=== PATIENT | female | born 1940 | race Asian ===

== ENCOUNTER 2019-05-29 12:02 | Inpatient (IN) ==
[2019-05-29 12:32] LABS: Basophils # (auto) 0.01 K/uL (0-0.2); Basophils % (auto) 0.1 %; Eosinophils # (auto) 0.02 K/uL (0-0.5); Eosinophils % (auto) 0.1 %; Hematocrit (blood only) 43.6 % (37-47); Immature Granulocytes # (auto) 0.05 K/uL (0.00-0.02); Immature Granulocytes % (auto) 0.3 %; Lymphocytes # (auto) 1.53 K/uL (1.2-3.4); Lymphocytes % (auto) 9.9 %; Mean Corpuscular Hemoglobin 31.3 pg (25-34); Mean Corpuscular Hgb Conc 34.4 g/dL (32-36); Mean Corpuscular Volume 90.8 fL (80-100); Mean Platelet Volume 9.6 fL (7.4-10.4); Monocytes # (auto) 0.99 K/uL (0.11-0.59); Monocytes % (auto) 6.4 %; Neutrophils # (auto) 12.81 K/uL (1.4-6.5); Neutrophils % (auto) 83.2 %; Platelet Count 220 K/uL (130-400); White Blood Count 15.41 K/uL (4.8-10.8)
[2019-05-29 12:43] LABS: Partial Thromboplastin Time 26.2 Seconds (21.0-31.0); Prothrombin Time 10.6 Seconds (9.0-12.0)
[2019-05-29 12:49] LABS: Alanine Aminotransferase 16 U/L (12-78); Albumin Level 3.5 gm/dl (3.4-5.0); Aspartate Aminotransferase 30 U/L (15-37); BUN Creatinine Ratio 13.6 (10-20); Blood Urea Nitrogen 11 mg/dl (7-18); Calcium 9.3 mg/dl (8.5-10.1); Carbon Dioxide 25 mmol/L (21-32); Chloride 108 mmol/L (98-107); Creatinine Clr Calc Pharmacy 36.7 ml/min; Est GFR (African American) 81.9; Est GFR (Non-African American) 70.7; Glucose 122 mg/dl (70-99); Potassium 3.7 mmol/L (3.5-5.1); Sodium 140 mmol/L (136-145)
[2019-05-29 12:53] LABS: Albumin Globulin Ratio 0.8 (0.9-2); Alkaline Phosphatase 93 U/L (45-117); Bilirubin,Total 0.5 mg/dl (0.2-1); Globulin 4.3 gm/dl (2.5-4.0); Total Protein 7.8 gm/dl (6.4-8.2); Troponin I < 0.015 ng/ml (0-0.045)
--- NOTE | 2019-05-29 12:55 | XRay Report ---
XR chest 1V portable CLINICAL HISTORY: Cerebrovascular accident. COMPARISON STUDY: No previous studies for comparison. FINDINGS: Lung volumes are at the lower limits of normal. There is no consolidation or evidence for p ulmonary edema. There is mild cardiomegaly. Mediastinal contours are otherwise unremarkable. Is no pn eumothorax. There may be a trace right pleural effusion. IMPRESSION: Possible trace right pleural effusion with minimal right basilar opacity. ACT 112: Negative or not required by law. Electronically signed by: Usman Lynn M.D. 05/29/2019 12:54 PM
[2019-05-29 12:56] LABS: iSTAT Creatinine 0.5 mg/dl (0.6-1.3); iSTAT Hemoglobin 14.3 g/dl (12.0-16.0); iSTAT Ionized Calcium 1.19 mmol/l (1.12-1.32); iSTAT Potassium 3.5 mEq/L (3.3-5.0)
[2019-05-29] MEDS ORDERED: OPTIRAY 320 125ml IV PRN (12:58)
[2019-05-29] MEDS: SODIUM CHLORIDE 0.9% 1000ML 1,000 ML IV SCH ×2 (13:00→20:02)
[2019-05-29 13:34] LABS: Appearance Urine Clear (Clear); Bilirubin Urine Negative (Negative); Blood Urine 1+ (Negative); Color Urine Yellow; Glucose Urine UA Negative (Negative); Ketones Urine Negative (Negative); Leukocyte Esterase Urine Negative (Negative); Nitrite Urine Negative (Negative); Protein Urine Negative (Negative); Specific Gravity Urine 1.014 (1.000-1.030); Urobilinogen Urine Negative (Negative); pH Urine 6.5 (4.5-7.5)
--- NOTE | 2019-05-29 13:47 | CT Scan Report ---
CT OF THE HEAD WITHOUT CONTRAST CLINICAL HISTORY: Stroke evaluation COMPARISON STUDY: No previous studies for comparison. TECHNIQUE: Helical axial images of the head were obtained without IV contrast. Automated exposure con trol was utilized for the study. A dose lowering technique was utilized adhering to the principles o f ALARA. FINDINGS: No acute intracranial hemorrhage, midline shift or mass effect is present. Ventricular syst em is unremarkable for age. Basilar cisterns are patent. There are no extra axial collections. Modera te white matter hypodensity suggests small vessel disease. There is loss of pan-white differentiatio n is a 1.7 cm hypodensity within the left insular cortex on axial image 16 of 28. There is no mass ef fect. Small amount of left mastoid fluid is noted. Right sphenoid sinus is partially opacified. There are no significant calvarial abnormalities. IMPRESSION: 1. No acute intracranial hemorrhage or mass effect. 2. 1.7 cm hypodensity with loss of pan-white differentiation within the left insular cortex which craig ggests a small acute infarct. Findings discussed with Dr. Gonzalez at time of dictation. ACT 112: Negative or not required by law. Electronically signed by: Usman Lynn M.D. 05/29/2019 1:46 PM
--- NOTE | 2019-05-29 13:55 | CT Scan Report ---
CT ANGIOGRAPHY OF THE NECK WITH CONTRAST CLINICAL HISTORY: Cerebrovascular accident. COMPARISON STUDY: No previous studies for comparison. Technique: CT angiography of the carotid and vertebral arteries was obtained using ISVS 320 IV and 3D reconstruction on an independent workstation. NASCET criteria was utilized. Automated exposure c ontrol was utilized for the study. A dose lowering technique was utilized adhering to the principles of ALARA. CT DOSE: 1021.32 mGy.cm Findings: There is severe stenosis at the origin of the left vertebral artery. No additional stenoses within the major vessels of the neck are noted. There is mild plaque within the proximal left equine internship al carotid artery. There is no dissection or aneurysmal dilatation within the major vessels of the ne ck. Lung apices are clear. There is no cervical lymphadenopathy. There is no cervical spine fracture. Moderate atherosclerotic plaque of the aortic arch is noted. IMPRESSION: 1. 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 2. No additional stenoses within the major vessels of the neck. No dissection. Mild atherosclerotic p laque within the proximal left internal carotid artery. ACT 112: Negative or not required by law. Electronically signed by: Usman Lynn M.D. 05/29/2019 1:54 PM
[2019-05-29 13:56] LABS: Epithelial Cell Urine 0-5 /lpf (0-5); RBC Urine 0-4 /hpf (0-4); WBC Urine 0-5 /hpf (0-5)
[2019-05-29 13:57] LABS: Bacteria Urine Negative (Negative)
--- NOTE | 2019-05-29 13:59 | CT Scan Report ---
CTA ANGIOGRAPHY OF THE HEAD CLINICAL HISTORY: Cerebrovascular accident. COMPARISON STUDY: No previous studies for comparison. TECHNIQUE: Helical axial images of the head were obtained following uneventful intravenous administr ation of 120 cc of Optiray 320. Automated exposure control was utilized for the study. A dose lower ing technique was utilized adhering to the principles of ALARA. FINDINGS: Moderate to severe multifocal stenoses within the intracranial vessels are noted, including severe stenosis of the right P2 segment and severe stenosis of the left A2 segment. There is no intr acranial aneurysm. There is moderate plaque within the bilateral cavernous carotids. There is a 6 mm thrombus within a left M2 segment of the left sylvian fissure on axial image 117 of 234. Thrombus is nearly occlusive. No additional intraluminal thrombi are noted. Moderate stenosis of the basilar sharmila ry is noted. IMPRESSION: 1. 6 mm thrombus within the left M2 segment within the left sylvian fissure. This accounts for the ac wainwright infarct on head CT. Discussed with Dr. Gonzalez at time of dictation. 2. Moderate to severe multifocal stenoses within the intracranial vessels, as described above. ACT 112: Negative or not required by law. Electronically signed by: Usman Lynn M.D. 05/29/2019 1:58 PM
--- NOTE | 2019-05-29 14:58 | Emergency Department Note ---
Entered by Charleen Adame acting as a scribe for History of Present Illness General Chief complaint: Neuro Symptoms/Deficit Stated complaint: NEURO SYMPTOMS Source: patient and family (daughter) History of Present Illness Onset (ago): hour(s) (14) Location: head Pain Consistency: + other (worsening ) Quality: + other (neurological symptoms) Associated symptoms: + other (positive right-sided facial droop; positive difficulty speaking; positive slurred speech; negative increased weakness from baseline; negative trouble swallowing); no chest pain, no headaches and no shortness of breath Treatments prior to arrival: aspirin The patient is a 78 year old female who presents to the Emergency Room with complaints of worsening neurological symptoms that began at 2230 last night, approximately 14 hours prior to arrival, 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 The patient's daughter states that last night the patient vomited just prior to going to bed. The patient's daughter states that after going to bed, the patient noticed that she was having difficulty speaking. Per the patient's daughter, when she went to see the patient this morning at approximately 0930, the patient had right-sided facial droop and slurred speech. The patient's daughter denies increased weakness in the patient's arms and legs from baseline, but states that the patient previously had a mild stroke making her right side weaker than her left. The patient denies headache, chest pain, sh ortness of breath, and trouble swallowing. The patient's daughter states that the patient had aspirin this morning. Home Medications Home Medications Medication Instructions Recorded Confirmed Type Benzbromaron 25 mg PO DAILY 05/29/19 05/29/19 History aspirin 81 mg PO DAILY 05/29/19 05/29/19 History wbglvqbo-qkmba-fbuuz-CF borate 1 tab PO DAILY 05/29/19 05/29/19 History [[employer] [facility]] metoprolol tartrate 25 mg PO DAILY 05/29/19 05/29/19 History omega 3-lub-alj-fish oil [Fish Oil] 1 cap PO DAILY 05/29/19 05/29/19 History turmeric 400 mg PO DAILY 05/29/19 05/29/19 History Allergies Allergy/AdvReac Type Severity Reaction Status Date / Time SEAFOOD Allergy Rash Uncoded 05/29/19 13:30 Past Med/Surg History Medical History Hypertension Stroke Family History Other No pertinent family history in first degree relatives Social History Feels Safe at Home: Yes Smoking Status: Never smoker Review of Systems See HPI for pertinent positives & negatives. and A total of 10 systems reviewed and were otherwise negative Physical Exam Vital Signs Vital Signs - 24 hr 05/29/19 12:02 05/29/19 12:05 05/29/19 12:16 Temperature 36.7 C Temperature Source Oral Pulse Rate 61 64 Respiratory Rate 20 18 Respiratory Effort / Characteristics Non-Labored Spontaneous Respiratory Depth Normal Blood Pressure 165/89 H 168/87 H Blood Pressure Mean 114 124 Blood Pressure Position Sitting Pulse Oximetry 98 98 Oxygen Delivery Method Room Air Room Air Sepsis Recent Fever Within 48 Hours No Sepsis Action Taken by Nursing No Action Required 05/29/19 12:33 05/29/19 12:40 05/29/19 12:50 Temperature Temperature Source Pulse Rate 62 64 64 Respiratory Rate 15 18 15 Respiratory Effort / Characteristics Respiratory Depth Blood Pressure Blood Pressure Mean Blood Pressure Position Pulse Oximetry Oxygen Delivery Method Sepsis Recent Fever Within 48 Hours Sepsis Action Taken by Nursing 05/29/19 13:08 05/29/19 13:09 05/29/19 13:16 Temperature Temperature Source Pulse Rate 78 79 Respiratory Rate 27 H 21 Respiratory Effort / Characteristics Respiratory Depth Blood Pressure 168/88 H Blood Pressure Mean 125 Blood Pressure Position Pulse Oximetry Oxygen Delivery Method Sepsis Recent Fever Within 48 Hours Sepsis Action Taken by Nursing 05/29/19 13:20 05/29/19 13:30 Temperature Temperature Source Pulse Rate 76 73 Respiratory Rate 21 17 Respiratory Effort / Characteristics Respiratory Depth Blood Pressure Blood Pressure Mean Blood Pressure Position Pulse Oximetry Oxygen Delivery Method Sepsis Recent Fever Within 48 Hours Sepsis Action Taken by Nursing GENERAL: Sitting up in bed, slightly ill-appearing, non-toxic, no acute distress. EYE EXAM: normal conjunctiva PERRL and EOM's intact OROPHARYNX: no exudate, no erythema, lips, buccal mucosa, and tongue normal and mucous membranes are moist NECK: supple, no nuchal rigidity, no adenopathy, non-tender LUNGS: Clear to auscultation. Normal chest wall mechanics HEART: no murmurs, S1 normal and S2 normal ABDOMEN: abdomen soft, non-tender, normo-active bowel sounds, no masses, no rebound or guarding. BACK: Back is symmetrical on inspection and there is no deformity, no midline tenderness, no CVA tenderness. SKIN: no rashes and no bruising UPPER EXTREMITIES: upper extremities are grossly normal. LOWER EXTREMITIES: No pitting edema. NEURO EXAM: Normal sensorium, right-sided facial droop, slurred speech, no weakness of arms, no weakness of legs. Mild drift of right upper extremity. Finger to nose intact. Gross sensation intact. Course Course ED COURSE: Vital signs were reviewed and showed hypertension. The patients medical record was reviewed The above diagnostic studies were performed and reviewed. ED treatments and interventions as stated above. 1215: The patient was evaluated in room C8. A complete history and physical examination was performed. 1349: I paged [facility] TeleStroke. 1350: I discussed the case with Dr. Shahid Neurology who states that he will evaluate the images and get back to me. 1425: I discussed the case with Dr. Shahid Neurology who states that the patient is not a tPA candidate and not an interventional candidate. 1429: Upon reevaluation, the patient is resting comfortably. I discussed my findings with the patient and her family and the patient and her family understand and agree with the treatment plan. Based on the patients age, coexisting illnesses, exam and lab findings the decision to treat as an inpatient was made. The patient remained stable while under my care. 1440: The patient will be evaluated for further management. I discussed the case with Dr. She[facility] who accepts the patient for further evaluation. Administered Medications Sodium Chloride (Nss 1000ml) 1,000 mls @ 50 mls/hr IV .Q20H PERICO Stop: 06/28/19 12:29 Last Admin: 05/29/19 13:00 Dose: 50 mls/hr Documented by: [id number] Ioversol (Optiray 320 125ml) 120 ml IV ONCE PRN PRN Reason: Interaction Checking Stop: 06/02/19 12:57 Last Admin: 05/29/19 12:58 Dose: 120 ml Documented by: [id number] Medical Decision Making Differential Diagnosis Differential Diagnosis includes but is not limited to ischemic Stroke, hemorr hagic stroke, bells palsy, mass, neoplasm, migraine headache, seizure, subarachnoid hemorrhage, TIA, and transient global amnesia. Medical Records Attestation: I reviewed the patient's medical records. Home Medications Current Medication List: was personally reviewed by me Laboratory Data Attestation: I reviewed the patient's lab results. Result diagrams: 05/29/19 12:45 05/29/19 12:45 Lab Results 05/29/19 05/29/19 05/29/19 Range/Units 12:25 12:35 12:44 WBC (4.8-10.8) K/uL RBC (4.2-5.4) M/uL Hgb (12.0-16.0) g/dL POC Hgb 14.3 (12.0-16.0) g/dl Hct (37-47) % POC Hct 42 (37-47) % MCV (80-100) fL MCH (25-34) pg MCHC (32-36) g/dL RDW Std Deviation (36.4-46.3) fL RDW Coeff of Donis (11.5-14.5) % Plt Count (130-400) K/uL MPV (7.4-10.4) fL Immature Gran % (Auto) % Neut % (Auto) % Lymph % (Auto) % Bracken % (Auto) % Eos % (Auto) % Baso % (Auto) % Immature Gran # (Auto) (0.00-0.02) K/uL Neut # (Auto) (1.4-6.5) K/uL Lymph # (Auto) (1.2-3.4) K/uL Bracken # (Auto) (0.11-0.59) K/uL Eos # (Auto) (0-0.5) K/uL Baso # (Auto) (0-0.2) K/uL PT (9.0-12.0) Seconds INR (0.9-1.1) APTT (21.0-31.0) Seconds PTT Ratio POC Sodium 141 (135-144) mEq/L Sodium (136-145) mmol/L POC Potassium 3.5 (3.3-5.0) mEq/L Potassium (3.5-5.1) mmol/L POC Chloride 107 (101-112) mEq/L Chloride (98-107) mmol/L Carbon Dioxide (21-32) mmol/L POC Total CO2 22 L (24-31) mEq/l Anion Gap (3-11) POC Anion Gap 17.0 (16-25) mmol/L POC BUN 10 (7-18) mg/dl BUN (7-18) mg/dl Creatinine (0.6-1.2) mg/dl POC Creatinine 0.5 L (0.6-1.3) mg/dl Est Cr Clr Drug Dosing ml/min Est GFR ( Amer) Est GFR (Non-Af Amer) BUN/Creatinine Ratio (10-20) Glucose (70-99) mg/dl POC Glucose 116 H (70-99) POC Glucose (other) 113 H (70-99) mg/dl Calcium (8.5-10.1) mg/dl POC Ioniz Calcium Eddie 1.19 (1.12-1.32) mmol/l Magnesium (1.8-2.4) mg/dl Total Bilirubin (0.2-1) mg/dl AST (15-37) U/L ALT (12-78) U/L Alkaline Phosphatase (45-117) U/L Troponin I (0-0.045) ng/ml Total Protein (6.4-8.2) gm/dl Albumin (3.4-5.0) gm/dl Globulin (2.5-4.0) gm/dl Albumin/Globulin Ratio (0.9-2) Urine Color Urine Appearance (Clear) Urine pH (4.5-7.5) Ur Specific Nabb (1.000-1.030) Urine Protein (Negative) Urine Glucose (UA) (Negative) Urine Ketones (Negative) Urine Blood (Negative) Urine Nitrite (Negative) Urine Bilirubin (Negative) Urine Urobilinogen (Negative) Ur Leukocyte Esterase (Negative) Urine RBC (0-4) /hpf Urine WBC (0-5) /hpf Ur Epithelial Cells (0-5) /lpf Urine Bacteria (Negative) Blood Type O Positive Antibody Screen NEGATIVE 05/29/19 05/29/19 05/29/19 Range/Units 12:45 12:45 12:45 WBC 15.41 H (4.8-10.8) K/uL RBC 4.80 (4.2-5.4) M/uL Hgb 15.0 (12.0-16.0) g/dL POC Hgb (12.0-16.0) g/dl Hct 43.6 (37-47) % POC Hct (37-47) % MCV 90.8 (80-100) fL MCH 31.3 (25-34) pg MCHC 34.4 (32-36) g/dL RDW Std Deviation 40.0 (36.4-46.3) fL RDW Coeff of Donis 12.0 (11.5-14.5) % Plt Count 220 (130-400) K/uL MPV 9.6 (7.4-10.4) fL Immature Gran % (Auto) 0.3 % Neut % (Auto) 83.2 % Lymph % (Auto) 9.9 % Bracken % (Auto) 6.4 % Eos % (Auto) 0.1 % Baso % (Auto) 0.1 % Immature Gran # (Auto) 0.05 H (0.00-0.02) K/uL Neut # (Auto) 12.81 H (1.4-6.5) K/uL Lymph # (Auto) 1.53 (1.2-3.4) K/uL Bracken # (Auto) 0.99 H (0.11-0.59) K/uL Eos # (Auto) 0.02 (0-0.5) K/uL Baso # (Auto) 0.01 (0-0.2) K/uL PT 10.6 (9.0-12.0) Seconds INR 1.0 (0.9-1.1) APTT 26.2 (21.0-31.0) Seconds PTT Ratio 1.0 POC Sodium (135-144) mEq/L Sodium 140 (136-145) mmol/L POC Potassium (3.3-5.0) mEq/L Potassium 3.7 (3.5-5.1) mmol/L POC Chloride (101-112) mEq/L Chloride 108 H (98-107) mmol/L Carbon Dioxide 25 (21-32) mmol/L POC Total CO2 (24-31) mEq/l Anion Gap 6.0 (3-11) POC Anion Gap (16-25) mmol/L POC BUN (7-18) mg/dl BUN 11 (7-18) mg/dl Creatinine 0.79 (0.6-1.2) mg/dl POC Creatinine (0.6-1.3) mg/dl Est Cr Clr Drug Dosing 36.7 ml/min Est GFR ( Amer) 81.9 Est GFR (Non-Af Amer) 70.7 BUN/Creatinine Ratio 13.6 (10-20) Glucose 122 H (70-99) mg/dl POC Glucose (70-99) POC Glucose (other) (70-99) mg/dl Calcium 9.3 (8.5-10.1) mg/dl POC Ioniz Calcium Eddie (1.12-1.32) mmol/l Magnesium 2.0 (1.8-2.4) mg/dl Total Bilirubin 0.5 (0.2-1) mg/dl AST 30 (15-37) U/L ALT 16 (12-78) U/L Alkaline Phosphatase 93 (45-117) U/L Troponin I < 0.015 (0-0.045) ng/ml Total Protein 7.8 (6.4-8.2) gm/dl Albumin 3.5 (3.4-5.0) gm/dl Globulin 4.3 H (2.5-4.0) gm/dl Albumin/Globulin Ratio 0.8 L (0.9-2) Urine Color Urine Appearance (Clear) Urine pH (4.5-7.5) Ur Specific Nabb (1.000-1.030) Urine Protein (Negative) Urine Glucose (UA) (Negative) Urine Ketones (Negative) Urine Blood (Negative) Urine Nitrite (Negative) Urine Bilirubin (Negative) Urine Urobilinogen (Negative) Ur Leukocyte Esterase (Negative) Urine RBC (0-4) /hpf Urine WBC (0-5) /hpf Ur Epithelial Cells (0-5) /lpf Urine Bacteria (Negative) Blood Type Antibody Screen 05/29/19 Range/Units 13:15 WBC (4.8-10.8) K/uL RBC (4.2-5.4) M/uL Hgb (12.0-16.0) g/dL POC Hgb (12.0-16.0) g/dl Hct (37-47) % POC Hct (37-47) % MCV (80-100) fL MCH (25-34) pg MCHC (32-36) g/dL RDW Std Deviation (36.4-46.3) fL RDW Coeff of Donis (11.5-14.5) % Plt Count (130-400) K/uL MPV (7.4-10.4) fL Immature Gran % (Auto) % Neut % (Auto) % Lymph % (Auto) % Bracken % (Auto) % Eos % (Auto) % Baso % (Auto) % Immature Gran # (Auto) (0.00-0.02) K/uL Neut # (Auto) (1.4-6.5) K/uL Lymph # (Auto) (1.2-3.4) K/uL Bracken # (Auto) (0.11-0.59) K/uL Eos # (Auto) (0-0.5) K/uL Baso # (Auto) (0-0.2) K/uL PT (9.0-12.0) Seconds INR (0.9-1.1) APTT (21.0-31.0) Seconds PTT Ratio POC Sodium (135-144) mEq/L Sodium (136-145) mmol/L POC Potassium (3.3-5.0) mEq/L Potassium (3.5-5.1) mmol/L POC Chloride (101-112) mEq/L Chloride (98-107) mmol/L Carbon Dioxide (21-32) mmol/L POC Total CO2 (24-31) mEq/l Anion Gap (3-11) POC Anion Gap (16-25) mmol/L POC BUN (7-18) mg/dl BUN (7-18) mg/dl Creatinine (0.6-1.2) mg/dl POC Creatinine (0.6-1.3) mg/dl Est Cr Clr Drug Dosing ml/min Est GFR ( Amer) Est GFR (Non-Af Amer) BUN/Creatinine Ratio (10-20) Glucose (70-99) mg/dl POC Glucose (70-99) POC Glucose (other) (70-99) mg/dl Calcium (8.5-10.1) mg/dl POC Ioniz Calcium Eddie (1.12-1.32) mmol/l Magnesium (1.8-2.4) mg/dl Total Bilirubin (0.2-1) mg/dl AST (15-37) U/L ALT (12-78) U/L Alkaline Phosphatase (45-117) U/L Troponin I (0-0.045) ng/ml Total Protein (6.4-8.2) gm/dl Albumin (3.4-5.0) gm/dl Globulin (2.5-4.0) gm/dl Albumin/Globulin Ratio (0.9-2) Urine Color Yellow Urine Appearance Clear (Clear) Urine pH 6.5 (4.5-7.5) Ur Specific Nabb 1.014 (1.000-1.030) Urine Protein Negative (Negative) Urine Glucose (UA) Negative (Negative) Urine Ketones Negative (Negative) Urine Blood 1+ H (Negative) Urine Nitrite Negative (Negative) Urine Bilirubin Negative (Negative) Urine Urobilinogen Negative (Negative) Ur Leukocyte Esterase Negative (Negative) Urine RBC 0-4 (0-4) /hpf Urine WBC 0-5 (0-5) /hpf Ur Epithelial Cells 0-5 (0-5) /lpf Urine Bacteria Negative (Negative) Blood Type Antibody Screen Imaging Data Radiologist's Impression: Radiology results as stated below per my review and the radiologist's interpretation: XR chest 1V portable CLINICAL HISTORY: Cerebrovascular accident. COMPARISON STUDY: No previous studies for comparison. FINDINGS: Lung volumes are at the lower limits of normal. There is no consolidation or evidence for pulmonary edema. There is mild cardiomegaly. Mediastinal contours are otherwise unremarkable. Is no pneumothorax. There may be a trace right pleural effusion. IMPRESSION: Possible trace right pleural effusion with minimal right basilar opacity. ACT 112: Negative or not required by law. Electronically signed by: Usman Lynn M.D. 05/29/2019 12:[address] OF THE HEAD WITHOUT CONTRAST CLINICAL HISTORY: Stroke evaluation COMPARISON STUDY: No previous studies for comparison. TECHNIQUE: Helical axial images of the head were obtained without IV contrast. Automated exposure control was utilized for the study. A dose lowering technique was utilized adhering to the principles of ALARA. FINDINGS: No acute intracranial hemorrhage, midline shift or mass effect is present. Ventricular system is unremarkable for age. Basilar cisterns are p atent. There are no extra axial collections. Moderate white matter hypodensity suggests small vessel disease. There is loss of pan-white differentiation is a 1.7 cm hypodensity within the left insular cortex on axial image 16 of 28. There is no mass effect. Small amount of left mastoid fluid is noted. Right sphenoid sinus is partially opacified. There are no significant calvarial abnormalities. IMPRESSION: 1. No acute intracranial hemorrhage or mass effect. 2. 1.7 cm hypodensity with loss of pan-white differentiation within the left insular cortex which suggests a small acute infarct. Findings discussed with Dr. Gonzalez at time of dictation. ACT 112: Negative or not required by law. Electronically signed by: Usman Lynn M.D. 05/29/2019 1:46 PM CTA ANGIOGRAPHY OF THE HEAD CLINICAL HISTORY: Cerebrovascular accident. COMPARISON STUDY: No previous studies for comparison. TECHNIQUE: Helical axial images of the head were obtained following uneventful intravenous administration of 120 cc of Optiray 320. Automated exposure control was utilized for the study. A dose lowering technique was utilized adhering to the principles of ALARA. FINDINGS: Moderate to severe multifocal stenoses within the intracranial vessels are noted, including severe stenosis of the right P2 segment and severe stenosis of the left A2 segment. There is no intracranial aneurysm. There is moderate plaque within the bilateral cavernous carotids. There is a 6 mm thrombus within a left M2 segment of the left sylvian fissure on axial image 117 of 234. Thrombus is nearly occlusive. No additional intraluminal thrombi are noted. Moderate stenosis of the basilar artery is noted. IMPRESSION: 1. 6 mm thrombus within the left M2 segment within the left sylvian fissure. This accounts for the acute infarct on head CT. Discussed with Dr. Gonzalez at time of dictation. 2. Moderate to severe multifocal stenoses within the intracranial vessels, as described above. ACT 112: Negative or not required by law. Electronically signed by: Usman Lynn M.D. 05/29/2019 1:[address] ANGIOGRAPHY OF THE NECK WITH CONTRAST CLINICAL HISTORY: Cerebrovascular accident. COMPARISON STUDY: No previous studies for comparison. Technique: CT angiography of the carotid and vertebral arteries was obtained using Optiray 320 IV and 3D reconstruction on an independent workstation. NASCET criteria was utilized. Automated exposure control was utilized for the study. A dose lowering technique was utilized adhering to the principles of ALARA. CT DOSE: 1021.32 mGy.cm Findings: There is severe stenosis at the origin of the left vertebral artery. No additional stenoses within the major vessels of the neck are noted. There is mild plaque within the proximal left internal carotid artery. There is no dissection or aneurysmal dilatation within the major vessels of the neck. Lung apices are clear. There is no cervical lymphadenopathy. There is no cervical spine fracture. Moderate atherosclerotic plaque of the aortic arch is noted. IMPRESSION: 1. 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 2. No additional stenoses within the major vessels of the neck. No dissection. Mild atherosclerotic plaque within the proximal left internal carotid artery. ACT 112: Negative or not required by law. Electronically signed by: Usman Lynn M.D. 05/29/2019 1:54 PM ECG Data Attestation: I personally reviewed and interpreted this ECG as follows: Indication: + weakness Rate (beats per minute): 62 Rhythm: + sinus rhythm ECG [place]: + Normal ECG Findings: + PVCs and + Other (poor baseline in inferior ) Blood Pressure Blood Pressure Findings: Elevated blood pressure Blood Pressure Disposition: further management by hospitalist JONNY Gomez Pt is an 78 y/o female with slurred speech and right sided facial droop which started last night at 10pm. IV was established blood work was obtained. Labs show a mild leukocytosis of 15,000. No significant anemia. INR was unremarkable. BMP along with LFTs bilirubin troponin was unremarkable. UA was negative. CT of the head along with CTA of the head and neck shows an subacute to acute CVA with an M2 branch occlusion. Patient was out of the TPA window and consequently a stroke alert was not called. This case was discussed with [facility] tele-stroke following the results of the CTA. Due to her minimal symptoms in combination with the flow beyond the occluded segment decision was made to treat her here. They recommended Plavix and aspirin. Patient family were updated bedside. Patient was admitted to the hospital for CVA. Impression & Plan Stroke, Slurred speech Discharge Plan Visit Data Chief Complaint: Neuro Symptoms/Deficit Stated Complaint: NEURO SYMPTOMS ED Provider: Ghassan Gonzalez Discharge Problem: Stroke, Slurred speech Patient Disposition: Being Evaluated by Hospitalist Forms Stand Alone Forms: My Click Contact Prescriptions Prescriptions: No Action aspirin 81 mg Tablet,Delayed Release (Dr/Ec) 81 mg PO DAILY RF: 0 metoprolol tartrate 25 mg Tablet 25 mg PO DAILY RF: 0 omega 7-doz-ivy-fish oil [Fish Oil] 1,000 mg (120 mg-180 mg) Capsule 1 cap PO DAILY RF: 0 AssayMetrics 750 mg-100 mg- 1.65 mg-108 mg Tablet 1 tab PO DAILY RF: 0 turmeric 400 mg Capsule 400 mg PO DAILY RF: 0 Benzbromaron 25 mg PO DAILY RF: 0 Referrals Referrals: Sanjiv Serrano [Primary Care Provider] - Discharge Problem: Stroke Qualifiers: CVA mechanism: thrombosis Precerebral and cerebral artery: unspecified cerebral artery Qualified Code(s): I63.30 - Cerebral infarction due to thrombosis of unspecified cerebral artery The nidaibgerardo's documentation has been prepared under my direction and personally reviewed by me in its entirety. I confirm that the note above accurately reflects all work, treatment, procedures, and medical decision making performed by me.
--- NOTE | 2019-05-29 15:46 | History & Physical Report ---
Date of Service May 29, 2019 Assessment & Plan (1) Stroke: Patient had a 1.7cm infarct in the left insular cortex which likely accounts for her symptoms. Patient be admitted to telemetry bed. Continue to monitor neurological status. Patient should continue with low-dose aspirin, Plavix has been added as well. Start atorvastatin 20 mg, check lipid panel. Check 2D echo. PT/OT evaluation. ER physician conveyed to me that he spoke to [facility] tel[facility]iology and then no acute intervention is needed at this time. We will ask neurology to evaluate the patient here for further recommendations. (2) Hypertension: Patient is on metoprolol at home. Will hold this for permissive hypertension for the next 24 hours. Consider restarting after 24 hours. (3) Vertebral artery stenosis: Patient is significant vertebral artery stenosis, unclear if this is an incidental finding. Await neurology evaluation, may need routine vascular surgery consultation, either inpatient or outpatient. History of Present Illness Primary Care Provider: Sanjiv Serrano This is a 78-year-old Moroc[place] female with past medical history of hypertension that presents today with facial droop and slurred speech. Patient speaks only Moroccan, the patient's granddaughter is in the room translating but does not know some of the details a history. Apparently the patient was doing well until yesterday evening. She had a stomachache which had resolved. However, she noted facial droop as well as some blurry vision. Her granddaughter tells me the speech is a little dysarthric as well. The patient states that she did not seek medical attention at that time with a sleep. However, the next morning the patient did not see any improvement in her symptoms. The patient's daughter noted the abnormalities and pressured her mother to seeking medical attention. At the time my evaluation, patient has persistent right facial droop and speech abnormality. She tells me the patient did take an aspirin this morning prior to arrival. Patient does not appear to be in any acute cardiopulmonary distress and is giving appropriate answers to the granddaughter on questions. Allergies Allergy/AdvReac Type Severity Reaction Status Date / Time SEAFOOD Allergy Rash Uncoded 05/29/19 13:30 Home Medications Home Medications Medication Instructions Recorded Confirmed Type Benzbromaron 25 mg PO DAILY 05/29/19 05/29/19 History aspirin 81 mg PO DAILY 05/29/19 05/29/19 History oaxbeiny-qbkbw-wbilr-CF borate 1 tab PO DAILY 05/29/19 05/29/19 History [Move Free varinode] metoprolol tartrate 25 mg PO DAILY 05/29/19 05/29/19 History omega 6-cqh-job-fish oil [Fish Oil] 1 cap PO DAILY 05/29/19 05/29/19 History turmeric 400 mg PO DAILY 05/29/19 05/29/19 History Past Med/Surg History Medical History Hypertension Stroke Family History Other No pertinent family history in first degree relatives Social History Feels Safe at Home: Yes Smoking Status: Never smoker Review of Systems Constitutional: no fever and no chills Ear, Nose, Mouth, Throat: as per Subjective / HPI Respiratory: no cough, no dyspnea and no wheezing Cardiovascular: no chest pain, no dyspnea on exertion, no palpitations and no edema Gastrointestinal: + abdominal pain; no nausea, no vomiting, no constipation and no diarrhea/loose stools Genitourinary: no dysuria, no difficulty urinating, no urinary frequency and no urinary hesitancy Integumentary: as per Subjective / HPI Neurologic: + abnormal speech; no gait abnormality, no seizure-like activity, no syncope, no headache(s) and no confusion Physical Exam Constitutional: well nourished and + language barrier; no acute distress Neck: trachea midline, no thyromegaly Respiratory: Auscultation: lungs clear to auscultation bilaterally; no crackles, no rales, no rhonchi and no wheezes Cardiovascular: Rate/Rhythm: regular rate and regular rhythm Heart Sounds: normal S1 and normal S2 Vessels: no JVD and no carotid bruit Extremities: no edema Gastrointestinal (Abdomen): Percussion/Palpation: abdomen soft; abdomen nontender, no guarding, abdomen not rigid and no hepatosplenomegaly Musculoskeletal: no cyanosis or clubbing, extremities motor strength 5/5 Neurologic: patellar DTR's 2+ bilat, sensation intact Speech / Cognition: + abnormal speech Motor/Sensory: normal movement, no fasciculations and no pronator drift Cranial Nerves: + abnormal facial strength (Right lower facial droop. No tongue deviation. No upper facial weakness) Results & Data Vital Signs (Past 12 Hours) Vital Signs Temp Pulse Resp BP Pulse Ox 05/29/19 13:30 73 17 05/29/19 13:20 76 21 05/29/19 13:16 79 21 05/29/19 13:09 168/88 H 05/29/19 13:08 78 27 H 05/29/19 12:50 64 15 05/29/19 12:40 64 18 05/29/19 12:33 62 15 05/29/19 12:16 64 18 168/87 H 05/29/19 12:05 36.7 C 61 20 165/89 H 98 05/29/19 12:02 98 Laboratory Results WBCs is 15.41, rest of CBC is normal. INR is 1. Chemistry is essentially normal with creatinine 0.5. Glucose is 122. LFTs are normal. UA shows 1+ blood but is otherwise negative. Diagnostic Findings CT OF THE HEAD WITHOUT CONTRAST CLINICAL HISTORY: Stroke evaluation COMPARISON STUDY: No previous studies for comparison. TECHNIQUE: Helical axial images of the head were obtained without IV contrast. Automated exposure control was utilized for the study. A dose lowering technique was utilized adhering to the principles of ALARA. FINDINGS: No acute intracranial hemorrhage, midline shift or mass effect is present. Ventricular system is unremarkable for age. Basilar cisterns are patent. There are no extra axial collections. Moderate white matter hypodensity suggests small vessel disease. There is loss of pan-white differentiation is a 1.7 cm hypodensity within the left insular cortex on axial image 16 of . There is no mass effect. Small amount of left mastoid fluid is noted. Right sphenoid sinus is partially opacified. There are no significant calvarial abnormalities. IMPRESSION: 1. No acute intracranial hemorrhage or mass effect. 2. 1.7 cm hypodensity with loss of pan-white differentiation within the left insular cortex which suggests a small acute infarct. Findings discussed with Dr. Gonzalez at time of dictation. -- CTA ANGIOGRAPHY OF THE HEAD CLINICAL HISTORY: Cerebrovascular accident. COMPARISON STUDY: No previous studies for comparison. TECHNIQUE: Helical axial images of the head were obtained following uneventful intravenous administration of 120 cc of Optiray 320. Automated exposure control was utilized for the study. A dose lowering technique was utilized adhering to the principles of ALARA. FINDINGS: Moderate to severe multifocal stenoses within the intracranial vessels are noted, including severe stenosis of the right P2 segment and severe stenosis of the left A2 segment. There is no intracranial aneurysm. There is moderate plaque within the bilateral cavernous carotids. There is a 6 mm thrombus within a left M2 segment of the left sylvian fissure on axial image 117 of 234. Thrombus is nearly occlusive. No additional intraluminal thrombi are noted. Moderate stenosis of the basilar artery is noted. IMPRESSION: 1. 6 mm thrombus within the left M2 segment within the left sylvian fissure. This accounts for the acute infarct on head CT. Discussed with Dr. Gonzalez at time of dictation. 2. Moderate to severe multifocal stenoses within the intracranial vessels, as described above. --- CT ANGIOGRAPHY OF THE NECK WITH CONTRAST CLINICAL HISTORY: Cerebrovascular accident. COMPARISON STUDY: No previous studies for comparison. Technique: CT angiography of the carotid and vertebral arteries was obtained using [employer] 320 IV and 3D reconstruction on an independent workstation. NASCET criteria was utilized. Automated exposure control was utilized for the study. A dose lowering technique was utilized adhering to the principles of ALARA. CT DOSE: 1021.32 mGy.cm Findings: There is severe stenosis at the origin of the left vertebral artery. No additional stenoses within the major vessels of the neck are noted. There is mild plaque within the proximal left internal carotid artery. There is no dissection or aneurysmal dilatation within the major vessels of the neck. Lung apices are clear. There is no cervical lymphadenopathy. There is no cervical spine fracture. Moderate atherosclerotic plaque of the aortic arch is noted. IMPRESSION: 1. 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 2. No additional stenoses within the major vessels of the neck. No dissection. Mild atherosclerotic plaque within the proximal left internal carotid artery. PG Care Time/CCT Total # of Minutes Spent Total Time Spent with Patient: Total time spent is greater than 50% in coordination of care (as documented) at patient's floor/unit and/or counseling patient: (1) Stroke CVA mechanism: thrombosis Precerebral and cerebral artery: unspecified cerebral artery Qualified Code(s): I63.30 - Cerebral infarction due to thrombosis of unspecified cerebral artery
[2019-05-29] MEDS: CLOPIDOGREL BISULFATE 300 MG TAB PO STA ×2 (16:15→16:21)
[2019-05-29] MEDS ORDERED: ONDANSETRON INJ 2 MG/ML 2 ML VIAL IV PRN (19:09)
[2019-05-29] MEDS ORDERED: ACETAMINOPHEN 325 MG TAB PO PRN (19:09)
[2019-05-29] MEDS ORDERED: PHARMACIST DISCHARGE MED REC CONSULT PRN (19:09)
[2019-05-29] MEDS ORDERED: ENOXAPARIN INJ 40 MG/0.4 ML SYR SQ SCH (20:00)
[2019-05-30 05:58] LABS: Basophils # (auto) 0.01 K/uL (0-0.2); Basophils % (auto) 0.1 %; Eosinophils # (auto) 0.07 K/uL (0-0.5); Eosinophils % (auto) 0.8 %; Hematocrit (blood only) 39.4 % (37-47); Hemoglobin 13.3 g/dL (12.0-16.0); Immature Granulocytes # (auto) 0.03 K/uL (0.00-0.02); Immature Granulocytes % (auto) 0.3 %; Lymphocytes % (auto) 12.9 %; Mean Corpuscular Hemoglobin 30.2 pg (25-34); Mean Corpuscular Hgb Conc 33.8 g/dL (32-36); Mean Corpuscular Volume 89.3 fL (80-100); Mean Platelet Volume 9.3 fL (7.4-10.4); Monocytes # (auto) 0.79 K/uL (0.11-0.59); Monocytes % (auto) 8.5 %; Neutrophils # (auto) 7.23 K/uL (1.4-6.5); Neutrophils % (auto) 77.4 %; Platelet Count 158 K/uL (130-400); RDW Coefficient of Variation 12.3 % (11.5-14.5); RDW Standard Deviation 39.4 fL (36.4-46.3); Red Blood Count 4.41 M/uL (4.2-5.4); White Blood Count 9.33 K/uL (4.8-10.8)
[2019-05-30] MEDS: SODIUM CHLORIDE 0.9% 1000ML 1,000 ML IV SCH ×2 (06:06→07:32)
[2019-05-30 06:28] LABS: Calcium 7.9 mg/dl (8.5-10.1); Creatinine Clr Calc Pharmacy 49.9 ml/min; Est GFR (African American) 100.9; Est GFR (Non-African American) 87.1; Potassium 3.1 mmol/L (3.5-5.1)
[2019-05-30] MEDS: POTASSIUM CHLORIDE / WTR 10 MEQ/100 ML PLCT IV SCH ×4 (08:59→13:11)
[2019-05-30] MEDS: POTASSIUM CHLORIDE 40 MEQ in SODIUM CHLORIDE 0.9% 1000ML 1,000 ML IV SCH ×2 (08:59→21:39)
[2019-05-30] MEDS ORDERED: [UNRECOGNIZED DRUG - OTHER] PO SCH (09:00)
[2019-05-30] MEDS ORDERED: NON-FORMULARY MEDICATION (Turmeric 400 MG) PO SCH (09:00)
[2019-05-30] MEDS ORDERED: NON-FORMULARY MEDICATION (Glucosam-Chond-Hyalu-Cf Borate [Move Free Joint Health] 1 TAB) PO SCH (09:00)
[2019-05-30] MEDS: ASPIRIN 81 MG ECTAB PO SCH (10:18)
[2019-05-30] MEDS: ATORVASTATIN 20 MG TAB PO SCH (10:18)
[2019-05-30] MEDS: CLOPIDOGREL BISULFATE 75 MG TAB PO SCH (10:19)
[2019-05-30] MEDS: OMEGA-3 (PURIFIED FISH OIL) 1 GM CAP PO SCH (10:19)
--- NOTE | 2019-05-30 10:35 | Neurology Consultation ---
Date of Consultation May 30, 2019 Assessment & Plan (1) Stroke: Acute to subacute left insular stroke in the context of an occluded left M2 segment of the middle cerebral artery. Clinically, this patient has an incomplete expressive aphasia and mild right facial droop. She also has mild dysmetria for the right arm and leg but does not have a significant hemiparesis. Stroke risk factors for this patient include hypertension, dyslipidemia, and atherosclerotic change of the intracranial and cervical vasculature. At this point, I agree with the addition of clopidogrel to her medication regimen given that the current stroke occurred while on daily low-dose aspirin therapy and in the presence of moderate to severe multifocal stenosis within her intracranial circulation. I also agree with the addition of a statin to her medication regimen. If this patient's clinical status were to deteriorate, would reconsult the tele-stroke specialist at [facility] for reconsideration of thrombectomy. However, at this point, the potential risks of this procedure likely outweigh the benefit. Continue with conservative management of patient's hypertension, current blood pressure appropriate. Would avoid dropping systolic blood pressure below 140 at this time to avoid hypoperfusion injury. Follow-up with results of MRI of the brain and echocardiogram. Consultations with PT/OT/speech therapy. No further immediate recommendations. Please contact me if I may be of further assistance. (2) Vertebral artery stenosis: The severe stenosis of the proximal left vertebral artery on CT angiography of the neck is an incidental finding. There is no defined role for surgical intervention for vertebral artery disease. Medical management is the current standard of care and will consists of antiplatelet and statin therapy as above. History of Present Illness Reason for Consultation: Stroke Requesting Physician: Daniel Sheppard DO Attending Physician: Raj Dodge MD History of Present Illness The patient is an 78-year-old female with a chief complaint of expressive speech difficulty that was noted prior to going to bed the evening prior (approximately 14 hours) prior to her arrival in the emergency department. Her symptoms were still present the following morning and were associated with a right facial droop but no obvious weakness of the right arm or leg. Past medical history notable for a previous stroke that resulted in some chronic right-sided weakness. Patient has been taking daily low-dose aspirin for stroke prevention. Past medical history also notable for hypertension. Patient does not speak Chadian, her daughter is present at bedside and functions as a reliable wedding transportation driver. A CT of the head completed during this patient's assessment in the emergency department revealed a 1.7 cm hypodensity within the left insular cortex suggestive of a small acute to subacute infarct, no hemorrhage. I reviewed the images as well as the radiologist's interpretation of this test. CT angiography of the neck revealed mild plaque within the proximal left internal carotid artery and a 6 mm thrombus within the left M2 segment of the left sylvian fissure. Moderate to severe multifocal stenoses within the intracranial vessels also identified. The emergency department attending had discussed her case with the [facility] stroke specialist. She was not an appropriate candidate for TPA given timing of symptom onset. Furthermore, following results of this patient CT angiography, it was not felt as if she was an appropriate candidate for thrombectomy or intravascular i ntervention given her minimal symptoms and evidence of flow beyond the occluded segment. She was giving a loading dose of clopidogrel and is currently prescribed both daily low-dose aspirin and clopidogrel for stroke risk reduction. Atorvastatin has also been started. This patient's blood pressure has been modestly elevated. Additional details as below. Allergies Allergy/AdvReac Type Severity Reaction Status Date / Time SEAFOOD Allergy Rash Uncoded 05/29/19 13:30 Home Medications Home Medications Medication Instructions Recorded Confirmed Type Benzbromaron 25 mg PO DAILY 05/29/19 05/29/19 History aspirin 81 mg PO DAILY 05/29/19 05/29/19 History xjsjcqyq-dmhqj-ulimd-CF borate 1 tab PO DAILY 05/29/19 05/29/19 History [Move Free [facility]] metoprolol tartrate 25 mg PO DAILY 05/29/19 05/29/19 History omega 5-cot-vou-fish oil [Fish Oil] 1 cap PO DAILY 05/29/19 05/29/19 History turmeric 400 mg PO DAILY 05/29/19 05/29/19 History Patient History Medical History Hypertension Stroke Family History Other No pertinent family history in first degree relatives Social History Preferred Language: Mandarin Spanish Communication Ability: Effective Shovel Oiler Required: Yes Beliefs That Will Affect Care: None Current Living Situation: Family Other Information That Helps Us Care for You: No Feels Safe at Home: Yes Safety Concerns: Feels Safe At This Time Smoking Status: Never smoker Hx Alcohol Use: No Hx Substance Use: No Review of Systems Constitutional: + fatigue; no fever and no chills Eyes: no blind spots and no diplopia Ear, Nose, Mouth, Throat: no hearing loss Respiratory: no cough and no dyspnea Cardiovascular: no chest pain and no palpitations Gastrointestinal: + cramping Genitourinary: no urinary incontinence Musculoskeletal: no neck pain and no myalgia Integumentary: no rash and no lesions Neurologic: as per Subjective / HPI Psychiatric: no depression and no anxiety Hematologic / Lymphatic: no easy bleeding and no easy bruising Physical Exam Physical Exam: The patient is a well-developed, well-nourished elderly female. She is mildly lethargic and fully oriented. Recent and remote memory intact. Attention and concentration normal. Patient exhibits difficulty with object naming. She is able to repeat simple phrases and follow simple commands. Patient exhibits an age-appropriate fund of knowledge. Visual deshpande full to confrontation. Visual acuity normal. Pupils equal round reactive to light and accommodation. Eye movements normal. There is no ptosis, nystagmus, or ophthalmoplegia. Facial sensation intact. There is a mild right facial droop noted. Hearing intact. Palate elevates to midline. Shoulder shrug intact. Tongue protrudes to midline. Sensation intact all modalities in all 4 limbs. Deep tendon reflexes are intact and symmetrical for the arms and legs. Right plantar response upgoing, left plantar response downgoing. There is mild dysmetria ijgywe-yh-afcj and lgtf-eb-siht on the right, no dysmetria with lvgpav-ky-umij or oqau-il-chks on the left. Ophthalmoscopic examination reveals normal-appearing optic disks and posterior segments. No papilledema or hemorrhages. Carotid pulses normal bilaterally, no bruits to auscultation. Gait and station not tested due to safety concerns. Muscle strength appears fairly normal and symmetrical for the arms and legs. There is no pronator drift. No gross hemiparesis. Muscle tone normal throughout. No atrophy. No abnormal movements observed. Results & Data Vital Signs (Past 12 Hours) Vital Signs Temp Pulse Pulse Resp BP Pulse Ox 05/30/19 07:07 36.7 C 76 20 155/75 H 97 05/30/19 03:23 36.6 C 76 18 179/73 H 97 05/30/19 00:05 36.5 C 80 18 148/79 H 94 05/30/19 00:00 74 Laboratory Results WBC 9.33, hemoglobin 13.3, hematocrit 39.4, platelet count 158, sodium 141, pota ssium 3.1, BUN 9, creatinine 0.58, glucose 83, calcium 7.9, magnesium 2.0, AST 30, ALT 16, troponin less than 0.015, triglycerides 202, cholesterol 218, LDL 137, VLDL 40, HDL [address] of the head reveals a 1.7 cm hypodensity with loss of pan-white differentiation within the left insular cortex suggestive of a small acute to subacute infarct. I reviewed the images as well as the radiologist's interpretation of this test. A CT angiogram of the head reveals a 6 mm thrombus within the left M2 segment within the left sylvian fissure accounting for the findings observed on CT of the head. There is also evidence of moderate to severe multifocal stenoses within the intracranial vessels. A CT angiogram of the neck reveals severe stenosis at the origin of the left vertebral artery. No evidence of significant stenosis within the other major vessels of the neck. No dissection. There is mild atherosclerotic plaque within the left internal carotid artery. An echocardiogram reveals a sinus rhythm with marked sinus arrhythmia, 62 bpm. (1) Stroke CVA mechanism: thrombosis Precerebral and cerebral artery: unspecified cerebral artery Qualified Code(s): I63.30 - Cerebral infarction due to thrombosis of unspecified cerebral artery
--- NOTE | 2019-05-30 12:08 | Magnetic Resonance Report ---
MR brain wo con HISTORY: 78 years-old Female CVA acute strokelike symptoms COMPARISON: CT head, CTA head neck of same day TECHNIQUE: Multiplanar multisequence MRI of the brain was obtained without the use of IV contrast. FINDINGS: Localizer images demonstrate no gross extracranial abnormality. Restricted diffusion of the spence ra diata left frontal lobe with decreased signal on ADC map measures up to 1.6 cm. Additional restricted diffusion involves the left insula measuring up to 2.2 cm in diameter with decreased ADC signal. The se foci demonstrate increased signal on the T2/FLAIR series compatible with areas of acute to subacut e infarction. No acute territorial infarct. 9 mm linear focus of restricted diffusion involving the i nferomedial right cerebellar hemisphere is secondary to T2 shine through secondary to encephalomalaci a and remote infarct. No acute intracranial hemorrhage, midline shift, abnormal extra-axial collection, hydrocephalus or in tracranial mass. Mild age-related involutional changes. Moderate T2/FLAIR hyperintensities about the white matter suggest chronic microvascular ischemic disease. Major flow voids at the level the skull base appear patent. Moderate left mastoid effusion. Mild mucosal thickening of the ethmoid sinuses an d nasal turbinates. Skull, orbits and soft tissues are unremarkable. Prior bilateral cataract repair. IMPRESSION: 1. Acute to subacute appearing infarctions of the left frontal lobe spence radiata and left insula as above with associated cytotoxic edema. 2. No acute intracranial hemorrhage or midline shift. 3. Age-related involutional changes with moderate chronic microvascular ischemic disease. 4. Remote infarct of the right cerebellar hemisphere. ACT 112: Negative or not required by law. The above report was generated using voice recognition software. It may contain grammatical, syntax o r spelling errors. Electronically signed by: Ben Willson M.D. 05/30/2019 12:06 PM
--- NOTE | 2019-05-30 16:56 | Hospitalist Progress Note ---
Date of Service May 30, 2019 Assessment & Plan (1) Stroke: MRI brain on 05/30 showed two 1-2 cm acute to subacute appearing infarctions of the left frontal lobe spence radiata and left insula with associated cytotoxic edema. - Neurology consulted - Repeat CT head on 05/31. Low threshold to discuss with [place] for a thrombectomy if her symptoms worsen or she decompensates. - Echo on 05/30 showed EF 60-65%, no thrombus, no FPO. - Continue aspirin & Plavix, statin - PT/OT/ACTIVE DIRECTORY ENGINEER -> Daughter reports she has no insurance and not eligible for Medicare/Medicaid. Concerned that she will not be able to afford rehab. CM consulted. (2) Hypertension: BP was 150/75 today. - Metoprolol was initially held. - Restart tomorrow AM. (3) Vertebral artery stenosis: CTA head/neck on 05/29 showed significant vertebral artery stenosis. Evaluated by neurology with no inpatient needs. - Risk reduction (4) DVT prophylaxis: Lovenox - Dose-reduced for weight Subjective Feels the right face has a slightly more pronounced droop today. Otherwise, his strength is normal. Reports no fevers/chills, chest pain, shortness of breath, abdominal pain, nausea, or vomiting. Physical Exam Constitutional: WD/WN, vitals as above Eyes: EOM intact bilaterally; no conjunctival abnormality ENMT: external ear and nose normal, oropharynx normal Neck: trachea midline, no thyromegaly normal visual inspection Respiratory: normal respiratory effort, lungs clear to auscultation no respiratory distress Cardiovascular: RRR, no murmur, no edema Gastrointestinal (Abdomen): Inspection/Auscultation: abdomen normal to inspection; abdomen not distended Musculoskeletal: no cyanosis or clubbing, extremities motor strength 5/5 Skin: no rashes, warm and dry Neurologic: moves all extremities and awake Speech / Cognition: normal speech Cranial Nerves: normal facial strength (Right facial droop) Psychiatric: Orientation: alert, oriented to person and cooperative Results & Data Vital Signs (Past 12 Hours) Vital Signs Temp Pulse Pulse Resp BP BP Pulse Ox 05/30/19 15:58 37.0 C 79 19 150/76 H 97 05/30/19 12:01 36.9 C 71 16 144/72 H 98 05/30/19 10:51 36.5 C 73 18 153/76 H 96 05/30/19 07:07 36.7 C 76 20 155/75 H 97 PG Care Time/CCT Total # of Minutes Spent Total Time Spent with Patient: Total time spent is greater than 50% in coordination of care (as documented) at patient's floor/unit and/or counseling patient: (1) Stroke CVA mechanism: thrombosis Precerebral and cerebral artery: unspecified cerebral artery Qualified Code(s): I63.30 - Cerebral infarction due to thrombosis of unspecified cerebral artery
[2019-05-30] MEDS ORDERED: ENOXAPARIN INJ 30 MG/0.3 ML SYR SQ SCH (21:00)
[2019-05-31 05:48] LABS: Estimated Average Glucose 108 mg/dl; Hemoglobin A1C 5.4 % (4.5-5.6)
[2019-05-31 06:22] LABS: Hematocrit (blood only) 39.3 % (37-47); Hemoglobin 13.4 g/dL (12.0-16.0); Mean Corpuscular Hemoglobin 30.8 pg (25-34); Mean Corpuscular Hgb Conc 34.1 g/dL (32-36); Mean Corpuscular Volume 90.3 fL (80-100); Mean Platelet Volume 9.8 fL (7.4-10.4); Platelet Count 155 K/uL (130-400); RDW Coefficient of Variation 12.2 % (11.5-14.5); RDW Standard Deviation 39.9 fL (36.4-46.3); Red Blood Count 4.35 M/uL (4.2-5.4); White Blood Count 10.59 K/uL (4.8-10.8)
[2019-05-31 07:04] LABS: BUN Creatinine Ratio 13.4 (10-20); Calcium 8.3 mg/dl (8.5-10.1); Creatinine Clr Calc Pharmacy 52.7 ml/min; Est GFR (African American) 102.7; Est GFR (Non-African American) 88.6; Potassium 3.9 mmol/L (3.5-5.1)
[2019-05-31 08:42] VITALS: O2SAT 96
[2019-05-31] MEDS: ATORVASTATIN 20 MG TAB PO SCH (08:45)
[2019-05-31] MEDS: OMEGA-3 (PURIFIED FISH OIL) 1 GM CAP PO SCH (08:45)
[2019-05-31] MEDS: CLOPIDOGREL BISULFATE 75 MG TAB PO SCH (08:45)
[2019-05-31] MEDS: ASPIRIN 81 MG ECTAB PO SCH (08:45)
[2019-05-31] MEDS ORDERED: METOPROLOL SUCC 25MG EXT REL TAB PO SCH (09:00)
[2019-05-31] MEDS: POTASSIUM CHLORIDE 40 MEQ in SODIUM CHLORIDE 0.9% 1000ML 1,000 ML IV SCH (10:50)
[2019-05-31 15:44] VITALS: PULSE 120; TEMP 98.1
[2019-05-31] MEDS ORDERED: STROKE PATIENT DISCHARGE STA (16:38)
--- NOTE | 2019-05-31 16:41 | Discharge Summary ---
Date of Service May 31, 2019 Admission HPI Per Admitting Provider This is a 78-year-old Faroese female with past medical history of hypertension that presents today with facial droop and slurred speech. Patient speaks only Faroese, the patient's granddaughter is in the room translating but does not know some of the details a history. Apparently the patient was doing well until yesterday evening. She had a stomachache which had resolved. However, she noted facial droop as well as some blurry vision. Her granddaughter tells me the speech is a little dysarthric as well. The patient states that she did not seek medical attention at that time with a sleep. However, the next morning the patient did not see any improvement in her symptoms. The patient's daughter noted the abnormalities and pressured her mother to seeking medical attention. At the time my evaluation, patient has persistent right facial droop and speech abnormality. She tells me the patient did take an aspirin this morning prior to arrival. Patient does not appear to be in any acute cardiopulmonary distress and is giving appropriate answers to the granddaughter on questions. Admission Exam Per Admitting Provider Constitutional: well nourished and + language barrier; no acute distress Neck: trachea midline, no thyromegaly Respiratory: Auscultation: lungs clear to auscultation bilaterally; no crackles, no rales, no rhonchi and no wheezes Cardiovascular: Rate/Rhythm: regular rate and regular rhythm Heart Sounds: normal S1 and normal S2 Vessels: no JVD and no carotid bruit Extremities: no edema Gastrointestinal (Abdomen): Percussion/Palpation: abdomen soft; abdomen nontender, no guarding, abdomen not rigid and no hepatosplenomegaly Musculoskeletal: no cyanosis or clubbing, extremities motor strength 5/5 Neurologic: patellar DTR's 2+ bilat, sensation intact Speech / Cognition: + abnormal speech Motor/Sensory: normal movement, no fasciculations and no pronator drift Cranial Nerves: + abnormal facial strength (Right lower facial droop. No tongue deviation. No upper facial weakness) Principal Diagnosis 1. Left frontal spence radiata and insular and acute infarct 2. Atrial fibrillation with RVR 3. Hypertension Discharge Exam Constitutional well nourished and + language barrier; no acute distress Neck trachea midline, no thyromegaly Respiratory Auscultation: lungs clear to auscultation bilaterally; no crackles, no rales, no rhonchi and no wheezes Cardiovascular Rate/Rhythm: regular rate and regular rhythm Heart Sounds: normal S1 and normal S2 Vessels: no JVD and no carotid bruit Extremities: no edema Gastrointestinal (Abdomen) Percussion/Palpation: abdomen soft; abdomen nontender, no guarding, abdomen not rigid and no hepatosplenomegaly Musculoskeletal no cyanosis or clubbing, extremities motor strength 5/5 Neurologic patellar DTR's 2+ bilat, sensation intact Speech / Cognition: + abnormal speech Motor/Sensory: normal movement, no fasciculations and no pronator drift Cranial Nerves: + abnormal facial strength (Right lower facial droop. No tongue deviation. No upper facial weakness) Discharge Data Allergies Allergy/AdvReac Type Severity Reaction Status Date / Time Poultry Allergy Unknown Verified 05/31/19 15:26 shellfish derived Allergy Rash Verified 05/31/19 15:25 Consultations 05/29/19 14:47 ED Decision to Admit Stat 05/29/19 19:09 Consult Case Management - Discharge Planning Routine Consult Neurology Routine Ordered Studies 05/29/19 12:26 CT angio head w con Stat CT angio neck with con Stat CT head/brain wo con Stat 05/30/19 19:09 MR brain wo con Routine MR brain wo con HISTORY: 78 years-old Female CVA acute strokelike symptoms COMPARISON: CT head, CTA head neck of same day TECHNIQUE: Multiplanar multisequence MRI of the brain was obtained without the use of IV contrast. FINDINGS: Localizer images demonstrate no gross extracranial abnormality. Restricted diffusion of the spence radiata left frontal lobe with decreased signal on ADC map measures up to 1.6 cm. Additional restricted diffusion involves the left insula measuring up to 2.2 cm in diameter with decreased ADC signal. These foci demonstrate increased signal on the T2/FLAIR series compatible with areas of acute to subacute infarction. No acute territorial infarct. 9 mm linear focus of restricted diffusion involving the inferomedial right cerebellar hemisphere is secondary to T2 shine through secondary to encephalomalacia and remote infarct. No acute intracranial hemorrhage, midline shift, abnormal extra-axial collection, hydrocephalus or intracranial mass. Mild age-related involutional changes. Moderate T2/FLAIR hyperintensities about the white matter suggest chronic microvascular ischemic disease. Major flow voids at the level the skull base appear patent. Moderate left mastoid effusion. Mild mucosal thickening of the ethmoid sinuses and nasal turbinates. Skull, orbits and soft tissues are unremarkable. Prior bilateral cataract repair. IMPRESSION: 1. Acute to subacute appearing infarctions of the left frontal lobe spence radiata and left insula as above with associated cytotoxic edema. 2. No acute intracranial hemorrhage or midline shift. 3. Age-related involutional changes with moderate chronic microvascular ischemic disease. 4. Remote infarct of the right cerebellar hemisphere. Hospital Course (1) Stroke: MRI brain on 05/30 showed two 1-2 cm acute to subacute appearing infarctions of the left frontal lobe spence radiata and left insula with associated cytotoxic edema. - Neurology consulted - Repeat CT head on 05/31. Low threshold to discuss with [facility] for a thrombectomy if her symptoms worsen or she decompensates. - Echo on 05/30 showed EF 60-65%, no thrombus, no FPO. - Continue aspirin & Plavix, statin - PT/OT/HEALTH TYPE TECHNICIAN -> Daughter reports she has no insurance and not eligible for Medicare/Medicaid. Concerned that she will not be able to afford rehab. CM consulted. (2) Hypertension: BP was 150/75 today. - Metoprolol was initially held. - Restart tomorrow AM. (3) Vertebral artery stenosis: CTA head/neck on 05/29 showed significant vertebral artery stenosis. Evaluated by neurology with no inpatient needs. - Risk reduction (4) DVT prophylaxis: Lovenox - Dose-reduced for weight Total Time Total Time Spent Total Time Spent (In Minutes): Excess of 30 minutes was spent discharging the patient Discharge Plan Discharge Items Patient Disposition: Home - Self-Care Reason For Visit: CVA Discharge Diagnosis: 1. CVA, 1-2 cm acute to subacute appearing infarcts in the left frontal lobe spence radiata and left insula 2. Atrial fibrillation, rapid ventricular rate 3. Hypertension 4. Incidental finding of vertebral artery stenosis Weightbearing: Full weightbearing Non-emergency contact: Primary Care Provider and Neurologist Follow-up/Referrals: Mango Meadows MD [Physician] - Sanjiv Serrano [Primary Care Provider] - Diet: Heart Healthy Addtl Attending Provider Instructions: Will need to get a 2d echo in the near future (ultrasound of your heart) Pending Studies at Discharge: No Stand-Alone Forms: My [employer], Smoking Cessation Medications and DC Order Prescriptions: New atorvastatin 20 mg Tablet 20 mg PO QAM Qty: 30 RF: 0 metoprolol tartrate 50 mg tablet 50 mg PO BID Qty: 60 RF: 0 Eliquis 5 mg tablet 5 mg PO BID Qty: 60 RF: 0 Continued aspirin 81 mg Tablet,Delayed Release (Dr/Ec) 81 mg PO DAILY RF: 0 Move Free [facility] 750 mg-100 mg- 1.65 mg-108 mg Tablet 1 tab PO DAILY RF: 0 turmeric 400 mg Capsule 400 mg PO DAILY RF: 0 Benzbromaron 25 mg PO DAILY RF: 0 Discontinued metoprolol tartrate 25 mg Tablet 25 mg PO DAILY RF: 0 omega [id number] oil [Fish Oil] 1,000 mg (120 mg-180 mg) Capsule 1 cap PO DAILY RF: 0 Discharge Orders: Discharge Order (Routine); Ordered 05/31/19 Ordered By: Daniel Sheppard Admission Data Admit Date/Time: 05/29/19 15:53 Attending Provider: Daniel Sheppard Admit Provider: Daniel Sheppard Primary Care Provider: Sanjiv Serrano Other Providers: Mango Meadows ; Raj Dodge
[2019-05-31 16:52] VITALS: BP 147/77
--- NOTE | 2019-05-31 18:09 | Pharmacy Report ---
Pharmacist Stroke Counseling - Date of Service May 31, 2019 - Scope: Pharmacy has been consulted to provide medication discharge counseling for this patient admitted with [ischemic stroke] [hemorrhagic stroke] [transient ischemic attack] as per the Pharmacist Discharge Counseling for Stroke Patients [employer] [facility]. - Medications on Discharge: Home Medications Medication Instructions Recorded Confirmed Benzbromaron 25 mg PO DAILY 05/29/19 05/29/19 Move Free [employer] 1 tab PO DAILY 05/29/19 05/29/19 aspirin 81 mg PO DAILY 05/29/19 05/29/19 turmeric 400 mg PO DAILY 05/29/19 05/29/19 New Rx's Medication Instructions Recorded apixaban [Eliquis] 2.5 mg PO BID #60 tab 05/31/19 atorvastatin 20 mg PO QAM #30 tab 05/31/19 clopidogrel 75 mg PO QAM #30 tab 05/31/19 metoprolol tartrate 50 mg PO BID #60 tab 05/31/19 - Action: The above medications, specifically ones for stroke treatment/prophylaxis, have been reviewed in detail with the patient and/or patient treasury representative(s) prior to discharge. This includes indication, common adverse reactions, drug interactions, and medication administration. Medication counseling has been employed using the teach-back method to ensure understanding. - Outcome: The patient and/or patient treasury representative(s) have demonstrated understanding of the medications. Please note, they are aware that the pharmacist will call them within 72 hours post-discharge to confirm that the appropriate medications are being taken and answer any further medication related questions the patient might have at that time. Contact information Individual to be contacted: patient's daughter Serrano Relationship to patient (if applicable): daughter Phone number: [phone] Best time to call: any Additional comments: Patient accompanied with family during interview. Patient does not speak any Arabic. Daughter participated in interview and can speak Arabic and familiar with medications. Verified with provider using eliquis for atrial fibrillation. New medications on discharge including atorvastatin, eliquis and metoprolol (increasing dose). Verified medications with provider on discharge before going up to quitline counselor patient. Does appear provider edited medication list after speaking with him and decided to also continue plavix. Unclear duration of dual therapy with plavix and aspirin. Likely will need addressed with outpatient PCP/neurology. Neurology did recommend low dose aspirin, plavix and statin to medication list on discharge for stroke prevention. No other pertinent positives on interview. Thank you for allowing pharmacy to be involved in the care of this patient. Please call [phone] or [phone] with any additional questions
--- NOTE | 2019-06-03 15:51 | Pharmacy Report ---
Pharmacist Post D/C Phone Note - Phone Note: Date of phone call: June 03, 2019. Individual with whom pharmacist spoke to: Zach (patients daughter) The following questions were reviewed during the phone call with responses listed below each: Can you tell me the medications that you are currently taking as well as when and how you take each medication? -See Table Below When have you missed any doses of your medications? Patient has not taken apixaban since discharge due to cost. Zach has been in contact with [facility]. She was given a form to fill out to obtain apixaban for free. She stated that she needs Dr. Sheppard to sign this form. I provided her with the phone number for the [facility] navigator, Aleksandra Johnson. What side effects are you having from your medications, specifically, the new medications you were started on? Patient complains of stomach upset and believes it is from the atorvastatin. I suggested moving atorvastatin to bedtime administration. I advised Zach to have her mother take aspirin with food (although she was on aspirin CONDITIONER TUMBLER so it is unlikely that this is the culprit). What questions do you have about your medications? - Zach stated that her mother has a h/o of stomach ulcers and asked if she should continue taking aspirin. I advised her to make sure her outpatient provider is aware of this given that her risk of bleeding is increased with being on aspirin + plavix + apixaban. Defer that decision to them. What problems are you having obtaining your medications? - see above When is your next appointment with your primary care doctor? - Zach reports patient had appt. with Dr. Meadows. She denies any medication changes from this appt. - Zach is working on arranging further f/u through [facility] Additional comments: - I advised Zach to discuss duration of dual antiplatelet therapy with outpatient provider (not addressed in discharge summary or packet). I contacted the [facility] Navigator to make them aware of patients lack of insurance coverage and need to outpatient follow up to address some of the above concerns. Aleksandra Hughes will attempt to contact Zach today. As per the Pharmacist Discharge Counseling for Stroke Patients Protocol, this phone call has been completed within 72 hours of discharge. Thank you for allowing us to be involved in the care of this patient. - Home Medications: Home Medications Medication Instructions Recorded Confirmed Benzbromaron 25 mg PO DAILY 05/29/19 05/29/19 Move Free [facility] 1 tab PO DAILY 05/29/19 05/29/19 aspirin 81 mg PO DAILY 05/29/19 05/29/19 turmeric 400 mg PO DAILY 05/29/19 05/29/19 New Rx's Medication Instructions Recorded apixaban [Eliquis] 2.5 mg PO BID #60 tab 05/31/19 atorvastatin 20 mg PO QAM #30 tab 05/31/19 clopidogrel 75 mg PO QAM #30 tab 05/31/19 metoprolol tartrate 50 mg PO BID #60 tab 05/31/19
== END 2019-05-31 17:53 | disposition home or self-care (01) | DRG 64 ==
LOC: ED 12:02 → SUATTDRO 15:53 → 2S 15:53

== ENCOUNTER 2023-01-21 10:33 | Inpatient (IN) ==
[2023-01-21 11:43] LABS: Basophils # (auto) 0.06 K/uL (0-0.2); Basophils % (auto) 0.5 %; Eosinophils # (auto) 0.03 K/uL (0-0.50); Eosinophils % (auto) 0.3 %; Hemoglobin 15.2 g/dl (12.0-16.0); Immature Granulocytes # (auto) 0.04 K/uL (0.01-0.20); Immature Granulocytes % (auto) 0.3 %; Lymphocytes # (auto) 1.55 K/uL (1.2-3.4); Lymphocytes % (auto) 13.4 %; Mean Corpuscular Hemoglobin 30.9 pg (25.0-34.0); Mean Corpuscular Hgb Conc 34.5 g/dL (32.0-36.0); Mean Corpuscular Volume 89.4 fL (80.0-100.0); Monocytes # (auto) 0.84 K/uL (0.11-0.59); Monocytes % (auto) 7.2 %; Neutrophils # (auto) 9.09 K/uL (1.40-6.50); Neutrophils % (auto) 78.3 %; Platelet Count 212 K/uL (130-400); RDW Coefficient of Variation 12.5 % (11.5-14.5); RDW Standard Deviation 40.9 fL (36.4-46.3); Red Blood Count 4.92 M/uL (4.20-5.40); White Blood Count 11.61 K/ul (4.8-10.8)
[2023-01-21 11:50] LABS: INR 1.1 (0.9-1.1); Partial Thromboplastin Time 28.1 Seconds (21.0-31.0); Prothrombin Time 11.9 Seconds (9.0-12.0)
[2023-01-21 12:09] LABS: Alanine Aminotransferase 53 U/L (7-52); Albumin Globulin Ratio 1.3 (0.9-2); Albumin Level 4.1 gm/dl (3.4-5.0); Alkaline Phosphatase 118 U/L (34-104); Anion Gap 9 (3-11); Aspartate Aminotransferase 64 U/L (13-39); BUN Creatinine Ratio 19.7 (10-20); Bilirubin,Total 1.3 mg/dl (0.2-1.0); Blood Urea Nitrogen 14 mg/dl (6-23); Calcium 9.5 mg/dl (8.6-10.3); Carbon Dioxide 26 mmol/L (21-32); Chloride 107 mmol/L (98-107); Est GFR (African American) 90.7 ml/min; Est GFR (Non-African American) 78.2 ml/min; Globulin 3.2 gm/dl (2.5-4.0); Glucose 93 mg/dl (70-99(Fasting)); Potassium 4.2 mmol/L (3.5-5.1); Sodium 142 mmol/L (136-145); Total Protein 7.3 gm/dl (6.0-8.3)
[2023-01-21 12:14] LABS: Troponin I High Sensitivity 12.1 pg/ml (0-14)
--- NOTE | 2023-01-21 12:37 | Emergency Department Note ---
History of Present Illness General Chief complaint: Fall Stated complaint: FALL, LEG WEAKNESS, IRREGULAR HEARTBEAT Time Seen by Provider: 01/21/23 12:16 Source: patient, family (Daughter is at the bedside and acted as an sales representative jewelry. I offered the language line but they declined), RN notes reviewed and old records reviewed (I have reviewed her old EKG from 2019 and she had A-fib at that time) Mode of arrival: ambulatory Limitations: no limitations History of Present Illness This patient is an 82-year-old female comes in after falling around 8:00 in the morning she said her right leg felt funny like a sharp shooting pain or weakness like electricity. She fell. She is only on the ground for about 10 minutes she rested she now feels better denies that she hit her head or her abdomen. She is able ambulate without difficulty now. She had no sensations of numbness or weakness on the right arm or face. No difficulty speaking or swallowing at present questionable earlier. No neck pain no shortness of breath or abdominal pain no extremity pain she has a minimal frontal headache now. No prolonged time on the ground. Daughter thought her pulse was irregular. She is on chronic anticoagulation with Eliquis and also apparently Plavix and has had a stroke in the past Home Medications Medication Instructions Recorded Confirmed Type Benzbromaron 25 mg PO DAILY 05/29/19 05/29/19 History aspirin 81 mg tablet,delayed 81 mg PO DAILY 05/29/19 05/29/19 History release glucosam 750 mg-chondroi 100 1 tab PO DAILY 05/29/19 05/29/19 History mg-hyalur 1.65 mg-CF borate 108 mg tablet ([facility] [employer] [facility]) turmeric 400 mg capsule 400 mg PO DAILY 05/29/19 05/29/19 History apixaban 2.5 mg tablet (Eliquis) 2.5 mg PO BID #60 tabs 05/31/19 Rx atorvastatin 20 mg tablet 20 mg PO QAM #30 tabs 05/31/19 Rx clopidogrel 75 mg tablet 75 mg PO QAM #30 tabs 05/31/19 Rx metoprolol tartrate 50 mg tablet 50 mg PO BID #60 tabs 05/31/19 Rx Allergies Allergy/AdvReac Type Severity Reaction Status Date / Time Poultry Allergy Unknown Verified 05/31/19 15:26 shellfish derived Allergy Rash Verified 05/31/19 15:25 Past Med/Surg History Medical History (Updated 01/21/23 @ 15:18 by Mango Metcalf MD) Hypertension Stroke Family History Other No pertinent family history in first degree relatives Social History Smoking Status: Never smoker Hx Alcohol Use: No Hx Substance Use: No Preferred Language: Mandarin Bhutanese Communication Ability: Effective Communication Tools: IPad and Other Electronics Engineer Required: Yes Beliefs That Will Affect Care: None marital status: / Current Living Situation: Family Feels Safe at Home: Yes Assistive Devices: None Review of Systems A total of 10 systems reviewed and were otherwise negative Physical Exam Vital Signs Vital Signs - 24 hr 01/21/23 10:42 Temperature 36.9 C Temperature Source Temporal Artery Scan Pulse Rate 118 H Respiratory Rate 18 Respiratory Effort / Characteristics Non-Labored Spontaneous Respiratory Depth Normal Blood Pressure 119/79 Blood Pressure Mean 92 Pulse Oximetry 96 Oxygen Delivery Method Room Air Sepsis Recent Fever Within 48 Hours No Sepsis New/Unexplained Change in Mental Status No Sepsis Action Taken by Nursing No Action Required General: Well developed well nourished older female who appears in no acute distress, breathing comfortably on room air. Normal speech HEENT: Normal cephalic atraumatic. Pupils are equal round and reactive to light. Extraocular movements are intact. Oropharynx is pink with moist mucous membranes. No swelling of the mouth lips or tongue. Neck: Supple with a midline trachea. No meningeal signs or stiffness, no JVD or bruits. No Stridor. Chest: Clear to auscultation bilaterally. No wheezes or rhonchi. No increased work of breathing. Heart: Regular rate and rhythm without murmurs or gallops. Abdomen: Soft nontender, nondistended without rebound guarding or rigidity. Extremities: No cyanosis clubbing or edema. No calf tenderness or assymetry. No redness or warmth. Normal distal pulses. No evidence of arterial compromise. Spine/Back. Non tender to palpation. No CVA tenderness Skin: Good turgor without rashes. Neurologic exam: Cranial nerves two through 12 are intact. Motor and sensation are intact and symmetrical throughout. No tremor. She is able ambulate normally at baseline with a cane. Course Administered Medications Discontinued Medications Sodium Chloride (Nss 1000ml) 500 mls @ 999 mls/hr IV .Q31M ONE Stop: 01/21/23 14:13 Last Admin: 01/21/23 14:55 Dose: 999 mls/hr Documented By: NRB Medical Decision Making Differential Diagnosis Traumatic injuries, arrhythmia, neurologic disease/CVA/TIA, fall, vascular disease, electrolyte or metabolic abnormality, intra-abdominal process Medical Records Attestation: I reviewed the patient's medical records. Home Medications Current Medication List: was personally reviewed by ga Laboratory Data Attestation: I reviewed the patient's lab results. 01/21/23 11:20 01/21/23 11:20 Lab Results 01/21/23 01/21/23 01/21/23 Range/Units 11:20 11:20 11:20 WBC 11.61 H (4.8-10.8) K/ul RBC 4.92 (4.20-5.40) M/uL Hgb 15.2 (12.0-16.0) g/dl Hct 44.0 (37.0-47.0) % MCV 89.4 (80.0-100.0) fL MCH 30.9 (25.0-34.0) pg MCHC 34.5 (32.0-36.0) g/dL RDW Std Deviation 40.9 (36.4-46.3) fL RDW Coeff of Donis 12.5 (11.5-14.5) % Plt Count 212 (130-400) K/uL MPV 10.0 (9.4-12.4) fL Immature Gran % (Auto) 0.3 % Neut % (Auto) 78.3 % Lymph % (Auto) 13.4 % [place] % (Auto) 7.2 % Eos % (Auto) 0.3 % Baso % (Auto) 0.5 % Neut # (Auto) 9.09 H (1.40-6.50) K/uL Lymph # (Auto) 1.55 (1.2-3.4) K/uL [place] # (Auto) 0.84 H (0.11-0.59) K/uL Eos # (Auto) 0.03 (0-0.50) K/uL Baso # (Auto) 0.06 (0-0.2) K/uL Immature Gran # (Auto) 0.04 (0.01-0.20) K/uL PT 11.9 (9.0-12.0) Seconds INR 1.1 (0.9-1.1) APTT 28.1 (21.0-31.0) Seconds PTT Ratio 1.0 Sodium 142 (136-145) mmol/L Potassium 4.2 (3.5-5.1) mmol/L Chloride 107 (98-107) mmol/L Carbon Dioxide 26 (21-32) mmol/L Anion Gap 9 (3-11) BUN 14 (6-23) mg/dl Creatinine 0.71 (0.6-1.2) mg/dl Est Cr Clr Drug Dosing Not Reportable Est GFR ( Amer) 90.7 ml/min Est GFR (Non-Af Amer) 78.2 ml/min BUN/Creatinine Ratio 19.7 (10-20) Glucose 93 (70-99(Fasting)) mg/dl Calcium 9.5 (8.6-10.3) mg/dl Total Bilirubin 1.3 H (0.2-1.0) mg/dl AST 64 H (13-39) U/L ALT 53 H (7-52) U/L Alkaline Phosphatase 118 H (34-104) U/L Troponin I High Sens 12.1 (0-14) pg/ml Total Protein 7.3 (6.0-8.3) gm/dl Albumin 4.1 (3.4-5.0) gm/dl Globulin 3.2 (2.5-4.0) gm/dl Albumin/Globulin Ratio 1.3 (0.9-2) Imaging Data Attestation: I personally reviewed and interpreted this imaging study as follows: My Impression: Head CT without contrastno hemorrhage or mass effect seen CT of abdomen and pelvis without contrastno free air Chest x-rayno acute infiltrate, failure, pneumothorax seen Radiologist's Impression: Abdomen/Pelvis CT 01/21/23 12:29 CT SCAN OF THE ABDOMEN AND PELVIS WITHOUT IV CONTRAST CLINICAL HISTORY: Fall. Elevated hepatic transaminases. COMPARISON STUDY: No priors TECHNIQUE: CT scan of the abdomen and pelvis is performed from the lung bases to the proximal femora. Images are reviewed in the axial, sagittal, and coronal planes. IV contrast was not administered for this examination. Note that examination is performed in suboptimal/V contrast. A dose lowering technique was utilized adhering to the principles of ALARA. The examination is degraded by motion artifact, as well as by streak artifact from the arms which could not be elevated above the abdomen. CT DOSE: 1054.80 mGy.cm FINDINGS: Lung bases: The heart is enlarged and without pericardial effusion. The coronary arteries are densely calcified. The lung bases are clear noting bibasilar scarring/atelectasis. No basilar pneumothorax is seen. Liver: The unenhanced liver is normal in size, contour, and attenuation. There is no intrahepatic biliary ductal dilatation. Gallbladder: The gallbladder is distended and there is faint pericholecystic infiltration. Spleen: Normal in size and attenuation. Pancreas: The unenhanced pancreas is grossly unremarkable. Adrenal glands: Unremarkable. Kidneys: The unenhanced kidneys are normal in size and without hydronephrosis. There are no renal calculi identified. There is no evidence of contour deforming renal mass lesion. Cortical scarring is noted on the left. Abdominal vasculature: The abdominal aorta is normal in course and caliber not ing moderate atherosclerotic calcification. Bowel: There is mild colonic diverticulosis without CT evidence of acute diverticulitis. No bowel obstruction is seen. There is a small duodenal diverticulum. The appendix is not visualized. Peritoneum: There is no intraperitoneal free air or abdominal ascites. Lymphadenopathy: None. Pelvic viscera: The bladder, uterus, and adnexa are normal as visualized. Skeletal structures: The skeletal structures are osteopenic. Mild lumbosacral spondylosis is observed. No lytic or blastic lesions are seen. IMPRESSION: 1. The examination is suboptimal without IV contrast. There is also streak and motion artifact 2. There is no evidence of solid organ injury in the abdomen or pelvis on this unenhanced examination. 3. The gallbladder is distended and there is faint surrounding infiltration. Findings are equivocal and a right upper quadrant ultrasound is recommended for further evaluation. 4. Cardiomegaly. 5. Additional findings as above. ACT 112: Negative or not required by law. Electronically signed by: Sunil Davenport M.D. 01/21/2023 1:[address] 01/21/23 12:29 CT head/brain wo con CLINICAL HISTORY: 82 years-old Female with fall. Acute head trauma status post fall TECHNIQUE: Multiple axial CT images of the head were obtained without contrast. A dose lowering technique was utilized adhering to the principles of ALARA. COMPARISON: Head CT 05/29/2019 FINDINGS: No acute intracranial hemorrhage, midline shift, intracranial mass, hydrocephal us, territorial ischemia or abnormal extra-axial collection. Involutional changes with chronic microvascular ischemic disease. Chronic infarct of the left frontal lobe operculum. Cerebral vascular calcifications. The calvarium is intact. Small left mastoid effusion. Paranasal sinuses are clear. Bilateral lens repair. IMPRESSION: No acute intracranial abnormality. ACT 112: Negative or not required by law. The above report was generated using voice recognition software. It may contain grammatical, syntax or spelling errors. Electronically signed by: Josep Willson M.D. 01/21/2023 1:07 PM Chest X-Ray 01/21/23 12:39 XR chest 2V PA/lateral HISTORY: 82 years-old Female fall acute chest trauma status post fall COMPARISON: 05/29/2019 TECHNIQUE: PA and lateral views of the chest FINDINGS: Cardiomediastinal and hilar silhouettes are within normal limits. Atherosclerosis of the aorta. Mild right hemidiaphragmatic elevation. No pneumothorax, pleural effusion, airspace consolidation or pulmonary edema. Bones appear grossly intact. Chronic blunting of the lateral right costophrenic angle. IMPRESSION: No acute process. ACT 112: Negative or not required by law. The above report was generated using voice recognition software. It may contain grammatical, syntax or spelling errors. Electronically signed by: Josep Willson M.D. 01/21/2023 1:22 PM Gallbladder Ultrasound 01/21/23 13:34 US gallbladder CLINICAL HISTORY: eval for gb disease TECHNIQUE: Multiple real-time sonographic images of the right upper quadrant were obtained. Comparison: Comparison is made to CT abdomen pelvis 01/21/2023 FINDINGS: The liver is diffusely homogenous with normal contour and echogenicity. No focal mass lesions are seen. No intrahepatic ductal dilatation is seen. There is thickening of the gallbladder wall measuring up to 5 mm. Trace pericholecystic edema is seen. A sonographic Santana's sign was not elicited by the milk powder grinder. The common duct measures 0.3 cm in diameter at the level of the hepatic artery. The visualized portions of the pancreas appear normal. The right kidney shows normal echogenicity, cortical thickness and renal c ontour. The right kidney shows no evidence of hydronephrosis or mass. No ascites or free fluid is seen in Adam's pouch. IMPRESSION: Thickening of the gallbladder wall with pericholecystic edema but negative Santana's sign. If the patient has not received pain medication, findings are less concerning for acute cholecystitis. Clinical correlation is recommended. ACT 112: Negative or not required by law. Electronically signed by: Brown Diaz M.D. 01/21/2023 2:26 PM ECG Data Attestation: I personally reviewed and interpreted this ECG as follows: Indication: + weakness Rate (beats per minute): 102 Rhythm: + atrial fibrillation (With a rate of 102, slightly tachycardic) ECG Intervals/blocks: + Normal QRS and + Normal QT ECG [place]: + Normal ECG ST segments: + Nonspecific ST abnormalities ECG Findings: no PACs or no PVCs Comparison ECG Date: from (05/31/2019) Change: no significant change MDM Narrative This patient comes in as described above she suffered a mechanical fall there is no syncope or loss of consciousness. She had a shooting pain and electricity in her right leg which lasted briefly is now gone she has a normal neurologic exam she is able ambulate without difficulty. I do not think is likely TIA or central neurologic process she is on anticoagulation. EKG shows slightly rapid A-fib I believe this is likely chronic as she is on Eliquis her last EKG 2019 s hows this as well she has no chest pain her troponin was not elevated white count is minimally elevated however do not find any signs to suggest infection otherwise. She has no significant electrolyte or metabolic abnormalities. Her LFTs are minimally elevated. I did see her in triage she is asymptomatic and feels well. I did order CAT scan of her head given the fact that she is on Eliquis although she does not have any head trauma she had a minimal headache. Also ordered a noncontrast CAT scan of her abdomen given the fact he is allergic to contrast. She was reassessed she is remained stable and she feels well. CAT scan of her head was unremarkable. Chest x-ray was unremarkable. CAT scan her abdomen is unremarkable with exception of potentially a dilated/gallbladder issue. I talked to the patient at length. She has no abdominal pain or nausea or fever. She does tend to get abdominal pain in the morning but this has been going on chronically. I did do an ultrasound. Ultrasound does show mildly dilated gallbladder with some fluid but a negative sonographic Santana sign. Although her symptoms are atypical I am concerned with her gallbladder looking abnormal in both the CAT scan and the ultrasound having abnormal LFTs that she does need to come into the hospital. She also had episode where she was weak in her right leg. I have consulted the medical team to come see her and additionally consulted surgery to see her. Impression & Plan Weakness, A-fib, Cholecystitis, Fall Discharge Plan Visit Data Chief Complaint: Fall Stated Complaint: FALL, LEG WEAKNESS, IRREGULAR HEARTBEAT ED Provider: Mango Metcalf Discharge Problem: Weakness, A-fib, Cholecystitis, Fall Forms Stand Alone Forms: My [facility] [employer] Prescriptions Prescriptions: No Action aspirin 81 mg Tablet,Delayed Release (Dr/Ec) 81 mg PO DAILY Rx Instructions: FAMILY IS UNSURE OF DOSAGE [employer] [facility] 750 mg-100 mg- 1.65 mg-108 mg Tablet 1 tab PO DAILY turmeric 400 mg Capsule 400 mg PO DAILY Benzbromaron 25 mg PO DAILY atorvastatin 20 mg Tablet 20 mg PO QAM Qty: 30 0RF metoprolol tartrate 50 mg tablet 50 mg PO BID Qty: 60 0RF clopidogrel 75 mg Tablet 75 mg PO QAM Qty: 30 0RF Eliquis 2.5 mg tablet 2.5 mg PO BID Qty: 60 0RF Referrals Referrals: [facility],Medicine [Primary Care Provider] - A-fib Qualifiers: Atrial fibrillation type: unspecified Qualified Code(s): I48.91 - Unspecified atrial fibrillation Fall Qualifiers: Encounter type: initial encounter Qualified Code(s): W19.XXXA - Unspecified fall, initial encounter
--- NOTE | 2023-01-21 13:08 | CT Scan Report ---
CT head/brain wo con CLINICAL HISTORY: 82 years-old Female with fall. Acute head trauma status post fall TECHNIQUE: Multiple axial CT images of the head were obtained without contrast. A dose lowering tech nique was utilized adhering to the principles of ALARA. COMPARISON: Head CT 05/29/2019 FINDINGS: No acute intracranial hemorrhage, midline shift, intracranial mass, hydrocephalus, territorial ischem ia or abnormal extra-axial collection. Involutional changes with chronic microvascular ischemic disea se. Chronic infarct of the left frontal lobe operculum. Cerebral vascular calcifications. The calvarium is intact. Small left mastoid effusion. Paranasal sinuses are clear. Bilateral lens re pair. IMPRESSION: No acute intracranial abnormality. ACT 112: Negative or not required by law. The above report was generated using voice recognition software. It may contain grammatical, syntax o r spelling errors. Electronically signed by: Josep Willson M.D. 01/21/2023 1:07 PM
--- NOTE | 2023-01-21 13:24 | XRay Report ---
XR chest 2V PA/lateral HISTORY: 82 years-old Female fall acute chest trauma status post fall COMPARISON: 05/29/2019 TECHNIQUE: PA and lateral views of the chest FINDINGS: Cardiomediastinal and hilar silhouettes are within normal limits. Atherosclerosis of the aorta. Mild right hemidiaphragmatic elevation. No pneumothorax, pleural effusion, airspace consolidation or pulmo nary edema. Bones appear grossly intact. Chronic blunting of the lateral right costophrenic angle. IMPRESSION: No acute process. ACT 112: Negative or not required by law. The above report was generated using voice recognition software. It may contain grammatical, syntax o r spelling errors. Electronically signed by: Josep Willson M.D. 01/21/2023 1:22 PM
--- NOTE | 2023-01-21 13:27 | CT Scan Report ---
CT SCAN OF THE ABDOMEN AND PELVIS WITHOUT IV CONTRAST CLINICAL HISTORY: Fall. Elevated hepatic transaminases. COMPARISON STUDY: No priors TECHNIQUE: CT scan of the abdomen and pelvis is performed from the lung bases to the proximal femora. Images are reviewed in the axial, sagittal, and coronal planes. IV contrast was not administered for this examination. Note that examination is performed in suboptimal/V contrast. A dose lowering techn ique was utilized adhering to the principles of ALARA. The examination is degraded by motion artifact , as well as by streak artifact from the arms which could not be elevated above the abdomen. CT DOSE: 1054.80 mGy.cm FINDINGS: Lung bases: The heart is enlarged and without pericardial effusion. The coronary arteries are densely calcified. The lung bases are clear noting bibasilar scarring/atelectasis. No basilar pneumothorax i s seen. Liver: The unenhanced liver is normal in size, contour, and attenuation. There is no intrahepatic fidelina iary ductal dilatation. Gallbladder: The gallbladder is distended and there is faint pericholecystic infiltration. Spleen: Normal in size and attenuation. Pancreas: The unenhanced pancreas is grossly unremarkable. Adrenal glands: Unremarkable. Kidneys: The unenhanced kidneys are normal in size and without hydronephrosis. There are no renal daisha culi identified. There is no evidence of contour deforming renal mass lesion. Cortical scarring is no pollo on the left. Abdominal vasculature: The abdominal aorta is normal in course and caliber noting moderate atheroscle rotic calcification. Bowel: There is mild colonic diverticulosis without CT evidence of acute diverticulitis. No bowel obs truction is seen. There is a small duodenal diverticulum. The appendix is not visualized. Peritoneum: There is no intraperitoneal free air or abdominal ascites. Lymphadenopathy: None. Pelvic viscera: The bladder, uterus, and adnexa are normal as visualized. Skeletal structures: The skeletal structures are osteopenic. Mild lumbosacral spondylosis is observed . No lytic or blastic lesions are seen. IMPRESSION: 1. The examination is suboptimal without IV contrast. There is also streak and motion artifact 2. There is no evidence of solid organ injury in the abdomen or pelvis on this unenhanced examination . 3. The gallbladder is distended and there is faint surrounding infiltration. Findings are equivocal a nd a right upper quadrant ultrasound is recommended for further evaluation. 4. Cardiomegaly. 5. Additional findings as above. ACT 112: Negative or not required by law. Electronically signed by: Sunil Davenport M.D. 01/21/2023 1:25 PM
[2023-01-21] MEDS ORDERED: SODIUM CHLORIDE 0.9% 1000ML 500 ML IV ONE (13:43)
--- NOTE | 2023-01-21 14:27 | Ultrasound Report ---
US gallbladder CLINICAL HISTORY: eval for gb disease TECHNIQUE: Multiple real-time sonographic images of the right upper quadrant were obtained. Comparison: Comparison is made to CT abdomen pelvis 01/21/2023 FINDINGS: The liver is diffusely homogenous with normal contour and echogenicity. No focal mass lesions are see n. No intrahepatic ductal dilatation is seen. There is thickening of the gallbladder wall measuri ng up to 5 mm. Trace pericholecystic edema is seen. A sonographic Santana's sign was not elicited by t coldfusion. The common duct measures 0.3 cm in diameter at the level of the hepatic artery. Th e visualized portions of the pancreas appear normal. The right kidney shows normal echogenicity, cortical thickness and renal contour. The right kidney sh ows no evidence of hydronephrosis or mass. No ascites or free fluid is seen in Adam's pouch. IMPRESSION: Thickening of the gallbladder wall with pericholecystic edema but negative Santana's sign. If the rachael ent has not received pain medication, findings are less concerning for acute cholecystitis. Clinical correlation is recommended. ACT 112: Negative or not required by law. Electronically signed by: Brown Diaz M.D. 01/21/2023 2:26 PM
--- NOTE | 2023-01-21 15:37 | History & Physical Report ---
Date of Service January 21, 2023 Assessment & Plan (1) Fall: Plan: -Admit to med/tele -Currently stable -Patient experienced a fall this am while walking with sudden onset of RLE muscle spasms -Patient has a benign neurologic exam, no trauma on exam, has been able to ambulate since arrival to the ED -At this time the etiology of the patient's RLE spasms and fall today is most likely due to her known herniated disc causing sciatic pain/discomfort -CT of the head is negative, do not think that she warrants an MRI of the Brain at this time -She is without red flag symptoms and currently comfortable, do not think she needs an MRI of her lumbar spine at this time -Will start with lidocaine patch and heat for back/leg pain, hold acetaminophen for now with elevated LFT's -Will obtain CK level as we are unsure how long she was on the ground for -Will keep NPO until she is evaluated by General Surgery -Will hold chemical DVT PPX until we know the plan for her elevated LFT's and possible cholecystitis -AM CBC, CMP, Mag, PT/INR (2) Elevated LFTs: Plan: -All LFT's mildly elevated today -Patient with RUQ abd pain with positive Santana's signs on exam -CT of the abd/pelvis and Gallbladder US concerning for possible acute cholecystitis -General Surgery will be evaluating the patient shortly -Willl obtain STAT MRCP for further evaluation -For now we will start her on Ceftriaxone and Flagyl -Will keep NPO and hold anticoagulants until we figure out if she is going to the OR -Avoid Hepatotoxic agents, monitor Daily LFT's (3) Muscle spasm of right leg: Plan: -See fall -Fall precautions ordered -PT/OR consults placed (4) A-fib: Plan: -Was noted to be in afib RVR with HR in the 110's on arrival -Currently stable with HR in the high 90's -Did not have her am dose of metoprolol, will give it now -Will hold Eliquis until we know if she will be going to the OR, if needed, can transition her to a heparin drip -Continue BID metoprolol tartrate -Continue to monitor on tele (5) Hypertension: Plan: -Stable -Continue metoprolol (6) Vertebral artery stenosis: Plan: -Stable -Continue aspirin Plan The patient was discussed with Dr. Mi at the time of the admission History of Present Illness Chief Complaint: Fall at home, leg pain/weakness Primary Care Provider: [facility] Anali Reed (Mandarin Speaking) is an 82 year old female with a PMH significant for afib on Eliquis, previous left-sided CVA, hyperlipidemia, and gout who presented to the [facility] ED on 01/21 after a fall at home. In the ED the patient was noted to be tachycardic with HR in the 110's but otherwise stable. Labs were significant for a leukocytosis of 11 with neutrophil count of 9.09, total bili of 1.3, AST of 64, ALT of 53, and alk phos of 118. CT of the head wo con was read as "No acute intracranial abnormality.". Chest xray was read as "No acute process.". CT of the abd/pelvis wo con was read as "1. The examination is suboptimal without IV contrast. There is also streak and motion artifact 2. There is no evidence of solid organ injury in the abdomen or pelvis on this unen hanced examination. 3. The gallbladder is distended and there is faint surrounding infiltration. Findings are equivocal and a right upper quadrant ultrasound is recommended for further evaluation. 4. Cardiomegaly. 5. Additional findings as above.". US of the gallbladder was read as "Thickening of the gallbladder wall with pericholecystic edema but negative Santana's sign. If the patient has not received pain medication, findings are less concerning for acute cholecystitis. Clinical correlation is recommended.". The patient was given 500 mL NSS and her symptoms appeared to improve. We were asked to admit the patient for further evaluation of her elevated LFT's and her fall. At the time of the exam the patient was sitting in the bedside chair in no acute distress with her Daughter sitting bedside, history was obtained from a professional lion hunter and the patient's daughter. The patient woke up in her normal state of health. She was walking in her home at approximately 0830 this am when she experienced a sudden onset of right LE cramping. These cramps caused her LE to feel weak and she fell to the ground. She denies hitting her head or losing consciousness. She is unsure how long she was on the ground for, she was eventually able to call her daughter. The patient denies any weakness or pain in her extremities. She notes that she has a herniated disc which is located in the low back and pushes to the right side. She has never had these leg spasms like this in the past and has had ambulatory dysfunction since her last stroke in 2019. She denies unilateral extremity weakness, new paresthesias, saddle anesthesia, loss of bowel or bladder function, and other recent falls. In regards to her chronic abdominal pain. She states that she has been experiencing RUQ pain with radiation to her right shoulder for "years". She states that it occurs every morning when waking and will also occur after waking from naps in the afternoon. She does not think it is associated with eating or drinking. She does not currently have the pain and has difficulty describing it. We discussed code status, she has a living will and clearly explained that she is a DNR/DNI. She states that she would not want aggressive measures if she were to clinically decline. Please refer to Dr. Mi's attestation for any changes to the treatment plan Allergies Allergy/AdvReac Type Severity Reaction Status Date / Time Poultry Allergy Because it Verified 01/21/23 17:04 raises uric acid. She is on allopurinal. shellfish derived Allergy Rash Verified 01/21/23 17:04 Home Medications Medication Instructions Recorded Confirmed Type Samantha Mathews Glucosamine 2 tab PO BID 01/21/23 01/21/23 History allopurinol 100 mg tablet 100 - 200 mg PO DAILY 01/21/23 01/21/23 History apixaban 2.5 mg tablet (Eliquis) 2.5 mg PO DAILY 01/21/23 01/21/23 History atorvastatin 20 mg tablet 20 mg PO Q OTHER DAY 01/21/23 01/21/23 History cholecalciferol (vitamin D3) 50 0 mcg PO Q OTHER DAY 01/21/23 01/21/23 History mcg (2,000 unit) capsule (Vitamin D3) clopidogrel 75 mg tablet (Plavix) 75 mg PO Q OTHER DAY 01/21/23 01/21/23 History famotidine 20 mg tablet 20 - 40 mg PO DAILY 01/21/23 01/21/23 History metoprolol succinate 25 mg 12.5 mg PO DAILY 01/21/23 01/21/23 History tablet,extended release 24 hr multivitamin 1 tab PO Q OTHER DAY 01/21/23 01/21/23 History Past Med/Surg History Medical History (Updated 01/22/23 @ 07:06 by Yoan Beckford MD, FACS) Hypertension Stroke Family History Other No pertinent family history in first degree relatives Social History Smoking Status: Never smoker Second Hand Exposure: No; Hx Alcohol Use: No Hx Substance Use: No Preferred Language: Mandarin Latvian Communication Ability: Effective Communication Ability Comment: daughter translated in ED; staff nurse fluent in Mandarin assisted w/admit Communication Tools: IPad and Other Mortgage Lender Required: Yes Beliefs That Will Affect Care: None marital status: / Current Living Situation: Family Feels Safe at Home: Yes Safety Concerns: Feels Safe At This Time Assistive Devices: Cane, Denture - Upper, Denture - Lower and Hearing Aid - Bilateral Physical Exam Physical Exam: Physical Exam: General: In no acute distress, stated age, well-nourished, non-toxic appearing HEENT: Normocephalic, atraumatic, no scleral icterus, pupils around round, symmetrical, and reactive to light, moist mucus membranes, trachea midline, no thyromegaly Chest/Pulm: No respiratory distress, symmetrical chest expansion, clear breath sounds throughout Cardiac: irregular rate and rhythm, no murmurs noted Abdomen: Negative for ascites and bruising, normoactive bowel sounds, soft, tender to palpation in the RUQ with positive Santana's sign Musculoskeletal: Symmetrical and without signs of acute trauma, upper and lower extremities with full ROM, no atrophy, spasticity, or flaccidity Extremities: Radial, dorsalis pedis, and posterior tibial pulses are intact and symmetrical, no edema noted in the BL LE's Skin: Warm, dry, no rashes , lesions, or scars noted Neuro: Alert and oriented to person, place, month, year, no focal defects, CN II-XII tested and intact, symmetrical strength and sensation in the BL upper and lower extremities, no tremors noted Psych: No acute distress, calm and cooperative during the exam Results & Data Results & Data Vital Signs (Past 12 Hours) Vital Signs Temp Pulse Resp BP Pulse Ox O2 Del Method 01/21/23 10:42 36.9 C 118 H 18 119/79 96 Room Air Laboratory Results Abnormal lab results 01/21/23 01/21/23 Range/Units 11:20 11:20 WBC 11.61 H (4.8-10.8) K/ul Neut # (Auto) 9.09 H (1.40-6.50) K/uL Cole # (Auto) 0.84 H (0.11-0.59) K/uL Total Bilirubin 1.3 H (0.2-1.0) mg/dl AST 64 H (13-39) U/L ALT 53 H (7-52) U/L Alkaline Phosphatase 118 H (34-104) U/L Diagnostic Findings Abdomen/Pelvis CT 01/21/23 12:29 CT SCAN OF THE ABDOMEN AND PELVIS WITHOUT IV CONTRAST CLINICAL HISTORY: Fall. Elevated hepatic transaminases. COMPARISON STUDY: No priors TECHNIQUE: CT scan of the abdomen and pelvis is performed from the lung bases to the proximal femora. Images are reviewed in the axial, sagittal, and coronal planes. IV contrast was not administered for this examination. Note that examination is performed in suboptimal/V contrast. A dose lowering technique was utilized adhering to the principles of ALARA. The examination is degraded by motion artifact, as well as by streak artifact from the arms which could not be elevated above the abdomen. CT DOSE: 1054.80 mGy.cm FINDINGS: Lung bases: The heart is enlarged and without pericardial effusion. The coronary arteries are densely calcified. The lung bases are clear noting bibasilar scarring/atelectasis. No basilar pneumothorax is seen. Liver: The unenhanced liver is normal in size, contour, and attenuation. There is no intrahepatic biliary ductal dilatation. Gallbladder: The gallbladder is distended and there is faint pericholecystic infiltration. Spleen: Normal in size and attenuation. Pancreas: The unenhanced pancreas is grossly unremarkable. Adrenal glands: Unremarkable. Kidneys: The unenhanced kidneys are normal in size and without hydronephrosis. There are no renal calculi identified. There is no evidence of contour deforming renal mass lesion. Cortical scarring is noted on the left. Abdominal vasculature: The abdominal aorta is normal in course and caliber noting moderate atherosclerotic calcification. Bowel: There is mild colonic diverticulosis without CT evidence of acute diverticulitis. No bowel obstruction is seen. There is a small duodenal diverticulum. The appendix is not visualized. Peritoneum: There is no intraperitoneal free air or abdominal ascites. Lymphadenopathy: None. Pelvic viscera: The bladder, uterus, and adnexa are normal as visualized. Skeletal structures: The skeletal structures are osteopenic. Mild lumbosacral spondylosis is observed. No lytic or blastic lesions are seen. IMPRESSION: 1. The examination is suboptimal without IV contrast. There is also streak and motion artifact 2. There is no evidence of solid organ injury in the abdomen or pelvis on this unenhanced examination. 3. The gallbladder is distended and there is faint surrounding infiltration. Findings are equivocal and a right upper quadrant ultrasound is recommended for further evaluation. 4. Cardiomegaly. 5. Additional findings as above. ACT 112: Negative or not required by law. Electronically signed by: Sunil Davenport M.D. 01/21/2023 1:[address] 01/21/23 12:29 CT head/brain wo con CLINICAL HISTORY: 82 years-old Female with fall. Acute head trauma status post fall TECHNIQUE: Multiple axial CT images of the head were obtained without contrast. A dose lowering technique was utilized adhering to the principles of ALARA. COMPARISON: Head CT 05/29/2019 FINDINGS: No acute intracranial hemorrhage, midline shift, intracranial mass, hydrocephalus, territorial ischemia or abnormal extra-axial collection. Involutional changes with chronic microvascular ischemic disease. Chronic infarct of the left frontal lobe operculum. Cerebral vascular calcifications. The calvarium is intact. Small left mastoid effusion. Paranasal sinuses are clear. Bilateral lens repair. IMPRESSION: No acute intracranial abnormality. ACT 112: Negative or not required by law. The above report was generated using voice recognition software. It may contain grammatical, syntax or spelling errors. Electronically signed by: Josep Willson M.D. 01/21/2023 1:07 PM Chest X-Ray 01/21/23 12:39 XR chest 2V PA/lateral HISTORY: 82 years-old Female fall acute chest trauma status post fall COMPARISON: 05/29/2019 TECHNIQUE: PA and lateral views of the chest FINDINGS: Cardiomediastinal and hilar silhouettes are within normal limits. Atherosclerosis of the aorta. Mild right hemidiaphragmatic elevation. No pneumothorax, pleural effusion, airspace consolidation or pulmonary edema. Bones appear grossly intact. Chronic blunting of the lateral right costophrenic angle. IMPRESSION: No acute process. ACT 112: Negative or not required by law. The above report was generated using voice recognition software. It may contain grammatical, syntax or spelling errors. Electronically signed by: Josep Willson M.D. 01/21/2023 1:22 PM Gallbladder Ultrasound 01/21/23 13:34 US gallbladder CLINICAL HISTORY: eval for gb disease TECHNIQUE: Multiple real-time sonographic images of the right upper quadrant were obtained. Comparison: Comparison is made to CT abdomen pelvis 01/21/2023 FINDINGS: The liver is diffusely homogenous with normal contour and echogenicity. No focal mass lesions are seen. No intrahepatic ductal dilatation is seen. There is thickening of the gallbladder wall measuring up to 5 mm. Trace pericholecystic edema is seen. A sonographic Santana's sign was not elicited by the mounter. The common duct measures 0.3 cm in diameter at the level of the hepatic artery. The visualized portions of the pancreas appear normal. The right kidney shows normal echogenicity, cortical thickness and renal contour. The right kidney shows no evidence of hydronephrosis or mass. No ascites or free fluid is seen in Adam's pouch. IMPRESSION: Thickening of the gallbladder wall with pericholecystic edema but negative Santana's sign. If the patient has not received pain medication, findings are less concerning for acute cholecystitis. Clinical correlation is recommended. ACT 112: Negative or not required by law. Electronically signed by: Brown Diaz M.D. 01/21/2023 2:26 PM ECG Additional Comments: Atrial fibrillation with rapid ventricular response Nonspecific T wave abnormality Abnormal ECG When compared with ECG of 31-MAY-2019 13:13, ST no longer depressed in Inferior leads ST no longer depressed in Anterior leads Nonspecific T wave abnormality, worse in Lateral leads Code Status & VTE Plan Code Status DNR/DNI VTE Prophylaxis Plan VTE Prophylaxis will be ordered: Yes Supervising Physician Co-Signing Physician Notes I personally saw and examined the patient. I verified all fu points and agree with Cole Jose PA-C with the following exceptions and/or additions: 82 year old female presents to the ER with right lower leg pain and fall associated with electric shock sensation. Also having RUQ pain on a daily basis not associated with food. O/E HS RRR, no murmurs, Chest CTAB, Abdo right upper quadrant tenderness, no guarding or rebound tenderness A/P Acute/chronic cholecystics - possible choledocholithiasis, MRCP ordered. Start ceftriaxone and metronidazole. Consult surgery. Defer GI consult as long as LFTs downtrending and MRCP negative. NPO. IV fluids. Lumbar radiculopathy - appears to be resolved. recommend follow up outpatient. Main reason she came to the ER, unlikely related to cholecystitis. PG Care Time/CCT Total # of Minutes Spent Total Time Spent with Patient: Total time spent is greater than 50% in coordination of care (as documented) at patient's floor/unit and/or counseling patient: Coding [place] [address] INT INP/OBS CARE 3/75MIN Patient Type Established Medical Decision Making High Complexity Diagnoses Fall W19.XXXA Encounter type: initial encounter Elevated LFTs R79.89 Muscle spasm of right leg M62.838 A-fib I48.91 Atrial fibrillation type: unspecified Hypertension I10 Vertebral artery stenosis I65.09 (1) Fall Encounter type: initial encounter Qualified Code(s): W19.XXXA - Unspecified fall, initial encounter (4) A-fib Atrial fibrillation type: unspecified Qualified Code(s): I48.91 - Unspecified atrial fibrillation
[2023-01-21 15:48] LABS: Lipase 15 U/L (11-82)
[2023-01-21] MEDS ORDERED: cefTRIAXone SODIUM 1,000 MG in DEXTROSE 5% 50 ML IV STA (16:33)
[2023-01-21] MEDS ORDERED: metroNIDAZOLE 500 MG/100 ML BAG IV STA (16:33)
[2023-01-21] MEDS ORDERED: PLASMA-LYTE A 500 ML IV ONE (16:34)
[2023-01-21] MEDS ORDERED: LIDOCAINE 5% 1 PATCH TD STA (16:36)
[2023-01-21 16:41] LABS: Creatine Kinase 59 U/L (26-192)
[2023-01-21] MEDS ORDERED: METOPROLOL TARTRATE 50 MG TAB PO STA (16:45)
--- NOTE | 2023-01-21 17:27 | Surgery Consultation ---
Date of Consultation January 21, 2023 Assessment & Plan (1) Elevated LFTs: This is an 82yF Mandarin speaking with a PMH of afib on eliquis, h/o stroke on plavix, HTN, who presents to the [facility] on 01/21/23 after sustaining a fall this AM. Majority of HPI obtained via professional cafeteria monitor via ipad and patient's daughter who lives with the patient. We have been consulted today as patient had mildly elevated LFTs- Tb 1.3, AST 64, ALT 53, Alkp 118, WBC 11 which prompted further imaging. A CT a/p which revealed a distended gallbladder with faint surrounding infiltration, equivocal for acute cholecystitis. Follow up with a RUQ US showed thickening of the gallbladder wall with pericholecystic edema but negative Santana's sign, findings are less concerning for acute cholecystitis. Vital signs show she is tachycardic 110-120s (history of afib), otherwise afebrile and normotensive. On exam patient is in no distress, abdomen is soft, with expressions of mild discomfort to palpation in the RUQ. No guarding/grimacing. Agree with hospitalist admission for further workup. An MRCP has been ordered for further evaluation. Would hold patient's plavix and eliquis in the event any procedures are indicated. From our standpoint may continue on a diet as tolerates, because of being on anticoagulation, if any procedures were to be performed it will not be in the next 24-48 hrs. Patient initially stated that she would not want any surgery, but daughter spoke up and said that if it were to take away any pain she would want it. If surgery was indicated we will have to re-discuss with patient/family their wishes. Supervising Physician Co-Signing Physician Notes Dr. Arechiga assessment and plan above Patient seen in the emergency room Patient could have contracted gallbladder with similar findings May consider HIDA scan, will follow her for now History of Present Illness History of Present Illness This is an 82yF Mandarin speaking with a PMH of afib on eliquis, h/o stroke on plavix, HTN, who presents to the [facility] ED on 01/21/23 after sustaining a fall this AM. Majority of HPI obtained via professional cafeteria monitor via IPAD and patient's daughter who lives with the patient. Apparently after the fall they went to urgent care, where she was found to be in an abnormal heart rhythm and recommended she be evaluated in the ER. Patient was found to have elevated LFTs which prompted imaging in the form of a CT a/p which revealed a distended gallbladder with faint surrounding infiltration, equivocal for acute cholecystitis. Follow up with a RUQ US showed thickening of the gallbladder wall with pericholecystic edema but negative Santana's sign, findings are less concerning for acute cholecystitis. Due to elevated LFTs and imaging our services were consulted. Per patient she has chest pain every AM at 6am in addition to a sensation of her "stomach dropping" and she has to lift it up to get out of bed. These two symptoms have been present for "years". She follows with cardiology as an outpatient for her afib. She also reports a history of diarrhea and nausea which are not new to her. She denies emesis, dizziness, or any issues with eating fatty/greasy foods in the past. She says her appetite is good, but does not eat large meals. Last meal was eggs/chives and carrots for dinner yesterday. She only had water this AM. Past surgical history includes appendectomy and left ovary resection. She also reports a history of stomach/duodenal ulcers in the past. She does take both eliquis (once daily) and plavix(every other day)...both last taken yesterday. She currently denies any pain at rest. Allergies Allergy/AdvReac Type Severity Reaction Status Date / Time Poultry Allergy Because it Verified 01/21/23 17:04 raises uric acid. She is on allopurinal. shellfish derived Allergy Rash Verified 01/21/23 17:04 Home Medications Medication Instructions Recorded Confirmed Type Samantha Mathews Glucosamine 2 tab PO BID 01/21/23 01/21/23 History allopurinol 100 mg tablet 100 - 200 mg PO DAILY 01/21/23 01/21/23 History apixaban 2.5 mg tablet (Eliquis) 2.5 mg PO DAILY 01/21/23 01/21/23 History atorvastatin 20 mg tablet 20 mg PO Q OTHER DAY 01/21/23 01/21/23 History cholecalciferol (vitamin D3) 50 0 mcg PO Q OTHER DAY 01/21/23 01/21/23 History mcg (2,000 unit) capsule (Vitamin D3) clopidogrel 75 mg tablet (Plavix) 75 mg PO Q OTHER DAY 01/21/23 01/21/23 History famotidine 20 mg tablet 20 - 40 mg PO DAILY 01/21/23 01/21/23 History metoprolol succinate 25 mg 12.5 mg PO DAILY 01/21/23 01/21/23 History tablet,extended release 24 hr multivitamin 1 tab PO Q OTHER DAY 01/21/23 01/21/23 History Patient History Medical History Hypertension Stroke Family History Other No pertinent family history in first degree relatives Social History Smoking Status: Never smoker Hx Alcohol Use: No Hx Substance Use: No Preferred Language: [place] Citizen Of [place] Communication Ability: Effective Communication Tools: IPad and Other Recycling Attendant Required: Yes Beliefs That Will Affect Care: None marital status: / Current Living Situation: Family Feels Safe at Home: Yes Assistive Devices: None Review of Systems Constitutional: + weakness; no fever and no chills Respiratory: no dyspnea Cardiovascular: + chest pain Gastrointestinal: + nausea and + diarrhea/loose stools; no abdominal pain, no bloating and no vomiting Physical Exam Physical Exam: awake, no distress, sitting in chair. daughter at bedside Constitutional: well developed and well nourished; no acute distress Respiratory: normal respiratory effort Cardiovascular: Rate/Rhythm: + tachycardic Gastrointestinal (Abdomen): Inspection/Auscultation: + abdominal surgical scar; abdomen not distended Percussion/Palpation: + abdomen tender (very mild discomfort noted in the RUQ per pt report) and abdomen soft; no guarding Results & Data Vital Signs (Past 12 Hours) Vital Signs Temp Pulse Resp BP Pulse Ox O2 Del Method 01/21/23 10:42 36.9 C 118 H 18 119/79 96 Room Air Diagnostic Findings US gallbladder CLINICAL HISTORY: eval for gb disease TECHNIQUE: Multiple real-time sonographic images of the right upper quadrant were obtained. Comparison: Comparison is made to CT abdomen pelvis 01/21/2023 FINDINGS: The liver is diffusely homogenous with normal contour and echogenicity. No focal mass lesions are seen. No intrahepatic ductal dilatation is seen. There is thickening of the gallbladder wall measuring up to 5 mm. Trace pericholecystic edema is seen. A sonographic Santana's sign was not elicited by the porter luggage. The common duct measures 0.3 cm in diameter at the level of the hepatic artery. The visualized portions of the pancreas appear normal. The right kidney shows normal echogenicity, cortical thickness and renal contour. The right kidney shows no evidence of hydronephrosis or mass. No ascites or free fluid is seen in Adam's pouch. IMPRESSION: Thickening of the gallbladder wall with pericholecystic edema but negative Santana's sign. If the patient has not received pain medication, findings are less concerning for acute cholecystitis. Clinical correlation is recommended. ACT 112: Negative or not required by law. Electronically signed by: Brown Diaz M.D. 01/21/2023 2:[address] SCAN OF THE ABDOMEN AND PELVIS WITHOUT IV CONTRAST CLINICAL HISTORY: Fall. Elevated hepatic transaminases. COMPARISON STUDY: No priors TECHNIQUE: CT scan of the abdomen and pelvis is performed from the lung bases to the proximal femora. Images are reviewed in the axial, sagittal, and coronal planes. IV contrast was not administered for this examination. Note that examination is performed in suboptimal/V contrast. A dose lowering technique was utilized adhering to the principles of ALARA. The examination is degraded by motion artifact, as well as by streak artifact from the arms which could not be elevated above the abdomen. CT DOSE: 1054.80 mGy.cm FINDINGS: Lung bases: The heart is enlarged and without pericardial effusion. The coronary arteries are densely calcified. The lung bases are clear noting bibasilar scar ring/atelectasis. No basilar pneumothorax is seen. Liver: The unenhanced liver is normal in size, contour, and attenuation. There is no intrahepatic biliary ductal dilatation. Gallbladder: The gallbladder is distended and there is faint pericholecystic infiltration. Spleen: Normal in size and attenuation. Pancreas: The unenhanced pancreas is grossly unremarkable. Adrenal glands: Unremarkable. Kidneys: The unenhanced kidneys are normal in size and without hydronephrosis. There are no renal calculi identified. There is no evidence of contour deforming renal mass lesion. Cortical scarring is noted on the left. Abdominal vasculature: The abdominal aorta is normal in course and caliber noting moderate atherosclerotic calcification. Bowel: There is mild colonic diverticulosis without CT evidence of acute diverticulitis. No bowel obstruction is seen. There is a small duodenal diverticulum. The appendix is not visualized. Peritoneum: There is no intraperitoneal free air or abdominal ascites. Lymphadenopathy: None. Pelvic viscera: The bladder, uterus, and adnexa are normal as visualized. Skeletal structures: The skeletal structures are osteopenic. Mild lumbosacral spondylosis is observed. No lytic or blastic lesions are seen. IMPRESSION: 1. The examination is suboptimal without IV contrast. There is also streak and motion artifact 2. There is no evidence of solid organ injury in the abdomen or pelvis on this unenhanced examination. 3. The gallbladder is distended and there is faint surrounding infiltration. Findings are equivocal and a right upper quadrant ultrasound is recommended for further evaluation. 4. Cardiomegaly. 5. Additional findings as above. ACT 112: Negative or not required by law. Electronically signed by: Sunil Davenport M.D. 01/21/2023 1:25 PM PG Care Time/CCT Total # of Minutes Spent Total Time Spent with Patient: Total time spent is greater than 50% in coordination of care (as documented) at patient's floor/unit and/or counseling patient: Coding Level of Care Code 94885 OFFICE CONSULT LVL Diagnoses Elevated LFTs R79.89
--- NOTE | 2023-01-21 18:03 | Electrocardiogram Report ---
Test Reason : Blood Pressure : / mmHG Vent. Rate : 102 BPM Atrial Rate : 000 BPM P-R Int : 000 ms QRS Dur : 054 ms QT Int : 368 ms P-R-T Axes : 000 048 -23 degrees QTc Int : 479 ms Atrial fibrillation with rapid ventricular response Nonspecific T wave abnormality Abnormal ECG When compared with ECG of 31-MAY-2019 13:13, ST no longer depressed in Inferior leads ST no longer depressed in Anterior leads Nonspecific T wave abnormality, worse in Lateral leads Confirmed by Karri Gillette ([id number]) on 01/21/2023 6:03:06 PM Referred By: Confirmed By:Karri Gillette
--- NOTE | 2023-01-21 22:24 | Magnetic Resonance Report ---
Exam(s): MRI MRCP EXAM: MR Abdomen Without Intravenous Contrast, MRCP Protocol CLINICAL HISTORY: Reason for exam: concern for choledocholithiasis. TECHNIQUE: Multiplanar magnetic resonance images of the abdomen without intravenous contrast using MRCP protocol. COMPARISON: No relevant prior studies available. FINDINGS: Bile ducts: There is no dilation of CBD, the caliber of which measures up to 5.8 mm in diameter. Gallbladder: Unremarkable. No stones. Liver: Unremarkable. No intrahepatic buoy ductal dilation. There is a segment of mid CBD which is not well evaluated on MRCP. No filling defects seen in the proximal or distal CBD lumen. Pancreas: Unremarkable. No ductal dilation. . IMPRESSION: 1. No evidence of choledocholithiasis. Evaluation of the mid CBD limited on this MRCP study. 2. No evidence of cholecystitis Electronically signed by: Jerald Moran MD 01/21/23 22:24 PM
[2023-01-22] MEDS: metroNIDAZOLE 500 MG/100 ML BAG IV SCH ×3 (01:53→17:24)
--- NOTE | 2023-01-22 07:06 | Surgery Progress Note ---
Date of Service January 22, 2023 Assessment & Plan (1) Acute cholecystitis: Plan: Looking at the patient's MRCP and ultrasound I believe her gallbladder is distended and thickened She may have sludge and no stones I do believe it is giving her her symptoms of persistent recurrent nausea and some emesis I really do not think the HIDA scan is going to help us I believe she should undergo a laparoscopic cholecystectomy Possibly tomorrow because she is on Plavix and Eliquis Which are now on hold We will have to discuss this with the family Admission and Anticipated Discharge Date Admission Date: January 21, 2023 Subjective Nurses say the patient has had persistent recurrent nausea and possible vomiting overnight She does not seem to have much pain Her MRCP I believe shows thickened posterior gallbladder wall and distention This is also the case with her ultrasound which I went over with the radiologist Review of Systems Review of Systems: All systems reviewed & are unremarkable except as noted in HPI & below Physical Exam Physical Exam: Patient is awake and alert Her abdomen is soft She does not seem to have much tenderness Results & Data Vital Signs (Past 12 Hours) Vital Signs Temp Pulse Pulse Pulse Resp BP Pulse Ox 01/21/23 21:14 36.6 C 90 18 155/97 H 96 01/22/23 03:31 36.5 C 98 H 18 144/94 H 96 01/22/23 02:14 36.6 C 90 18 155/97 H 96 01/21/23 22:33 96 H 01/21/23 21:33 95 H 01/21/23 23:16 36.3 C L 101 H 18 145/88 H 96 01/21/23 20:00 84 20 156/120 H 97 O2 Del Method 01/21/23 21:14 Room Air 01/22/23 03:31 Room Air 01/22/23 02:14 Room Air 01/21/23 22:33 01/21/23 21:33 01/21/23 23:16 Room Air 01/21/23 20:00 Room Air PG Care Time/CCT Total # of Minutes Spent Total Time Spent with Patient: Total time spent is greater than 50% in coordination of care (as documented) at patient's floor/unit and/or counseling patient: Coding Level of Care Code 71509 SUB INP/OBS CARE 2/35MIN Diagnoses Acute cholecystitis K81.0
[2023-01-22 07:18] LABS: Basophils # (auto) 0.02 K/uL (0-0.2); Basophils % (auto) 0.1 %; Hematocrit (blood only) 44.1 % (37.0-47.0); Hemoglobin 15.4 g/dl (12.0-16.0); Immature Granulocytes # (auto) 0.05 K/uL (0.01-0.20); Immature Granulocytes % (auto) 0.4 %; Lymphocytes # (auto) 1.21 K/uL (1.2-3.4); Lymphocytes % (auto) 8.9 %; Mean Corpuscular Hemoglobin 30.9 pg (25.0-34.0); Mean Corpuscular Hgb Conc 34.9 g/dL (32.0-36.0); Mean Corpuscular Volume 88.4 fL (80.0-100.0); Monocytes # (auto) 0.36 K/uL (0.11-0.59); Monocytes % (auto) 2.7 %; Neutrophils % (auto) 87.9 %; Platelet Count 210 K/uL (130-400); RDW Coefficient of Variation 12.3 % (11.5-14.5); RDW Standard Deviation 39.5 fL (36.4-46.3); Red Blood Count 4.99 M/uL (4.20-5.40); White Blood Count 13.54 K/ul (4.8-10.8)
[2023-01-22] MEDS ORDERED: ONDANSETRON INJ 2 MG/ML 2 ML VIAL ONE (07:25)
[2023-01-22 08:01] LABS: Albumin Level 3.8 gm/dl (3.4-5.0); Calcium 8.7 mg/dl (8.6-10.3); Magnesium 1.9 mg/dl (1.7-2.4); Potassium 3.8 mmol/L (3.5-5.1)
[2023-01-22 08:07] LABS: Albumin Globulin Ratio 1.3 (0.9-2); BUN Creatinine Ratio 21.3 (10-20); Creatinine Clr Calc Pharmacy 46.2 ml/min; Est GFR (African American) 96.5 ml/min; Est GFR (Non-African American) 83.2 ml/min; Total Protein 6.8 gm/dl (6.0-8.3)
[2023-01-22] MEDS: PLASMA-LYTE A 1,000 ML IV SCH ×3 (08:18→23:03)
[2023-01-22] MEDS: METOPROLOL SUCC 25MG EXT REL TAB PO SCH (08:18)
[2023-01-22] MEDS: ACETAMINOPHEN 1,000 MG/100 ML VIAL IV PRN (11:48)
--- NOTE | 2023-01-22 12:45 | Hospitalist Progress Note ---
Date of Service January 22, 2023 Assessment & Plan (1) Acute cholecystitis: Plan: Presented with fall from weakness likely secondary to acute cholecystitis found after admission LFTs and WBC count elevated on admission with persistent nausea, upper abdominal pain CT of the abd/pelvis and Gallbladder US concerning for possible acute cholecystitis Seen by general surgery and agrees with acute cholecystitis-HIDA scan canceled -Plan for laparoscopic cholecystectomy on 01/23 -Continue n.p.o. status -Continue IV fluids with Plasma-Lyte at 125 MLS per hour -Add Zofran as needed for nausea -Continue ceftriaxone and metronidazole IV -IV Tylenol as needed for pain -Follow CBC, CMP in the morning -Holding home Plavix and Eliquis, start heparin drip given history of thromboembolic CVA and is currently in atrial fibrillation (2) Fall: Plan: -CT of the head is negative, do not think that she warrants an MRI of the Brain at this time -She is without red flag symptoms and currently comfortable, do not think she needs an MRI of her lumbar spine at this time -Continue lidocaine patch and heat for back/leg pain, okay to give IV Tylenol as needed for pain with doses not to exceed 3 g/day - CK level normal Will need PT/OT consults prior to discharge (3) Stroke: Plan: 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 Holding Eliquis and Plavix for upcoming cholecystectomy Start heparin drip perioperatively and hold 4 hours prior to surgery, restart when okay with surgery after procedure until safe to restart home apixaban (4) A-fib: Plan: -Was noted to be in afib RVR with HR in the 110's on arrival -Currently stable with HR in the high 90's -Continue metoprolol as noted above -Holding apixaban and giving heparin drip in the perioperative timeframe Monitor on telemetry (5) Hypertension: Plan: Blood pressures are low normal Continue home low-dose metoprolol for rate control for A-fib (6) Vertebral artery stenosis: Plan: -Stable Holding Plavix for upcoming procedure but continue atorvastatin Plan DVT prophylaxis-heparin drip Disposition-continued stay on med/telemetry, laparoscopic cholecystectomy tomorrow and likely discharged the day after that Admission and Anticipated Discharge Date Admission Date: January 21, 2023 Subjective Patient seen with the aid of a Kelsey water valve mechanic on the iPad. Also seen and discussed with Dr. Beckford of surgery at the bedside. Patient had nausea all through the night which is somewhat improved now with Zofran but now she is feeling a little bit dizzy and tired. Abdominal pain is still present in the upper abdomen but is improved from previous. Dr. Beckford recommends laparoscopic cholecystectomy and he has discussed this with patient and her son. Tele with afib, rates 90s-110s Physical Exam Constitutional: WD/WN, vitals as above Neck: trachea midline, no thyromegaly Respiratory: normal respiratory effort Chest (Breasts): Chest: normal inspection of chest Musculoskeletal: Extremities: extremities normal to inspection; no cyanosis and no clubbing Skin: no rashes, warm and dry Neurologic: moves all extremities and awake; no focal motor deficits Psychiatric: Orientation: alert Results & Data Results & Data Vital Signs (Past 12 Hours) Vital Signs Temp Pulse Pulse Resp BP Pulse Ox O2 Del Method 01/22/23 11:03 36.8 C 101 H 18 92/67 L 96 Room Air 01/22/23 08:00 Room Air 01/22/23 07:31 36.6 C 72 18 137/90 96 Room Air 01/22/23 07:19 97 H 01/22/23 03:31 36.5 C 98 H 18 144/94 H 96 Room Air 01/22/23 02:14 36.6 C 90 18 155/97 H 96 Room Air Laboratory Results CBC, CMP reviewed this morning PG Care Time/CCT Total # of Minutes Spent Total Time Spent with Patient: Total time spent is greater than 50% in coordination of care (as documented) at patient's floor/unit and/or counseling patient: Coding Level of Care Code 48509 SUB INP/OBS CARE 3/50MIN Diagnoses Acute cholecystitis K81.0 Fall W19.XXXA Encounter type: initial encounter Stroke I63.30 CVA mechanism: thrombosis Precerebral and cerebral artery: unspecified cerebral artery A-fib I48.91 Atrial fibrillation type: unspecified Hypertension I10 Vertebral artery stenosis I65.09 (2) Fall Encounter type: initial encounter Qualified Code(s): W19.XXXA - Unspecified fall, initial encounter (3) Stroke CVA mechanism: thrombosis Precerebral and cerebral artery: unspecified cerebral artery Qualified Code(s): I63.30 - Cerebral infarction due to thrombosis of unspecified cerebral artery (4) A-fib Atrial fibrillation type: unspecified Qualified Code(s): I48.91 - Unspecified atrial fibrillation
[2023-01-22] MEDS ORDERED: Heparin IV Adult Wt-Based Standard *NO* Bolus Protocol IV STA (12:51)
[2023-01-22] MEDS ORDERED: HEPARIN SODIUM/DEXTROSE 25,000 UNITS/500 ML BAG IV SCH (13:15)
[2023-01-22] MEDS: cefTRIAXone SODIUM 1,000 MG in DEXTROSE 5% 50 ML IV SCH (16:17)
[2023-01-22] MEDS: ONDANSETRON INJ 2 MG/ML 2 ML VIAL IV PRN (16:17)
[2023-01-22 21:32] LABS: Partial Thromboplastin Ratio 3.8
[2023-01-22 21:38] LABS: Partial Thromboplastin Time 106.1 Seconds (21.0-31.0)
[2023-01-23] MEDS: ONDANSETRON INJ 2 MG/ML 2 ML VIAL IV PRN (00:16)
[2023-01-23] MEDS: metroNIDAZOLE 500 MG/100 ML BAG IV SCH ×3 (02:34→18:19)
[2023-01-23 05:20] LABS: Basophils # (auto) 0.03 K/uL (0.00-0.20); Basophils % (auto) 0.2 %; Hemoglobin 13.8 g/dl (12.0-16.0); Immature Granulocytes # (auto) 0.06 K/uL (0.01-0.20); Immature Granulocytes % (auto) 0.4 %; Lymphocytes # (auto) 1.33 K/uL (1.20-3.40); Lymphocytes % (auto) 8.4 %; Mean Corpuscular Hemoglobin 31.1 pg (25.0-34.0); Mean Corpuscular Hgb Conc 34.5 g/dL (32.0-36.0); Mean Corpuscular Volume 90.1 fL (80.0-100.0); Mean Platelet Volume 9.9 fL (9.4-12.4); Monocytes # (auto) 0.56 K/uL (0.11-0.59); Monocytes % (auto) 3.5 %; Neutrophils # (auto) 13.87 K/uL (1.40-6.50); Neutrophils % (auto) 87.5 %; Platelet Count 193 K/uL (130-400); RDW Coefficient of Variation 12.4 % (11.5-14.5); RDW Standard Deviation 40.2 fL (36.4-46.3); Red Blood Count 4.44 M/uL (4.20-5.40); White Blood Count 15.85 K/ul (4.8-10.8)
[2023-01-23 05:32] LABS: Albumin Globulin Ratio 1.3 (0.9-2); Albumin Level 3.4 gm/dl (3.4-5.0); BUN Creatinine Ratio 18.1 (10-20); Bilirubin,Total 0.7 mg/dl (0.2-1.0); Calcium 7.5 mg/dl (8.6-10.3); Creatinine Clr Calc Pharmacy 39.1 ml/min; Est GFR (African American) 89.1 ml/min; Est GFR (Non-African American) 76.9 ml/min; Globulin 2.7 gm/dl (2.5-4.0); Potassium 3.2 mmol/L (3.5-5.1); Total Protein 6.1 gm/dl (6.0-8.3)
[2023-01-23 06:12] LABS: Partial Thromboplastin Ratio 1.7
--- NOTE | 2023-01-23 06:29 | History & Physical Bridge Note ---
Date of Service January 23, 2023 History & Physical Bridge Note I have examined the patient, reviewed the History & Physical and in the interval since the performance of the History & Physical I have noted the following changes of clinical significance: no changes noted Patient with some recurrent nausea
[2023-01-23] MEDS ORDERED: PROPOFOL IV EMULSION 10 MG/ML 20 ML VIAL IV ONE (06:39)
[2023-01-23] MEDS ORDERED: LIDOCAINE 2% 2 ML VIAL/AMP(20MG/ML) INFIL ONE (06:39)
[2023-01-23] MEDS ORDERED: ROCURONIUM BROMIDE 10 MG/ML 5 ML VIAL IV ONE (06:39)
[2023-01-23] MEDS ORDERED: fentaNYL citrate PF 100 MCG/2 ML VIAL ONE (06:40)
[2023-01-23] MEDS ORDERED: MIDAZOLAM HCL 1 MG/ML 2ML VIAL ONE (06:40)
[2023-01-23] MEDS ORDERED: ceFAZolin 2000MG 2,000 MG/15 ML SYR IV SCH (06:45)
[2023-01-23 06:46] LABS: Partial Thromboplastin Time 46.9 Seconds (21.0-31.0)
[2023-01-23] MEDS ORDERED: ceFAZolin 2,000 MG/15 ML IV PUSH IV ONE (06:47)
[2023-01-23] MEDS ORDERED: DEXAMETHASONE SOD INJ 4 MG/ML VIAL ONE (06:54)
[2023-01-23] MEDS ORDERED: ONDANSETRON INJ 2 MG/ML 2 ML VIAL ONE ×2 (06:54→07:54)
[2023-01-23] MEDS ORDERED: ONDANSETRON INJ 2 MG/ML 2 ML VIAL IV PRN ×2 (06:58→09:01)
[2023-01-23] MEDS ORDERED: fentaNYL citrate PF 100 MCG/2 ML VIAL IV PRN (06:58)
[2023-01-23] MEDS ORDERED: ATROPINE SULFATE 0.1 MG/ML 10ML SYR IV PRN (06:58)
[2023-01-23] MEDS ORDERED: ePHEDrine sulfate 50 MG/ML AMP IV PRN (06:58)
--- NOTE | 2023-01-23 06:58 | Anesthesiology Consultation ---
Date of Service January 23, 2023 Assessment & Plan Chart Review Chart Review: Acceptable Risk for Surgery and Patient NOT seen in Pre Admission Testing Consults Requested none ASA ASA4 Proposed Anesthesia Anesthesia Type: General Risk / Benefits Reviewed With: PT / POA / Parent / Guardian, Accepts Plan and Informed Consent Obtained History Surgery Operation Date: 01/23/23 07:00 Proposed Procedures p Laparoscopic Cholecystectomy - Yoan Beckford MD, FACS Height/Weight Height: 4 ft 11 in Weight: 45.2 kg Allergies Allergy/AdvReac Type Severity Reaction Status Date / Time Poultry Allergy Because it Verified 01/21/23 17:04 raises uric acid. She is on allopurinal. shellfish derived Allergy Rash Verified 01/21/23 17:04 Medications Home Medications Medication Instructions Recorded Confirmed Last Taken Samantha Mathews Glucosamine 2 tab PO BID 01/21/23 01/21/23 Unknown allopurinol 100 mg tablet 100 - 200 mg PO DAILY 01/21/23 01/21/23 Unknown apixaban 2.5 mg tablet (Eliquis) 2.5 mg PO DAILY 01/21/23 01/21/23 01/20/23 atorvastatin 20 mg tablet 20 mg PO Q OTHER DAY 01/21/23 01/21/23 01/21/23 cholecalciferol (vitamin D3) 50 0 mcg PO Q OTHER DAY 01/21/23 01/21/23 Unknown mcg (2,000 unit) capsule (Vitamin D3) clopidogrel 75 mg tablet (Plavix) 75 mg PO Q OTHER DAY 01/21/23 01/21/23 01/20/23 famotidine 20 mg tablet 20 - 40 mg PO DAILY 01/21/23 01/21/23 01/21/23 06:00 metoprolol succinate 25 mg 12.5 mg PO DAILY 01/21/23 01/21/23 Unknown tablet,extended release 24 hr multivitamin 1 tab PO Q OTHER DAY 01/21/23 01/21/23 Unknown Active Medications Generic Name Dose Route Start Last Admin Trade Name Freq PRN Reason Stop Dose Admin Ceftriaxone Sodium 1,000 mg/ 60 mls @ 120 mls/hr 01/22/23 16:00 01/22/23 17:02 Dextrose IV 02/01/23 15:59 Infused Q24H PERICO Infusion Protocol Metronidazole 500 mg in 100 mls @ 100 mls/hr 01/22/23 02:00 01/23/23 03:48 Flagyl IV 02/01/23 00:00 Infused Q8H PERICO Infusion Protocol Parenteral Electrolytes 1,000 mls @ 125 mls/hr 01/22/23 06:30 01/23/23 06:20 Plasma-Lyte A Ph 7.4 IV 02/21/23 06:29 0 mls/hr .Q8H PERICO Infusion Acetaminophen 1,000 mg in 100 mls @ 400 mls/hr 01/22/23 11:43 01/22/23 12:03 Ofirmev IV 01/25/23 11:42 Infused Q8H PRN Infusion pain or fever Heparin Sodium/Dextrose 25,000 units in 500 mls @ 0 mls/hr 01/22/23 13:15 01/23/23 03:40 Heparin Sodium/Dextrose IV 02/21/23 13:14 0 units/hr .Q0M PERICO 0 mls/hr Titration Protocol 0 UNITS/HR Metoprolol Succinate 12.5 mg 01/22/23 09:00 01/22/23 08:18 Metoprolol Succ 25mg Ext Rel Tab PO 02/21/23 08:59 12.5 mg DAILY PERICO Administration Ondansetron HCl 4 mg 01/22/23 07:21 01/23/23 00:16 Ondansetron Inj 2 Mg/Ml 2 Ml Vial IV 02/21/23 07:20 4 mg Q6H PRN Administration Nausea And Vomiting NPO Date Last Intake of Fluids: 01/21/23 Time Last Intake of Fluids: 18:00 Date Last Intake of Solids: 01/20/23 Time Last Intake of Solids: 18:00 Past Medical History Medical History (Updated 01/22/23 @ 07:06 by Yoan Beckford MD, FACS) Hypertension Stroke Exercise / Class Metabolic Activity II 4-5 Yardwork/Stairs/Walk up hill Past Family History Family History Other No pertinent family history in first degree relatives Past Anesthesia History No Hx of Anesthesia Complications and No Family Hx of Anesthesia Complications History of PONV No Hx of PONV and No Hx of Motion Sickness Social History Smoking Status: Never smoker Hx Alcohol Use: No Hx Substance Use: No substance use type: does not use Physical Exam Vital Signs Last Vital Signs Temp 36.6 C 01/23/23 06:21 Pulse 109 H 01/23/23 06:21 Resp 16 01/23/23 06:21 BP 136/109 H 01/23/23 06:21 Pulse Ox 96 01/23/23 06:21 O2 Del Method Room Air 01/23/23 06:21 ENMT Mouth: no dentition abnormality Thyromental Distance: > or= 3.5 Finger Breadths Mallampati Class: II Neck normal visual inspection Respiratory normal respiratory effort Auscultation: lungs clear to auscultation bilaterally Cardiovascular Rate/Rhythm: regular rate; + abnormal rhythm (afib on monitor) Psychiatric Orientation: alert Testing Laboratory Results 01/23/23 04:48 01/23/23 04:48 PT 11.9 Seconds (9.0-12.0) 01/21/23 11:20 INR 1.1 (0.9-1.1) 01/21/23 11:20 APTT 46.9 Seconds (21.0-31.0) H* 01/23/23 04:48
[2023-01-23] MEDS ORDERED: BUPIVACAINE 0.5 % 5 MG/1 ML MPF 30ML VIAL ONE (07:10)
[2023-01-23] MEDS ORDERED: SUCCINYLCHOLINE 100MG/5ML SYR IV ONE (07:54)
[2023-01-23] MEDS ORDERED: SUGAMMADEX SODIUM 200 MG/2 ML VIAL IV ONE (07:59)
[2023-01-23] MEDS ORDERED: ACETAMINOPHEN 1,000 MG/100 ML VIAL IV ONE (08:04)
--- NOTE | 2023-01-23 08:04 | Post Operative Brief Note ---
PG Immediate Post Op with CF Date of Surgery January 23, 2023 Pre & Post Diagnosis Operation Date: 01/23/23 07:00 Pre-Op Diagnosis: FALL, ELEVATED LIVER ENZYMES Acute and chronic cholecystitis Post-Op Diagnosis: FALL, ELEVATED LIVER ENZYMES Acute and chronic cholecystitis with adhesions I identified the patient and participated in the time-out.: Yes Procedure Operation Date: 01/23/23 07:00 Actual Procedures p Laparoscopic Cholecystectomy(Not Applicable) - Yoan Beckford MD, FACS Surgeon Yoan Beckford MD, FACS Snow Ranger mignon andersen Estimated Blood Loss 10 Findings Consistent with Post-Op Diagnosis Patient had relatively dense adhesions of the duodenum to the gallbladder consistent with chronic inflammation Specimens Specimen Description: A. Gallbladder and contents
--- NOTE | 2023-01-23 08:15 | Operative Report ---
PG Post Operative Report Pre & Post Diagnosis Operation Date: 01/23/23 07:00 Pre-Op Diagnosis: FALL, ELEVATED LIVER ENZYMES Acute and chronic cholecystitis Post-Op Diagnosis: FALL, ELEVATED LIVER ENZYMES Acute and chronic cholecystitis with adhesions I identified the patient and participated in the time-out.: Yes Procedure Operation Date: 01/23/23 07:00 Actual Procedures p Laparoscopic Cholecystectomy(Not Applicable) - Yoan Beckford MD, FACS Lysis of adhesions Surgeon Yoan Beckford MD, FACS Warehousing Technician mignon [email or web address] Estimated Blood Loss 10 Findings Consistent with Post-Op Diagnosis Patient had significant adhesions consistent with chronic cholecystitis and also acute cholecystitis Specimens Gallbladder Description of Procedure Patient brought in the operating room placed the operating table in supine position Her umbilicus had debris which was debrided Her abdomen is prepped and draped in usual fashion pneumatic stockings orogastric tube were placed My assistant professor of theater help with prepping draping removal of the gallbladder and closure of the wounds Half percent plain Marcaine was used to anesthetize all incisions Incision was made above the umbilicus carried dissection down to the fascia placing a varies needle producing pneumoperitoneum An 11 mm port was placed this level Under visualization three 5 mm ports were placed 1 cephalad and 2 laterally Gallbladder was very distended it was retracted there were dense adhesions to the gallbladder from the duodenum and omentum consistent with chronic cholecystitis Adhesions were taken down and then the gallbladder retracted dissection carried out the raisa hepatis Cystic duct and cystic artery identified clipped and transected Gallbladder dissected away from the liver bed in usual fashion showing acute and chronic inflammation Gallbladder was placed in an Endobag after appropriate hemostasis and irrigation and Floseal into the subhepatic space The gallbladder was removed through the umbilical site All ports were removed Fascia at the umbilicus closed using 0 Vicryl suture Skin reapproximated using 4-0 nylon suture Patient transferred recovery room in stable condition I attest to the content of the Intraoperative Record and any orders documented therein. Any exceptions are noted below.
--- NOTE | 2023-01-23 08:49 | Anesthesiology Progress Note ---
Date of Service January 23, 2023 Anesthesia Post Procedure Vital Signs Vital Signs: Temp Pulse Pulse Pulse Resp BP Pulse Ox 01/23/23 08:45 36.5 C 66 18 152/68 H 96 01/23/23 08:35 66 14 147/69 H 99 01/23/23 08:25 65 14 138/65 100 01/23/23 08:18 36 C L 66 16 136/65 94 01/23/23 06:21 36.6 C 109 H 16 136/109 H 96 01/22/23 22:04 99 H 01/23/23 03:08 36.5 C 113 H 16 131/90 96 01/22/23 23:27 36.8 C 96 H 18 131/80 97 01/22/23 19:11 36.4 C L 102 H 18 128/80 96 01/22/23 15:10 36.6 C 91 H 18 127/80 98 01/22/23 11:03 36.8 C 101 H 18 92/67 L 96 O2 Del Method O2 Flow Rate 01/23/23 08:45 Room Air 01/23/23 08:35 Room Air 01/23/23 08:25 Oxymask 6 01/23/23 08:18 Oxymask 6 01/23/23 06:21 Room Air 01/22/23 22:04 01/23/23 03:08 Room Air 01/22/23 23:27 Room Air 01/22/23 19:11 Room Air 01/22/23 15:10 Room Air 01/22/23 11:03 Room Air Pain Intensity Right Abdomen: Pain Intensity: 5 Transfer of Care Handoff Completed per policy Notes Mental Status: alert / awake / arousable Patient Amnestic to Procedure: Yes Nausea / Vomiting: adequately controlled Pain: adequately controlled Airway Patency, RR, SpO2: stable & adequate BP & HR: stable & adequate Hydration State: stable & adequate Anesthetic Complications: no major complications apparent
[2023-01-23] MEDS ORDERED: HYDROmorphone INJ 0.5 MG/0.5 ML SYR IV PRN ×2 (09:01→10:46)
[2023-01-23] MEDS ORDERED: HYDROCODONE/ACETAMOPHEN 5/325MG TAB PO PRN (09:01)
[2023-01-23] MEDS ORDERED: ONDANSETRON INJ 2 MG/ML 2 ML VIAL IV STA (09:15)
[2023-01-23] MEDS ORDERED: PROMETHAZINE HCL INJ 25 MG/ML 1 ML VIAL IM PRN (10:44)
[2023-01-23] MEDS: PLASMA-LYTE A 1,000 ML IV SCH (12:01)
[2023-01-23] MEDS: SODIUM CHLORIDE 0.9% 500 ML IV SCH ×3 (13:04→23:42)
[2023-01-23] MEDS: METOPROLOL SUCC 25MG EXT REL TAB PO SCH (13:04)
[2023-01-23] MEDS: ATORVASTATIN 20 MG TAB PO SCH (13:04)
[2023-01-23] MEDS ORDERED: POTASSIUM CHLORIDE CRTAB 20 MEQ TABCR PO STA (14:27)
--- NOTE | 2023-01-23 14:32 | Hospitalist Progress Note ---
Date of Service January 23, 2023 Assessment & Plan (1) Acute cholecystitis: Plan: Presented with fall from weakness likely secondary to acute cholecystitis found after admission LFTs and WBC count elevated on admission with persistent nausea, upper abdominal pain CT of the abd/pelvis and Gallbladder US concerning for possible acute cholecystitis patient had a laparoscopic cholecystectomy 01/23 treating pain with IV Dilaudid On Zofran and Phenergan for nausea and vomiting Continue ceftriaxone and metronidazole Continue to hold Plavix and Eliquis per surgery recommendation until tomorrow We will start heparin drip but 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 Her surgery recommendation the heparin drip will be started without a bolus at 10 PM tonight The patient has been started on a regular diet by the surgery team Continue IV fluids at 80 mils an hour monitor daily CBC and BMP (2) Fall: Plan: -CT of the head is negative, do not think that she warrants an MRI of the Brain at this time -She is without red flag symptoms and currently comfortable, do not think she needs an MRI of her lumbar spine at this time -Continue lidocaine patch and heat for back/leg pain, okay to give IV Tylenol as needed for pain with doses not to exceed 3 g/day - CK level normal Will need PT/OT consults prior to discharge (3) Stroke: Plan: 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 Heparin drip will be started at 10 PM tonight Monitor on telemetry (5) Hypertension: Plan: Blood pressures are low normal Continue home low-dose metoprolol for rate control for A-fib (6) Vertebral artery stenosis: Plan: -Stable Holding Plavix until cleared by surgery. continue atorvastatin Plan DVT prophylaxis-heparin drip Admission and Anticipated Discharge Date Admission Date: January 21, 2023 Subjective patient got back from the OR. Was complaining of pain and nausea. Phenergan started for nausea. spoke to daughter at the bedside. The daughter speaks Armenian. Review of Systems Review of Systems: All systems reviewed & are unremarkable except as noted in Subjective Physical Exam Physical Exam: General: drowsy, arousable Heart: S1, S2/regular rate and rhythm, no murmur rubs or gallops Lungs: Clear to auscultation bilaterally. Normal effort Abdomen: Soft/nontender/nondistended. No hepatosplenomegaly Extremities: No clubbing/cyanosis. No edema Behavior: Appropriate, cooperative Results & Data Results & Data Vital Signs (Past 12 Hours) Vital Signs Temp Pulse Pulse Resp BP BP Pulse Ox 01/23/23 11:43 36.7 C 105 H 16 122/88 96 01/23/23 10:06 36.4 C L 69 18 134/73 95 01/23/23 09:16 35.9 C L 69 16 146/68 H 96 01/23/23 08:57 36.3 C L 16 145/77 H 96 01/23/23 08:45 36.5 C 66 18 152/68 H 96 01/23/23 08:35 66 14 147/69 H 99 01/23/23 08:25 65 14 138/65 100 01/23/23 08:18 36 C L 66 16 136/65 94 01/23/23 06:21 36.6 C 109 H 16 136/109 H 96 01/23/23 03:08 36.5 C 113 H 16 131/90 96 O2 Del Method O2 Flow Rate 01/23/23 11:43 Room Air 01/23/23 10:06 Room Air 01/23/23 09:16 Room Air 01/23/23 08:57 Room Air 01/23/23 08:45 Room Air 01/23/23 08:35 Room Air 01/23/23 08:25 Oxymask 6 01/23/23 08:18 Oxymask 6 01/23/23 06:21 Room Air 01/23/23 03:08 Room Air Laboratory Results Abnormal lab results 01/22/23 01/23/23 01/23/23 Range/Units 20:00 04:48 04:48 WBC 15.85 H (4.8-10.8) K/ul Neut # (Auto) 13.87 H (1.40-6.50) K/uL APTT 106.1 H* 46.9 H* (21.0-31.0) Seconds Potassium (3.5-5.1) mmol/L Glucose (70-99(Fasting)) mg/dl Calcium (8.6-10.3) mg/dl 01/23/23 Range/Units 04:48 WBC (4.8-10.8) K/ul Neut # (Auto) (1.40-6.50) K/uL APTT (21.0-31.0) Seconds Potassium 3.2 L (3.5-5.1) mmol/L Glucose 114 H (70-99(Fasting)) mg/dl Calcium 7.5 L (8.6-10.3) mg/dl PG Care Time/CCT Total # of Minutes Spent Total Time Spent with Patient: Total time spent is greater than 50% in coordination of care (as documented) at patient's floor/unit and/or counseling patient: Coding Level of Care Code 49958 SUB INP/OBS CARE 235MIN Diagnoses Acute cholecystitis K81.0 Fall W19.XXXA Encounter type: initial encounter Stroke I63.30 CVA mechanism: thrombosis Precerebral and cerebral artery: unspecified cerebral artery A-fib I48.91 Atrial fibrillation type: unspecified Hypertension I10 Vertebral artery stenosis I65.09 Time Spent (min) 35 (2) Fall Encounter type: initial encounter Qualified Code(s): W19.XXXA - Unspecified fall, initial encounter (3) Stroke CVA mechanism: thrombosis Precerebral and cerebral artery: unspecified cerebral artery Qualified Code(s): I63.30 - Cerebral infarction due to thrombosis of unspecified cerebral artery (4) A-fib Atrial fibrillation type: unspecified Qualified Code(s): I48.91 - Unspecified atrial fibrillation
[2023-01-23] MEDS: cefTRIAXone SODIUM 1,000 MG in DEXTROSE 5% 50 ML IV SCH (16:29)
[2023-01-23] MEDS ORDERED: Heparin IV Adult Wt-Based Standard *NO* Bolus Protocol IV ONE (22:00)
[2023-01-23] MEDS ORDERED: HEPARIN SODIUM/DEXTROSE 25,000 UNITS/500 ML BAG IV SCH (22:00)
[2023-01-23 22:53] LABS: Basophils # (auto) 0.01 K/uL (0.00-0.20); Basophils % (auto) 0.1 %; Hematocrit (blood only) 41.9 % (37.0-47.0); Hemoglobin 14.2 g/dl (12.0-16.0); Immature Granulocytes # (auto) 0.08 K/uL (0.01-0.20); Immature Granulocytes % (auto) 0.5 %; Lymphocytes # (auto) 0.74 K/uL (1.20-3.40); Lymphocytes % (auto) 4.5 %; Mean Corpuscular Hemoglobin 30.9 pg (25.0-34.0); Mean Corpuscular Hgb Conc 33.9 g/dL (32.0-36.0); Mean Corpuscular Volume 91.1 fL (80.0-100.0); Monocytes # (auto) 1.03 K/uL (0.11-0.59); Monocytes % (auto) 6.2 %; Neutrophils # (auto) 14.76 K/uL (1.40-6.50); Neutrophils % (auto) 88.7 %; Platelet Count 191 K/uL (130-400); RDW Coefficient of Variation 12.5 % (11.5-14.5); White Blood Count 16.62 K/ul (4.8-10.8)
[2023-01-23 23:25] LABS: INR 1.3 (0.9-1.1); Partial Thromboplastin Ratio 0.9; Partial Thromboplastin Time 25.6 Seconds (21.0-31.0); Prothrombin Time 13.6 Seconds (9.0-12.0)
[2023-01-24] MEDS: metroNIDAZOLE 500 MG/100 ML BAG IV SCH ×3 (02:56→18:03)
[2023-01-24 04:39] LABS: Basophils # (auto) 0.03 K/uL (0.00-0.20); Basophils % (auto) 0.2 %; Hematocrit (blood only) 40.1 % (37.0-47.0); Hemoglobin 13.9 g/dl (12.0-16.0); Immature Granulocytes # (auto) 0.05 K/uL (0.01-0.20); Immature Granulocytes % (auto) 0.3 %; Lymphocytes # (auto) 1.11 K/uL (1.20-3.40); Lymphocytes % (auto) 6.3 %; Mean Corpuscular Hemoglobin 31.1 pg (25.0-34.0); Mean Corpuscular Hgb Conc 34.7 g/dL (32.0-36.0); Mean Corpuscular Volume 89.7 fL (80.0-100.0); Mean Platelet Volume 9.9 fL (9.4-12.4); Monocytes % (auto) 7.9 %; Neutrophils # (auto) 15.12 K/uL (1.40-6.50); Neutrophils % (auto) 85.3 %; Platelet Count 183 K/uL (130-400); RDW Coefficient of Variation 12.7 % (11.5-14.5); RDW Standard Deviation 41.5 fL (36.4-46.3); Red Blood Count 4.47 M/uL (4.20-5.40); White Blood Count 17.71 K/ul (4.8-10.8)
[2023-01-24 04:57] LABS: Albumin Globulin Ratio 1.3 (0.9-2); BUN Creatinine Ratio 24.2 (10-20); Bilirubin,Total 0.5 mg/dl (0.2-1.0); Calcium 7.6 mg/dl (8.6-10.3); Creatinine Clr Calc Pharmacy 31.4 ml/min; Est GFR (African American) 67.1 ml/min; Est GFR (Non-African American) 57.9 ml/min; Globulin 2.4 gm/dl (2.5-4.0); Magnesium 2.1 mg/dl (1.7-2.4); Potassium 3.9 mmol/L (3.5-5.1); Total Protein 5.4 gm/dl (6.0-8.3)
[2023-01-24 05:18] LABS: Partial Thromboplastin Ratio > 4.9
[2023-01-24 05:37] LABS: Partial Thromboplastin Time > 139.0 Seconds (21.0-31.0)
--- NOTE | 2023-01-24 06:37 | Surgery Progress Note ---
Date of Service January 24, 2023 Assessment & Plan (1) S/P laparoscopic cholecystectomy: Plan: Patient had severe acute and chronic cholecystitis She was started on IV heparin and her PTT this morning is 136-it has been stopped She is at risk for hemorrhage with this high level We will keep her off IV heparin and potentially start Eliquis later today/tonight Advance diet as tolerated Discharge home when medically stable Continue antibiotics for now Admission and Anticipated Discharge Date Admission Date: January 21, 2023 Results & Data Vital Signs (Past 12 Hours) Vital Signs Temp Pulse Pulse Resp BP BP Pulse Ox 01/24/23 02:50 36.5 C 88 18 120/72 94 01/23/23 21:59 97 H 01/23/23 23:26 36.6 C 113 H 18 115/79 93 01/23/23 19:19 37.0 C 119 H 18 123/79 94 O2 Del Method 01/24/23 02:50 Room Air 01/23/23 21:59 01/23/23 23:26 Room Air 01/23/23 19:19 Room Air PG Care Time/CCT Total # of Minutes Spent Total Time Spent with Patient: Total time spent is greater than 50% in coordination of care (as documented) at patient's floor/unit and/or counseling patient: Coding Level of Care Code 58160 Post Operative Follow-Up Diagnoses S/P laparoscopic cholecystectomy Z90.49
[2023-01-24 07:15] LABS: Partial Thromboplastin Time 112.2 Seconds (21.0-31.0)
[2023-01-24] MEDS: METOPROLOL SUCC 25MG EXT REL TAB PO SCH (07:57)
[2023-01-24] MEDS: ACETAMINOPHEN 325 MG TAB PO PRN (08:18)
[2023-01-24] MEDS: SODIUM CHLORIDE 0.9% 500 ML IV SCH (08:48)
--- NOTE | 2023-01-24 12:18 | Hospitalist Progress Note ---
Date of Service January 24, 2023 Assessment & Plan (1) Acute cholecystitis: Plan: Presented with fall from weakness likely secondary to acute cholecystitis found after admission LFTs and WBC count elevated on admission with persistent nausea, upper abdominal pain CT of the abd/pelvis and Gallbladder US concerning for possible acute cholecystitis patient had a laparoscopic cholecystectomy 01/23 treating pain with IV Dilaudid Nausea and vomiting have improved. 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 Her surgery recommendation the heparin drip will be started without a bolus at 10 PM tonight The patient has been started on a regular diet by the surgery team Continue IV fluids at 80 mils an hour monitor daily CBC and BMP (2) Fall: Plan: -CT of the head is negative, do not think that she warrants an MRI of the Brain at this time -She is without red flag symptoms and currently comfortable, do not think she needs an MRI of her lumbar spine at this time -Continue lidocaine patch and heat for back/leg pain, okay to give IV Tylenol as needed for pain with doses not to exceed 3 g/day - CK level normal Will need PT/OT consults prior to discharge (3) Stroke: Plan: 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 daily tomorrow 01/25 (4) A-fib: Plan: -Was noted to be in afib RVR with HR in the 110's on arrival - now rate controlled -Continue metoprolol as noted above -Holding apixaban . heparin drip held due to high PTT Monitor on telemetry (5) Hypertension: Plan: Blood pressures are low normal Continue home low-dose metoprolol for rate control for A-fib (6) Vertebral artery stenosis: Plan: -Stable Holding Plavix until cleared by surgery. continue atorvastatin Plan DVT prophylaxis-heparin drip Admission and Anticipated Discharge Date Admission Date: January 24, 2023 Subjective patient feels better today. No nausea. pain has improved. Having a clear liquid by mouth Review of Systems Review of Systems: All systems reviewed & are unremarkable except as noted in Subjective Physical Exam Physical Exam: General: Awake, conversant. Accompanied by her daughter who speaks Martiniquais. Heart: S1, S2/regular rate and rhythm, no murmur rubs or gallops Lungs: Clear to auscultation bilaterally. Normal effort Abdomen: Soft/nondistended. Mild tenderness in the right upper quadrant. No rebound, rigidity or guarding. No hepatosplenomegaly Extremities: No clubbing/cyanosis. No edema Behavior: Appropriate, cooperative Results & Data Results & Data Vital Signs (Past 12 Hours) Vital Signs Temp Pulse Pulse Resp BP Pulse Ox O2 Del Method 01/24/23 11:40 36.5 C 94 H 20 111/74 95 Room Air 01/24/23 11:20 111 H 01/24/23 10:23 Room Air 01/24/23 08:24 36.5 C 74 18 120/50 L 93 Room Air 01/24/23 02:50 36.5 C 88 18 120/72 94 Room Air Laboratory Results Abnormal lab results 01/23/23 01/23/23 01/24/23 Range/Units 22:16 22:16 04:04 WBC 16.62 H (4.8-10.8) K/ul Neut # (Auto) 14.76 H (1.40-6.50) K/uL Lymph # (Auto) 0.74 L (1.20-3.40) K/uL [place] # (Auto) 1.03 H (0.11-0.59) K/uL PT 13.6 H (9.0-12.0) Seconds INR 1.3 H (0.9-1.1) APTT (21.0-31.0) Seconds Chloride 110 H (98-107) mmol/L BUN/Creatinine Ratio 24.2 H (10-20) Glucose 139 H (70-99(Fasting)) mg/dl Calcium 7.6 L (8.6-10.3) mg/dl AST 43 H (13-39) U/L Total Protein 5.4 L (6.0-8.3) gm/dl Albumin 3.0 L (3.4-5.0) gm/dl Globulin 2.4 L (2.5-4.0) gm/dl 01/24/23 01/24/23 01/24/23 Range/Units 04:04 04:04 06:12 WBC 17.71 H (4.8-10.8) K/ul Neut # (Auto) 15.12 H (1.40-6.50) K/uL Lymph # (Auto) 1.11 L (1.20-3.40) K/uL [place] # (Auto) 1.40 H (0.11-0.59) K/uL PT (9.0-12.0) Seconds INR (0.9-1.1) APTT > 139.0 H* 112.2 H* (21.0-31.0) Seconds Chloride (98-107) mmol/L BUN/Creatinine Ratio (10-20) Glucose (70-99(Fasting)) mg/dl Calcium (8.6-10.3) mg/dl AST (13-39) U/L Total Protein (6.0-8.3) gm/dl Albumin (3.4-5.0) gm/dl Globulin (2.5-4.0) gm/dl PG Care Time/CCT Total # of Minutes Spent Total Time Spent with Patient: Total time spent is greater than 50% in coordination of care (as documented) at patient's floor/unit and/or counseling patient: Coding Level of Care Code 69167 SUB INP/OBS CARE MIN Diagnoses Acute cholecystitis K81.0 Fall W19.XXXA Encounter type: initial encounter Stroke I63.30 CVA mechanism: thrombosis Precerebral and cerebral artery: unspecified cerebral artery A-fib I48.91 Atrial fibrillation type: unspecified Hypertension I10 Vertebral artery stenosis I65.09 (2) Fall Encounter type: initial encounter Qualified Code(s): W19.XXXA - Unspecified fall, initial encounter (3) Stroke CVA mechanism: thrombosis Precerebral and cerebral artery: unspecified cerebral artery Qualified Code(s): I63.30 - Cerebral infarction due to thrombosis of unspecified cerebral artery (4) A-fib Atrial fibrillation type: unspecified Qualified Code(s): I48.91 - Unspecified atrial fibrillation
[2023-01-24] MEDS: cefTRIAXone SODIUM 1,000 MG in DEXTROSE 5% 50 ML IV SCH (15:35)
[2023-01-25] MEDS: metroNIDAZOLE 500 MG/100 ML BAG IV SCH ×3 (01:57→18:20)
[2023-01-25] MEDS: ACETAMINOPHEN 1,000 MG/100 ML VIAL IV PRN (02:37)
[2023-01-25] MEDS ORDERED: CALCIUM CARBONATE 500 MG CHEWABLE TAB PO PRN (02:56)
[2023-01-25] MEDS ORDERED: COUGH DROP (SUGAR FREE) LOZ 24 LOZ/1 BOX BUCCAL PRN (02:57)
--- NOTE | 2023-01-25 07:16 | Electrocardiogram Report ---
Test Reason : Blood Pressure : / mmHG Vent. Rate : 122 BPM Atrial Rate : 156 BPM P-R Int : 000 ms QRS Dur : 060 ms QT Int : 330 ms P-R-T Axes : 000 021 -45 degrees QTc Int : 470 ms Atrial fibrillation with rapid ventricular response Low voltage QRS Nonspecific T wave abnormality Abnormal ECG When compared with ECG of 21-JAN-2023 11:12, Nonspecific T wave abnormality now evident in Anterior leads Nonspecific T wave abnormality, improved in Lateral leads Confirmed by Harry Strange ([id number]) on 01/25/2023 7:15:53 AM Referred By: REFERRED SELF Confirmed By:Oracio Strange
[2023-01-25] MEDS: ATORVASTATIN 20 MG TAB PO SCH (07:44)
[2023-01-25] MEDS: METOPROLOL SUCC 25MG EXT REL TAB PO SCH (07:44)
[2023-01-25] MEDS ORDERED: METOPROLOL TARTRATE 1 MG/ML VIAL IV STA (08:07)
[2023-01-25] MEDS: CLOPIDOGREL BISULFATE 75 MG TAB PO SCH ×3 (09:04→09:22)
[2023-01-25] MEDS: PANTOprazole 40 MG TAB PO SCH (09:04)
[2023-01-25] MEDS: APIXABAN 2.5 MG TAB PO SCH (09:04)
--- NOTE | 2023-01-25 09:13 | Surgery Progress Note ---
Date of Service January 25, 2023 Assessment & Plan (1) S/P laparoscopic cholecystectomy: Plan: POD#2 - overall doing well from abdominal standpoint with bowels functioning; tolerating regular diet. Liver function tests improving. Stable for discharge once medical issues improved. (2) Acute cholecystitis: Plan: treated with lap blas. On IV antibiotics. (3) A-fib: Plan: On eliquis and plavix. Bout of rapid ventricular response earlier this am. Management as per medicine. PTT 112. Admission and Anticipated Discharge Date Admission Date: January 24, 2023 Subjective Sitting in bed having breakfast. Family at bedside. Notes patient notes nausea. Bowels are working - did have some diarrhea following surgery. wondering about discharge plans. EKG done when HR noted to be elevated showed a fib with RVR. Physical Exam Constitutional: WD/WN, vitals as above Respiratory: normal respiratory effort, lungs clear to auscultation Gastrointestinal (Abdomen): normal bowel sounds, soft, nontender, no hepatosplenomegaly dressings dry Neurologic: awake; no focal motor deficits Results & Data Vital Signs (Past 12 Hours) Vital Signs Temp Pulse Pulse Resp BP BP BP 01/25/23 08:10 01/25/23 08:52 119 H 125/90 01/25/23 07:32 36.4 C L 122 H 18 133/83 01/25/23 07:20 118 H 01/25/23 02:36 116 H 139/80 01/25/23 01:11 122 H 01/24/23 23:17 36.5 C 112 H 16 143/79 H Pulse Ox O2 Del Method 01/25/23 08:10 Room Air 01/25/23 08:52 01/25/23 07:32 95 Room Air 01/25/23 07:20 01/25/23 02:36 94 Room Air 01/25/23 01:11 01/24/23 23:17 97 Room Air (3) A-fib Atrial fibrillation type: unspecified Qualified Code(s): I48.91 - Unspecified atrial fibrillation
--- NOTE | 2023-01-25 11:10 | Hospitalist Progress Note ---
Date of Service January 25, 2023 Assessment & Plan (1) Acute cholecystitis: Plan: Presented with fall from weakness likely secondary to acute cholecystitis found after admission LFTs and WBC count elevated on admission with persistent nausea, upper abdominal pain CT of the abd/pelvis and Gallbladder US concerning for possible acute cholecystitis patient had a laparoscopic cholecystectomy 01/23 treating pain with IV Dilaudid Nausea and vomiting have improved. Continue ceftriaxone and metronidazole resume Plavix and Eliquis per surgery recommendation patient is tolerating a regular diet check CBC in a.m. (2) Fall: Plan: -CT of the head is negative, do not think that she warrants an MRI of the Brain at this time -She is without red flag symptoms and currently comfortable, do not think she needs an MRI of her lumbar spine at this time -Continue lidocaine patch and heat for back/leg pain, okay to give IV Tylenol as needed for pain with doses not to exceed 3 g/day - CK level normal Will need PT/OT consults prior to discharge Patient complains of feeling dizzy. Check orthostatic vital signs. 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 We will resume as such although they seem to be lower doses than recommended for stroke prevention. This will need to be addressed by her PCP. (4) A-fib: Plan: -Was noted to be in afib RVR with HR in the 110's on arrival - Rate uncontrolled this morning. Was given a dose of IV metoprolol with improvement. -Continue metoprolol as noted above - Eliquis resumed Monitor on telemetry (5) Hypertension: Plan: Blood pressures are low normal Continue home low-dose metoprolol for rate control for A-fib (6) Vertebral artery stenosis: Plan: -Stable resumed Plavix. dose will need to be revisited by PCP. continue atorvastatin Plan DVT prophylaxis-Eliquis Admission and Anticipated Discharge Date Admission Date: January 24, 2023 Subjective patient Complains of feeling weak. Pain is improved. However she has some heartburn sensation. Noted that her heart rate went up this morning. Noted that her white count is still elevated Review of Systems Review of Systems: All systems reviewed & are unremarkable except as noted in Subjective Physical Exam Physical Exam: General: Awake, conversant. Accompanied by her daughter who speaks Czech. Heart: S1, S2/ irregular rhythm rate controlled, no murmur rubs or gallops Lungs: Clear to auscultation bilaterally. Normal effort Abdomen: Soft/nondistended. Mild tenderness in the right upper quadrant. No rebound, rigidity or guarding. No hepatosplenomegaly Extremities: No clubbing/cyanosis. No edema Behavior: Appropriate, cooperative Results & Data Results & Data Vital Signs (Past 12 Hours) Vital Signs Temp Pulse Pulse Resp BP BP BP 01/25/23 10:54 36.4 C L 96 H 18 129/84 01/25/23 09:12 101 H 104/71 01/25/23 08:10 01/25/23 08:52 119 H 125/90 01/25/23 07:32 36.4 C L 122 H 18 133/83 01/25/23 07:20 118 H 01/25/23 02:36 116 H 139/80 01/25/23 01:11 122 H 01/24/23 23:17 36.5 C 112 H 16 143/79 H Pulse Ox O2 Del Method 01/25/23 10:54 95 Room Air 01/25/23 09:12 01/25/23 08:10 Room Air 01/25/23 08:52 01/25/23 07:32 95 Room Air 01/25/23 07:20 01/25/23 02:36 94 Room Air 01/25/23 01:11 01/24/23 23:17 97 Room Air PG Care Time/CCT Total # of Minutes Spent Total Time Spent with Patient: Total time spent is greater than 50% in coordination of care (as documented) at patient's floor/unit and/or counseling patient: Coding Level of Care Code 38738 SUB INP/OBS CARE 2/35MIN Diagnoses Acute cholecystitis K81.0 Fall W19.XXXA Encounter type: initial encounter Stroke I63.30 CVA mechanism: thrombosis Precerebral and cerebral artery: unspecified cerebral artery A-fib I48.91 Atrial fibrillation type: unspecified Hypertension I10 Vertebral artery stenosis I65.09 (2) Fall Encounter type: initial encounter Qualified Code(s): W19.XXXA - Unspecified fall, initial encounter (3) Stroke CVA mechanism: thrombosis Precerebral and cerebral artery: unspecified cerebral artery Qualified Code(s): I63.30 - Cerebral infarction due to thrombosis of unspecified cerebral artery (4) A-fib Atrial fibrillation type: unspecified Qualified Code(s): I48.91 - Unspecified atrial fibrillation
[2023-01-25] MEDS: cefTRIAXone SODIUM 1,000 MG in DEXTROSE 5% 50 ML IV SCH (16:29)
[2023-01-25] MEDS ORDERED: ACETAMINOPHEN 1,000 MG/100 ML VIAL IV PRN (19:37)
[2023-01-26] MEDS: metroNIDAZOLE 500 MG/100 ML BAG IV SCH ×2 (02:11→10:24)
[2023-01-26 08:10] LABS: Basophils # (auto) 0.03 K/uL (0.00-0.20); Basophils % (auto) 0.2 %; Eosinophils # (auto) 0.13 K/uL (0.00-0.50); Eosinophils % (auto) 0.8 %; Hematocrit (blood only) 42.8 % (37.0-47.0); Hemoglobin 14.8 g/dl (12.0-16.0); Immature Granulocytes # (auto) 0.07 K/uL (0.01-0.20); Immature Granulocytes % (auto) 0.4 %; Lymphocytes # (auto) 2.21 K/uL (1.20-3.40); Lymphocytes % (auto) 14.2 %; Mean Corpuscular Hemoglobin 30.8 pg (25.0-34.0); Mean Corpuscular Hgb Conc 34.6 g/dL (32.0-36.0); Mean Platelet Volume 10.8 fL (9.4-12.4); Monocytes # (auto) 1.05 K/uL (0.11-0.59); Monocytes % (auto) 6.7 %; Neutrophils # (auto) 12.09 K/uL (1.40-6.50); Neutrophils % (auto) 77.7 %; Platelet Count 153 K/uL (130-400); RDW Coefficient of Variation 12.8 % (11.5-14.5); RDW Standard Deviation 41.5 fL (36.4-46.3); Red Blood Count 4.81 M/uL (4.20-5.40); White Blood Count 15.58 K/ul (4.8-10.8)
[2023-01-26] MEDS: PANTOprazole 40 MG TAB PO SCH (08:41)
[2023-01-26] MEDS ORDERED: METOPROLOL SUCC 25MG EXT REL TAB PO SCH (09:00)
[2023-01-26] MEDS: APIXABAN 2.5 MG TAB PO SCH (10:24)
--- NOTE | 2023-01-26 12:26 | Surgery Progress Note ---
Date of Service January 26, 2023 Assessment & Plan (1) S/P laparoscopic cholecystectomy: Plan: POD#3 - overall doing well from abdominal standpoint with bowels functioning; tolerating regular diet. Liver function tests better on yesterday's labs. Leukocytosis improving - continue antibiotics. Stable for discharge once medical issues improved. Discussed diarrhea/ loose stool can be common after lap blas. (2) Acute cholecystitis: Plan: treated with lap blas. On IV antibiotics. (3) A-fib: Plan: On eliquis and plavix. Management as per medicine. Admission and Anticipated Discharge Date Admission Date: January 24, 2023 Subjective Daughter at bedside. Pt still with some pain with movement, ok if she is resting. No nausea or vomiting. Had loose stool yesterday. Tolerated diet. Physical Exam Constitutional: WD/WN, vitals as above Respiratory: normal respiratory effort, lungs clear to auscultation Gastrointestinal (Abdomen): normal bowel sounds, soft, nontender, no hepatosplenomegaly Neurologic: awake; no focal motor deficits Results & Data Vital Signs (Past 12 Hours) Vital Signs Temp Pulse Pulse Resp BP Pulse Ox O2 Del Method 01/26/23 12:04 36.7 C 101 H 16 125/75 94 Room Air 01/26/23 09:05 36.8 C 121 H 19 144/109 H 95 Room Air 01/26/23 08:00 125 H 01/26/23 02:15 36.6 C 128 H 18 132/86 96 Room Air Laboratory Results 01/26/23 01/26/23 Range/Units 07:09 05:51 WBC 15.58 H Cancelled RBC 4.81 Cancelled Hgb 14.8 Cancelled Hct 42.8 Cancelled MCV 89.0 Cancelled MCH 30.8 Cancelled MCHC 34.6 Cancelled RDW Std Deviation 41.5 Cancelled RDW Coeff of Donis 12.8 Cancelled Plt Count 153 Cancelled MPV 10.8 Cancelled Immature Gran % (Auto) 0.4 Cancelled Neut % (Auto) 77.7 Cancelled Lymph % (Auto) 14.2 Cancelled Howard % (Auto) 6.7 Cancelled Eos % (Auto) 0.8 Cancelled Baso % (Auto) 0.2 Cancelled Neut # (Auto) 12.09 H Cancelled Lymph # (Auto) 2.21 Cancelled Howard # (Auto) 1.05 H Cancelled Eos # (Auto) 0.13 Cancelled Baso # (Auto) 0.03 Cancelled Immature Gran # (Auto) 0.07 Cancelled Absolute Nucleated RBC Cancelled Nucleated RBC % (auto) Cancelled Neutrophils % (Manual) Cancelled Band Neutrophils % Cancelled Lymphocytes % (Manual) Cancelled Prolymphocyte % Cancelled Reactive Lymphs % (Man) Cancelled Monocytes % (Manual) Cancelled Eosinophils % (Manual) Cancelled Basophils % (Manual) Cancelled Metamyelocytes % (Man) Cancelled Myelocytes % (Man) Cancelled Promyelocytes % (Man) Cancelled Blast Cells % (Manual) Cancelled Plasma Cell % (Manual) Cancelled Other Cells % Cancelled Nucleated RBC % Cancelled Neutrophils # (Manual) Cancelled Band Neutrophils # Cancelled Total Absolute Neuts Cancelled Lymphocytes # (Manual) Cancelled Prolymphocyte # Cancelled Reactive Lymphs # Cancelled Total Abs Lymphocytes Cancelled Monocytes # (Manual) Cancelled Eosinophils # (Manual) Cancelled Basophils # (Manual) Cancelled Metamyelocytes # (Man) Cancelled Myelocytes # (Manual) Cancelled Promyelocytes # (Man) Cancelled Blast Cells # (Man) Cancelled Plasma Cell # (Manual) Cancelled Other Cells # Cancelled Nucleated RBCs # (Man) Cancelled Hypersegmented Neuts Cancelled Hyposegmented Neuts Cancelled Hypogranular Neuts Cancelled Large Granular Lymphs Cancelled # Lrg Granular Lymphs Cancelled Hairy Cells Cancelled Smudge Cells Cancelled Toxic Granulation Cancelled Toxic Vacuolation Cancelled Dohle Bodies Cancelled Rhys Rods Cancelled Platelet Estimate Cancelled Hypogranular Platelets Cancelled Giant Platelets Cancelled Platelet Satelliting Cancelled RBC Morphology Cancelled Polychromasia Cancelled Hypochromasia Cancelled Poikilocytosis Cancelled Basophilic Stippling Cancelled Anisocytosis Cancelled Microcytosis Cancelled Macrocytosis Cancelled Spherocytes Cancelled Pappenheimer Bodies Cancelled Sickle Cells Cancelled Target Cells Cancelled Tear Drop Cells Cancelled Ovalocytes Cancelled Stomatocytes Cancelled Jung[place] Bodies Cancelled Echinocytes Cancelled Acanthocytes (Spur) Cancelled Rouleaux Cancelled RBC Agglutinates Cancelled Schistocytes Cancelled Sezary Cell Cancelled Blood Parasites ID Cancelled (3) A-fib Atrial fibrillation type: unspecified Qualified Code(s): I48.91 - Unspecified atrial fibrillation
[2023-01-26] MEDS ORDERED: METOPROLOL SUCC 25MG EXT REL TAB PO ONE (14:44)
--- NOTE | 2023-01-26 14:50 | Hospitalist Progress Note ---
Date of Service January 26, 2023 Assessment & Plan (1) Acute cholecystitis: Plan: Presented with fall from weakness likely secondary to acute cholecystitis found after admission LFTs and WBC count elevated on admission with persistent nausea, upper abdominal pain CT of the abd/pelvis and Gallbladder US concerning for possible acute cholecystitis patient had a laparoscopic cholecystectomy 01/23 Nausea and vomiting have Resolved Continue ceftriaxone and metronidazole Leukocytosis improved resume Plavix and Eliquis per surgery recommendation patient is tolerating a regular diet (2) Fall: Plan: -CT of the head is negative, do not think that she warrants an MRI of the Brain at this time -She is without red flag symptoms and currently comfortable, do not think she needs an MRI of her lumbar spine at this time -Continue lidocaine patch and heat for back/leg pain, okay to give IV Tylenol as needed for pain with doses not to exceed 3 g/day - CK level normal Will need PT/OT consults prior to discharge Patient complains of feeling dizzy. Check orthostatic vital signs. 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 We will resume as such although they seem to be lower doses than recommended for stroke prevention. This will need to be addressed by her PCP. (4) A-fib: Plan: -Was noted to be in afib RVR with HR in the 110's on arrival - Rate uncontrolled this morning. increased the dose of metoprolol to 50 succinate once daily Given extra dose of metoprolol 25 mg x 1 now - Eliquis resumed Monitor on telemetry (5) Hypertension: Plan: Blood pressures are normal Continue metoprolol for rate control for A-fib (6) Vertebral artery stenosis: Plan: -Stable resumed Plavix. dose will need to be revisited by PCP. continue atorvastatin Plan DVT prophylaxis-Eliquis Admission and Anticipated Discharge Date Admission Date: January 24, 2023 Subjective patient feels better overall. However noted that her heart rate is elevated. Abdominal pain better. Tolerating diet. Walking well. No dizziness. Orthostatic blood pressure stable. Review of Systems Review of Systems: All systems reviewed & are unremarkable except as noted in Subjective Physical Exam Physical Exam: General: Awake, conversant. Accompanied by her daughter who speaks [place]. Heart: S1, S2/ irregular rhythm rate uncontrolled, no murmur rubs or gallops Lungs: Clear to auscultation bilaterally. Normal effort Abdomen: Soft/nondistended. Mild tenderness in the right upper quadrant. No rebound, rigidity or guarding. No hepatosplenomegaly Extremities: No clubbing/cyanosis. No edema Behavior: Appropriate, cooperative Results & Data Results & Data Vital Signs (Past 12 Hours) Vital Signs Temp Pulse Pulse Resp BP Pulse Ox O2 Del Method 01/26/23 12:04 36.7 C 101 H 16 125/75 94 Room Air 01/26/23 09:05 36.8 C 121 H 19 144/109 H 95 Room Air 01/26/23 08:00 125 H Laboratory Results Abnormal lab results 01/26/23 Range/Units 07:09 WBC 15.58 H (4.8-10.8) K/ul Neut # (Auto) 12.09 H (1.40-6.50) K/uL [place] # (Auto) 1.05 H (0.11-0.59) K/uL PG Care Time/CCT Total # of Minutes Spent Total Time Spent with Patient: Total time spent is greater than 50% in coordination of care (as documented) at patient's floor/unit and/or counseling patient: Coding Level of Care Code 46102 SUB INP/OBS CARE 235MIN Diagnoses Acute cholecystitis K81.0 Fall W19.XXXA Encounter type: initial encounter Stroke I63.30 CVA mechanism: thrombosis Precerebral and cerebral artery: unspecified cerebral artery A-fib I48.91 Atrial fibrillation type: unspecified Hypertension I10 Vertebral artery stenosis I65.09 (2) Fall Encounter type: initial encounter Qualified Code(s): W19.XXXA - Unspecified fall, initial encounter (3) Stroke CVA mechanism: thrombosis Precerebral and cerebral artery: unspecified cerebral artery Qualified Code(s): I63.30 - Cerebral infarction due to thrombosis of unspecified cerebral artery (4) A-fib Atrial fibrillation type: unspecified Qualified Code(s): I48.91 - Unspecified atrial fibrillation
[2023-01-26] MEDS: cefTRIAXone SODIUM 1,000 MG in DEXTROSE 5% 50 ML IV SCH (16:08)
[2023-01-26] MEDS: metroNIDAZOLE 500 MG TAB PO SCH (20:41)
[2023-01-27] MEDS: ACETAMINOPHEN 325 MG TAB PO PRN (06:54)
[2023-01-27] MEDS ORDERED: METOPROLOL TARTRATE 1 MG/ML VIAL IV STA (07:30)
[2023-01-27] MEDS ORDERED: metroNIDAZOLE 500 MG TAB PO SCH (09:00)
[2023-01-27] MEDS ORDERED: METOPROLOL SUCC 50MG EXT REL TAB PO SCH (09:00)
[2023-01-27] MEDS: ATORVASTATIN 20 MG TAB PO SCH (09:49)
[2023-01-27] MEDS: cephALEXin 500 MG CAP PO SCH ×2 (09:49→17:29)
[2023-01-27] MEDS: APIXABAN 2.5 MG TAB PO SCH (09:49)
[2023-01-27] MEDS: CLOPIDOGREL BISULFATE 75 MG TAB PO SCH (09:50)
[2023-01-27] MEDS: PANTOprazole 40 MG TAB PO SCH (09:50)
[2023-01-27] MEDS: metroNIDAZOLE 500 MG TAB PO SCH ×2 (09:50→17:29)
--- NOTE | 2023-01-27 11:18 | Surgery Progress Note ---
Date of Service January 27, 2023 Assessment & Plan (1) S/P laparoscopic cholecystectomy: Plan: Patient awake and alert Having mild pain but not taking any significant pain medication She is tolerating her diet Her incisions are stable and do have sutures Adjusting her cardiac meds For discharge home when medically stable We will see her in the office next week for wound check and suture removal She will likely need 2-3 extra days of antibiotics at home Admission and Anticipated Discharge Date Admission Date: January 24, 2023 Results & Data Vital Signs (Past 12 Hours) Vital Signs Temp Pulse Pulse Resp BP BP Pulse Ox 01/27/23 07:42 36.6 C 110 H 20 112/83 97 01/27/23 08:32 117 H 115/83 01/27/23 08:07 110 H 112/83 01/27/23 04:13 36.4 C L 116 H 16 108/72 97 01/26/23 23:37 36.5 C 125 H 18 129/95 96 O2 Del Method 01/27/23 07:42 Room Air 01/27/23 08:32 01/27/23 08:07 01/27/23 04:13 Room Air 01/26/23 23:37 Room Air PG Care Time/CCT Total # of Minutes Spent Total Time Spent with Patient: Total time spent is greater than 50% in coordination of care (as documented) at patient's floor/unit and/or counseling patient: Coding Level of Care Code None Diagnoses S/P laparoscopic cholecystectomy Z90.49
--- NOTE | 2023-01-27 14:22 | Discharge Summary ---
Date of Service January 27, 2023 Admission HPI Per Admitting Provider Anali Reed (Mandarin Speaking) is an 82 year old female with a PMH significant for afib on Eliquis, previous left-sided CVA, hyperlipidemia, and gout who presented to the [facility] ED on 01/21 after a fall at home. In the ED the patient was noted to be tachycardic with HR in the 110's but otherwise stable. Labs were significant for a leukocytosis of 11 with neutrophil count of 9.09, total bili of 1.3, AST of 64, ALT of 53, and alk phos of 118. CT of the head wo con was read as "No acute intracranial abnormality.". Chest xray was read as "No acute process.". CT of the abd/pelvis wo con was read as "1. The examination is suboptimal without IV contrast. There is also streak and motion artifact 2. There is no evidence of solid organ injury in the abdomen or pelvis on this unenhanced examination. 3. The gallbladder is distended and there is faint surrounding infiltration. Findings are equivocal and a right upper quadrant ultrasound is recommended for further evaluation. 4. Cardiomegaly. 5. Additional findings as above.". US of the gallbladder was read as "Thickening of the gallbladder wall with pericholecystic edema but negative Santana's sign. If the patient has not received pain medication, findings are less concerning for acute cholecystitis. Clinical correlation is recommended.". The patient was given 500 mL NSS and her symptoms appeared to improve. We were asked to admit the patient for further evaluation of her elevated LFT's and her fall. At the time of the exam the patient was sitting in the bedside chair in no acute distress with her Daughter sitting bedside, history was obtained from a professional cell plasterer and the patient's daughter. The patient woke up in her normal state of health. She was walking in her home at approximately 0830 this am when she experienced a sudden onset of right LE cramping. These cramps caused her LE to feel weak and she fell to the ground. She denies hitting her head or losing consciousness. She is unsure how long she was on the ground for, she was eventually able to call her daughter. The patient denies any weakness or pain in her extremities. She notes that she has a herniated disc which is located in the low back and pushes to the right side. She has never had these leg spasms like this in the past and has had ambulatory dysfunction since her last stroke in 2019. She denies unilateral extremity weakness, new paresthesias, saddle anesthesia, loss of bowel or bladder function, and other recent falls. In regards to her chronic abdominal pain. She states that she has been experiencing RUQ pain with radiation to her right shoulder for "years". She states that it occurs every morning when waking and will also occur after waking from naps in the afternoon. She does not think it is associated with eating or drinking. She does not currently have the pain and has difficulty describing it. We discussed code status, she has a living will and clearly explained that she is a DNR/DNI. She states that she would not want aggressive measures if she were to clinically decline. Please refer to Dr. Mi's attestation for any changes to the treatment plan Principal Diagnosis General:In no acute distress, stated age, well-nourished, non-toxic appearing HEENT:Normocephalic, atraumatic, no scleral icterus, pupils around round, s ymmetrical, and reactive to light, moist mucus membranes, trachea midline, no thyromegaly Chest/Pulm:No respiratory distress, symmetrical chest expansion, clear breath sounds throughout Cardiac:irregular rate and rhythm, no murmurs noted Abdomen:Negative for ascites and bruising, normoactive bowel sounds, soft, tender to palpation in the RUQ with positive Santana's sign Musculoskeletal:Symmetrical and without signs of acute trauma, upper and lower extremities with full ROM, no atrophy, spasticity, or flaccidity Extremities:Radial, dorsalis pedis, and posterior tibial pulses are intact and symmetrical, no edema noted in the BL LE's Skin:Warm, dry, no rashes , lesions, or scars noted Neuro:Alert and oriented to person, place, month, year, no focal defects, CN II-XII tested and intact, symmetrical strength and sensation in the BL upper and lower extremities, no tremors noted Psych:No acute distress, calm and cooperative during the exam Discharge Exam General: Awake, conversant. Accompanied by her daughter who speaks Peruvian. Heart: S1, S2/ irregular rhythm rate uncontrolled, no murmur rubs or gallops Lungs: Clear to auscultation bilaterally. Normal effort Abdomen: Soft/nondistended. Mild tenderness in the right upper quadrant. No rebound, rigidity or guarding. No hepatosplenomegaly Extremities: No clubbing/cyanosis. No edema Behavior: Appropriate, cooperative Discharge Data Allergies Allergy/AdvReac Type Severity Reaction Status Date / Time Poultry Allergy Because it Verified 01/21/23 17:04 raises uric acid. She is on allopurinal. shellfish derived Allergy Rash Verified 01/21/23 17:04 Consultations 01/21/23 15:29 ED Decision to Admit Stat Procedures Performed Operation Date: 01/23/23 07:00 Actual Procedures p Laparoscopic Cholecystectomy(Not Applicable) - Yoan Beckford MD, FACS Ordered Studies 01/21/23 12:29 CT Abd and Pelvis [CT abd pelvis wo con] Stat CT head/brain wo con Stat 01/21/23 13:34 US gallbladder Stat 01/21/23 16:26 MR MRCP Stat Hospital Course (1) Acute cholecystitis: Presented with fall from weakness likely secondary to acute cholecystitis found after admission LFTs and WBC count elevated on admission with persistent nausea, upper abdominal pain CT of the abd/pelvis and Gallbladder US concerning for possible acute cholecystitis patient had a laparoscopic cholecystectomy 01/23 Nausea and vomiting have Resolved Leukocytosis improved resumed Plavix and Eliquis per surgery recommendation patient is tolerating a regular diet Cleared for discharge by general surgery Switch to p.o. Flagyl and Keflex upon discharge To complete a course (2) Fall: -CT of the head is negative, do not think that she warrants an MRI of the Brain at this time -She is without red flag symptoms and currently comfortable, do not think she needs an MRI of her lumbar spine at this time -Continue lidocaine patch and heat for back/leg pain - CK level normal cleared by PT/OT for discharge patient was complaining of dizziness. Orthostatic vital signs were negative. 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 I have resumed as such although they seem to be lower doses than recommended for stroke prevention. This will need to be addressed by her PCP. (4) A-fib: -Was noted to be in afib RVR with HR in the 110's on arrival - Rate uncontrolled this morning. increased the dose of metoprolol to 50 succinate once daily patient was given an IV metoprolol dose this morning - Eliquis resumed she was able to ambulate and her heart rate stayed below 120 upon ambulation. She is very anxious to go home She will need to follow-up with her PCP in 1 week (5) Hypertension: Blood pressures are normal Continue metoprolol for rate control for A-fib (6) Vertebral artery stenosis: -Stable resumed Plavix. dose will need to be revisited by PCP. continue atorvastatin Plan DVT prophylaxis-Eliquis Total Time Total Time Spent Total Time Spent (In Minutes): 35 Discharge Plan Discharge Items Patient Disposition: Home - Self-Care Reason For Visit: FALL, ELEVATED LIVER ENZYMES Discharge Diagnosis: laparoscopic cholecystectomy Uncontrolled atrial fibrillation Activity: Per Instructions section Activity Comment: light activity for 3-4 weeks Lifting: No more than 10 pounds Bathing Comment: may shower; no soaking in tubs/pools x 2 weeks Sexual Activity: When tolerated Exercise/Sports: Wait until after follow-up appointment Exercise Comment: wait 3-4 weeks Driving/Machine Use: no driving while taking any narcotics for pain Non-emergency contact: Primary Care Provider and Surgeon Call non-emergency contact if: you have any medication questions, your pain is not controlled, you have a fever, your temperature is above 101.5, your wound has increased redness, your wound has increased drainage and your wound pain has increased Follow-up/Referrals: Yoan Beckford MD, FACS [Physician] - (call office for a follow up appointment in 2 weeks ) [facility],Medicine [Primary Care Provider] - (PLEASE CALL YOUR PRIMARY CARE PROVIDER TO SCHEDULE A HOSPITAL DISCHARGE FOLLOW-UP APPOINTMENT WITHIN 7-10 DAYS) Diet: Regular Addtl Attending Provider Instructions: Advised to note that you will need to follow-up with PCP in 1 week, preferably in 3 days since your heart rate is still fast. SPECIAL CARE INSTRUCTIONS: * Cover incisions and change daily for comfort/drainage. * May use ibuprofen for pain as tolerated. * Expect some swelling and bruising. Call your doctor if: * Temperature above 101 degrees * Pain not relieved by pain medicine ordered * There is increased drainage or redness from any incision * You have any unanswered questions or concerns [phone]. FOLLOW UP VISIT: If not already scheduled, please call the office for a follow-up visit. For next weeksuture removal and wound check OFFICE PHONE NUMBER: Dr. Beckford Office Pending Studies at Discharge: Yes Studies:: surgical pathology Stand-Alone Forms: My [facility] Medications and DC Order Prescriptions: New cephalexin 500 mg Capsule 500 mg PO BID 4 Days Qty: 8 0RF metronidazole 500 mg Tablet 500 mg PO BID 4 Days Qty: 8 0RF metoprolol succinate 50 mg Tablet Extended Release 24 Hr 50 mg PO QAM 30 Days Qty: 30 0RF Continued multivitamin Tablet 1 tab PO Q OTHER DAY atorvastatin 20 mg Tablet 20 mg PO Q OTHER DAY clopidogrel [Plavix] 75 mg Tablet 75 mg PO Q OTHER DAY Rx Instructions: Is ordered bid but only takes daily allopurinol 100 mg Tablet 100 - 200 mg PO DAILY famotidine 20 mg Tablet 20 - 40 mg PO DAILY Rx Instructions: took 2 tabs today cholecalciferol (vitamin D3) [Vitamin D3] 50 mcg (2,000 unit) Capsule 0 mcg PO Q OTHER DAY Eliquis 2.5 mg Tablet 2.5 mg PO DAILY Rx Instructions: Os ordered bid but only takes daily. Samantha Mathews Glucosamine 2 tab PO BID Discontinued metoprolol succinate 25 mg Tablet Extended Release 24 Hr 12.5 mg PO DAILY Discharge Orders: Discharge Order (Routine); Ordered 01/27/23 Ordered By: Qasim Thomas Admission Data Admit Date/Time: 01/24/23 09:12 Attending Provider: Qasim Thomas Admit Provider: Alden Mi [facility]: Alden Mi Coding Level of Care Code 32108 INP/OBS DISCH >30 MIN Diagnoses Acute cholecystitis K81.0 Fall W19.XXXA Encounter type: initial encounter Stroke I63.30 CVA mechanism: thrombosis Precerebral and cerebral artery: unspecified cerebral artery A-fib I48.91 Atrial fibrillation type: unspecified Hypertension I10 Vertebral artery stenosis I65.09
== END 2023-01-27 18:33 | disposition home or self-care (01) | DRG 419 ==
LOC: EDINP 10:33 → ED 10:33 → SUATTDRO 16:19 → EDINP 18:41 → 2N 21:08

== ENCOUNTER 2023-08-13 17:07 | Inpatient (IN) ==
--- NOTE | 2023-08-13 17:31 | ED Triage Note ---
Date of Service August 13, 2023 Provider in Triage Author: Priscilla Dutton History of Present Illness This patient was briefly evaluated while in triage. An abbreviated physical exam was performed. This patient is a 83-year-old Female who presents to the ED for evaluation of swelling. Her daughter states that she has swollen legs and swelling in her abdomen. Today she lost her strength and is unable to stand. Started vomiting as well. Keeps asking repeptative questions and seems very confused. Symptoms started last week and progressively getting worse. The patient's daughter states that there was no acute change today other than being too weak to walk. Did not loose movement of her arms and legs. No reaction to IV contrast dye in the past. Physical Exam GENERAL: The patient appears mildly ill and weak. Non-toxic and in no acute distress. HEENT: Pupils equal. No obvious scleral icterus. HEART: Regular rate and rhythm. LUNGS: Clear to auscultation. No accessory muscle use. ABDOMEN: Soft, nontender to palpation. Ascites and anasarca noted. NEURO: The patient was alert, but was not conversing much in triage. No facial droop. No deviation of the tongue. She is able to puff out her cheeks. No focal neurological deficits. MUSCULOSKELETAL: Pitting edema of the bilateral lower extremities with some third spacing noted. Full range of motion of the bilateral upper and lower extremities. The patient's extremities are weak, but strength is equal bilaterally. Initial orders for labs and / or imaging were placed and patient was placed in the waiting area until a bed is available. Please see further documentation for the full ED course. MDM / Impression Impression Impression: Hyponatremia, Hypomagnesemia, Edema due to hypervolemia, Thrombocytopenia, Elevated TSH
--- NOTE | 2023-08-13 18:08 | Emergency Department Note ---
Impression & Plan Hyponatremia, Hypomagnesemia, Edema due to hypervolemia, Thrombocytopenia, Elevated TSH ED Provider Note NAME: LEIGH ANN WISE AGE: 83 SEX: F : 1940 ARRIVES VIA: Walk-In INFORMANT: Patient ED PROVIDER(S): Froy Koehler MD CHIEF COMPLAINT: Weakness PLAN: Disposition: Admit MEDICAL DECISION MAKING: The patient is a pleasant Mandarin speaking only 82-year-old woman with a past medical history of atrial fibrillation on Eliquis, history of left-sided CVA, hyperlipidemia who presents to the emergency department via walk-in accompanied by her daughter who is interpreting for the patient per the patient's preference for evaluation of generalized weakness that is evolved over the past several days in the setting of having malaise and weakness over months. She reports having cough and congestion as well as some nausea and vomiting. Denies any diarrhea. They deny chest pain or shortness of breath. She reports she has been very weak and wanting to sleep all the time. She reports her legs have become more swollen over the past couple weeks. She reports she contacted the patient's primary care doctor and asked if she could increase her hydrochlorothiazide and so for the past 4 days or so has been taking a double dose. Of note, the patient did arrive to emergency department during time of high volume, acuity and prolonged emergency department waiting times. Critical pathways initiated from triage. The patient presents to the emergency department to triage with temperature 36.0 and blood pressure 160s/100s and vital signs otherwise stable. She exhibits dry mucous membranes but does have pitting edema bilateral extremities and third spacing/anasarca. She is moving all extremities symmetrically with generalized weakness without focal deficits. EKG without overt acute ischemia. Suspect atrial fibrillation vs atrial ectopic rhythm with first-degree AV block. Chest x-ray with mild pulmonary edema, layering bilateral pleural effusions right greater than left and bibasilar consolidation. WBC within normal limits with mild lymphopenia and mild neutrophilia and no left shift. H/H is within normal limits at 15.1/40.9. Platelets are newly low at 86K. Chemistry eventually obtained and demonstrated severe hyponatremia with sodium of 1/12 and chloride of 78. Lactic acid was initially elevated 2.2 however improving to 2.0 after 500 cc of normal saline. Otherwise chemistry without metabolic acidosis. Magnesium 1.4 with IV repletion initiated. LFTs are newly elevated with total bilirubin 2.2, AST 41 and alk phos 162. ALT within normal limits. High-sensitivity troponin 11.8 within normal limits. BNP is elevated 806, nonspecific and similar to prior values in January 2023. Procalcitonin is undetectable. TSH is elevated 8.6 and so myxedema coma considered however free T4 within normal limits. Free T3 ordered and pending. Additionally, random cortisol also ordered. UA without convincing evidence of infection. Respiratory viral panel was negative. CT of the head, CTA of the head and neck were performed and were negative for acute ICH or ischemia. Note is made of cerebrovascular disease on a chronic basis. CT of the abdomen pelvis negative for acute intra-abdominal process though note is made of abdominal and pelvic ascites as well as anasarca consistent with the patient's exam. Wall thickening of the small bowel suggestive of enteritis. Fatty liver is seen. Review of CT images does demonstrate moderate sized bilateral pleural effusions right greater than left. I did perform a limited bedside cardiac ultrasound which was negative for overt pericardial effusion. RV dilatation was noted with IVC with minimal respiratory variation. Bilateral atrial dilatation noted. Lung ultrasound with B-lines bilaterally suggestive of pulmonary edema and moderate-sized bilateral pleural effusions right greater than left also appreciated. While the patient certainly is symptomatic from her hyponatremia and the fact that she is awake and alert to suggest likely evolution of hyponatremia more chronically since June when the patient's daughter reports she had outpatient blood work performed (though not available for review). Moreover, given they report of increasing her hydrochlorothiazide over the past 4 days suspect the patient may be at risk for rapid overcorrection of her sodium and so cautious approach was taken and the patient was given 50 cc dose of hypertonic saline (3%) as well as 1 mcg of desmopressin to avoid overcorrection. Additionally, given the patient's third spacing hypervolemia 20 mg of IV Lasix also ordered. Given the patient's new thrombocytopenia and transaminitis tickborne illness testing was ordered. The patient's Anaplasma smear was negative however given poor sensitivity empiric treatment for anaplasmosis was initiated with IV doxycycline. The patient daughter agrees with plan for admission for further management. Case was discussed with Dr. Ling, [facility] hospitalist, who will evaluate the patient for admission. Further management per admitting team. Triage Nursing notes reviewed and agree them. Prior/external medical records reviewed Vital Signs: reviewed Differential diagnosis: Infection, dehydration, metabolic abnormality, hypo/hyperglycemia, electrolyte disturbance, anemia, hypoxia, cardiac sources, intracerebral event, toxicologic, neurologic, as well as other pathologies. ER treatment provided: See below. Diagnostics interpreted by me: ECG: Suspect atrial fibrillation vs atrial ectopic rhythm with first-degree AV block, 74 bpm, nonspecific T wave abnormality, no overt ST elevation or depression, QTc 541, QRS 76. Cardiac Monitoring: An order for continuous cardiac monitoring was placed and demonstrated suspect atrial fibrillation vs atrial ectopic rhythm with first- degree AV block, 74 bpm. Laboratory studies: See below Imaging studies: See below Consultation(s): Dr. Ling, [facility] hospitalist. HPI: The patient is a pleasant Mandarin speaking only 82-year-old woman with a past medical history of atrial fibrillation on Eliquis, history of left-sided CVA, hyperlipidemia who presents emergency department via walk-in accompanied by her daughter who is interpreting for the patient per the patient's preference for evaluation of generalized weakness that is evolved over the past several days in the setting of having malaise and weakness over months. She reports having cough and congestion as well as some nausea and vomiting. Denies any diarrhea. They deny chest pain or shortness of breath. She reports she has been very weak and wanting to sleep all the time. She reports her legs have become more swollen over the past couple weeks. ROS: See above HPI for pertinent positives & negatives. A total of 10 systems reviewed and were otherwise negative. VITALS:See Below PHYSICAL EXAMINATION: GENERAL: Awake, alert, fatigued-appearing, in no distress HENT: Normocephalic, atraumatic. Oropharynx with dry mucous membranes and otherwise unremarkable. EYES: Normal conjunctiva. Sclera non-icteric. NECK: Supple. No nuchal rigidity. FROM. No JVD. RESPIRATORY: Clear to auscultation. CARDIAC: Regular rate, normal rhythm. Extremities warm and well perfused. Pulses equal. ABDOMEN: Soft, non-distended. No tenderness to palpation. No rebound or guarding. Anasarca. RECTAL: Deferred. MUSCULOSKELETAL: Chest examination reveals no tenderness. The back is symmetrical on inspection without obvious abnormality. There is no CVA tenderness to palpation. No joint edema. LOWER EXTREMITIES: Calves are equal size bilaterally and non-tender. 1+ BLE pitting edema. No discoloration. NEURO: Normal sensorium. No sensory or motor deficits noted. SKIN: No rash or jaundice noted. ED COURSE: Critical Care: I have personally spent greater than 95 minutes of critical care time in the direct management of this patient. This includes bedside care, interpretation of diagnostic studies, and testing, discussion with consultants, patient, and family members, and other required patient management activities. This 95 minutes is in excess of all separately billable procedures. Froy Koehler MD Past Med/Surg History Medical History A-fib Vertebral artery stenosis Hypertension Stroke Surgical History Hx laparoscopic cholecystectomy (01/23/23) Laparoscopic Cholecystectomy(Not Applicable) - Yoan Beckford MD, FACS Family History Other No pertinent family history in first degree relatives Social History Smoking Status: Unknown if ever smoked Second Hand Exposure: No; Hx Alcohol Use: No Hx Substance Use: No Preferred Language: Danger Room Gamingarin Somali Communication Ability: Effective Communication Ability Comment: daughter translated in ED; staff nurse fluent in Mandarin assisted w/admit Communication Tools: Other Visual Impairment: Limited Director Toxicology Required: Yes Beliefs That Will Affect Care: None marital status: / Current Living Situation: Family Feels Safe at Home: Yes Assistive Devices: Cane Allergies Allergies Allergy/AdvReac Type Severity Reaction Status Date / Time shellfish derived Allergy Intermediate Rash Verified 08/13/23 20:54 Poultry AdvReac Unknown Because it Verified 08/13/23 20:54 raises uric acid. She is on allopurinal. Home Meds Home Medications Medication Instructions Recorded Confirmed allopurinol 100 mg tablet 100 - 200 mg PO DAILY 01/21/23 08/13/23 apixaban 2.5 mg tablet (Eliquis) 2.5 mg PO DAILY 01/21/23 08/13/23 atorvastatin 20 mg tablet 20 mg PO Q OTHER DAY 01/21/23 08/13/23 B-complex with vitamin C 1 cap PO DAILY 08/13/23 08/13/23 hydrochlorothiazide 25 mg tablet 50 mg PO DAILY 08/13/23 08/13/23 magnesium 250 mg tablet 250 mg PO DAILY 08/13/23 08/13/23 Previous Rx's Medication Instructions Recorded metoprolol succinate 50 mg 50 mg PO DAILY #30 tabs 01/27/23 tablet,extended release 24 hr (Toprol XL) Results & Data (ED) Vital Signs Vital Signs - 24 hr 08/13/23 17:08 08/13/23 17:26 08/13/23 17:32 Temperature 36.0 C L Temperature Source Temporal Artery Scan Pulse Rate 74 Pulse Rate [Right Finger] 82 Pulse Rate from SpO2 Sensor Pulse Rhythm [Right Finger] Irregular Respiratory Rate 23 20 Respiratory Effort / Characteristics Non-Labored Spontaneous Non-Labored Spontaneous Respiratory Depth Normal Normal Respiratory Pattern Regular Blood Pressure 143/92 H Blood Pressure [Left Arm] 160/103 H Blood Pressure Mean 109 Blood Pressure Mean [Left Arm] 122 Blood Pressure Position [Left Arm] Semi-fowlers Pulse Oximetry 97 96 96 Oxygen Delivery Method Room Air Room Air Room Air Sepsis Recent Fever Within 48 Hours No Sepsis New/Unexplained Change in Mental Status N/A Sepsis Action Taken by Nursing No Action Required 08/13/23 18:13 08/13/23 18:14 08/13/23 18:24 Temperature Temperature Source Pulse Rate 76 79 Pulse Rate [Right Finger] Pulse Rate from SpO2 Sensor Pulse Rhythm [Right Finger] Respiratory Rate 25 H Respiratory Effort / Characteristics Respiratory Depth Respiratory Pattern Blood Pressure 160/103 H Blood Pressure [Left Arm] Blood Pressure Mean 116 Blood Pressure Mean [Left Arm] Blood Pressure Position [Left Arm] Pulse Oximetry Oxygen Delivery Method Sepsis Recent Fever Within 48 Hours Sepsis New/Unexplained Change in Mental Status Sepsis Action Taken by Nursing 08/13/23 18:30 08/13/23 19:00 08/13/23 19:30 Temperature Temperature Source Pulse Rate 69 70 66 Pulse Rate [Right Finger] Pulse Rate from SpO2 Sensor 68 Pulse Rhythm [Right Finger] Respiratory Rate 17 21 20 Respiratory Effort / Characteristics Respiratory Depth Respiratory Pattern Blood Pressure 147/91 H Blood Pressure [Left Arm] Blood Pressure Mean 109 Blood Pressure Mean [Left Arm] Blood Pressure Position [Left Arm] Pulse Oximetry 97 Oxygen Delivery Method Sepsis Recent Fever Within 48 Hours Sepsis New/Unexplained Change in Mental Status Sepsis Action Taken by Nursing 08/13/23 20:00 08/13/23 20:07 08/13/23 21:00 Temperature 36.5 C Temperature Source Oral Pulse Rate 73 73 Pulse Rate [Right Finger] Pulse Rate from SpO2 Sensor 75 70 Pulse Rhythm [Right Finger] Respiratory Rate 24 22 Respiratory Effort / Characteristics Respiratory Depth Respiratory Pattern Blood Pressure 167/120 H 176/111 H Blood Pressure [Left Arm] Blood Pressure Mean 135 132 Blood Pressure Mean [Left Arm] Blood Pressure Position [Left Arm] Pulse Oximetry 97 96 Oxygen Delivery Method Sepsis Recent Fever Within 48 Hours Sepsis New/Unexplained Change in Mental Status Sepsis Action Taken by Nursing 08/13/23 21:31 08/13/23 22:00 08/13/23 22:02 Temperature Temperature Source Pulse Rate 81 65 Pulse Rate [Right Finger] Pulse Rate from SpO2 Sensor 75 74 Pulse Rhythm [Right Finger] Respiratory Rate 18 Respiratory Effort / Characteristics Respiratory Depth Respiratory Pattern Blood Pressure 176/111 H 187/124 H Blood Pressure [Left Arm] Blood Pressure Mean 132 145 Blood Pressure Mean [Left Arm] Blood Pressure Position [Left Arm] Pulse Oximetry 94 97 Oxygen Delivery Method Sepsis Recent Fever Within 48 Hours Sepsis New/Unexplained Change in Mental Status Sepsis Action Taken by Nursing 08/13/23 22:30 08/13/23 23:00 08/13/23 23:30 Temperature Temperature Source Pulse Rate 70 72 70 Pulse Rate [Right Finger] Pulse Rate from SpO2 Sensor 75 73 70 Pulse Rhythm [Right Finger] Respiratory Rate 17 15 17 Respiratory Effort / Characteristics Respiratory Depth Respiratory Pattern Blood Pressure 153/85 H Blood Pressure [Left Arm] Blood Pressure Mean 107 Blood Pressure Mean [Left Arm] Blood Pressure Position [Left Arm] Pulse Oximetry 97 97 98 Oxygen Delivery Method Sepsis Recent Fever Within 48 Hours Sepsis New/Unexplained Change in Mental Status Sepsis Action Taken by Nursing 08/13/23 23:55 08/14/23 00:00 08/14/23 00:30 Temperature Temperature Source Pulse Rate 68 65 64 Pulse Rate [Right Finger] Pulse Rate from SpO2 Sensor 69 71 66 Pulse Rhythm [Right Finger] Respiratory Rate 17 15 16 Respiratory Effort / Characteristics Respiratory Depth Respiratory Pattern Blood Pressure 163/101 H 157/96 H 151/90 H Blood Pressure [Left Arm] Blood Pressure Mean 121 116 110 Blood Pressure Mean [Left Arm] Blood Pressure Position [Left Arm] Pulse Oximetry 98 97 96 Oxygen Delivery Method Sepsis Recent Fever Within 48 Hours Sepsis New/Unexplained Change in Mental Status Sepsis Action Taken by Nursing Laboratory Data Attestation: I reviewed the patient's lab results. 08/13/23 19:50 08/13/23 21:07 Lab Results 08/13/23 08/13/23 08/13/23 Range/Units 17:47 17:56 19:50 WBC Cancelled 9.07 RBC Cancelled 4.90 Hgb Cancelled 15.1 POC Hgb 18.0 H (12.0-16.0) g/dl Hct Cancelled 40.9 POC Hct 53 H (37-47) % MCV Cancelled 83.5 MCH Cancelled 30.8 MCHC Cancelled 36.9 H RDW Std Deviation Cancelled 41.7 RDW Coeff of Donis Cancelled 13.8 Plt Count Cancelled 86 L MPV Cancelled 12.6 H Immature Gran % (Auto) Cancelled 0.3 Neut % (Auto) Cancelled 80.1 Lymph % (Auto) Cancelled 12.6 [place] % (Auto) Cancelled 6.8 Eos % (Auto) Cancelled 0.0 Baso % (Auto) Cancelled 0.2 Neut # (Auto) Cancelled 7.26 H Lymph # (Auto) Cancelled 1.14 L [place] # (Auto) Cancelled 0.62 H Eos # (Auto) Cancelled 0.00 Baso # (Auto) Cancelled 0.02 Immature Gran # (Auto) Cancelled 0.03 Absolute Nucleated RBC Cancelled Nucleated RBC % (auto) Cancelled Neutrophils % (Manual) Cancelled Band Neutrophils % Cancelled Lymphocytes % (Manual) Cancelled Prolymphocyte % Cancelled Reactive Lymphs % (Man) Cancelled Monocytes % (Manual) Cancelled Eosinophils % (Manual) Cancelled Basophils % (Manual) Cancelled Metamyelocytes % (Man) Cancelled Myelocytes % (Man) Cancelled Promyelocytes % (Man) Cancelled Blast Cells % (Manual) Cancelled Plasma Cell % (Manual) Cancelled Other Cells % Cancelled Nucleated RBC % Cancelled Neutrophils # (Manual) Cancelled Band Neutrophils # Cancelled Total Absolute Neuts Cancelled Lymphocytes # (Manual) Cancelled Prolymphocyte # Cancelled Reactive Lymphs # Cancelled Total Abs Lymphocytes Cancelled Monocytes # (Manual) Cancelled Eosinophils # (Manual) Cancelled Basophils # (Manual) Cancelled Metamyelocytes # (Man) Cancelled Myelocytes # (Manual) Cancelled Promyelocytes # (Man) Cancelled Blast Cells # (Man) Cancelled Plasma Cell # (Manual) Cancelled Other Cells # Cancelled Nucleated RBCs # (Man) Cancelled Hypersegmented Neuts Cancelled Hyposegmented Neuts Cancelled Hypogranular Neuts Cancelled Large Granular Lymphs Cancelled # Lrg Granular Lymphs Cancelled Hairy Cells Cancelled Smudge Cells Cancelled Toxic Granulation Cancelled Toxic Vacuolation Cancelled Dohle Bodies Cancelled Rhys Rods Cancelled Platelet Estimate Cancelled Decreased L Hypogranular Platelets Cancelled Giant Platelets Cancelled Platelet Satelliting Cancelled RBC Morphology Cancelled Polychromasia Cancelled Hypochromasia Cancelled Poikilocytosis Cancelled Basophilic Stippling Cancelled Anisocytosis Cancelled Microcytosis Cancelled Macrocytosis Cancelled Spherocytes Cancelled Pappenheimer Bodies Cancelled Sickle Cells Cancelled Target Cells Cancelled Tear Drop Cells Cancelled Ovalocytes Cancelled Stomatocytes Cancelled Jung-Escud[place] Bodies Cancelled Echinocytes Cancelled Acanthocytes (Spur) Cancelled Rouleaux Cancelled RBC Agglutinates Cancelled Schistocytes Cancelled Sezary Cell Cancelled PT Cancelled Cancelled INR Cancelled Cancelled APTT Cancelled Cancelled PTT Ratio Cancelled Cancelled POC Sodium 111 L* (135-144) mmol/L Sodium Cancelled Cancelled POC Potassium 4.4 (3.3-5.0) mmol/L Potassium Cancelled Cancelled POC Chloride 76 L (101-112) mmol/L Chloride Cancelled Cancelled Carbon Dioxide Cancelled Cancelled POC Total CO2 28 (24-31) mmol/L Anion Gap Cancelled Cancelled POC Anion Gap 12.0 L (16-25) mmol/L POC BUN 13 (7-18) mg/dl BUN Cancelled Cancelled Creatinine Cancelled Cancelled POC Creatinine 0.5 L (0.6-1.3) mg/dl Est Cr Clr Drug Dosing Cancelled Cancelled Est GFR ( Amer) Cancelled Cancelled Est GFR (Non-Af Amer) Cancelled Cancelled BUN/Creatinine Ratio Cancelled Cancelled Glucose Cancelled Cancelled POC Glucose (other) 123 H (70-99) mg/dl Lactate 2.2 H* 2.0 (0.4-2.0) mmol/L Calcium Cancelled Cancelled POC Ioniz Calcium Eddie 0.92 L (1.12-1.32) mmol/l Magnesium Cancelled Cancelled Total Bilirubin Cancelled Cancelled AST Cancelled Cancelled ALT Cancelled Cancelled Alkaline Phosphatase Cancelled Cancelled Troponin I High Sens Cancelled Cancelled B-Natriuretic Peptide Cancelled Total Protein Cancelled Cancelled Albumin Cancelled Cancelled Globulin Cancelled Cancelled Albumin/Globulin Ratio Cancelled Cancelled Lipase Cancelled Cancelled Procalcitonin Cancelled Cancelled TSH Cancelled Cancelled Free T4 (0.61-1.60) ng/dl Urine Color Dark Yellow Urine Appearance Clear (Clear) Urine pH 7.0 (4.5-7.5) Ur Specific [place] 1.012 (1.000-1.030) Urine Protein 2+ H (Negative) Urine Glucose (UA) Negative (Negative) Urine Ketones Negative (Negative) Urine Blood 3+ H (Negative) Urine Nitrite Negative (Negative) Urine Bilirubin Negative (Negative) Urine Urobilinogen Negative (Negative) Ur Leukocyte Esterase Negative (Negative) Urine WBC (Auto) 1-5 (0-5) /hpf Urine RBC (Auto) >30 H (0-4) /hpf U Hyaline Cast (Auto) 0 (0-5) /lpf U Epithel Cells (Auto) 10-20 H (0-5) /lpf Urine Bacteria (Auto) Negative (Negative) Urine Osmolality 440 L (500-800) mOsm/kg Ur Random Sodium 83 mmol/L Adenovirus (PCR) Not Detected (NotDetected) Anaplasma Smear See Comment Babesia Smear See Comment B. pertussis DNA (PCR) Not Detected (NotDetected) B.parapertussis DNA PCR Not Detected (NotDetected) Lyme Disease Screen (Negative) C. pneumoniae DNA (PCR) Not Detected (NotDetected) Coronavirus OC43 (PCR) Not Detected (NotDetected) Coronavirus HKU1 (PCR) Not Detected (NotDetected) Coronavirus 229E (PCR) Not Detected (NotDetected) SARS-CoV-2 (PCR) NEGATIVE Not Detected (Negative) Coronavirus NL63 (PCR) Not Detected (NotDetected) Human Metapneumovir PCR Not Detected (NotDetected) Influenza Type A (PCR) Negative Not Detected (Neg) Influenza Type B (PCR) Negative Not Detected (Neg) M. pneumoniae (PCR) Not Detected (NotDetected) Parainfluenza 1 (PCR) Not Detected (NotDetected) Parainfluenza 2 (PCR) Not Detected (NotDetected) Parainfluenza 3 (PCR) Not Detected (NotDetected) Parainfluenza 4 (PCR) Not Detected (NotDetected) RSV (RT-PCR) Negative (Neg) RSV (PCR) Not Detected (NotDetected) Entero/Rhino (PCR) Not Detected (NotDetected) Blood Parasites ID Cancelled 08/13/23 Range/Units 21:07 WBC RBC Hgb POC Hgb (12.0-16.0) g/dl Hct POC Hct (37-47) % MCV MCH MCHC RDW Std Deviation RDW Coeff of Donis Plt Count MPV Immature Gran % (Auto) Neut % (Auto) Lymph % (Auto) [place] % (Auto) Eos % (Auto) Baso % (Auto) Neut # (Auto) Lymph # (Auto) [place] # (Auto) Eos # (Auto) Baso # (Auto) Immature Gran # (Auto) Absolute Nucleated RBC Nucleated RBC % (auto) Neutrophils % (Manual) Band Neutrophils % Lymphocytes % (Manual) Prolymphocyte % Reactive Lymphs % (Man) Monocytes % (Manual) Eosinophils % (Manual) Basophils % (Manual) Metamyelocytes % (Man) Myelocytes % (Man) Promyelocytes % (Man) Blast Cells % (Manual) Plasma Cell % (Manual) Other Cells % Nucleated RBC % Neutrophils # (Manual) Band Neutrophils # Total Absolute Neuts Lymphocytes # (Manual) Prolymphocyte # Reactive Lymphs # Total Abs Lymphocytes Monocytes # (Manual) Eosinophils # (Manual) Basophils # (Manual) Metamyelocytes # (Man) Myelocytes # (Manual) Promyelocytes # (Man) Blast Cells # (Man) Plasma Cell # (Manual) Other Cells # Nucleated RBCs # (Man) Hypersegmented Neuts Hyposegmented Neuts Hypogranular Neuts Large Granular Lymphs # Lrg Granular Lymphs Hairy Cells Smudge Cells Toxic Granulation Toxic Vacuolation Dohle Bodies Rhys Rods Platelet Estimate Hypogranular Platelets Giant Platelets Platelet Satelliting RBC Morphology Polychromasia Hypochromasia Poikilocytosis Basophilic Stippling Anisocytosis Microcytosis Macrocytosis Spherocytes Pappenheimer Bodies Sickle Cells Target Cells Tear Drop Cells Ovalocytes Stomatocytes Jung-Escudilla Bonita Bodies Echinocytes Acanthocytes (Spur) Rouleaux RBC Agglutinates Schistocytes Sezary Cell PT 15.6 H INR 1.5 H APTT 37 H PTT Ratio 1.3 POC Sodium (135-144) mmol/L Sodium 112 L* POC Potassium (3.3-5.0) mmol/L Potassium 3.0 L POC Chloride (101-112) mmol/L Chloride 78 L Carbon Dioxide 25 POC Total CO2 (24-31) mmol/L Anion Gap 9 POC Anion Gap (16-25) mmol/L POC BUN (7-18) mg/dl BUN 10 Creatinine 0.57 L POC Creatinine (0.6-1.3) mg/dl Est Cr Clr Drug Dosing 44.2 Est GFR ( Amer) 98.0 Est GFR (Non-Af Amer) 84.5 BUN/Creatinine Ratio 17.5 Glucose 107 H POC Glucose (other) (70-99) mg/dl Lactate (0.4-2.0) mmol/L Calcium 7.9 L POC Ioniz Calcium Eddie (1.12-1.32) mmol/l Magnesium 1.4 L Total Bilirubin 2.2 H AST 41 H ALT 12 Alkaline Phosphatase 162 H Troponin I High Sens 11.8 B-Natriuretic Peptide 806 H Total Protein 6.1 Albumin 3.0 L Globulin 3.1 Albumin/Globulin Ratio 1.0 Lipase 6 L Procalcitonin < 0.02 TSH 8.689 H Free T4 1.36 (0.61-1.60) ng/dl Urine Color Urine Appearance (Clear) Urine pH (4.5-7.5) Ur Specific [place] (1.000-1.030) Urine Protein (Negative) Urine Glucose (UA) (Negative) Urine Ketones (Negative) Urine Blood (Negative) Urine Nitrite (Negative) Urine Bilirubin (Negative) Urine Urobilinogen (Negative) Ur Leukocyte Esterase (Negative) Urine WBC (Auto) (0-5) /hpf Urine RBC (Auto) (0-4) /hpf U Hyaline Cast (Auto) (0-5) /lpf U Epithel Cells (Auto) (0-5) /lpf Urine Bacteria (Auto) (Negative) Urine Osmolality (500-800) mOsm/kg Ur Random Sodium mmol/L Adenovirus (PCR) (NotDetected) Anaplasma Smear Babesia Smear B. pertussis DNA (PCR) (NotDetected) B.parapertussis DNA PCR (NotDetected) Lyme Disease Screen Negative (Negative) C. pneumoniae DNA (PCR) (NotDetected) Coronavirus OC43 (PCR) (NotDetected) Coronavirus HKU1 (PCR) (NotDetected) Coronavirus 229E (PCR) (NotDetected) SARS-CoV-2 (PCR) (Negative) Coronavirus NL63 (PCR) (NotDetected) Human Metapneumovir PCR (NotDetected) Influenza Type A (PCR) (Neg) Influenza Type B (PCR) (Neg) M. pneumoniae (PCR) (NotDetected) Parainfluenza 1 (PCR) (NotDetected) Parainfluenza 2 (PCR) (NotDetected) Parainfluenza 3 (PCR) (NotDetected) Parainfluenza 4 (PCR) (NotDetected) RSV (RT-PCR) (Neg) RSV (PCR) (NotDetected) Entero/Rhino (PCR) (NotDetected) Blood Parasites ID Administered Medications Potassium Chloride (K James / Wtr) 10 meq in 100 mls @ 100 mls/hr IV Q1H PERICO Stop: 08/14/23 01:29 Last Admin: 08/14/23 00:37 Dose: 100 mls/hr Documented By: EDGAR Discontinued Medications Furosemide (Furosemide Inj 20 Mg/2 Ml Vial) 20 mg IV NOW STA Stop: 08/13/23 23:14 Last Admin: 08/13/23 23:23 Dose: 20 mg Documented By: EDGAR Sodium Chloride (Nss) 500 mls @ 999 mls/hr IV .Q31M STA Stop: 08/13/23 18:02 Last Infusion: 08/13/23 18:58 Dose: Infused Documented By: Admin: 08/13/23 18:22 Dose: 999 mls/hr Documented By: EROS Sodium Chloride (Nss) 1,000 mls @ 999 mls/hr IV .Q1H1M ONE Stop: 08/13/23 20:42 Last Admin: 08/13/23 22:00 Dose: Not Given Documented By: EDGAR Acetaminophen (Ofirmev) 1,000 mg in 100 mls @ 400 mls/hr IV NOW STA Stop: 08/13/23 19:56 Last Admin: 08/13/23 22:00 Dose: Not Given Documented By: EDGAR Sodium Chloride (Hypertonic Saline 3%) 50 mls @ 300 mls/hr IV .Q10M ONE; Protocol Stop: 08/13/23 22:20 Last Infusion: 08/13/23 23:35 Dose: Infused Documented By: EDGAR Co-signed By: GARRETT Admin: 08/13/23 23:19 Dose: 300 mls/hr Documented By: EDGAR Co-signed By: GARRETT Desmopressin Acetate 1 mcg/ (Sodium Chloride) 50.25 mls @ 100 mls/hr IV NOW STA Stop: 08/13/23 22:46 Last Infusion: 08/13/23 23:55 Dose: Infused Documented By: Admin: 08/13/23 23:21 Dose: 100 mls/hr Documented By: EDGAR Magnesium Sulfate/Dextrose (Magnesium Sulfate / D5w) 1 gm in 100 mls @ 100 mls/hr IV Q1H PERICO Stop: 08/14/23 00:20 Last Admin: 08/14/23 00:37 Dose: 100 mls/hr Documented By: Infusion: 08/14/23 00:29 Dose: Infused Documented By: Admin: 08/13/23 23:21 Dose: 100 mls/hr Documented By: EDGAR Doxycycline Hyclate 100 mg/ (Dextrose) 100 mls @ 50 mls/hr IV NOW STA Stop: 08/14/23 01:26 Last Admin: 08/14/23 00:38 Dose: 50 mls/hr Documented By: EDGAR Ioversol (Optiray 320 125ml) 118 ml IV ONCE ONE Stop: 08/13/23 20:36 Last Admin: 08/13/23 20:35 Dose: 118 ml Documented By: PATI Miscellaneous (Stat Iv/Im) 1 each N/A NOW STA Stop: 08/13/23 22:12 Last Admin: 08/13/23 23:30 Dose: Not Given Documented By: EDGAR Ondansetron HCl (Ondansetron Inj 2 Mg/Ml 2 Ml Vial) 4 mg IV NOW STA Stop: 08/13/23 19:43 Last Admin: 08/13/23 22:00 Dose: Not Given Documented By: EDGAR Ondansetron HCl (Ondansetron Inj 2 Mg/Ml 2 Ml Vial) Confirm Administered Dose 4 mg .ROUTE .STK-MED ONE Stop: 08/13/23 21:57 Last Admin: 08/13/23 23:29 Dose: Not Given Documented By: ERM Imaging Data Radiologist's Impression: Abdomen/Pelvis CT 08/13/23 17:32 Exam(s): CT ABDOMEN + PELVIS With Contrast IV Amt: 118 ml optiray 320 EXAM: CT Abdomen and Pelvis With Intravenous Contrast CLINICAL HISTORY: Reason for exam: Abdominal pain and distension. TECHNIQUE: Axial computed tomography images of the abdomen and pelvis with intravenous contrast. CTDI is 11.02 mGy and DLP is 493.48 mGy-cm. Automated exposure control was utilized for the study. A dose lowering technique was utilized adhering to the principles of ALARA. CONTRAST: Patient received 118 ml optiray 320 of IV contrast COMPARISON: No relevant prior studies available. FINDINGS: Lung bases: Unremarkable. No mass. No consolidation. ABDOMEN: Liver: Hepatic steatosis. Gallbladder and bile ducts: Cholecystectomy. No ductal dilation. Pancreas: Unremarkable. No mass. No ductal dilation. Spleen: Unremarkable. No splenomegaly. Adrenals: Unremarkable. No mass. Kidneys and ureters: Unremarkable. No hydronephrosis or delayed nephrogram. Stomach and bowel: Wall thickening of small bowel, concerning for enteritis. No obstruction. PELVIS: Appendix: No findings to suggest acute appendicitis. Bladder: Unremarkable. No mass. Reproductive: Unremarkable as visualized. ABDOMEN and PELVIS: Intraperitoneal space: Abdominal and pelvic ascites. Anasarca. No free air. Bones/joints: No acute fracture. No dislocation. Soft tissues: See above. Vasculature: Unremarkable. No abdominal aortic aneurysm. Lymph nodes: Unremarkable. No enlarged lymph nodes. IMPRESSION: 1. No hydronephrosis or delayed nephrogram. 2. Abdominal and pelvic ascites. Anasarca. 3. Wall thickening of small bowel, concerning for enteritis. 4. Hepatic steatosis. 5. Cholecystectomy. Electronically signed by: Red Rabago MD 08/13/23 21:20 PM Chest X-Ray 08/13/23 17:32 XR chest 1V portable HISTORY: 83 years-old Female Chest pain, nonspecific COMPARISON: February 01 2023 TECHNIQUE: AP view the chest FINDINGS: Cardiac silhouette is enlarged. Pulmonary vascular congestion with interstitial coarsening. Layering pleural effusions with right greater than left bibasilar consolidation. Bones appear grossly intact. IMPRESSION: 1. Cardiomegaly with pulmonary edema. 2. Layering pleural effusions with bibasilar consolidation. ACT 112: Negative or not required by law. The above report was generated using voice recognition software. It may contain grammatical, syntax or spelling errors. Electronically signed by: Josep Willson M.D. 08/13/2023 6:[address] 08/13/23 17:32 Exam(s): CT HEAD Without Contrast EXAM: CT Head Without Intravenous Contrast CLINICAL HISTORY: Reason for exam: Change in mental status. TECHNIQUE: Axial computed tomography images of the head/brain without intravenous contrast. CTDI is 29.56 mGy and DLP is 512.02 mGy-cm. Automated exposure control was utilized for the study. A dose lowering technique was utilized adhering to the principles of ALARA. COMPARISON: No relevant prior studies available. FINDINGS: No acute intracranial hemorrhage. No midline shift or mass effect. The territorial pan-white matter differentiation is maintained throughout. Age-related cerebral volume loss. Periventricular and subcortical white matter hypoattenuation, consistent with chronic microangiopathy. The visualized orbits appear grossly unremarkable. The calvarium is intact. The visualized paranasal sinuses and mastoid air cells are grossly clear. IMPRESSION: No acute intracranial hemorrhage, midline shift, or mass effect. Electronically signed by: Red Rabago MD 08/13/23 21:14 PM Head CTA 08/13/23 17:32 Exam(s): CTA HEAD With Contrast IV Amt: 118 ml optiray 320 EXAM: CT Angiography Head With Intravenous Contrast CLINICAL HISTORY: Reason for exam: Change in mental status. TECHNIQUE: Axial computed tomographic angiography images of the head with intravenous contrast. CTDI is 29.56 mGy and DLP is 512.02 mGy-cm. Automated exposure control was utilized for the study. A dose lowering technique was utilized adhering to the principles of ALARA. 3D and MIP reconstructed images were created and reviewed. CONTRAST: Patient received 118 ml optiray 320 of IV contrast COMPARISON: CT head 08/13/2023, CTA head 05/29/2019. FINDINGS: Right internal carotid artery: Mild calcified plaque at the cavernous internal carotid artery with intact distal runoff. No aneurysm. No aneurysm. Right anterior cerebral artery: Hypoplastic A1 segment. Moderate stenosis of a distal A2 segment without occlusion. No aneurysm. Right middle cerebral artery: Moderate stenosis of a M2 sylvian branch with intact distal runoff. No aneurysm. Right posterior cerebral artery: Unchanged multifocal high-grade stenosis of the proximal and mid P2 segment with intact distal runoff. No aneurysm. Right vertebral artery: Mild stenosis with intact distal runoff. Left internal carotid artery: Mild calcified plaque at the cavernous internal carotid artery with intact distal runoff. No aneurysm. No aneurysm. Left anterior cerebral artery: Moderate stenosis of the distal A2 segment without occlusion. No aneurysm. Left middle cerebral artery: Mild stenosis of an M2 sylvian branch with intact distal runoff. No aneurysm. Left posterior cerebral artery: Unremarkable. No occlusion or significant stenosis. No aneurysm. Left vertebral artery: Unremarkable as visualized. Basilar artery: Mild stenosis of the distal basilar artery with intact distal runoff. No aneurysm. IMPRESSION: No large vessel occlusion. Multifocal bilateral anterior posterior circulation stenoses with intact distal runoff, not significantly changed since prior CTA 2018. Electronically signed by: Terrell Romero M.D. 08/13/23 21:39 PM Neck CTA 08/13/23 17:32 Exam(s): CTA NECK With Contrast IV Amt: 118 ml optiray 320 EXAM: CT Angiography Neck With Intravenous Contrast CLINICAL HISTORY: Reason for exam: Change in mental status. TECHNIQUE: Routine carotid CT angiography protocol was performed with intravenous contrast. NASCET criteria using the distal ICAs for comparison were used for evaluation of stenoses. CTDI is 11.1 mGy and DLP is 344.45 mGy-cm. Automated exposure control was utilized for the study. A dose lowering technique was utilized adhering to the principles of ALARA. 3D and MIP reconstructed images were created and reviewed. CONTRAST: Patient received 118 ml optiray 320 of IV contrast COMPARISON: 05/29/2019. FINDINGS: VASCULATURE: Right common carotid artery: Unremarkable. No occlusion or significant stenosis. No dissection. Right internal carotid artery: Unremarkable. Extracranial segment is patent with no occlusion or significant stenosis. No dissection. Right external carotid artery: Unremarkable. No occlusion. Right vertebral artery: Unremarkable. No occlusion or significant stenosis. No dissection. Left common carotid artery: Unremarkable. No occlusion or significant stenosis. No dissection. Left internal carotid artery: Minimal calcified plaque at the left carotid bulb without a hemodynamically significant stenosis. No dissection. Left external carotid artery: Unremarkable. No occlusion. Left vertebral artery: Mild stenosis at the origin with intact distal runoff. No dissection. NECK: Bones/joints: Unremarkable. No acute fracture. Soft tissues: Unremarkable. Lung apices: Partially visualized bilateral posterior layering pleural effusions. CAROTID STENOSIS REFERENCE USING NASCET CRITERIA: % ICA stenosis = (1 - narrowest ICA diameter/diameter of distal cervical ICA) x 100. Mild - <50% stenosis. Moderate - 50-69% stenosis. Severe - 70-94% stenosis. Near occlusion - 95-99% stenosis. Occluded - 100% stenosis. IMPRESSION: No hemodynamically significant stenosis. Electronically signed by: Terrell Romero M.D. 08/13/23 21:45 PM Discharge Plan Visit Data Chief Complaint: Swelling/Edema to Extremity Stated Complaint: WEAKNESS, EDMA TO LEGS/ABDOMIN ED Provider: Froy Koehler Discharge Problem: Hyponatremia, Hypomagnesemia, Edema due to hypervolemia, Thrombocytopenia, Elevated TSH Patient Disposition: Admitted As Inpatient Discharge Instructions Interventions: ED Discharge Assessment Last Done: 08/14/23 01:33 Forms Stand Alone Forms: My [facility] [email or web address] Prescriptions Prescriptions: No Action atorvastatin 20 mg Tablet 20 mg PO Q OTHER DAY allopurinol 100 mg Tablet 100 - 200 mg PO DAILY Rx Instructions: PER PT'S DAUGHTER "DEPENDS ON THE AMOUNT OF SWELLING IN HER FEET". Eliquis 2.5 mg Tablet 2.5 mg PO DAILY metoprolol succinate [Toprol XL] 50 mg tablet extended release 24 hr 50 mg PO DAILY Qty: 30 0RF magnesium 250 mg Tablet 250 mg PO DAILY hydrochlorothiazide 25 mg Tablet 50 mg PO DAILY B-complex with vitamin C [Vitamin B Complex With C] Capsule 1 cap PO DAILY Referrals Referrals: [facility],Medicine [Primary Care Provider] -
[2023-08-13 18:10] LABS: iSTAT Creatinine 0.5 mg/dl (0.6-1.3); iSTAT Ionized Calcium 0.92 mmol/l (1.12-1.32); iSTAT Potassium 4.4 mmol/L (3.3-5.0)
[2023-08-13] MEDS: SODIUM CHLORIDE 0.9% 500 ML IV STA (18:22)
--- NOTE | 2023-08-13 18:29 | XRay Report ---
XR chest 1V portable HISTORY: 83 years-old Female Chest pain, nonspecific COMPARISON: February 01 2023 TECHNIQUE: AP view the chest FINDINGS: Cardiac silhouette is enlarged. Pulmonary vascular congestion with interstitial coarsening. Layering pleural effusions with right greater than left bibasilar consolidation. Bones appear grossly intact. IMPRESSION: 1. Cardiomegaly with pulmonary edema. 2. Layering pleural effusions with bibasilar consolidation. ACT 112: Negative or not required by law. The above report was generated using voice recognition software. It may contain grammatical, syntax o r spelling errors. Electronically signed by: Josep Willson M.D. 08/13/2023 6:28 PM
[2023-08-13 18:31] LABS: Influenza A virus by PCR Negative (Neg); Influenza B virus by PCR Negative (Neg); RSV by PCR Negative (Neg); SARS CoV2 RNA(COVID-19) Ceph NEGATIVE (Negative)
[2023-08-13 20:12] LABS: Appearance Urine Clear (Clear); Bacteria Urine Automated Negative (Negative); Bilirubin Urine Negative (Negative); Blood Urine 3+ (Negative); Cast Urine Automated 0 /lpf (0-5); Color Urine Dark Yellow; Glucose Urine UA Negative (Negative); Ketones Urine Negative (Negative); Leukocyte Esterase Urine Negative (Negative); Nitrite Urine Negative (Negative); Protein Urine 2+ (Negative); RBC Urine Automated >30 /hpf (0-4); Specific Gravity Urine 1.012 (1.000-1.030); Urobilinogen Urine Negative (Negative)
[2023-08-13] MEDS: OPTIRAY 320 125ml IV ONE (20:35)
[2023-08-13 20:57] LABS: Adenovirus PCR Not Detected (NotDetected); Bordetella parapertussis PCR Not Detected (NotDetected); Bordetella pertussis PCR Not Detected (NotDetected); Chlamydia pneumoniae PCR Not Detected (NotDetected); Coronavirus 229E PCR Not Detected (NotDetected); Coronavirus CoV-2 (COVID19)PCR Not Detected (NotDetected); Coronavirus HKU1 PCR Not Detected (NotDetected); Coronavirus NL63 PCR Not Detected (NotDetected); Coronavirus OC43PCR Not Detected (NotDetected); Human Metapneumovirus PCR Not Detected (NotDetected); Influenza A PCR Not Detected (NotDetected); Influenza B PCR Not Detected (NotDetected); Mycoplasma pneumoniae PCR Not Detected (NotDetected); Parainfluenza Virus 1 PCR Not Detected (NotDetected); Parainfluenza Virus 2 PCR Not Detected (NotDetected); Parainfluenza Virus 3 PCR Not Detected (NotDetected); Parainfluenza Virus 4 PCR Not Detected (NotDetected); Respiratory Syncytial VirusPCR Not Detected (NotDetected); Rhinovirus/Enterovirus PCR Not Detected (NotDetected)
--- NOTE | 2023-08-13 21:14 | CT Scan Report ---
Exam(s): CT HEAD Without Contrast EXAM: CT Head Without Intravenous Contrast CLINICAL HISTORY: Reason for exam: Change in mental status. TECHNIQUE: Axial computed tomography images of the head/brain without intravenous contrast. CTDI is 29.56 mGy and DLP is 512.02 mGy-cm. Automated exposure control was utilized for the study. A dose lowering technique was utilized adhering to the principles of ALARA. COMPARISON: No relevant prior studies available. FINDINGS: No acute intracranial hemorrhage. No midline shift or mass effect. The territorial pan-white matter differentiation is maintained throughout. Age-related cerebral volume loss. Periventricular and subcortical white matter hypoattenuation, consistent with chronic microangiopathy. The visualized orbits appear grossly unremarkable. The calvarium is intact. The visualized paranasal sinuses and mastoid air cells are grossly clear. IMPRESSION: No acute intracranial hemorrhage, midline shift, or mass effect. Electronically signed by: Red Rabago MD 08/13/23 21:14 PM
[2023-08-13 21:19] LABS: Basophils # (auto) 0.02 K/uL (0.00-0.20); Basophils % (auto) 0.2 %; Hematocrit (blood only) 40.9 % (37.0-47.0); Hemoglobin 15.1 g/dl (12.0-16.0); Immature Granulocytes # (auto) 0.03 K/uL (0.01-0.20); Immature Granulocytes % (auto) 0.3 %; Lymphocytes # (auto) 1.14 K/uL (1.20-3.40); Lymphocytes % (auto) 12.6 %; Mean Corpuscular Hemoglobin 30.8 pg (25.0-34.0); Mean Corpuscular Hgb Conc 36.9 g/dL (32.0-36.0); Mean Corpuscular Volume 83.5 fL (80.0-100.0); Mean Platelet Volume 12.6 fL (9.4-12.4); Monocytes # (auto) 0.62 K/uL (0.11-0.59); Monocytes % (auto) 6.8 %; Neutrophils # (auto) 7.26 K/uL (1.40-6.50); Neutrophils % (auto) 80.1 %; Platelet Count 86 K/uL (130-400); Platelet Estimate Decreased (Normal); RDW Coefficient of Variation 13.8 % (11.5-14.5); RDW Standard Deviation 41.7 fL (36.4-46.3); White Blood Count 9.07 K/ul (4.8-10.8)
--- NOTE | 2023-08-13 21:21 | CT Scan Report ---
Exam(s): CT ABDOMEN + PELVIS With Contrast IV Amt: 118 ml optiray 320 EXAM: CT Abdomen and Pelvis With Intravenous Contrast CLINICAL HISTORY: Reason for exam: Abdominal pain and distension. TECHNIQUE: Axial computed tomography images of the abdomen and pelvis with intravenous contrast. CTDI is 11.02 mGy and DLP is 493.48 mGy-cm. Automated exposure control was utilized for the study. A dose lowering technique was utilized adhering to the principles of ALARA. CONTRAST: Patient received 118 ml optiray 320 of IV contrast COMPARISON: No relevant prior studies available. FINDINGS: Lung bases: Unremarkable. No mass. No consolidation. ABDOMEN: Liver: Hepatic steatosis. Gallbladder and bile ducts: Cholecystectomy. No ductal dilation. Pancreas: Unremarkable. No mass. No ductal dilation. Spleen: Unremarkable. No splenomegaly. Adrenals: Unremarkable. No mass. Kidneys and ureters: Unremarkable. No hydronephrosis or delayed nephrogram. Stomach and bowel: Wall thickening of small bowel, concerning for enteritis. No obstruction. PELVIS: Appendix: No findings to suggest acute appendicitis. Bladder: Unremarkable. No mass. Reproductive: Unremarkable as visualized. ABDOMEN and PELVIS: Intraperitoneal space: Abdominal and pelvic ascites. Anasarca. No free air. Bones/joints: No acute fracture. No dislocation. Soft tissues: See above. Vasculature: Unremarkable. No abdominal aortic aneurysm. Lymph nodes: Unremarkable. No enlarged lymph nodes. IMPRESSION: 1. No hydronephrosis or delayed nephrogram. 2. Abdominal and pelvic ascites. Anasarca. 3. Wall thickening of small bowel, concerning for enteritis. 4. Hepatic steatosis. 5. Cholecystectomy. Electronically signed by: Red Rabago MD 08/13/23 21:20 PM
--- NOTE | 2023-08-13 21:40 | CT Scan Report ---
Exam(s): CTA HEAD With Contrast IV Amt: 118 ml optiray 320 EXAM: CT Angiography Head With Intravenous Contrast CLINICAL HISTORY: Reason for exam: Change in mental status. TECHNIQUE: Axial computed tomographic angiography images of the head with intravenous contrast. CTDI is 29.56 mGy and DLP is 512.02 mGy-cm. Automated exposure control was utilized for the study. A dose lowering technique was utilized adhering to the principles of ALARA. 3D and MIP reconstructed images were created and reviewed. CONTRAST: Patient received 118 ml optiray 320 of IV contrast COMPARISON: CT head 08/13/2023, CTA head 05/29/2019. FINDINGS: Right internal carotid artery: Mild calcified plaque at the cavernous internal carotid artery with intact distal runoff. No aneurysm. No aneurysm. Right anterior cerebral artery: Hypoplastic A1 segment. Moderate stenosis of a distal A2 segment without occlusion. No aneurysm. Right middle cerebral artery: Moderate stenosis of a M2 sylvian branch with intact distal runoff. No aneurysm. Right posterior cerebral artery: Unchanged multifocal high-grade stenosis of the proximal and mid P2 segment with intact distal runoff. No aneurysm. Right vertebral artery: Mild stenosis with intact distal runoff. Left internal carotid artery: Mild calcified plaque at the cavernous internal carotid artery with intact distal runoff. No aneurysm. No aneurysm. Left anterior cerebral artery: Moderate stenosis of the distal A2 segment without occlusion. No aneurysm. Left middle cerebral artery: Mild stenosis of an M2 sylvian branch with intact distal runoff. No aneurysm. Left posterior cerebral artery: Unremarkable. No occlusion or significant stenosis. No aneurysm. Left vertebral artery: Unremarkable as visualized. Basilar artery: Mild stenosis of the distal basilar artery with intact distal runoff. No aneurysm. IMPRESSION: No large vessel occlusion. Multifocal bilateral anterior posterior circulation stenoses with intact distal runoff, not significantly changed since prior CTA 2019. Electronically signed by: Terrell Romero M.D. 08/13/23 21:39 PM
--- NOTE | 2023-08-13 21:46 | CT Scan Report ---
Exam(s): CTA NECK With Contrast IV Amt: 118 ml optiray 320 EXAM: CT Angiography Neck With Intravenous Contrast CLINICAL HISTORY: Reason for exam: Change in mental status. TECHNIQUE: Routine carotid CT angiography protocol was performed with intravenous contrast. NASCET criteria using the distal ICAs for comparison were used for evaluation of stenoses. CTDI is 11.1 mGy and DLP is 344.45 mGy-cm. Automated exposure control was utilized for the study. A dose lowering technique was utilized adhering to the principles of ALARA. 3D and MIP reconstructed images were created and reviewed. CONTRAST: Patient received 118 ml optiray 320 of IV contrast COMPARISON: 05/29/2019. FINDINGS: VASCULATURE: Right common carotid artery: Unremarkable. No occlusion or significant stenosis. No dissection. Right internal carotid artery: Unremarkable. Extracranial segment is patent with no occlusion or significant stenosis. No dissection. Right external carotid artery: Unremarkable. No occlusion. Right vertebral artery: Unremarkable. No occlusion or significant stenosis. No dissection. Left common carotid artery: Unremarkable. No occlusion or significant stenosis. No dissection. Left internal carotid artery: Minimal calcified plaque at the left carotid bulb without a hemodynamically significant stenosis. No dissection. Left external carotid artery: Unremarkable. No occlusion. Left vertebral artery: Mild stenosis at the origin with intact distal runoff. No dissection. NECK: Bones/joints: Unremarkable. No acute fracture. Soft tissues: Unremarkable. Lung apices: Partially visualized bilateral posterior layering pleural effusions. CAROTID STENOSIS REFERENCE USING NASCET CRITERIA: % ICA stenosis = (1 - narrowest ICA diameter/diameter of distal cervical ICA) x 100. Mild - <50% stenosis. Moderate - 50-69% stenosis. Severe - 70-94% stenosis. Near occlusion - 95-99% stenosis. Occluded - 100% stenosis. IMPRESSION: No hemodynamically significant stenosis. Electronically signed by: Terrell Romero M.D. 08/13/23 21:45 PM
[2023-08-13 21:47] LABS: INR 1.5 (0.9-1.1); Partial Thromboplastin Ratio 1.3; Partial Thromboplastin Time 37 Seconds (21-31); Prothrombin Time 15.6 Seconds (9.0-12.0)
[2023-08-13 22:00] LABS: BUN Creatinine Ratio 17.5 (10-20); Bilirubin,Total 2.2 mg/dl (0.2-1.0); Calcium 7.9 mg/dl (8.6-10.3); Creatinine Clr Calc Pharmacy 44.2 ml/min; Est GFR (Non-African American) 84.5 ml/min; Globulin 3.1 gm/dl (2.5-4.0); Magnesium 1.4 mg/dl (1.7-2.4); Total Protein 6.1 gm/dl (6.0-8.3)
[2023-08-13] MEDS: SODIUM CHLORIDE 0.9% 1,000 ML IV ONE (22:00)
[2023-08-13] MEDS: ONDANSETRON INJ 2 MG/ML 2 ML VIAL IV STA (22:00)
[2023-08-13] MEDS: ACETAMINOPHEN 1,000 MG/100 ML VIAL IV STA (22:00)
[2023-08-13 22:01] LABS: Troponin I High Sensitivity 11.8 pg/ml (0-14)
[2023-08-13 22:16] LABS: Thyroid Stimulating Hormone 8.689 uIu/ml (0.300-4.500)
[2023-08-13 23:08] LABS: T4 Free Thyroxine 1.36 ng/dl (0.61-1.60)
[2023-08-13] MEDS: SODIUM CHLORIDE 3 % 50 ML IV ONE (23:19)
[2023-08-13] MEDS: MAGNESIUM SULFATE / D5W 1 GM/100 ML BAG IV SCH (23:21)
[2023-08-13] MEDS: DESMOPRESSIN ACETATE 1 MCG in SODIUM CHLORIDE 0.9% 50 ML IV STA (23:21)
[2023-08-13] MEDS: FUROSEMIDE INJ 20 MG/2 ML VIAL IV STA (23:23)
[2023-08-13] MEDS: ONDANSETRON INJ 2 MG/ML 2 ML VIAL ONE (23:29)
[2023-08-13] MEDS: STAT IV/IM STA (23:30)
--- NOTE | 2023-08-13 23:55 | History & Physical Report ---
Date of Service August 13, 2023 Assessment & Plan (1) Hyponatremia: Plan: 83yo female presenting with hyponatremia. Patient with some confusion otherwise asymptomatic. She has been given NSS, 3% saline as well as desmopressin and Lasix in the ER. Suspect acute Hypotonic hypervolemic hyponatremia - serum osmolality low at 244, patient appears to be volume overloaded based on edema, JVD as well as ascites, pulmonary edema and pleural effusions present on imaging. Double dose of HCTZ likely contributing as well. Na 112 --> 114 1250mL UOP documented thus far after 20mg Lasix IV -Admit to PCU -Fluid restriction 1200mL/day -Diuresis with Lasix 20mg IV BID -Monitor strict output q hourly, De Guzman in place -Monitor BMP q 4 hours to assess rate of Na correction -Follow workup sent from [facility] to include Anaplasma/Babesia/Erlichia and Rickettsia -Hold HCTZ -Check 2D echo. Patient had an echo in August 2019 - normal LV size, hyperdynamic with EF > 70%, moderate asymmetric hypertrophy of the basal anteroseptum, moderate TR (2) Electrolyte abnormality: Plan: Patient with additional electrolyte abnormality to include hypokalemia, hypocalcemia and hypomagnesemia. K=2.5, Mg=1.4 and ICal=0.92 -60mEq IV K + 40mEq PO K ordered -Mg x 2gm IV -Calcium gluconate x 1gm IV -Repeat BMP q 4 hours. Continue electrolyte management as needed (3) Hypertension: Plan: Blood pressure mildly elevated -Continue Metoprolol 50mg po daily -Monitor -Holding HCTZ (4) Thrombocytopenia: Plan: Patient's labs concerning for liver dysfunction - elevated INR, thrombocytopenia. Tbili as well as AP is elevated. Etiology unclear ?infection ?congestion -Repeat LFTs and INR with AM labs -Avoid hepatotoxic agents (5) Hypothyroid: Plan: Patient with elevated TSH=8.689, normal FT4 and low FT3 - suggestive of hypothyroidism. Patient's daughter endorses cold intolerance -Will initiate Synthroid 50mcg PO daily -Patient will need repeat TFTs and continue outpatient followup (6) A-fib: Plan: Rate controlled -Continue Apixaban for anticoagulation -Continue Metoprolol History of Present Illness Chief Complaint: edema, confusion Primary Care Provider: [facility] Anali Reed is an 83yo female presenting with her daughter with confusion, decreased appetite and edema. Patient is Mandarin speaking. Her daughter states that she has had increased bilateral LE edema and some abdominal swelling for the last several weeks. She was instructed to increase her HCTZ and has been taking it twice daily for the last 4 days. Today she had worsening fatigue, generalized weakness, ambulatory dysfunction, poor appetite and confusion. No report of fever, chills, nausea, vomiting or diarrhea. Daughter does report some cold intolerance. Also reports decreased UOP. In the ER she is afebrile, hypertensive otherwise stable. Adequate oxygenation on room air. ER Course: NSS x 500mL 3% Saline 50mL Desmopressin 1mcg Magnesium 2gm Lasix 20mg IV KCL 10mEq IV x 3 thus far - 60meq ordered in total KCL 40mEq PO Allergies Allergy/AdvReac Type Severity Reaction Status Date / Time shellfish derived Allergy Intermediate Rash Verified 08/13/23 20:54 Poultry AdvReac Unknown Because it Verified 08/13/23 20:54 raises uric acid. She is on allopurinal. Home Medications Medication Instructions Recorded Confirmed Type allopurinol 100 mg tablet 100 - 200 mg PO DAILY 01/21/23 08/13/23 History apixaban 2.5 mg tablet (Eliquis) 2.5 mg PO DAILY 01/21/23 08/13/23 History atorvastatin 20 mg tablet 20 mg PO Q OTHER DAY 01/21/23 08/13/23 History metoprolol succinate 50 mg 50 mg PO DAILY #30 tabs 01/27/23 08/13/23 Rx tablet,extended release 24 hr (Toprol XL) B-complex with vitamin C 1 cap PO DAILY 08/13/23 08/13/23 History hydrochlorothiazide 25 mg tablet 50 mg PO DAILY 08/13/23 08/13/23 History magnesium 250 mg tablet 250 mg PO DAILY 08/13/23 08/13/23 History Past Med/Surg History Medical History (Updated 08/14/23 @ 04:28 by Haley Ling DO) A-fib Vertebral artery stenosis Hypertension Stroke Surgical History Hx laparoscopic cholecystectomy (01/23/23) Laparoscopic Cholecystectomy(Not Applicable) - Yoan Beckford MD, FACS Family History Other No pertinent family history in first degree relatives Social History Smoking Status: Unknown if ever smoked Second Hand Exposure: No; Hx Alcohol Use: No Hx Substance Use: No Preferred Language: Mandarin [place] Communication Ability: Effective Communication Ability Comment: Daughter at bedside helps to translate in addition to operator supply Communication Tools: Other Visual Impairment: Limited [employer] Required: Yes Beliefs That Will Affect Care: None marital status: / Current Living Situation: Family Current Living Situation Comment: lives with daughter Other Information That Helps Us Care for You: No Feels Safe at Home: Yes Safety Concerns: Feels Safe At This Time Assistive Devices: Hearing Aid - Bilateral and Walker Review of Systems Review of Systems: All systems reviewed & are unremarkable except as noted in HPI & below Physical Exam Physical Exam: General: patient somnolent, arousable, answers questions and follows commands Skin: warm, dry, intact, no rashes or lesions HEENT: NC/AT, PERRL, EOMI, anicteric sclera, conjunctiva without injection, external ear normal to inspection and nontender, nares patent, moist mucus membranes, dentition intact, no oropharyngeal lesions, neck supple, trachea midline, no LAD, no thyromegaly, +JVD Heart: +S1/S2, irregularly irregular, no m/r/g Lungs: equal air entry bilaterally, crackles in bilateral bases Abd: +BS, soft, NT/ND, no masses/organomegaly/ascites Ext: cool extremities, palpable pulses 2+ in UE and 1+ in LE, 1+ pitting edema of bilateral LE Neuro: patient somnolent, following commands, grossly non-focal Results & Data Results & Data Vital Signs (Past 12 Hours) Vital Signs Temp Pulse Pulse Resp BP BP Pulse Ox 08/13/23 22:02 65 08/13/23 21:00 73 22 176/111 H 96 08/13/23 20:07 36.5 C 08/13/23 20:00 73 24 167/120 H 97 08/13/23 19:30 66 20 08/13/23 19:00 70 21 08/13/23 18:30 69 17 147/91 H 97 08/13/23 18:24 79 03/13/24 18:14 76 25 H 08/13/23 18:13 160/103 H 08/13/23 17:32 96 08/13/23 17:26 36.0 C L 74 20 143/92 H 96 08/13/23 17:08 82 23 160/103 H 97 O2 Del Method 08/13/23 22:02 08/13/23 21:00 08/13/23 20:07 08/13/23 20:00 08/13/23 19:30 08/13/23 19:00 08/13/23 18:30 08/13/23 18:24 08/13/23 18:14 08/13/23 18:13 08/13/23 17:32 Room Air 08/13/23 17:26 Room Air 08/13/23 17:08 Room Air Laboratory Results Laboratory Results WBC 9.07 K/ul (4.8-10.8) 08/13/23 19:50 RBC 4.90 M/uL (4.20-5.40) 08/13/23 19:50 Hgb 15.1 g/dl (12.0-16.0) 08/13/23 19:50 POC Hgb 18.0 g/dl (12.0-16.0) H 08/13/23 17:56 Hct 40.9 % (37.0-47.0) 08/13/23 19:50 POC Hct 53 % (37-47) H 08/13/23 17:56 MCV 83.5 fL (80.0-100.0) 08/13/23 19:50 MCH 30.8 pg (25.0-34.0) 08/13/23 19:50 MCHC 36.9 g/dL (32.0-36.0) H 08/13/23 19:50 RDW Std Deviation 41.7 fL (36.4-46.3) 08/13/23 19:50 RDW Coeff of Donis 13.8 % (11.5-14.5) 08/13/23 19:50 Plt Count 86 K/uL (130-400) L 08/13/23 19:50 MPV 12.6 fL (9.4-12.4) H 08/13/23 19:50 Immature Gran % (Auto) 0.3 % 08/13/23 19:50 Neut % (Auto) 80.1 % 08/13/23 19:50 Lymph % (Auto) 12.6 % 08/13/23 19:50 [place] % (Auto) 6.8 % 08/13/23 19:50 Eos % (Auto) 0.0 % 08/13/23 19:50 Baso % (Auto) 0.2 % 08/13/23 19:50 Neut # (Auto) 7.26 K/uL (1.40-6.50) H 08/13/23 19:50 Lymph # (Auto) 1.14 K/uL (1.20-3.40) L 08/13/23 19:50 [place] # (Auto) 0.62 K/uL (0.11-0.59) H 08/13/23 19:50 Eos # (Auto) 0.00 K/uL (0.00-0.50) 08/13/23 19:50 Baso # (Auto) 0.02 K/uL (0.00-0.20) 08/13/23 19:50 Immature Gran # (Auto) 0.03 K/uL (0.01-0.20) 08/13/23 19:50 Absolute Nucleated RBC Cancelled 08/13/23 17:47 Nucleated RBC % (auto) Cancelled 08/13/23 17:47 Neutrophils % (Manual) Cancelled 08/13/23 17:47 Band Neutrophils % Cancelled 08/13/23 17:47 Lymphocytes % (Manual) Cancelled 08/13/23 17:47 Prolymphocyte % Cancelled 08/13/23 17:47 Reactive Lymphs % (Man) Cancelled 08/13/23 17:47 Monocytes % (Manual) Cancelled 08/13/23 17:47 Eosinophils % (Manual) Cancelled 08/13/23 17:47 Basophils % (Manual) Cancelled 08/13/23 17:47 Metamyelocytes % (Man) Cancelled 08/13/23 17:47 Myelocytes % (Man) Cancelled 08/13/23 17:47 Promyelocytes % (Man) Cancelled 08/13/23 17:47 Blast Cells % (Manual) Cancelled 08/13/23 17:47 Plasma Cell % (Manual) Cancelled 08/13/23 17:47 Other Cells % Cancelled 08/13/23 17:47 Nucleated RBC % Cancelled 08/13/23 17:47 Neutrophils # (Manual) Cancelled 08/13/23 17:47 Band Neutrophils # Cancelled 08/13/23 17:47 Total Absolute Neuts Cancelled 08/13/23 17:47 Lymphocytes # (Manual) Cancelled 08/13/23 17:47 Prolymphocyte # Cancelled 08/13/23 17:47 Reactive Lymphs # Cancelled 08/13/23 17:47 Total Abs Lymphocytes Cancelled 08/13/23 17:47 Monocytes # (Manual) Cancelled 08/13/23 17:47 Eosinophils # (Manual) Cancelled 08/13/23 17:47 Basophils # (Manual) Cancelled 08/13/23 17:47 Metamyelocytes # (Man) Cancelled 08/13/23 17:47 Myelocytes # (Manual) Cancelled 08/13/23 17:47 Promyelocytes # (Man) Cancelled 08/13/23 17:47 Blast Cells # (Man) Cancelled 08/13/23 17:47 Plasma Cell # (Manual) Cancelled 08/13/23 17:47 Other Cells # Cancelled 08/13/23 17:47 Nucleated RBCs # (Man) Cancelled 08/13/23 17:47 Hypersegmented Neuts Cancelled 08/13/23 17:47 Hyposegmented Neuts Cancelled 08/13/23 17:47 Hypogranular Neuts Cancelled 08/13/23 17:47 Large Granular Lymphs Cancelled 08/13/23 17:47 # Lrg Granular Lymphs Cancelled 08/13/23 17:47 Hairy Cells Cancelled 08/13/23 17:47 Smudge Cells Cancelled 08/13/23 17:47 Toxic Granulation Cancelled 08/13/23 17:47 Toxic Vacuolation Cancelled 08/13/23 17:47 Dohle Bodies Cancelled 08/13/23 17:47 Rhys Rods Cancelled 08/13/23 17:47 Platelet Estimate Decreased (Normal) L 08/13/23 19:50 Hypogranular Platelets Cancelled 08/13/23 17:47 Giant Platelets Cancelled 08/13/23 17:47 Platelet Satelliting Cancelled 08/13/23 17:47 RBC Morphology Cancelled 08/13/23 17:47 Polychromasia Cancelled 08/13/23 17:47 Hypochromasia Cancelled 08/13/23 17:47 Poikilocytosis Cancelled 08/13/23 17:47 Basophilic Stippling Cancelled 08/13/23 17:47 Anisocytosis Cancelled 08/13/23 17:47 Microcytosis Cancelled 08/13/23 17:47 Macrocytosis Cancelled 08/13/23 17:47 Spherocytes Cancelled 08/13/23 17:47 Pappenheimer Bodies Cancelled 08/13/23 17:47 Sickle Cells Cancelled 08/13/23 17:47 Target Cells Cancelled 08/13/23 17:47 Tear Drop Cells Cancelled 08/13/23 17:47 Ovalocytes Cancelled 08/13/23 17:47 Stomatocytes Cancelled 08/13/23 17:47 Jung-Pound Bodies Cancelled 08/13/23 17:47 Echinocytes Cancelled 08/13/23 17:47 Acanthocytes (Spur) Cancelled 08/13/23 17:47 Rouleaux Cancelled 08/13/23 17:47 RBC Agglutinates Cancelled 08/13/23 17:47 Schistocytes Cancelled 08/13/23 17:47 Sezary Cell Cancelled 08/13/23 17:47 PT 15.6 Seconds (9.0-12.0) H 08/13/23 21:07 INR 1.5 (0.9-1.1) H 08/13/23 21:07 APTT 37 Seconds (21-31) H 08/13/23 21:07 PTT Ratio 1.3 08/13/23 21:07 POC Sodium 111 mmol/L (135-144) L* 08/13/23 17:56 Sodium 114 mmol/L (136-145) L* 08/14/23 01:33 POC Potassium 4.4 mmol/L (3.3-5.0) 08/13/23 17:56 Potassium 2.5 mmol/L (3.5-5.1) L* 08/14/23 01:33 POC Chloride 76 mmol/L (101-112) L 08/13/23 17:56 Chloride 78 mmol/L (98-107) L 08/14/23 01:33 Carbon Dioxide 26 mmol/L (21-32) 08/14/23 01:33 POC Total CO2 28 mmol/L (24-31) 08/13/23 17:56 Anion Gap 10 (3-11) 08/14/23 01:33 POC Anion Gap 12.0 mmol/L (16-25) L 08/13/23 17:56 POC BUN 13 mg/dl (7-18) 08/13/23 17:56 BUN 9 mg/dl (6-23) 08/14/23 01:33 Creatinine 0.50 mg/dl (0.6-1.2) L 08/14/23 01:33 POC Creatinine 0.5 mg/dl (0.6-1.3) L 08/13/23 17:56 Est Cr Clr Drug Dosing 50.4 ml/min 08/14/23 01:33 Est GFR ( Amer) 102.3 ml/min 08/14/23 01:33 Est GFR (Non-Af Amer) 88.3 ml/min 08/14/23 01:33 BUN/Creatinine Ratio 18.0 (10-20) 08/14/23 01:33 Glucose 136 mg/dl (70-99(Fasting)) H 08/14/23 01:33 POC Glucose (other) 123 mg/dl (70-99) H 08/13/23 17:56 Osmolality 244 mOsm/kg (280-300) L 08/14/23 01:33 Lactate 2.0 mmol/L (0.4-2.0) 08/13/23 19:50 Calcium 8.5 mg/dl (8.6-10.3) L 08/14/23 01:33 POC Ioniz Calcium Eddie 0.92 mmol/l (1.12-1.32) L 08/13/23 17:56 Magnesium 1.4 mg/dl (1.7-2.4) L 08/13/23 21:07 Total Bilirubin 2.2 mg/dl (0.2-1.0) H 08/13/23 21:07 Direct Bilirubin 0.8 mg/dl (0-0.2) H 08/14/23 01:33 AST 41 U/L (13-39) H 08/13/23 21:07 ALT 12 U/L (7-52) 08/13/23 21:07 Alkaline Phosphatase 162 U/L (34-104) H 08/13/23 21:07 Troponin I High Sens 11.8 pg/ml (0-14) 08/13/23 21:07 B-Natriuretic Peptide 806 pg/ml (0-100) H 08/13/23 21:07 Total Protein 6.1 gm/dl (6.0-8.3) 08/13/23 21:07 Albumin 3.0 gm/dl (3.4-5.0) L 08/13/23 21:07 Globulin 3.1 gm/dl (2.5-4.0) 08/13/23 21:07 Albumin/Globulin Ratio 1.0 (0.9-2) 08/13/23 21:07 Lipase 6 U/L (11-82) L 08/13/23 21:07 Procalcitonin < 0.02 ng/ml (0-0.5) 08/13/23 21:07 TSH 8.689 uIu/ml (0.300-4.500) H 08/13/23 21:07 Free T4 1.36 ng/dl (0.61-1.60) 08/13/23 21:07 Free T3 2.26 pg/ml (2.3-4.2) L 08/14/23 01:33 Random Cortisol 17.47 mcg/dl 08/14/23 01:33 Urine Color Dark Yellow 08/13/23 19:50 Urine Appearance Clear (Clear) 08/13/23 19:50 Urine pH 7.0 (4.5-7.5) 08/13/23 19:50 Ur Specific Coila 1.012 (1.000-1.030) 08/13/23 19:50 Urine Protein 2+ (Negative) H 08/13/23 19:50 Urine Glucose (UA) Negative (Negative) 08/13/23 19:50 Urine Ketones Negative (Negative) 08/13/23 19:50 Urine Blood 3+ (Negative) H 08/13/23 19:50 Urine Nitrite Negative (Negative) 08/13/23 19:50 Urine Bilirubin Negative (Negative) 08/13/23 19:50 Urine Urobilinogen Negative (Negative) 08/13/23 19:50 Ur Leukocyte Esterase Negative (Negative) 08/13/23 19:50 Urine WBC (Auto) 1-5 /hpf (0-5) 08/13/23 19:50 Urine RBC (Auto) >30 /hpf (0-4) H 08/13/23 19:50 U Hyaline Cast (Auto) 0 /lpf (0-5) 08/13/23 19:50 U Epithel Cells (Auto) 10-20 /lpf (0-5) H 08/13/23 19:50 Urine Bacteria (Auto) Negative (Negative) 08/13/23 19:50 Urine Osmolality 440 mOsm/kg (500-800) L 08/13/23 19:50 Ur Random Creatinine 3.9 mg/dl 08/14/23 02:10 U Random Total Protein 4.9 mg/dl (0-11.9) 08/14/23 02:10 Ur Random Sodium 83 mmol/L 08/13/23 19:50 Adenovirus (PCR) Not Detected (NotDetected) 08/13/23 19:50 Anaplasma Smear See Comment 08/13/23 19:50 Babesia Smear See Comment 08/13/23 19:50 B. pertussis DNA (PCR) Not Detected (NotDetected) 08/13/23 19:50 B.parapertussis DNA PCR Not Detected (NotDetected) 08/13/23 19:50 Lyme Disease Screen Negative (Negative) 08/13/23 21:07 C. pneumoniae DNA (PCR) Not Detected (NotDetected) 08/13/23 19:50 Coronavirus OC43 (PCR) Not Detected (NotDetected) 08/13/23 19:50 Coronavirus HKU1 (PCR) Not Detected (NotDetected) 08/13/23 19:50 Coronavirus 229E (PCR) Not Detected (NotDetected) 08/13/23 19:50 SARS-CoV-2 (PCR) Not Detected (NotDetected) 08/13/23 19:50 Coronavirus NL63 (PCR) Not Detected (NotDetected) 08/13/23 19:50 Human Metapneumovir PCR Not Detected (NotDetected) 08/13/23 19:50 Influenza Type A (PCR) Not Detected (NotDetected) 08/13/23 19:50 Influenza Type B (PCR) Not Detected (NotDetected) 08/13/23 19:50 M. pneumoniae (PCR) Not Detected (NotDetected) 08/13/23 19:50 Parainfluenza 1 (PCR) Not Detected (NotDetected) 08/13/23 19:50 Parainfluenza 2 (PCR) Not Detected (NotDetected) 08/13/23 19:50 Parainfluenza 3 (PCR) Not Detected (NotDetected) 08/13/23 19:50 Parainfluenza 4 (PCR) Not Detected (NotDetected) 08/13/23 19:50 RSV (RT-PCR) Negative (Neg) 08/13/23 17:47 RSV (PCR) Not Detected (NotDetected) 08/13/23 19:50 Entero/Rhino (PCR) Not Detected (NotDetected) 08/13/23 19:50 Blood Parasites ID Cancelled 08/13/23 17:47 Impressions Abdomen/Pelvis CT 08/13/23 17:32 Exam(s): CT ABDOMEN + PELVIS With Contrast IV Amt: 118 ml optiray 320 EXAM: CT Abdomen and Pelvis With Intravenous Contrast CLINICAL HISTORY: Reason for exam: Abdominal pain and distension. TECHNIQUE: Axial computed tomography images of the abdomen and pelvis with intravenous contrast. CTDI is 11.02 mGy and DLP is 493.48 mGy-cm. Automated exposure control was utilized for the study. A dose lowering technique was utilized adhering to the principles of ALARA. CONTRAST: Patient received 118 ml optiray 320 of IV contrast COMPARISON: No relevant prior studies available. FINDINGS: Lung bases: Unremarkable. No mass. No consolidation. ABDOMEN: Liver: Hepatic steatosis. Gallbladder and bile ducts: Cholecystectomy. No ductal dilation. Pancreas: Unremarkable. No mass. No ductal dilation. Spleen: Unremarkable. No splenomegaly. Adrenals: Unremarkable. No mass. Kidneys and ureters: Unremarkable. No hydronephrosis or delayed nephrogram. Stomach and bowel: Wall thickening of small bowel, concerning for enteritis. No obstruction. PELVIS: Appendix: No findings to suggest acute appendicitis. Bladder: Unremarkable. No mass. Reproductive: Unremarkable as visualized. ABDOMEN and PELVIS: Intraperitoneal space: Abdominal and pelvic ascites. Anasarca. No free air. Bones/joints: No acute fracture. No dislocation. Soft tissues: See above. Vasculature: Unremarkable. No abdominal aortic aneurysm. Lymph nodes: Unremarkable. No enlarged lymph nodes. IMPRESSION: 1. No hydronephrosis or delayed nephrogram. 2. Abdominal and pelvic ascites. Anasarca. 3. Wall thickening of small bowel, concerning for enteritis. 4. Hepatic steatosis. 5. Cholecystectomy. Electronically signed by: Red Rabago MD 08/13/23 21:20 PM Chest X-Ray 08/13/23 17:32 XR chest 1V portable HISTORY: 83 years-old Female Chest pain, nonspecific COMPARISON: February 01 2023 TECHNIQUE: AP view the chest FINDINGS: Cardiac silhouette is enlarged. Pulmonary vascular congestion with interstitial coarsening. Layering pleural effusions with right greater than left bibasilar consolidation. Bones appear grossly intact. IMPRESSION: 1. Cardiomegaly with pulmonary edema. 2. Layering pleural effusions with bibasilar consolidation. ACT 112: Negative or not required by law. The above report was generated using voice recognition software. It may contain grammatical, syntax or spelling errors. Electronically signed by: Josep Willson M.D. 08/13/2023 6:[address] 08/13/23 17:32 Exam(s): CT HEAD Without Contrast EXAM: CT Head Without Intravenous Contrast CLINICAL HISTORY: Reason for exam: Change in mental status. TECHNIQUE: Axial computed tomography images of the head/brain without intravenous contrast. CTDI is 29.56 mGy and DLP is 512.02 mGy-cm. Automated exposure control was utilized for the study. A dose lowering technique was utilized adhering to the principles of ALARA. COMPARISON: No relevant prior studies available. FINDINGS: No acute intracranial hemorrhage. No midline shift or mass effect. The territorial pan-white matter differentiation is maintained throughout. Age-related cerebral volume loss. Periventricular and subcortical white matter hypoattenuation, consistent with chronic microangiopathy. The visualized orbits appear grossly unremarkable. The calvarium is intact. The visualized paranasal sinuses and mastoid air cells are grossly clear. IMPRESSION: No acute intracranial hemorrhage, midline shift, or mass effect. Electronically signed by: Red Rabago MD 08/13/23 21:14 PM Head CTA 08/13/23 17:32 Exam(s): CTA HEAD With Contrast IV Amt: 118 ml optiray 320 EXAM: CT Angiography Head With Intravenous Contrast CLINICAL HISTORY: Reason for exam: Change in mental status. TECHNIQUE: Axial computed tomographic angiography images of the head with intravenous contrast. CTDI is 29.56 mGy and DLP is 512.02 mGy-cm. Automated exposure control was utilized for the study. A dose lowering technique was utilized adhering to the principles of ALARA. 3D and MIP reconstructed images were created and reviewed. CONTRAST: Patient received 118 ml optiray 320 of IV contrast COMPARISON: CT head 08/13/2023, CTA head 05/29/2019. FINDINGS: Right internal carotid artery: Mild calcified plaque at the cavernous internal carotid artery with intact distal runoff. No aneurysm. No aneurysm. Right anterior cerebral artery: Hypoplastic A1 segment. Moderate stenosis of a distal A2 segment without occlusion. No aneurysm. Right middle cerebral artery: Moderate stenosis of a M2 sylvian branch with intact distal runoff. No aneurysm. Right posterior cerebral artery: Unchanged multifocal high-grade stenosis of the proximal and mid P2 segment with intact distal runoff. No aneurysm. Right vertebral artery: Mild stenosis with intact distal runoff. Left internal carotid artery: Mild calcified plaque at the cavernous internal carotid artery with intact distal runoff. No aneurysm. No aneurysm. Left anterior cerebral artery: Moderate stenosis of the distal A2 segment without occlusion. No aneurysm. Left middle cerebral artery: Mild stenosis of an M2 sylvian branch with intact distal runoff. No aneurysm. Left posterior cerebral artery: Unremarkable. No occlusion or significant stenosis. No aneurysm. Left vertebral artery: Unremarkable as visualized. Basilar artery: Mild stenosis of the distal basilar artery with intact distal runoff. No aneurysm. IMPRESSION: No large vessel occlusion. Multifocal bilateral anterior posterior circulation stenoses with intact distal runoff, not significantly changed since prior CTA 2019. Electronically signed by: Terrell Romero M.D. 08/13/23 21:39 PM Neck CTA 08/13/23 17:32 Exam(s): CTA NECK With Contrast IV Amt: 118 ml optiray 320 EXAM: CT Angiography Neck With Intravenous Contrast CLINICAL HISTORY: Reason for exam: Change in mental status. TECHNIQUE: Routine carotid CT angiography protocol was performed with intravenous contrast. NASCET criteria using the distal ICAs for comparison were used for evaluation of stenoses. CTDI is 11.1 mGy and DLP is 344.45 mGy-cm. Automated exposure control was utilized for the study. A dose lowering technique was utilized adhering to the principles of ALARA. 3D and MIP reconstructed images were created and reviewed. CONTRAST: Patient received 118 ml optiray 320 of IV contrast COMPARISON: 05/29/2019. FINDINGS: VASCULATURE: Right common carotid artery: Unremarkable. No occlusion or significant stenosis. No dissection. Right internal carotid artery: Unremarkable. Extracranial segment is patent with no occlusion or significant stenosis. No dissection. Right external carotid artery: Unremarkable. No occlusion. Right vertebral artery: Unremarkable. No occlusion or significant stenosis. No dissection. Left common carotid artery: Unremarkable. No occlusion or significant stenosis. No dissection. Left internal carotid artery: Minimal calcified plaque at the left carotid bulb without a hemodynamically significant stenosis. No dissection. Left external carotid artery: Unremarkable. No occlusion. Left vertebral artery: Mild stenosis at the origin with intact distal runoff. No dissection. NECK: Bones/joints: Unremarkable. No acute fracture. Soft tissues: Unremarkable. Lung apices: Partially visualized bilateral posterior layering pleural effusions. CAROTID STENOSIS REFERENCE USING NASCET CRITERIA: % ICA stenosis = (1 - narrowest ICA diameter/diameter of distal cervical ICA) x 100. Mild - <50% stenosis. Moderate - 50-69% stenosis. Severe - 70-94% stenosis. Near occlusion - 95-99% stenosis. Occluded - 100% stenosis. IMPRESSION: No hemodynamically significant stenosis. Electronically signed by: Terrell Romero M.D. 08/13/23 21:45 PM ECG Additional Comments: EKG with AF at 74bpm, QRS=76, NWd=721, non-specific T wave changes Code Status & VTE Plan VTE Prophylaxis Plan VTE Prophylaxis will be ordered: Yes PG Care Time/CCT Total # of Minutes Spent Total Time Spent with Patient: Total time spent is greater than 50% in coordination of care (as documented) at patient's floor/unit and/or counseling patient: Coding Level of Care Code 85768 INT INP/OBS CARE 3/75MIN Diagnoses Hyponatremia E87.1 Electrolyte abnormality E87.8 Hypertension I10 Thrombocytopenia D69.6 Hypothyroid E03.9 A-fib I48.91 Atrial fibrillation type: unspecified (6) A-fib Atrial fibrillation type: unspecified Qualified Code(s): I48.91 - Unspecified atrial fibrillation
[2023-08-14] MEDS: POTASSIUM CHLORIDE / WTR 10 MEQ/100 ML PLCT IV SCH ×2 (00:37→03:50)
[2023-08-14] MEDS: DOXYCYCLINE HYCLATE 100 MG in DEXTROSE 5% MINI-B 100 ML IV STA (00:38)
[2023-08-14] MEDS ORDERED: STAT IV/IM STA ×3 (02:10→22:12)
[2023-08-14 02:31] LABS: Calcium 8.5 mg/dl (8.6-10.3); Creatinine Clr Calc Pharmacy 50.4 ml/min; Est GFR (African American) 102.3 ml/min; Est GFR (Non-African American) 88.3 ml/min; Potassium 2.5 mmol/L (3.5-5.1)
[2023-08-14] MEDS: CALCIUM GLUCONATE 10% 1,000 MG in SODIUM CHLOR 0.9% MINI-B 50 ML IV ONE (02:35)
[2023-08-14 03:28] LABS: Total Protein Urine Random 4.9 mg/dl (0-11.9)
[2023-08-14 03:33] LABS: Creatinine Urine Random 3.9 mg/dl
[2023-08-14] MEDS: POTASSIUM CHLORIDE CRTAB 20 MEQ TABCR PO STA ×2 (03:50→14:29)
[2023-08-14] MEDS: LEVOTHYROXINE SODIUM 50 MCG TABLET PO SCH (06:14)
[2023-08-14 06:35] LABS: Hematocrit (blood only) 43.1 % (37.0-47.0); Hemoglobin 15.8 g/dl (12.0-16.0); Mean Corpuscular Hemoglobin 30.4 pg (25.0-34.0); Mean Corpuscular Hgb Conc 36.7 g/dL (32.0-36.0); Mean Platelet Volume 11.7 fL (9.4-12.4); Platelet Count 89 K/uL (130-400); RDW Coefficient of Variation 13.7 % (11.5-14.5); Red Blood Count 5.19 M/uL (4.20-5.40); White Blood Count 10.07 K/ul (4.8-10.8)
[2023-08-14 06:37] LABS: INR 1.4 (0.9-1.1); Prothrombin Time 15.1 Seconds (9.0-12.0)
[2023-08-14 06:40] LABS: Albumin Level 3.3 gm/dl (3.4-5.0); BUN Creatinine Ratio 15.1 (10-20); Bilirubin Direct 0.7 mg/dl (0-0.2); Bilirubin,Total 2.4 mg/dl (0.2-1.0); Calcium 8.6 mg/dl (8.6-10.3); Est GFR (African American) 100.3 ml/min; Est GFR (Non-African American) 86.6 ml/min; Phosphorus 2.6 mg/dl (2.5-4.9); Potassium 3.1 mmol/L (3.5-5.1); Total Protein 6.7 gm/dl (6.0-8.3)
[2023-08-14 08:14] LABS: Albumin Globulin Ratio 1.1 (0.9-2); Albumin Level 3.3 gm/dl (3.4-5.0); BUN Creatinine Ratio 15.4 (10-20); Bilirubin,Total 2.4 mg/dl (0.2-1.0); Calcium 8.3 mg/dl (8.6-10.3); Creatinine Clr Calc Pharmacy 36.7 ml/min; Est GFR (Non-African American) 87.1 ml/min; Potassium 3.7 mmol/L (3.5-5.1); Total Protein 6.3 gm/dl (6.0-8.3)
[2023-08-14] MEDS: allopurinoL 100 MG TAB PO SCH (08:38)
[2023-08-14] MEDS: METOPROLOL SUCC 50MG EXT REL TAB PO SCH (08:38)
[2023-08-14] MEDS: FUROSEMIDE INJ 20 MG/2 ML VIAL IV SCH (08:39)
[2023-08-14] MEDS: ATORVASTATIN 20 MG TAB PO SCH (08:39)
[2023-08-14] MEDS: APIXABAN 2.5 MG TAB PO SCH (08:39)
[2023-08-14 09:35] LABS: BUN Creatinine Ratio 14.5 (10-20); Calcium 8.3 mg/dl (8.6-10.3); Creatinine Clr Calc Pharmacy 34.7 ml/min; Est GFR (African American) 99.1 ml/min; Est GFR (Non-African American) 85.5 ml/min; Potassium 3.9 mmol/L (3.5-5.1)
[2023-08-14] MEDS: SODIUM CHLORIDE 3 % 500 ML IV SCH ×2 (10:00→22:43)
--- NOTE | 2023-08-14 11:28 | Nephrology Consultation ---
Date of Consultation August 14, 2023 Assessment & Plan (1) Hyponatremia: * Hypoosmolar hyponatremia. Normal T4. CXR suggestive of CHF. Echocardiogram pending. Preserved kidney function. Proteinuria present but normal serum albumin. No documented h/o malignancy, cirrhosis. * Patient has severe hyponatremia resulting in weakness. Time course of hyponatremia unknown but suspect that this has been relatively acute. Thiazide diuretic was likely contributing to hyponatremia * Stop HCTZ * Agree w/ hospitalist plan for 3% NaCl at 25 cc/hr. Monitor PRP q2-4 hours. Goal is to correct sodium by 4-6 mEq/24 hours. Awaiting 12 noon PRP * Continue low dose Furosemide to promote free water excretion and help correct CHF * Await echocardiogram results (2) Hypokalemia: * Serum K has been corrected * Monitor PRP. May need ongoing replacement while on loop diuretic (3) Hypothyroid: * Elevated TSH * Low dose Synthroid started (4) A-fib: * On Metoprolol, Apixaban History of Present Illness Reason for Consultation: Hyponatremia Attending Physician: Daisha Daniels MD History of Present Illness Ms. Reed is an 83 year old female who is seen at the request of the [facility] Hospitalist Service for evaluation of hyponatremia. Information for the HPI is obtained from review of the medical record. Ms. Reed speaks only Mandarin. Her daughter Lexy was present at the time of my evaluation and was able to provide translation. Ms. Reed had suffered from progressive bilateral LE swelling over the last several weeks. Her PCP advised increasing her HCTZ dose. 08/13/23 she presented to [facility] EMD for evaluation of generalized weakness, confusion and difficulty ambulating. Serum sodium was 112, K 2.5. Treatment was provided w/ 500 cc 0.9NS, 50 cc 3% NaCl, dDAVP 1 mcg IV, Furosemide 20 mg IV and 60 mEq KCl. Over the next 9 hours sodium has remained essentially unchanged at 113 mmol/L. 08/14/23 serum Osm 244, urine Osm 440, normal T4, normal cortisol. Ms. Reed has been admitted to the ICU by the hospitalist service. HCTZ has been stopped. Imaging has revealed a small L and moderate R pleural effusion. Echocardiogram is pending. Hospitalist service has ordered 3% NaCl at 25 cc/hr and Furosemide 20 mg IV BID. PMH: atrial fibrillation on Apixaban, h/o L sided CVA, hyperlipidemia, gout Allergies Allergy/AdvReac Type Severity Reaction Status Date / Time shellfish derived Allergy Intermediate Rash Verified 08/13/23 20:54 Poultry AdvReac Unknown Because it Verified 08/13/23 20:54 raises uric acid. She is on allopurinal. Home Medications Medication Instructions Recorded Confirmed Type allopurinol 100 mg tablet 100 - 200 mg PO DAILY 01/21/23 08/13/23 History apixaban 2.5 mg tablet (Eliquis) 2.5 mg PO DAILY 01/21/23 08/13/23 History atorvastatin 20 mg tablet 20 mg PO Q OTHER DAY 01/21/23 08/13/23 History metoprolol succinate 50 mg 50 mg PO DAILY #30 tabs 01/27/23 08/13/23 Rx tablet,extended release 24 hr (Toprol XL) B-complex with vitamin C 1 cap PO DAILY 08/13/23 08/13/23 History hydrochlorothiazide 25 mg tablet 50 mg PO DAILY 08/13/23 08/13/23 History magnesium 250 mg tablet 250 mg PO DAILY 08/13/23 08/13/23 History Patient History Medical History A-fib Vertebral artery stenosis Hypertension Stroke Surgical History Hx laparoscopic cholecystectomy (01/23/23) Laparoscopic Cholecystectomy(Not Applicable) - Yoan Beckford MD, FACS Family History Other No pertinent family history in first degree relatives Social History Smoking Status: Unknown if ever smoked Second Hand Exposure: No; Hx Alcohol Use: No Hx Substance Use: No Preferred Language: Mandarin Peruvian Communication Ability: Effective Communication Ability Comment: Daughter at bedside helps to translate in addition to trestle mechanic Communication Tools: Other Visual Impairment: Limited Event Lighting Specialist Required: Yes Beliefs That Will Affect Care: None marital status: / Current Living Situation: Family Current Living Situation Comment: lives with daughter Other Information That Helps Us Care for You: No Feels Safe at Home: Yes Safety Concerns: Feels Safe At This Time Assistive Devices: Cane Review of Systems Constitutional: no fever Eyes: no worsening vision Ear, Nose, Mouth, Throat: no problem reported Respiratory: no cough and no dyspnea Cardiovascular: no chest pain Gastrointestinal: no nausea, no vomiting and no diarrhea/loose stools Genitourinary: no dysuria Integumentary: no rash Physical Exam Constitutional: + frail appearing; not in distress Eyes: PERRL, conjunctivae normal, anicteric sclerae ENMT: external ear and nose normal, oropharynx normal Neck: trachea midline, no thyromegaly Respiratory: diminished BS 1/3 up R side Cardiovascular: Rate/Rhythm: + irregularly irregular Extremities: no edema Gastrointestinal (Abdomen): normal bowel sounds, soft, nontender, no hepatosplenomegaly Skin: + turgor decreased; no rashes Neurologic: awake Results & Data Vital Signs (Past 12 Hours) Vital Signs Temp Pulse Pulse Resp BP BP Pulse Ox 08/14/23 06:00 67 18 08/14/23 05:00 68 21 90 08/14/23 05:00 133/85 08/14/23 04:00 73 16 08/14/23 04:00 142/84 H 08/14/23 04:00 36.4 C L 70 15 142/84 H 95 08/14/23 03:00 155/92 H 08/14/23 03:00 73 16 92 08/14/23 02:59 67 08/14/23 02:13 145/83 H 08/14/23 02:13 68 19 08/14/23 02:11 36.5 C 58 L 20 145/83 H 96 08/14/23 02:10 08/14/23 02:10 36.5 C 08/14/23 02:04 61 17 96 08/14/23 02:04 149/89 H 08/14/23 02:03 68 08/14/23 01:33 67 18 147/94 H 97 08/14/23 01:00 68 18 95 08/14/23 00:30 64 16 151/90 H 96 08/14/23 00:00 65 15 157/96 H 97 08/13/23 23:55 68 17 163/101 H 98 08/13/23 23:30 70 17 98 08/13/23 23:00 72 15 97 Pulse Ox O2 Del Method O2 Del Method 08/14/23 06:00 08/14/23 05:00 08/14/23 05:00 08/14/23 04:00 08/14/23 04:00 08/14/23 04:00 Room Air 08/14/23 03:00 08/14/23 03:00 08/14/23 02:59 08/14/23 02:13 08/14/23 02:13 08/14/23 02:11 Room Air 08/14/23 02:10 94 Room Air 08/14/23 02:10 08/14/23 02:04 08/14/23 02:04 08/14/23 02:03 08/14/23 01:33 Room Air 08/14/23 01:00 08/14/23 00:30 08/14/23 00:00 08/13/23 23:55 08/13/23 23:30 08/13/23 23:00 Laboratory Results Laboratory Results WBC 10.07 K/ul (4.8-10.8) 08/14/23 05:53 RBC 5.19 M/uL (4.20-5.40) 08/14/23 05:53 Hgb 15.8 g/dl (12.0-16.0) 08/14/23 05:53 POC Hgb 18.0 g/dl (12.0-16.0) H 08/13/23 17:56 Hct 43.1 % (37.0-47.0) 08/14/23 05:53 POC Hct 53 % (37-47) H 08/13/23 17:56 MCV 83.0 fL (80.0-100.0) 08/14/23 05:53 MCH 30.4 pg (25.0-34.0) 08/14/23 05:53 MCHC 36.7 g/dL (32.0-36.0) H 08/14/23 05:53 RDW Std Deviation 41.0 fL (36.4-46.3) 08/14/23 05:53 RDW Coeff of Donis 13.7 % (11.5-14.5) 08/14/23 05:53 Plt Count 89 K/uL (130-400) L 08/14/23 05:53 MPV 11.7 fL (9.4-12.4) 08/14/23 05:53 Immature Gran % (Auto) 0.3 % 08/13/23 19:50 Neut % (Auto) 80.1 % 08/13/23 19:50 Lymph % (Auto) 12.6 % 08/13/23 19:50 [place] % (Auto) 6.8 % 08/13/23 19:50 Eos % (Auto) 0.0 % 08/13/23 19:50 Baso % (Auto) 0.2 % 08/13/23 19:50 Neut # (Auto) 7.26 K/uL (1.40-6.50) H 08/13/23 19:50 Lymph # (Auto) 1.14 K/uL (1.20-3.40) L 08/13/23 19:50 [place] # (Auto) 0.62 K/uL (0.11-0.59) H 08/13/23 19:50 Eos # (Auto) 0.00 K/uL (0.00-0.50) 08/13/23 19:50 Baso # (Auto) 0.02 K/uL (0.00-0.20) 08/13/23 19:50 Immature Gran # (Auto) 0.03 K/uL (0.01-0.20) 08/13/23 19:50 Absolute Nucleated RBC Cancelled 08/13/23 17:47 Nucleated RBC % (auto) Cancelled 08/13/23 17:47 Neutrophils % (Manual) Cancelled 08/13/23 17:47 Band Neutrophils % Cancelled 08/13/23 17:47 Lymphocytes % (Manual) Cancelled 08/13/23 17:47 Prolymphocyte % Cancelled 08/13/23 17:47 Reactive Lymphs % (Man) Cancelled 08/13/23 17:47 Monocytes % (Manual) Cancelled 08/13/23 17:47 Eosinophils % (Manual) Cancelled 08/13/23 17:47 Basophils % (Manual) Cancelled 08/13/23 17:47 Metamyelocytes % (Man) Cancelled 08/13/23 17:47 Myelocytes % (Man) Cancelled 08/13/23 17:47 Promyelocytes % (Man) Cancelled 08/13/23 17:47 Blast Cells % (Manual) Cancelled 08/13/23 17:47 Plasma Cell % (Manual) Cancelled 08/13/23 17:47 Other Cells % Cancelled 08/13/23 17:47 Nucleated RBC % Cancelled 08/13/23 17:47 Neutrophils # (Manual) Cancelled 08/13/23 17:47 Band Neutrophils # Cancelled 08/13/23 17:47 Total Absolute Neuts Cancelled 08/13/23 17:47 Lymphocytes # (Manual) Cancelled 08/13/23 17:47 Prolymphocyte # Cancelled 08/13/23 17:47 Reactive Lymphs # Cancelled 08/13/23 17:47 Total Abs Lymphocytes Cancelled 08/13/23 17:47 Monocytes # (Manual) Cancelled 08/13/23 17:47 Eosinophils # (Manual) Cancelled 08/13/23 17:47 Basophils # (Manual) Cancelled 08/13/23 17:47 Metamyelocytes # (Man) Cancelled 08/13/23 17:47 Myelocytes # (Manual) Cancelled 08/13/23 17:47 Promyelocytes # (Man) Cancelled 08/13/23 17:47 Blast Cells # (Man) Cancelled 08/13/23 17:47 Plasma Cell # (Manual) Cancelled 08/13/23 17:47 Other Cells # Cancelled 08/13/23 17:47 Nucleated RBCs # (Man) Cancelled 08/13/23 17:47 Hypersegmented Neuts Cancelled 08/13/23 17:47 Hyposegmented Neuts Cancelled 08/13/23 17:47 Hypogranular Neuts Cancelled 08/13/23 17:47 Large Granular Lymphs Cancelled 08/13/23 17:47 # Lrg Granular Lymphs Cancelled 08/13/23 17:47 Hairy Cells Cancelled 08/13/23 17:47 Smudge Cells Cancelled 08/13/23 17:47 Toxic Granulation Cancelled 08/13/23 17:47 Toxic Vacuolation Cancelled 08/13/23 17:47 Dohle Bodies Cancelled 08/13/23 17:47 Rhys Rods Cancelled 08/13/23 17:47 Platelet Estimate Decreased (Normal) L 08/13/23 19:50 Hypogranular Platelets Cancelled 08/13/23 17:47 Giant Platelets Cancelled 08/13/23 17:47 Platelet Satelliting Cancelled 08/13/23 17:47 RBC Morphology Cancelled 08/13/23 17:47 Polychromasia Cancelled 08/13/23 17:47 Hypochromasia Cancelled 08/13/23 17:47 Poikilocytosis Cancelled 08/13/23 17:47 Basophilic Stippling Cancelled 08/13/23 17:47 Anisocytosis Cancelled 08/13/23 17:47 Microcytosis Cancelled 08/13/23 17:47 Macrocytosis Cancelled 08/13/23 17:47 Spherocytes Cancelled 08/13/23 17:47 Pappenheimer Bodies Cancelled 08/13/23 17:47 Sickle Cells Cancelled 08/13/23 17:47 Target Cells Cancelled 08/13/23 17:47 Tear Drop Cells Cancelled 08/13/23 17:47 Ovalocytes Cancelled 08/13/23 17:47 Stomatocytes Cancelled 08/13/23 17:47 [place] Bodies Cancelled 08/13/23 17:47 Echinocytes Cancelled 08/13/23 17:47 Acanthocytes (Spur) Cancelled 08/13/23 17:47 Rouleaux Cancelled 08/13/23 17:47 RBC Agglutinates Cancelled 08/13/23 17:47 Schistocytes Cancelled 08/13/23 17:47 Sezary Cell Cancelled 08/13/23 17:47 PT 15.1 Seconds (9.0-12.0) H 08/14/23 05:53 INR 1.4 (0.9-1.1) H 08/14/23 05:53 APTT 37 Seconds (21-31) H 08/13/23 21:07 PTT Ratio 1.3 08/13/23 21:07 POC Sodium 111 mmol/L (135-144) L* 08/13/23 17:56 Sodium 113 mmol/L (136-145) L* 08/14/23 08:48 POC Potassium 4.4 mmol/L (3.3-5.0) 08/13/23 17:56 Potassium 3.9 mmol/L (3.5-5.1) 08/14/23 08:48 POC Chloride 76 mmol/L (101-112) L 08/13/23 17:56 Chloride 79 mmol/L (98-107) L 08/14/23 08:48 Carbon Dioxide 28 mmol/L (21-32) 08/14/23 08:48 POC Total CO2 28 mmol/L (24-31) 08/13/23 17:56 Anion Gap 6 (3-11) 08/14/23 08:48 POC Anion Gap 12.0 mmol/L (16-25) L 08/13/23 17:56 POC BUN 13 mg/dl (7-18) 08/13/23 17:56 BUN 8 mg/dl (6-23) 08/14/23 08:48 Creatinine 0.55 mg/dl (0.6-1.2) L 08/14/23 08:48 POC Creatinine 0.5 mg/dl (0.6-1.3) L 08/13/23 17:56 Est Cr Clr Drug Dosing 34.7 ml/min 08/14/23 08:48 Est GFR ( Amer) 99.1 ml/min 08/14/23 08:48 Est GFR (Non-Af Amer) 85.5 ml/min 08/14/23 08:48 BUN/Creatinine Ratio 14.5 (10-20) 08/14/23 08:48 Glucose 96 mg/dl (70-99(Fasting)) 08/14/23 08:48 POC Glucose (other) 123 mg/dl (70-99) H 08/13/23 17:56 Osmolality 244 mOsm/kg (280-300) L 08/14/23 01:33 Lactate 2.0 mmol/L (0.4-2.0) 08/13/23 19:50 Calcium 8.3 mg/dl (8.6-10.3) L 08/14/23 08:48 POC Ioniz Calcium Eddie 0.92 mmol/l (1.12-1.32) L 08/13/23 17:56 Phosphorus 2.6 mg/dl (2.5-4.9) 08/14/23 05:53 Magnesium 1.4 mg/dl (1.7-2.4) L 08/13/23 21:07 Total Bilirubin 2.4 mg/dl (0.2-1.0) H 08/14/23 07:42 Direct Bilirubin 0.7 mg/dl (0-0.2) H 08/14/23 05:53 AST 40 U/L (13-39) H 08/14/23 07:42 ALT 14 U/L (7-52) 08/14/23 07:42 Alkaline Phosphatase 163 U/L (34-104) H 08/14/23 07:42 Troponin I High Sens 11.8 pg/ml (0-14) 08/13/23 21:07 B-Natriuretic Peptide 806 pg/ml (0-100) H 08/13/23 21:07 Total Protein 6.3 gm/dl (6.0-8.3) 08/14/23 07:42 Albumin 3.3 gm/dl (3.4-5.0) L 08/14/23 07:42 Globulin 3.0 gm/dl (2.5-4.0) 08/14/23 07:42 Albumin/Globulin Ratio 1.1 (0.9-2) 08/14/23 07:42 Lipase 6 U/L (11-82) L 08/13/23 21:07 Procalcitonin < 0.02 ng/ml (0-0.5) 08/13/23 21:07 TSH 8.689 uIu/ml (0.300-4.500) H 08/13/23 21:07 Free T4 1.36 ng/dl (0.61-1.60) 08/13/23 21:07 Free T3 2.26 pg/ml (2.3-4.2) L 08/14/23 01:33 Random Cortisol 17.47 mcg/dl 08/14/23 01:33 Urine Color Dark Yellow 08/13/23 19:50 Urine Appearance Clear (Clear) 08/13/23 19:50 Urine pH 7.0 (4.5-7.5) 08/13/23 19:50 Ur Specific [place] 1.012 (1.000-1.030) 08/13/23 19:50 Urine Protein 2+ (Negative) H 08/13/23 19:50 Urine Glucose (UA) Negative (Negative) 08/13/23 19:50 Urine Ketones Negative (Negative) 08/13/23 19:50 Urine Blood 3+ (Negative) H 08/13/23 19:50 Urine Nitrite Negative (Negative) 08/13/23 19:50 Urine Bilirubin Negative (Negative) 08/13/23 19:50 Urine Urobilinogen Negative (Negative) 08/13/23 19:50 Ur Leukocyte Esterase Negative (Negative) 08/13/23 19:50 Urine WBC (Auto) 1-5 /hpf (0-5) 08/13/23 19:50 Urine RBC (Auto) >30 /hpf (0-4) H 08/13/23 19:50 U Hyaline Cast (Auto) 0 /lpf (0-5) 08/13/23 19:50 U Epithel Cells (Auto) 10-20 /lpf (0-5) H 08/13/23 19:50 Urine Bacteria (Auto) Negative (Negative) 08/13/23 19:50 Urine Osmolality 440 mOsm/kg (500-800) L 08/13/23 19:50 Ur Random Creatinine 3.9 mg/dl 08/14/23 02:10 U Random Total Protein 4.9 mg/dl (0-11.9) 08/14/23 02:10 Ur Random Sodium 83 mmol/L 08/13/23 19:50 Nasal Screen MRSA (PCR) Negative (Negative) 08/14/23 02:00 Adenovirus (PCR) Not Detected (NotDetected) 08/13/23 19:50 Anaplasma Smear See Comment 08/13/23 19:50 Babesia Smear See Comment 08/13/23 19:50 B. pertussis DNA (PCR) Not Detected (NotDetected) 08/13/23 19:50 B.parapertussis DNA PCR Not Detected (NotDetected) 08/13/23 19:50 Lyme Disease Screen Negative (Negative) 08/13/23 21:07 C. pneumoniae DNA (PCR) Not Detected (NotDetected) 08/13/23 19:50 Coronavirus OC43 (PCR) Not Detected (NotDetected) 08/13/23 19:50 Coronavirus HKU1 (PCR) Not Detected (NotDetected) 08/13/23 19:50 Coronavirus 229E (PCR) Not Detected (NotDetected) 08/13/23 19:50 SARS-CoV-2 (PCR) Not Detected (NotDetected) 08/13/23 19:50 Coronavirus NL63 (PCR) Not Detected (NotDetected) 08/13/23 19:50 Human Metapneumovir PCR Not Detected (NotDetected) 08/13/23 19:50 Influenza Type A (PCR) Not Detected (NotDetected) 08/13/23 19:50 Influenza Type B (PCR) Not Detected (NotDetected) 08/13/23 19:50 M. pneumoniae (PCR) Not Detected (NotDetected) 08/13/23 19:50 Parainfluenza 1 (PCR) Not Detected (NotDetected) 08/13/23 19:50 Parainfluenza 2 (PCR) Not Detected (NotDetected) 08/13/23 19:50 Parainfluenza 3 (PCR) Not Detected (NotDetected) 08/13/23 19:50 Parainfluenza 4 (PCR) Not Detected (NotDetected) 08/13/23 19:50 RSV (RT-PCR) Negative (Neg) 08/13/23 17:47 RSV (PCR) Not Detected (NotDetected) 08/13/23 19:50 Entero/Rhino (PCR) Not Detected (NotDetected) 08/13/23 19:50 Blood Parasites ID Cancelled 08/13/23 17:47 Impressions Abdomen/Pelvis CT 08/13/23 17:32 Exam(s): CT ABDOMEN + PELVIS With Contrast IV Amt: 118 ml optiray 320 EXAM: CT Abdomen and Pelvis With Intravenous Contrast CLINICAL HISTORY: Reason for exam: Abdominal pain and distension. TECHNIQUE: Axial computed tomography images of the abdomen and pelvis with intravenous contrast. CTDI is 11.02 mGy and DLP is 493.48 mGy-cm. Automated exposure control was utilized for the study. A dose lowering technique was utilized adhering to the principles of ALARA. CONTRAST: Patient received 118 ml optiray 320 of IV contrast COMPARISON: No relevant prior studies available. FINDINGS: Lung bases: Unremarkable. No mass. No consolidation. ABDOMEN: Liver: Hepatic steatosis. Gallbladder and bile ducts: Cholecystectomy. No ductal dilation. Pancreas: Unremarkable. No mass. No ductal dilation. Spleen: Unremarkable. No splenomegaly. Adrenals: Unremarkable. No mass. Kidneys and ureters: Unremarkable. No hydronephrosis or delayed nephrogram. Stomach and bowel: Wall thickening of small bowel, concerning for enteritis. No obstruction. PELVIS: Appendix: No findings to suggest acute appendicitis. Bladder: Unremarkable. No mass. Reproductive: Unremarkable as visualized. ABDOMEN and PELVIS: Intraperitoneal space: Abdominal and pelvic ascites. Anasarca. No free air. Bones/joints: No acute fracture. No dislocation. Soft tissues: See above. Vasculature: Unremarkable. No abdominal aortic aneurysm. Lymph nodes: Unremarkable. No enlarged lymph nodes. IMPRESSION: 1. No hydronephrosis or delayed nephrogram. 2. Abdominal and pelvic ascites. Anasarca. 3. Wall thickening of small bowel, concerning for enteritis. 4. Hepatic steatosis. 5. Cholecystectomy. Electronically signed by: Red Rabago MD 08/13/23 21:20 PM Chest X-Ray 08/13/23 17:32 XR chest 1V portable HISTORY: 83 years-old Female Chest pain, nonspecific COMPARISON: February 01 2023 TECHNIQUE: AP view the chest FINDINGS: Cardiac silhouette is enlarged. Pulmonary vascular congestion with interstitial coarsening. Layering pleural effusions with right greater than left bibasilar consolidation. Bones appear grossly intact. IMPRESSION: 1. Cardiomegaly with pulmonary edema. 2. Layering pleural effusions with bibasilar consolidation. ACT 112: Negative or not required by law. The above report was generated using voice recognition software. It may contain grammatical, syntax or spelling errors. Electronically signed by: Josep Willson M.D. 08/13/2023 6:[address] 08/13/23 17:32 Exam(s): CT HEAD Without Contrast EXAM: CT Head Without Intravenous Contrast CLINICAL HISTORY: Reason for exam: Change in mental status. TECHNIQUE: Axial computed tomography images of the head/brain without intravenous contrast. CTDI is 29.56 mGy and DLP is 512.02 mGy-cm. Automated exposure control was utilized for the study. A dose lowering technique was utilized adhering to the principles of ALARA. COMPARISON: No relevant prior studies available. FINDINGS: No acute intracranial hemorrhage. No midline shift or mass effect. The territorial pan-white matter differentiation is maintained throughout. Age-related cerebral volume loss. Periventricular and subcortical white matter hypoattenuation, consistent with chronic microangiopathy. The visualized orbits appear grossly unremarkable. The calvarium is intact. The visualized paranasal sinuses and mastoid air cells are grossly clear. IMPRESSION: No acute intracranial hemorrhage, midline shift, or mass effect. Electronically signed by: Red Rabago MD 08/13/23 21:14 PM Head CTA 08/13/23 17:32 Exam(s): CTA HEAD With Contrast IV Amt: 118 ml optiray 320 EXAM: CT Angiography Head With Intravenous Contrast CLINICAL HISTORY: Reason for exam: Change in mental status. TECHNIQUE: Axial computed tomographic angiography images of the head with intravenous contrast. CTDI is 29.56 mGy and DLP is 512.02 mGy-cm. Automated exposure control was utilized for the study. A dose lowering technique was utilized adhering to the principles of ALARA. 3D and MIP reconstructed images were created and reviewed. CONTRAST: Patient received 118 ml optiray 320 of IV contrast COMPARISON: CT head 08/13/2023, CTA head 05/29/2019. FINDINGS: Right internal carotid artery: Mild calcified plaque at the cavernous internal carotid artery with intact distal runoff. No aneurysm. No aneurysm. Right anterior cerebral artery: Hypoplastic A1 segment. Moderate stenosis of a distal A2 segment without occlusion. No aneurysm. Right middle cerebral artery: Moderate stenosis of a M2 sylvian branch with intact distal runoff. No aneurysm. Right posterior cerebral artery: Unchanged multifocal high-grade stenosis of the proximal and mid P2 segment with intact distal runoff. No aneurysm. Right vertebral artery: Mild stenosis with intact distal runoff. Left internal carotid artery: Mild calcified plaque at the cavernous internal carotid artery with intact distal runoff. No aneurysm. No aneurysm. Left anterior cerebral artery: Moderate stenosis of the distal A2 segment without occlusion. No aneurysm. Left middle cerebral artery: Mild stenosis of an M2 sylvian branch with intact distal runoff. No aneurysm. Left posterior cerebral artery: Unremarkable. No occlusion or significant stenosis. No aneurysm. Left vertebral artery: Unremarkable as visualized. Basilar artery: Mild stenosis of the distal basilar artery with intact distal runoff. No aneurysm. IMPRESSION: No large vessel occlusion. Multifocal bilateral anterior posterior circulation stenoses with intact distal runoff, not significantly changed since prior CTA 2019. Electronically signed by: Terrell Romero M.D. 08/13/23 21:39 PM Neck CTA 08/13/23 17:32 Exam(s): CTA NECK With Contrast IV Amt: 118 ml optiray 320 EXAM: CT Angiography Neck With Intravenous Contrast CLINICAL HISTORY: Reason for exam: Change in mental status. TECHNIQUE: Routine carotid CT angiography protocol was performed with intravenous contrast. NASCET criteria using the distal ICAs for comparison were used for evaluation of stenoses. CTDI is 11.1 mGy and DLP is 344.45 mGy-cm. Automated exposure control was utilized for the study. A dose lowering technique was utilized adhering to the principles of ALARA. 3D and MIP reconstructed images were created and reviewed. CONTRAST: Patient received 118 ml optiray 320 of IV contrast COMPARISON: 05/29/2019. FINDINGS: VASCULATURE: Right common carotid artery: Unremarkable. No occlusion or significant stenosis. No dissection. Right internal carotid artery: Unremarkable. Extracranial segment is patent with no occlusion or significant stenosis. No dissection. Right external carotid artery: Unremarkable. No occlusion. Right vertebral artery: Unremarkable. No occlusion or significant stenosis. No dissection. Left common carotid artery: Unremarkable. No occlusion or significant stenosis. No dissection. Left internal carotid artery: Minimal calcified plaque at the left carotid bulb without a hemodynamically significant stenosis. No dissection. Left external carotid artery: Unremarkable. No occlusion. Left vertebral artery: Mild stenosis at the origin with intact distal runoff. No dissection. NECK: Bones/joints: Unremarkable. No acute fracture. Soft tissues: Unremarkable. Lung apices: Partially visualized bilateral posterior layering pleural effusions. CAROTID STENOSIS REFERENCE USING NASCET CRITERIA: % ICA stenosis = (1 - narrowest ICA diameter/diameter of distal cervical ICA) x 100. Mild - <50% stenosis. Moderate - 50-69% stenosis. Severe - 70-94% stenosis. Near occlusion - 95-99% stenosis. Occluded - 100% stenosis. IMPRESSION: No hemodynamically significant stenosis. Electronically signed by: Terrell Romero M.D. 08/13/23 21:45 PM PG Care Time/CCT Total # of Minutes Spent Total Time Spent with Patient: Total time spent is greater than 50% in coordination of care (as documented) at patient's floor/unit and/or counseling patient: Coding Level of Care Code 45541 IN/OBS CONSULT LVL 5,80M Diagnoses Hyponatremia E87.1 Hypokalemia E87.6 Hypothyroid E03.9 A-fib I48.91 Atrial fibrillation type: unspecified (4) A-fib Atrial fibrillation type: unspecified Qualified Code(s): I48.91 - Unspecified atrial fibrillation
[2023-08-14 13:34] LABS: Creatinine Clr Calc Pharmacy 38.2 ml/min; Est GFR (African American) 102.3 ml/min; Est GFR (Non-African American) 88.3 ml/min; Potassium 3.3 mmol/L (3.5-5.1)
--- NOTE | 2023-08-14 14:08 | Hospitalist Progress Note ---
Date of Service August 14, 2023 Assessment & Plan (1) Hyponatremia: Plan: 83yo female presenting with hyponatremia. Patient with some confusion otherwise asymptomatic. She has been given NSS, 3% saline as well as desmopressin and Lasix in the ER. Suspect acute Hypotonic hypervolemic hyponatremia - serum osmolality low at 244, patient appears to be volume overloaded based on edema, JVD as well as ascites, pulmonary edema and pleural effusions present on imaging. Double dose of HCTZ likely contributing as well. Na 112 --> 114->116 1250mL UOP documented thus far after 20mg Lasix IV -Admit to PCU -Fluid restriction 1200mL/day -Diuresis with Lasix 20mg IV BID -Started on 3% saline, 25 cc/h, -Monitor strict output q hourly, De Guzman in place -Monitor BMP q 4 hours to assess rate of Na correction -Follow workup sent from [facility] to include Anaplasma/Babesia/Erlichia and Rickettsia -Hold HCTZ -Check 2D echo. Patient had an echo in August 2019 - normal LV size, hyperdynamic with EF > 70%, moderate asymmetric hypertrophy of the basal anteroseptum, moderate TR (2) Electrolyte abnormality: Plan: Patient with additional electrolyte abnormality to include hypokalemia, hypocalcemia and hypomagnesemia. K=2.5, Mg=1.4 and ICal=0.92 -60mEq IV K + 40mEq PO K ordered -Mg x 2gm IV -Calcium gluconate x 1gm IV -Repeat BMP q 4 hours. Continue electrolyte management as needed (3) Hypertension: Plan: Blood pressure mildly elevated -Continue Metoprolol 50mg po daily -Monitor -Holding HCTZ (4) Thrombocytopenia: Plan: Patient's labs concerning for liver dysfunction - elevated INR, thrombocytopenia. Tbili as well as AP is elevated. Etiology unclear ?infection ?congestion -Repeat LFTs and INR with AM labs -Avoid hepatotoxic agents (5) Hypothyroid: Plan: Patient with elevated TSH=8.689, normal FT4 and low FT3 - suggestive of hypothyroidism. Patient's daughter endorses cold intolerance -Will initiate Synthroid 50mcg PO daily -Patient will need repeat TFTs and continue outpatient followup (6) A-fib: Plan: Rate controlled -Continue Apixaban for anticoagulation -Continue Metoprolol Admission and Anticipated Discharge Date Admission Date: August 13, 2023 Subjective alert, awake, very weak , was having difficulties taking her meds Review of Systems Review of Systems: Unobtainable due to cognitive status Physical Exam Physical Exam: Head is atraumatic normocephalic, Neck is supple Lungs diminished at bases Heart S1-S2 regular Abdomen soft, distended, nontender, bowel sounds diminished Extremities no clubbing, no cyanosis Neuro alert, awake, generalized weakness Results & Data Results & Data Vital Signs (Past 12 Hours) Vital Signs Temp Pulse Pulse Resp BP BP Pulse Ox 08/14/23 12:00 90 18 121/66 96 08/14/23 11:00 73 21 90 08/14/23 11:00 109/63 08/14/23 10:00 121/63 08/14/23 10:00 71 16 08/14/23 09:01 105/85 08/14/23 09:01 76 25 H 96 08/14/23 09:00 69 19 08/14/23 08:00 08/14/23 08:00 64 08/14/23 08:00 74 18 96 08/14/23 08:00 135/84 08/14/23 07:00 69 19 08/14/23 07:00 142/70 H 08/14/23 06:00 144/77 H 08/14/23 06:00 67 18 08/14/23 05:00 68 21 90 08/14/23 05:00 133/85 08/14/23 04:00 73 16 08/14/23 04:00 142/84 H 08/14/23 04:00 36.4 C L 70 15 142/84 H 95 08/14/23 03:00 155/92 H 08/14/23 03:00 73 16 92 08/14/23 02:59 67 08/14/23 02:13 145/83 H 08/14/23 02:13 68 19 08/14/23 02:11 36.5 C 58 L 20 145/83 H 96 08/14/23 02:10 08/14/23 02:10 36.5 C Pulse Ox O2 Del Method O2 Del Method O2 Flow Rate 08/14/23 12:00 Nasal Cannula 1 08/14/23 11:00 08/14/23 11:00 08/14/23 10:00 08/14/23 10:00 08/14/23 09:01 08/14/23 09:01 08/14/23 09:00 08/14/23 08:00 Room Air 08/14/23 08:00 08/14/23 08:00 08/14/23 08:00 08/14/23 07:00 08/14/23 07:00 08/14/23 06:00 08/14/23 06:00 08/14/23 05:00 08/14/23 05:00 08/14/23 04:00 08/14/23 04:00 08/14/23 04:00 Room Air 08/14/23 03:00 08/14/23 03:00 08/14/23 02:59 08/14/23 02:13 08/14/23 02:13 08/14/23 02:11 Room Air 08/14/23 02:10 94 Room Air 08/14/23 02:10 Laboratory Results Abnormal lab results 08/13/23 08/13/23 08/13/23 Range/Units 17:47 17:56 19:50 POC Hgb 18.0 H (12.0-16.0) g/dl POC Hct 53 H (37-47) % MCHC 36.9 H (32.0-36.0) g/dL Plt Count 86 L (130-400) K/uL MPV 12.6 H (9.4-12.4) fL Neut # (Auto) 7.26 H (1.40-6.50) K/uL Lymph # (Auto) 1.14 L (1.20-3.40) K/uL [place] # (Auto) 0.62 H (0.11-0.59) K/uL Platelet Estimate Decreased L (Normal) PT (9.0-12.0) Seconds INR (0.9-1.1) APTT (21-31) Seconds POC Sodium 111 L* (135-144) mmol/L Sodium (136-145) mmol/L Potassium (3.5-5.1) mmol/L POC Chloride 76 L (101-112) mmol/L Chloride (98-107) mmol/L POC Anion Gap 12.0 L (16-25) mmol/L Creatinine (0.6-1.2) mg/dl POC Creatinine 0.5 L (0.6-1.3) mg/dl Glucose (70-99(Fasting)) mg/dl POC Glucose (other) 123 H (70-99) mg/dl Osmolality (280-300) mOsm/kg Lactate 2.2 H* (0.4-2.0) mmol/L Calcium (8.6-10.3) mg/dl POC Ioniz Calcium Eddie 0.92 L (1.12-1.32) mmol/l Magnesium (1.7-2.4) mg/dl Total Bilirubin (0.2-1.0) mg/dl Direct Bilirubin (0-0.2) mg/dl AST (13-39) U/L Alkaline Phosphatase (34-104) U/L B-Natriuretic Peptide (0-100) pg/ml Albumin (3.4-5.0) gm/dl Lipase (11-82) U/L TSH (0.300-4.500) uIu/ml Free T3 (2.3-4.2) pg/ml Urine Protein 2+ H (Negative) Urine Blood 3+ H (Negative) Urine RBC (Auto) >30 H (0-4) /hpf U Epithel Cells (Auto) 10-20 H (0-5) /lpf Urine Osmolality 440 L (500-800) mOsm/kg 08/13/23 08/14/23 08/14/23 Range/Units 21:07 01:33 05:53 POC Hgb (12.0-16.0) g/dl POC Hct (37-47) % MCHC 36.7 H (32.0-36.0) g/dL Plt Count 89 L (130-400) K/uL MPV (9.4-12.4) fL Neut # (Auto) (1.40-6.50) K/uL Lymph # (Auto) (1.20-3.40) K/uL [place] # (Auto) (0.11-0.59) K/uL Platelet Estimate (Normal) PT 15.6 H 15.1 H (9.0-12.0) Seconds INR 1.5 H 1.4 H (0.9-1.1) APTT 37 H (21-31) Seconds POC Sodium (135-144) mmol/L Sodium 112 L* 114 L* 114 L* (136-145) mmol/L Potassium 3.0 L 2.5 L* 3.1 L D (3.5-5.1) mmol/L POC Chloride (101-112) mmol/L Chloride 78 L 78 L 78 L (98-107) mmol/L POC Anion Gap (16-25) mmol/L Creatinine 0.57 L 0.50 L 0.53 L (0.6-1.2) mg/dl POC Creatinine (0.6-1.3) mg/dl Glucose 107 H 136 H 108 H (70-99(Fasting)) mg/dl POC Glucose (other) (70-99) mg/dl Osmolality 244 L (280-300) mOsm/kg Lactate (0.4-2.0) mmol/L Calcium 7.9 L 8.5 L (8.6-10.3) mg/dl POC Ioniz Calcium Eddie (1.12-1.32) mmol/l Magnesium 1.4 L (1.7-2.4) mg/dl Total Bilirubin 2.2 H 2.4 H (0.2-1.0) mg/dl Direct Bilirubin 0.8 H 0.7 H (0-0.2) mg/dl AST 41 H (13-39) U/L Alkaline Phosphatase 162 H 173 H (34-104) U/L B-Natriuretic Peptide 806 H (0-100) pg/ml Albumin 3.0 L 3.3 L (3.4-5.0) gm/dl Lipase 6 L (11-82) U/L TSH 8.689 H (0.300-4.500) uIu/ml Free T3 2.26 L (2.3-4.2) pg/ml Urine Protein (Negative) Urine Blood (Negative) Urine RBC (Auto) (0-4) /hpf U Epithel Cells (Auto) (0-5) /lpf Urine Osmolality (500-800) mOsm/kg 08/14/23 08/14/23 08/14/23 Range/Units 07:42 08:48 12:39 POC Hgb (12.0-16.0) g/dl POC Hct (37-47) % MCHC (32.0-36.0) g/dL Plt Count (130-400) K/uL MPV (9.4-12.4) fL Neut # (Auto) (1.40-6.50) K/uL Lymph # (Auto) (1.20-3.40) K/uL [place] # (Auto) (0.11-0.59) K/uL Platelet Estimate (Normal) PT (9.0-12.0) Seconds INR (0.9-1.1) APTT (21-31) Seconds POC Sodium (135-144) mmol/L Sodium 114 L* 113 L* 116 L* (136-145) mmol/L Potassium 3.3 L (3.5-5.1) mmol/L POC Chloride (101-112) mmol/L Chloride 79 L 79 L 81 L (98-107) mmol/L POC Anion Gap (16-25) mmol/L Creatinine 0.52 L 0.55 L 0.50 L (0.6-1.2) mg/dl POC Creatinine (0.6-1.3) mg/dl Glucose 100 H 121 H (70-99(Fasting)) mg/dl POC Glucose (other) (70-99) mg/dl Osmolality (280-300) mOsm/kg Lactate (0.4-2.0) mmol/L Calcium 8.3 L 8.3 L 8.0 L (8.6-10.3) mg/dl POC Ioniz Calcium Eddie (1.12-1.32) mmol/l Magnesium (1.7-2.4) mg/dl Total Bilirubin 2.4 H (0.2-1.0) mg/dl Direct Bilirubin (0-0.2) mg/dl AST 40 H (13-39) U/L Alkaline Phosphatase 163 H (34-104) U/L B-Natriuretic Peptide (0-100) pg/ml Albumin 3.3 L (3.4-5.0) gm/dl Lipase (11-82) U/L TSH (0.300-4.500) uIu/ml Free T3 (2.3-4.2) pg/ml Urine Protein (Negative) Urine Blood (Negative) Urine RBC (Auto) (0-4) /hpf U Epithel Cells (Auto) (0-5) /lpf Urine Osmolality (500-800) mOsm/kg Medications Administered Current Inpatient Medications Acetaminophen (Acetaminophen 325 Mg Tab) 650 mg PO Q4H PRN PRN Reason: Pain or Fever Stop: 04/13/24 02:09 Allopurinol (Allopurinol 100 Mg Tab) 100 mg PO DAILY [facility] Stop: 09/13/23 08:59 Last Admin: 08/14/23 08:38 Dose: 100 mg Apixaban (Apixaban 2.5 Mg Tab) 2.5 mg PO BID [facility] Stop: 09/13/23 08:59 Last Admin: 08/14/23 08:39 Dose: 2.5 mg Atorvastatin Calcium (Atorvastatin 20 Mg Tab) 20 mg PO Q48H [facility] Stop: 09/13/23 08:59 Last Admin: 08/14/23 08:39 Dose: 20 mg Furosemide (Furosemide Inj 20 Mg/2 Ml Vial) 20 mg IV BID17 [facility] Stop: 09/13/23 08:59 Last Admin: 08/14/23 08:39 Dose: 20 mg Sodium Chloride (Hypertonic Saline 3%) 500 mls @ 25 mls/hr IV .Q20H [facility]; Protocol Stop: 08/16/23 08:44 Last Admin: 08/14/23 10:00 Dose: 25 mls/hr Levothyroxine Sodium (Levothyroxine Sodium 50 Mcg Tablet) 50 mcg PO DAILYBB [facility] Stop: 09/13/23 06:29 Last Admin: 08/14/23 06:14 Dose: 50 mcg Metoprolol Succinate (Metoprolol Succ 50mg Ext Rel Tab) 50 mg PO DAILY [facility] Stop: 09/13/23 08:59 Last Admin: 08/14/23 08:38 Dose: 50 mg Miscellaneous (Stop Order: 3% Hypertonic Saline) 1 each N/A ONE ONE Stop: 08/16/23 08:46 PG Care Time/CCT Total # of Minutes Spent Total Time Spent with Patient: Total time spent is greater than 50% in coordination of care (as documented) at patient's floor/unit and/or counseling patient: Coding Level of Care Code 27549 SUB INP/OBS CARE 2/35MIN Diagnoses Hyponatremia E87.1 Electrolyte abnormality E87.8 Hypertension I10 Thrombocytopenia D69.6 Hypothyroid E03.9 A-fib I48.91 Atrial fibrillation type: unspecified (6) A-fib Atrial fibrillation type: unspecified Qualified Code(s): I48.91 - Unspecified atrial fibrillation
[2023-08-14] MEDS ORDERED: POLYETHYLENE (MIRALAX) 17 GM PACK PO PRN (14:22)
[2023-08-14 16:41] LABS: BUN Creatinine Ratio 19.6 (10-20); Calcium 7.9 mg/dl (8.6-10.3); Creatinine Clr Calc Pharmacy 41.5 ml/min; Est GFR (African American) 105.1 ml/min; Est GFR (Non-African American) 90.7 ml/min; Potassium 3.4 mmol/L (3.5-5.1)
--- NOTE | 2023-08-14 18:19 | XCELERA ---
[id number]
[2023-08-14 21:35] LABS: Anion Gap 7 (3-11); Calcium 7.9 mg/dl (8.6-10.3); Carbon Dioxide 26 mmol/L (21-32); Chloride 84 mmol/L (98-107); Sodium 117 mmol/L (136-145)
[2023-08-14 21:43] LABS: BUN Creatinine Ratio 19.3 (10-20); Blood Urea Nitrogen 11 mg/dl (6-23); Creatinine Clr Calc Pharmacy 33.5 ml/min; Est GFR (Non-African American) 84.5 ml/min; Glucose 145 mg/dl (70-99(Fasting))
[2023-08-15 02:03] LABS: BUN Creatinine Ratio 19.6 (10-20); Calcium 7.8 mg/dl (8.6-10.3); Creatinine Clr Calc Pharmacy 37.5 ml/min; Est GFR (African American) 101.6 ml/min; Est GFR (Non-African American) 87.7 ml/min; Potassium 3.3 mmol/L (3.5-5.1)
[2023-08-15] MEDS: POTASSIUM CHLORIDE CRTAB 20 MEQ TABCR PO STA (04:55)
[2023-08-15] MEDS: POTASSIUM CHLORIDE / WTR 10 MEQ/100 ML PLCT IV SCH (05:46)
[2023-08-15 06:35] LABS: Hematocrit (blood only) 39.5 % (37.0-47.0); Hemoglobin 14.7 g/dl (12.0-16.0); Mean Corpuscular Hemoglobin 30.8 pg (25.0-34.0); Mean Corpuscular Hgb Conc 37.2 g/dL (32.0-36.0); Mean Corpuscular Volume 82.6 fL (80.0-100.0); Mean Platelet Volume 11.5 fL (9.4-12.4); Platelet Count 94 K/uL (130-400); RDW Coefficient of Variation 14.1 % (11.5-14.5); RDW Standard Deviation 42.1 fL (36.4-46.3); Red Blood Count 4.78 M/uL (4.20-5.40); White Blood Count 8.19 K/ul (4.8-10.8)
[2023-08-15 06:54] LABS: Bilirubin Direct 0.7 mg/dl (0-0.2); Creatinine Clr Calc Pharmacy 39.3 ml/min; Est GFR (African American) 102.3 ml/min; Est GFR (Non-African American) 88.3 ml/min; Potassium 3.2 mmol/L (3.5-5.1); Total Protein 5.7 gm/dl (6.0-8.3)
[2023-08-15 06:55] LABS: INR 1.4 (0.9-1.1); Prothrombin Time 15.1 Seconds (9.0-12.0)
--- NOTE | 2023-08-15 08:54 | Nephrology Progress Note ---
Date of Service August 15, 2023 Assessment & Plan (1) Hyponatremia: Plan: * Hypoosmolar hyponatremia. Normal T4. CXR suggestive of CHF. Echocardiogram pending. Preserved kidney function. Proteinuria present but normal serum albumin. No documented h/o malignancy, cirrhosis. * Patient presented w/severe hyponatremia resulting in weakness. Time course was felt to be acute and in part related to thiazide diuretic * HCTZ has been stopped. Please list thiazide as drug allergy due to severe hyponatremia and avoid in the future * 3% NaCl stopped at 1600 hrs yesterday when serum Na rafita to 118 mmol/L. Rate of Na increase remains appropriate. * Patient is net 1.2 L volume negative since admission. Will reduce Furosemide to 20 mg IV daily. If sodium continues to improve, may d/c Furosemide in am * 08/14/23 Echo - LVEF 65-70%, severe TR, dilated RV with reduced systolic function. Pulmonary HTN w/ RV dilation and reduced systolic function has likely contributed to patient's LE swelling. Need to be cautious w/ diuretics as patient may be preload dependent. Consultation w/ Cardiology may be beneficial (2) Hypokalemia: Plan: * Serum K has been corrected * Monitor PRP. May need ongoing replacement while on loop diuretic (3) Hypothyroid: Plan: * Elevated TSH * Low dose Synthroid started (4) A-fib: Plan: * On Metoprolol, Apixaban Admission and Anticipated Discharge Date Admission Date: August 13, 2023 Subjective Ms. Reed was evaluated in the ICU this morning. Her daughter was present at bedside and provided translation. Ms. Reed denied FREIRE, visual change. Her primary concern is weakness Review of Systems Constitutional: no fever Eyes: no worsening vision Ear, Nose, Mouth, Throat: no problem reported Respiratory: no cough and no dyspnea Cardiovascular: no chest pain Gastrointestinal: no nausea, no vomiting and no diarrhea/loose stools Genitourinary: no dysuria Integumentary: no rash Physical Exam Constitutional: + frail appearing; not in distress Eyes: PERRL, conjunctivae normal, anicteric sclerae ENMT: external ear and nose normal, oropharynx normal Neck: trachea midline, no thyromegaly Cardiovascular: Rate/Rhythm: + irregularly irregular Extremities: no edema Gastrointestinal (Abdomen): normal bowel sounds, soft, nontender, no hepatosplenomegaly Skin: + turgor decreased; no rashes Neurologic: awake Results & Data Vital Signs (Past 12 Hours) Vital Signs Temp Pulse Resp BP Pulse Ox Pulse Ox O2 Del Method 08/15/23 03:47 36.5 C 08/15/23 03:00 114/48 L 08/15/23 03:00 64 17 91 08/15/23 02:10 94 Room Air 08/15/23 00:01 65 18 95 08/15/23 00:01 110/42 L 08/15/23 00:00 70 08/15/23 00:00 36.4 C L Laboratory Results Laboratory Results - last 24 hr 08/14/23 08/14/23 08/14/23 08:48 12:39 15:49 WBC RBC Hgb Hct MCV MCH MCHC RDW Std Deviation RDW Coeff of Donis Plt Count MPV PT INR Sodium 113 L* 116 L* 118 L* Potassium 3.9 3.3 L 3.4 L Chloride 79 L 81 L 83 L Carbon Dioxide 28 28 26 Anion Gap 6 7 9 BUN 8 9 9 Creatinine 0.55 L 0.50 L 0.46 L Est Cr Clr Drug Dosing 34.7 38.2 41.5 Est GFR ( Amer) 99.1 102.3 105.1 Est GFR (Non-Af Amer) 85.5 88.3 90.7 BUN/Creatinine Ratio 14.5 18.0 19.6 Glucose 96 121 H 114 H Calcium 8.3 L 8.0 L 7.9 L Total Bilirubin Direct Bilirubin AST ALT Alkaline Phosphatase Total Protein Albumin Babesia microti DNA PCR Pending 08/14/23 08/15/23 08/15/23 20:40 01:00 04:28 WBC 8.19 RBC 4.78 Hgb 14.7 Hct 39.5 MCV 82.6 MCH 30.8 MCHC 37.2 H RDW Std Deviation 42.1 RDW Coeff of Donis 14.1 Plt Count 94 L MPV 11.5 PT 15.1 H INR 1.4 H Sodium 117 L* 119 L* 121 L Potassium TNP 3.3 L 3.2 L Chloride 84 L 85 L 86 L Carbon Dioxide 26 27 28 Anion Gap 7 7 7 BUN 11 10 10 Creatinine 0.57 L 0.51 L 0.50 L Est Cr Clr Drug Dosing 33.5 37.5 39.3 Est GFR ( Amer) 98.0 101.6 102.3 Est GFR (Non-Af Amer) 84.5 87.7 88.3 BUN/Creatinine Ratio 19.3 19.6 20.0 Glucose 145 H 100 H 84 Calcium 7.9 L 7.8 L 8.0 L Total Bilirubin 2.0 H Direct Bilirubin 0.7 H AST 36 ALT 12 Alkaline Phosphatase 145 H Total Protein 5.7 L Albumin 3.0 L Babesia microti DNA PCR Diagnostic Findings 08/14/23 Echo: LVEF 65-70%, severe TR, dilated RV with reduced systolic function PG Care Time/CCT Total # of Minutes Spent Total Time Spent with Patient: Total time spent is greater than 50% in coordination of care (as documented) at patient's floor/unit and/or counseling patient: Coding Level of Care Code 63460 SUB INP/OBS CARE 3/50MIN Diagnoses Hyponatremia E87.1 Hypokalemia E87.6 Hypothyroid E03.9 A-fib I48.91 Atrial fibrillation type: unspecified (4) A-fib Atrial fibrillation type: unspecified Qualified Code(s): I48.91 - Unspecified atrial fibrillation
--- NOTE | 2023-08-15 14:24 | Hospitalist Progress Note ---
Date of Service August 15, 2023 Assessment & Plan (1) Hyponatremia: Plan: 83yo female presenting with hyponatremia. Patient with some confusion otherwise asymptomatic. She has been given NSS, 3% saline as well as desmopressin and Lasix in the ER. Suspect acute Hypotonic hypervolemic hyponatremia - serum osmolality low at 244, patient appears to be volume overloaded based on edema, JVD as well as ascites, pulmonary edema and pleural effusions present on imaging. Double dose of HCTZ likely contributing as well. Na 112 --> 114->116->121 1250mL UOP documented thus far after 20mg Lasix IV -Admit to PCU -Fluid restriction 1200mL/day -Diuresis with Lasix 20mg IV BID -Started on 3% saline, 25 cc/h, -Monitor strict output q hourly, De Guzman in place -Monitor BMP q 4 hours to assess rate of Na correction -Hold HCTZ ECHO LVEF 65-70%, severe TR, dilated RV with reduced systolic function. Pulmonary HTN w/ RV dilation and reduced systolic function (2) Electrolyte abnormality: Plan: Patient with additional electrolyte abnormality to include hypokalemia, hypocalcemia and hypomagnesemia. hypokalemia supplemented -Repeat BMP q 4 hours. Continue electrolyte management as needed (3) Hypertension: Plan: Blood pressure mildly elevated -Continue Metoprolol 50mg po daily -Monitor -Holding HCTZ (4) Thrombocytopenia: Plan: 94 , monitor, etiology is not clear (5) Hypothyroid: Plan: Patient with elevated TSH=8.689, normal FT4 and low FT3 - suggestive of hypothyroidism. Patient's daughter endorses cold intolerance -Will initiate Synthroid 50mcg PO daily -Patient will need repeat TFTs and continue outpatient followup (6) A-fib: Plan: Rate controlled -Continue Apixaban for anticoagulation -Continue Metoprolol (7) Depression: Plan: family reports depression, poor appetite, start Remeron, monitor Na (8) Ambulatory dysfunction: Plan: generalized weakness, PT/OT, patient does not have insurance, no rehab (9) CHF (congestive heart failure): Plan: acute on chronic , preserved EF -Hold HCTZ secondary to severe hyponatremia ECHO LVEF 65-70%, severe TR, dilated RV with reduced systolic function. Pulmonary HTN w/ RV dilation and reduced systolic function IV Lasix , continue other home meds Admission and Anticipated Discharge Date Admission Date: August 13, 2023 Subjective Ms. Reed was evaluated in the ICU this morning. Her daughter was present at bedside and provided translation. Ms. Reed denied FREIRE, visual change. Her primary concern is weakness Physical Exam Physical Exam: Head is atraumatic normocephalic, Neck is supple Lungs diminished at bases Heart S1-S2 regular Abdomen soft, distended, nontender, bowel sounds diminished Extremities no clubbing, no cyanosis Neuro alert, awake, generalized weakness Results & Data Results & Data Vital Signs (Past 12 Hours) Vital Signs Temp Pulse Pulse Resp BP BP Pulse Ox 08/15/23 13:00 103/70 08/15/23 13:00 78 24 08/15/23 12:00 74 22 93 08/15/23 12:00 121/72 08/15/23 11:23 37 C 72 19 92/72 L 94 08/15/23 11:19 75 18 94 08/15/23 11:19 92/72 L 08/15/23 08:00 08/15/23 08:00 85 08/15/23 08:00 36.7 C 08/15/23 07:00 122/70 94 08/15/23 07:00 68 19 08/15/23 03:47 36.5 C 08/15/23 03:00 114/48 L 08/15/23 03:00 64 17 91 O2 Del Method 08/15/23 13:00 08/15/23 13:00 08/15/23 12:00 08/15/23 12:00 08/15/23 11:23 Room Air 08/15/23 11:19 08/15/23 11:19 08/15/23 08:00 Room Air 08/15/23 08:00 08/15/23 08:00 08/15/23 07:00 Room Air 08/15/23 07:00 08/15/23 03:47 08/15/23 03:00 08/15/23 03:00 Laboratory Results Abnormal lab results 08/14/23 08/14/23 08/15/23 Range/Units 15:49 20:40 01:00 MCHC (32.0-36.0) g/dL Plt Count (130-400) K/uL PT (9.0-12.0) Seconds INR (0.9-1.1) Sodium 118 L* 117 L* 119 L* (136-145) mmol/L Potassium 3.4 L 3.3 L (3.5-5.1) mmol/L Chloride 83 L 84 L 85 L (98-107) mmol/L Creatinine 0.46 L 0.57 L 0.51 L (0.6-1.2) mg/dl BUN/Creatinine Ratio (10-20) Glucose 114 H 145 H 100 H (70-99(Fasting)) mg/dl Calcium 7.9 L 7.9 L 7.8 L (8.6-10.3) mg/dl Total Bilirubin (0.2-1.0) mg/dl Direct Bilirubin (0-0.2) mg/dl Alkaline Phosphatase (34-104) U/L Total Protein (6.0-8.3) gm/dl Albumin (3.4-5.0) gm/dl 08/15/23 08/15/23 Range/Units 04:28 13:56 MCHC 37.2 H (32.0-36.0) g/dL Plt Count 94 L (130-400) K/uL PT 15.1 H (9.0-12.0) Seconds INR 1.4 H (0.9-1.1) Sodium 121 L 121 L (136-145) mmol/L Potassium 3.2 L (3.5-5.1) mmol/L Chloride 86 L 87 L (98-107) mmol/L Creatinine 0.50 L 0.55 L (0.6-1.2) mg/dl BUN/Creatinine Ratio 23.6 H (10-20) Glucose 129 H (70-99(Fasting)) mg/dl Calcium 8.0 L 8.1 L (8.6-10.3) mg/dl Total Bilirubin 2.0 H (0.2-1.0) mg/dl Direct Bilirubin 0.7 H (0-0.2) mg/dl Alkaline Phosphatase 145 H (34-104) U/L Total Protein 5.7 L (6.0-8.3) gm/dl Albumin 3.0 L (3.4-5.0) gm/dl PG Care Time/CCT Total # of Minutes Spent Total Time Spent with Patient: Total time spent is greater than 50% in coordination of care (as documented) at patient's floor/unit and/or counseling patient: Coding Level of Care Code 25351 SUB INP/OBS CARE 235MIN Diagnoses Hyponatremia E87.1 Electrolyte abnormality E87.8 Hypertension I10 Thrombocytopenia D69.6 Hypothyroid E03.9 A-fib I48.91 Atrial fibrillation type: unspecified Depression F32.A Ambulatory dysfunction R26.2 CHF (congestive heart failure) I50.9 (6) A-fib Atrial fibrillation type: unspecified Qualified Code(s): I48.91 - Unspecified atrial fibrillation
[2023-08-15 14:34] LABS: BUN Creatinine Ratio 23.6 (10-20); Calcium 8.1 mg/dl (8.6-10.3); Creatinine Clr Calc Pharmacy 35.8 ml/min; Est GFR (African American) 99.1 ml/min; Est GFR (Non-African American) 85.5 ml/min; Potassium 3.7 mmol/L (3.5-5.1)
[2023-08-15] MEDS: MIRTAZAPINE TAB 15 MG TAB PO SCH (20:40)
[2023-08-16 04:44] LABS: Potassium 3.8 mmol/L (3.5-5.1)
[2023-08-16 04:49] LABS: BUN Creatinine Ratio 23.1 (10-20); Creatinine Clr Calc Pharmacy 37.6 ml/min; Est GFR (Non-African American) 87.1 ml/min
--- NOTE | 2023-08-16 06:21 | Electrocardiogram Report ---
Test Reason : Blood Pressure : / mmHG Vent. Rate : 074 BPM Atrial Rate : 000 BPM P-R Int : 000 ms QRS Dur : 076 ms QT Int : 488 ms P-R-T Axes : 000 098 121 degrees QTc Int : 541 ms Atrial fibrillation Lateral infarct , age undetermined Nonspecific T wave abnormality Abnormal ECG When compared with ECG of 01-FEB-2023 14:47, Lateral infarct is now Present Nonspecific T wave abnormality, improved in Inferior leads Nonspecific T wave abnormality now evident in Anterolateral leads Confirmed by Shane Dorsey ([id number]) on 08/16/2023 6:20:55 AM Referred By: REFERRED SELF Confirmed By:Shane Dorsey
[2023-08-16] MEDS ORDERED: [UNRECOGNIZED DRUG - REMARK] ONE (08:45)
[2023-08-16] MEDS: FUROSEMIDE INJ 20 MG/2 ML VIAL IV SCH (08:51)
--- NOTE | 2023-08-16 12:31 | Nephrology Progress Note ---
Date of Service August 16, 2023 Assessment & Plan (1) Hyponatremia: Plan: * Chronic. Hypovolemic. * Sodium initially improving with hypertonic fluids, furosemide, and free water restriction. * Sodium has plateaued. * Non-oliguric. De Guzman draining dilute yellow urine. * Repeat serum sodium and Uosm have been requested now. * Patient presented w/severe hyponatremia resulting in weakness. Dysnatremia attributed in part to HCTZ use. * HCTZ has been stopped. Please list thiazide as drug allergy due to severe hyponatremia and avoid in the future * Volume status is acceptable. Negative fluid balance noted with diuretics. Furosemide discontinued now. (2) Hypokalemia: Plan: * Serum K has been corrected * Additional 10 mEq KCl provided today (3) Hypothyroid: Plan: * Elevated TSH * Low dose Synthroid started (4) A-fib: Plan: * Rate controlled. * On Metoprolol, Apixaban Admission and Anticipated Discharge Date Admission Date: August 13, 2023 Monika Briones was seen and evaluated with her daughter at the bedside this AM. Anali was in a fair amount of distress. She has no appetite. There is some concern for aspiration. Anali endorses neck pain. She has not been sleeping. Her daughter states that her mother is depressed and feeling very tired. No fevers or chills. Edema has improved. She denies any shortness of breath. She reports discomfort along the left side of her neck extending to the base of her skull. Neck discomfort is new this morning. Review of Systems Review of Systems: All systems reviewed & are unremarkable except as noted in HPI & below Physical Exam Constitutional: well developed, + acute distress and + frail appearing Eyes: no scleral abnormality and no corneal abnormality ENMT: Mouth: + dry oral mucous membranes Neck: normal visual inspection and trachea midline Respiratory: normal respiratory effort Auscultation: lungs clear to auscultation bilaterally Cardiovascular: Rate/Rhythm: + irregularly irregular Heart Sounds: normal S1 and normal S2 Extremities: no edema Musculoskeletal: Extremities: no cyanosis and no clubbing Skin: + turgor decreased; no jaundice Neurologic: Motor/Sensory: no tremor and no asterixis Psychiatric: Orientation: alert and oriented x 3 Results & Data Vital Signs (Past 12 Hours) Vital Signs Temp Pulse Resp BP Pulse Ox Pulse Ox O2 Del Method 08/16/23 11:47 36.6 C 08/16/23 11:00 75 24 92 Room Air 08/16/23 10:00 133/71 08/16/23 10:00 84 24 93 08/16/23 09:00 80 24 95 08/16/23 08:00 Room Air 08/16/23 08:00 80 20 94 08/16/23 08:00 133/77 08/16/23 08:00 36.6 C 08/16/23 07:00 76 20 95 Room Air 08/16/23 03:32 36.8 C 08/16/23 03:27 141/64 H 08/16/23 03:27 78 20 94 08/16/23 02:00 93 O2 Del Method 08/16/23 11:47 08/16/23 11:00 08/16/23 10:00 08/16/23 10:00 08/16/23 09:00 08/16/23 08:00 08/16/23 08:00 08/16/23 08:00 08/16/23 08:00 08/16/23 07:00 08/16/23 03:32 08/16/23 03:27 08/16/23 03:27 08/16/23 02:00 Room Air Laboratory Results Laboratory Results - last 24 hr 08/15/23 08/16/23 08/16/23 13:56 03:55 09:05 Sodium 121 L 121 L Potassium 3.7 3.8 Chloride 87 L 91 L Carbon Dioxide 29 22 Anion Gap 5 8 BUN 13 12 Creatinine 0.55 L 0.52 L Est Cr Clr Drug Dosing 35.8 37.6 Est GFR ( Amer) 99.1 101.0 Est GFR (Non-Af Amer) 85.5 87.1 BUN/Creatinine Ratio 23.6 H 23.1 H Glucose 129 H 92 Calcium 8.1 L 8.0 L Urine Osmolality Hepatitis A IgM Ab Pending Hep Bs Antigen Pending Hep Bs Ag Confirmation Pending Hep B Core IgM Ab Pending Hepatitis C Ab (EIA) Pending 08/16/23 Unknown Sodium Potassium Chloride Carbon Dioxide Anion Gap BUN Creatinine Est Cr Clr Drug Dosing Est GFR ( Amer) Est GFR (Non-Af Amer) BUN/Creatinine Ratio Glucose Calcium Urine Osmolality 332 L Hepatitis A IgM Ab Hep Bs Antigen Hep Bs Ag Confirmation Hep B Core IgM Ab Hepatitis C Ab (EIA) PG Care Time/CCT Total # of Minutes Spent Total Time Spent with Patient: Total time spent is greater than 50% in coordination of care (as documented) at patient's floor/unit and/or counseling patient: Coding Level of Care Code 86285 SUB INP/OBS CARE 3/50MIN Diagnoses Hyponatremia E87.1 Hypokalemia E87.6 Hypothyroid E03.9 A-fib I48.91 Atrial fibrillation type: unspecified (4) A-fib Atrial fibrillation type: unspecified Qualified Code(s): I48.91 - Unspecified atrial fibrillation
--- NOTE | 2023-08-16 13:10 | Hospitalist Progress Note ---
Date of Service August 16, 2023 Assessment & Plan (1) Hyponatremia: Plan: 83yo female presenting with hyponatremia. Patient with some confusion otherwise asymptomatic. She has been given NSS, 3% saline as well as desmopressin and Lasix in the ER. Suspect acute Hypotonic hypervolemic hyponatremia - serum osmolality low at 244, patient appears to be volume overloaded based on edema, JVD as well as ascites, pulmonary edema and pleural effusions present on imaging. Double dose of HCTZ likely contributing as well. Sodium improving Na 112 --> 114->116->121 Lasix has been discontinued today Nephrology on board Fluid overload contributing. Fluid overload improved with Lasix. Lasix discontinued today Hydrochlorothiazide twice daily dosing contributed as well. I have marked hydrochlorothiazide as a severe drug adverse effect ECHO 08/13 LVEF 65-70%, severe TR, dilated RV with reduced systolic function. Pulmonary HTN w/ RV dilation and reduced systolic function (2) Electrolyte abnormality: Plan: Patient with additional electrolyte abnormality to include hypokalemia, hypocalcemia and hypomagnesemia. hypokalemia supplemented (3) Hypertension: Plan: Blood pressure controlled today -Continue Metoprolol 50mg po daily -Monitor -Holding HCTZ (4) Thrombocytopenia: Plan: 94 Monitor Etiology unclear Check hepatitis panel Patient has mildly low albumin, mildly elevated INR, ascites and fluid overload. LFTs were also slightly elevated.? Cirrhosis. Check hepatitis panel. (5) Hypothyroid: Plan: Patient with elevated TSH=8.689, normal FT4 and low FT3 - suggestive of hypothy roidism. Patient's daughter endorses cold intolerance -Initiated Synthroid 50mcg PO daily -Patient will need repeat TFTs and continue outpatient followup (6) A-fib: Plan: Rate controlled -Continue Apixaban for anticoagulation -Continue Metoprolol (7) Depression: Plan: family reports depression, poor appetite, started Remeron, monitor Na (8) Ambulatory dysfunction: Plan: generalized weakness, PT/OT, patient does not have insurance, no rehab (9) CHF (congestive heart failure): Plan: acute on chronic , preserved EF -Hold HCTZ secondary to severe hyponatremia ECHO LVEF 65-70%, severe TR, dilated RV with reduced systolic function. Pulmonary HTN w/ RV dilation and reduced systolic function Currently euvolemic Discontinue IV Lasix Plan Patient appears severely weak. PT and OT has been consulted. Patient has no insurance which is a challenge for placement. Case management involved. Admission and Anticipated Discharge Date Admission Date: August 13, 2023 Subjective Per daughter who speaks Yakut, leg swelling is improved significantly. Review of Systems Review of Systems: Unobtainable due to cognitive status Physical Exam Physical Exam: General: Drowsy, arousable. Appears very withdrawn and not motivated Heart: S1, S2/regular rate and rhythm, no murmur rubs or gallops Lungs: Clear to auscultation bilaterally. Normal effort Abdomen: Soft/nontender/nondistended. No hepatosplenomegaly Extremities: No clubbing/cyanosis. No edema Behavior: Appropriate, cooperative Results & Data Results & Data Vital Signs (Past 12 Hours) Vital Signs Temp Pulse Resp BP Pulse Ox Pulse Ox O2 Del Method 08/16/23 11:47 36.6 C 08/16/23 11:00 75 24 92 Room Air 08/16/23 10:00 133/71 08/16/23 10:00 84 24 93 08/16/23 09:00 80 24 95 08/16/23 08:00 Room Air 08/16/23 08:00 80 20 94 08/16/23 08:00 133/77 08/16/23 08:00 36.6 C 08/16/23 07:00 76 20 95 Room Air 08/16/23 03:32 36.8 C 08/16/23 03:27 141/64 H 08/16/23 03:27 78 20 94 08/16/23 02:00 93 O2 Del Method 08/16/23 11:47 08/16/23 11:00 08/16/23 10:00 08/16/23 10:00 08/16/23 09:00 08/16/23 08:00 08/16/23 08:00 08/16/23 08:00 08/16/23 08:00 08/16/23 07:00 08/16/23 03:32 08/16/23 03:27 08/16/23 03:27 08/16/23 02:00 Room Air Laboratory Results Abnormal lab results 08/15/23 08/16/23 08/16/23 Range/Units 13:56 03:55 Unknown Sodium 121 L 121 L (136-145) mmol/L Chloride 87 L 91 L (98-107) mmol/L Creatinine 0.55 L 0.52 L (0.6-1.2) mg/dl BUN/Creatinine Ratio 23.6 H 23.1 H (10-20) Glucose 129 H (70-99(Fasting)) mg/dl Calcium 8.1 L 8.0 L (8.6-10.3) mg/dl Urine Osmolality 332 L (500-800) mOsm/kg PG Care Time/CCT Total # of Minutes Spent Total Time Spent with Patient: Total time spent is greater than 50% in coordination of care (as documented) at patient's floor/unit and/or counseling patient: Coding Level of Care Code 67683 SUB INP/OBS CARE 2/35MIN Diagnoses Hyponatremia E87.1 Electrolyte abnormality E87.8 Hypertension I10 Thrombocytopenia D69.6 Hypothyroid E03.9 A-fib I48.91 Atrial fibrillation type: unspecified Depression F32.A Ambulatory dysfunction R26.2 CHF (congestive heart failure) I50.9 (6) A-fib Atrial fibrillation type: unspecified Qualified Code(s): I48.91 - Unspecified atrial fibrillation
[2023-08-16] MEDS: POTASSIUM CHLORIDE / WTR 10 MEQ/100 ML PLCT IV ONE (13:37)
[2023-08-16] MEDS: POTASSIUM CHLORIDE 10 MEQ TABCR PO STA (14:01)
[2023-08-16] MEDS: ACETAMINOPHEN 325 MG TAB PO PRN (20:47)
[2023-08-16 20:48] LABS: Babesia microti DNA Not Detected (Not Detected)
[2023-08-16] MEDS ORDERED: STAT IV/IM STA (23:47)
[2023-08-17] MEDS: SODIUM CHLORIDE 3 % 150 ML IV ONE ×2 (00:33→19:24)
[2023-08-17 05:03] LABS: Albumin Level 2.8 gm/dl (3.4-5.0); BUN Creatinine Ratio 22.8 (10-20); Calcium 8.1 mg/dl (8.6-10.3); Creatinine Clr Calc Pharmacy 31.9 ml/min; Est GFR (Non-African American) 84.5 ml/min; Phosphorus 3.7 mg/dl (2.5-4.9); Potassium 3.7 mmol/L (3.5-5.1)
[2023-08-17 06:01] LABS: HBSAG NON-REACTIVE (NON-REACTIVE); Hepatitis A Antibody IgM NON-REACTIVE (NON-REACTIVE); Hepatitis B Core Antibody IgM NON-REACTIVE (NON-REACTIVE)
[2023-08-17] MEDS ORDERED: STAT IV/IM STA ×2 (07:54→18:42)
[2023-08-17 08:39] LABS: Hematocrit (blood only) 45.7 % (37.0-47.0); Hemoglobin 16.1 g/dl (12.0-16.0); Mean Corpuscular Hemoglobin 30.4 pg (25.0-34.0); Mean Corpuscular Hgb Conc 35.2 g/dL (32.0-36.0); Mean Corpuscular Volume 86.4 fL (80.0-100.0); Mean Platelet Volume 11.6 fL (9.4-12.4); Platelet Count 112 K/uL (130-400); RDW Coefficient of Variation 13.8 % (11.5-14.5); RDW Standard Deviation 43.2 fL (36.4-46.3); Red Blood Count 5.29 M/uL (4.20-5.40); White Blood Count 11.76 K/ul (4.8-10.8)
[2023-08-17] MEDS: SODIUM CHLORIDE 3 % 100 ML IV ONE (08:58)
--- NOTE | 2023-08-17 10:46 | Nephrology Progress Note ---
Date of Service August 17, 2023 Assessment & Plan (1) Hyponatremia: Plan: * Chronic. Volume status remains slightly hypovolemic. * Non-oliguric. * Patient presented w/severe hyponatremia resulting in weakness. Dysnatremia attributed in part to HCTZ use. * HCTZ has been stopped. * Negative fluid balance noted with diuretics. Furosemide discontinued now. * Additional 100 ml of 3% saline provided this AM. * Follow up labs ordered for noon. (2) Hypothyroid: Plan: * Elevated TSH * Low dose Synthroid started (3) A-fib: Plan: * Rate controlled. * On Metoprolol, Apixaban Admission and Anticipated Discharge Date Admission Date: August 13, 2023 Subjective No acute events overnight. Anali was seen and evaluated with her daughter at the bedside. Appetite remains very poor. Anali is eating and drinking very little. She remains in a negative fluid balance. She was out of bed and standing with PT this AM. Denies pain today. Review of Systems Review of Systems: All systems reviewed & are unremarkable except as noted in HPI & below Physical Exam Constitutional: well developed, + acute distress and + frail appearing Eyes: no scleral abnormality and no corneal abnormality ENMT: Mouth: + dry oral mucous membranes Neck: normal visual inspection and trachea midline Respiratory: normal respiratory effort Auscultation: lungs clear to auscultation bilaterally Cardiovascular: Rate/Rhythm: + irregularly irregular Heart Sounds: normal S1 and normal S2 Extremities: no edema Musculoskeletal: Extremities: no cyanosis and no clubbing Skin: + turgor decreased; no jaundice Neurologic: Motor/Sensory: no tremor and no asterixis Psychiatric: Orientation: alert and oriented x 3 Results & Data Vital Signs (Past 12 Hours) Vital Signs Temp Pulse Resp BP Pulse Ox Pulse Ox O2 Del Method 08/17/23 08:01 79 21 106/71 97 Nasal Cannula 08/17/23 08:00 Nasal Cannula 08/17/23 08:00 36.5 C 08/17/23 08:00 68 08/17/23 07:00 74 19 123/75 96 Nasal Cannula 08/17/23 06:01 114/67 08/17/23 04:00 134/80 08/17/23 04:00 69 20 98 08/17/23 03:22 36.5 C 08/17/23 03:00 126/86 08/17/23 03:00 79 18 97 03/17/24 02:00 97 08/17/23 00:14 74 28 H 08/17/23 00:14 126/69 08/17/23 00:00 80 08/17/23 00:00 36.6 C O2 Del Method O2 Flow Rate O2 Flow Rate 08/17/23 08:01 1 08/17/23 08:00 1 08/17/23 08:00 08/17/23 08:00 08/17/23 07:00 1 08/17/23 06:01 08/17/23 04:00 08/17/23 04:00 08/17/23 03:22 08/17/23 03:00 08/17/23 03:00 08/17/23 02:00 Nasal Cannula 2 08/17/23 00:14 08/17/23 00:14 08/17/23 00:00 08/17/23 00:00 Laboratory Results Laboratory Results - last 24 hr 08/14/23 08/16/23 08/16/23 08:48 09:05 12:42 WBC RBC Hgb Hct MCV MCH MCHC RDW Std Deviation RDW Coeff of Donis Plt Count MPV Sodium 124 L Potassium Chloride Carbon Dioxide Anion Gap BUN Creatinine Est Cr Clr Drug Dosing Est GFR ( Amer) Est GFR (Non-Af Amer) BUN/Creatinine Ratio Glucose Calcium Phosphorus Albumin Urine Osmolality Babesia microti DNA PCR Not Detected Hepatitis A IgM Ab NON-REACTIVE Hep Bs Antigen NON-REACTIVE Hep Bs Ag Confirmation TNP Hep B Core IgM Ab NON-REACTIVE Hepatitis C Ab (EIA) NON-REACTIVE 08/16/23 08/16/23 08/17/23 12:50 20:11 04:26 WBC RBC Hgb Hct MCV MCH MCHC RDW Std Deviation RDW Coeff of Donis Plt Count MPV Sodium 123 L 128 L Potassium 3.7 Chloride 94 L Carbon Dioxide 27 Anion Gap 7 BUN 13 Creatinine 0.57 L Est Cr Clr Drug Dosing 31.9 Est GFR ( Amer) 98.0 Est GFR (Non-Af Amer) 84.5 BUN/Creatinine Ratio 22.8 H Glucose 95 Calcium 8.1 L Phosphorus 3.7 Albumin 2.8 L Urine Osmolality 283 L Babesia microti DNA PCR Hepatitis A IgM Ab Hep Bs Antigen Hep Bs Ag Confirmation Hep B Core IgM Ab Hepatitis C Ab (EIA) 08/17/23 04:30 WBC 11.76 H RBC 5.29 Hgb 16.1 H Hct 45.7 MCV 86.4 MCH 30.4 MCHC 35.2 RDW Std Deviation 43.2 RDW Coeff of Donis 13.8 Plt Count 112 L MPV 11.6 Sodium Potassium Chloride Carbon Dioxide Anion Gap BUN Creatinine Est Cr Clr Drug Dosing Est GFR ( Amer) Est GFR (Non-Af Amer) BUN/Creatinine Ratio Glucose Calcium Phosphorus Albumin Urine Osmolality Babesia microti DNA PCR Hepatitis A IgM Ab Hep Bs Antigen Hep Bs Ag Confirmation Hep B Core IgM Ab Hepatitis C Ab (EIA) PG Care Time/CCT Total # of Minutes Spent Total Time Spent with Patient: Total time spent is greater than 50% in coordination of care (as documented) at patient's floor/unit and/or counseling patient: Coding Level of Care Code 84720 SUB INP/OBS CARE 3/50MIN Diagnoses Hyponatremia E87.1 Hypothyroid E03.9 A-fib I48.91 Atrial fibrillation type: unspecified (3) A-fib Atrial fibrillation type: unspecified Qualified Code(s): I48.91 - Unspecified atrial fibrillation
--- NOTE | 2023-08-17 14:01 | Hospitalist Progress Note ---
Date of Service August 17, 2023 Assessment & Plan (1) Hyponatremia: Plan: 83yo female presenting with hyponatremia. Patient with some confusion otherwise asymptomatic. She has been given NSS, 3% saline as well as desmopressin and Lasix in the ER. Suspect acute Hypotonic hypervolemic hyponatremia - serum osmolality low at 244, patient appears to be volume overloaded based on edema, JVD as well as ascites, pulmonary edema and pleural effusions present on imaging. Double dose of HCTZ likely contributing as well. Sodium improving Initially sodium was 112. Today sodium is 129 Lasix has been discontinued 08/15 Nephrology on board Got hypertonic saline today per nephrology Fluid overload contributing. Fluid overload improved with Lasix. Lasix discontinued 08/15 Hydrochlorothiazide twice daily dosing contributed as well. I have marked hydrochlorothiazide as a severe drug adverse effect ECHO 08/13 LVEF 65-70%, severe TR, dilated RV with reduced systolic function. Pulmonary HTN w/ RV dilation and reduced systolic function (2) Electrolyte abnormality: Plan: Patient with additional electrolyte abnormality to include hypokalemia, hypocalcemia and hypomagnesemia. hypokalemia supplemented (3) Hypertension: Plan: Blood pressure controlled today -Continue Metoprolol 50mg po daily -Monitor -Holding HCTZ (4) Thrombocytopenia: Plan: Platelet count has improved to 112 today. Etiology unclear Acute hepatitis panel negative Patient has mildly low albumin, mildly elevated INR, ascites and fluid overload. LFTs were also slightly elevated.? Cirrhosis of nonviral etiology? (5) Hypothyroid: Plan: Patient with elevated TSH=8.689, normal FT4 and low FT3 - suggestive of hypothyroidism. Patient's daughter endorses cold intolerance -Initiated Synthroid 50mcg PO daily -Patient will need repeat TFTs and continue outpatient followup (6) A-fib: Plan: Rate controlled -Continue Apixaban for anticoagulation -Continue Metoprolol (7) Depression: Plan: family reports depression, poor appetite, started Remeron, monitor Na Family tells me that the patient has always been very pessimistic. During this hospital stay, she has expressed that she did not want to go on this way and would rather . I wanted to have a conversation with the patient using the horses or mules teamster today but was unsuccessful as the patient did not have hearing aids on. Daughter will bring hearing aids and we will reattempt tomorrow Patient's wishes and goals of care will need to be readdressed (8) Ambulatory dysfunction: Plan: generalized weakness, PT/OT, patient does not have insurance (9) CHF (congestive heart failure): Plan: acute on chronic , preserved EF -Hold HCTZ secondary to severe hyponatremia ECHO LVEF 65-70%, severe TR, dilated RV with reduced systolic function. Pulmonary HTN w/ RV dilation and reduced systolic function Currently euvolemic IV Lasix discontinued 08/15 Plan Patient appears severely weak. PT and OT has been consulted. Patient has no insurance which is a challenge for placement. Case management involved. Admission and Anticipated Discharge Date Admission Date: August 13, 2023 Subjective PULLER OUT raised questions about patient's ability to swallow and aspiration risks. I was informed that yesterday when the speech therapist entered the room, the patient was banging her head and saying something in Mandarin. The daughter translated that she wanted to give up and just wanted to . I tried to have a conversation with the patient using an horses or mules teamster today. However the patient is very hard of hearing and thus the horses or mules teamster service could not be availed. The daughter will bring her hearing aids tomorrow. Review of Systems Review of Systems: All systems reviewed & are unremarkable except as noted in Subjective Physical Exam Physical Exam: General: Drowsy, arousable. Appears frail, very withdrawn and not motivated. Falling asleep in the middle of the conversation Heart: S1, S2/regular rate and rhythm, no murmur rubs or gallops Lungs: Clear to auscultation bilaterally. Normal effort Abdomen: Soft/nontender/nondistended. No hepatosplenomegaly Extremities: No clubbing/cyanosis. No edema Behavior: Appropriate, cooperative Results & Data Results & Data Vital Signs (Past 12 Hours) Vital Signs Temp Pulse Resp BP Pulse Ox Pulse Ox O2 Del Method 08/17/23 13:00 71 23 98 08/17/23 12:00 108/68 08/17/23 12:00 69 26 H 98 08/17/23 12:00 36.7 C 08/17/23 11:00 63 22 98 08/17/23 10:00 103/59 L 08/17/23 10:00 67 20 98 08/17/23 09:16 102/72 08/17/23 09:16 67 20 08/17/23 09:00 70 21 99 08/17/23 08:56 81 20 98 08/17/23 08:56 117/74 08/17/23 08:55 73 17 99 08/17/23 08:55 125/74 08/17/23 08:01 79 21 106/71 97 Nasal Cannula 08/17/23 08:00 Nasal Cannula 08/17/23 08:00 36.5 C 08/17/23 08:00 68 08/17/23 07:00 74 19 123/75 96 Nasal Cannula 08/17/23 06:01 114/67 08/17/23 04:00 134/80 08/17/23 04:00 69 20 98 08/17/23 03:22 36.5 C 08/17/23 03:00 126/86 08/17/23 03:00 79 18 97 08/17/23 02:00 97 O2 Del Method O2 Flow Rate O2 Flow Rate 08/17/23 13:00 08/17/23 12:00 08/17/23 12:00 08/17/23 12:00 08/17/23 11:00 08/17/23 10:00 08/17/23 10:00 08/17/23 09:16 08/17/23 09:16 08/17/23 09:00 08/17/23 08:56 08/17/23 08:56 08/17/23 08:55 08/17/23 08:55 08/17/23 08:01 1 08/17/23 08:00 1 08/17/23 08:00 08/17/23 08:00 08/17/23 07:00 1 08/17/23 06:01 08/17/23 04:00 08/17/23 04:00 08/17/23 03:22 08/17/23 03:00 08/17/23 03:00 08/17/23 02:00 Nasal Cannula 2 Laboratory Results Abnormal lab results 08/16/23 08/17/23 08/17/23 Range/Units 20:11 04:26 04:30 WBC 11.76 H (4.8-10.8) K/ul Hgb 16.1 H (12.0-16.0) g/dl Plt Count 112 L (130-400) K/uL Sodium 123 L 128 L (136-145) mmol/L Chloride 94 L (98-107) mmol/L Creatinine 0.57 L (0.6-1.2) mg/dl BUN/Creatinine Ratio 22.8 H (10-20) Calcium 8.1 L (8.6-10.3) mg/dl Albumin 2.8 L (3.4-5.0) gm/dl 08/17/23 Range/Units 12:58 WBC (4.8-10.8) K/ul Hgb (12.0-16.0) g/dl Plt Count (130-400) K/uL Sodium 129 L (136-145) mmol/L Chloride (98-107) mmol/L Creatinine (0.6-1.2) mg/dl BUN/Creatinine Ratio (10-20) Calcium (8.6-10.3) mg/dl Albumin (3.4-5.0) gm/dl PG Care Time/CCT Total # of Minutes Spent Total Time Spent with Patient: Total time spent is greater than 50% in coordination of care (as documented) at patient's floor/unit and/or counseling patient: Coding Level of Care Code 63196 SUB INP/OBS CARE 2/35MIN Diagnoses Hyponatremia E87.1 Electrolyte abnormality E87.8 Hypertension I10 Thrombocytopenia D69.6 Hypothyroid E03.9 A-fib I48.91 Atrial fibrillation type: unspecified Depression F32.A Ambulatory dysfunction R26.2 CHF (congestive heart failure) I50.9 (6) A-fib Atrial fibrillation type: unspecified Qualified Code(s): I48.91 - Unspecified atrial fibrillation
[2023-08-18 06:35] LABS: Hemoglobin 15.3 g/dl (12.0-16.0); Mean Corpuscular Hemoglobin 30.8 pg (25.0-34.0); Mean Corpuscular Hgb Conc 35.6 g/dL (32.0-36.0); Mean Corpuscular Volume 86.5 fL (80.0-100.0); Mean Platelet Volume 11.2 fL (9.4-12.4); Platelet Count 111 K/uL (130-400); RDW Coefficient of Variation 14.5 % (11.5-14.5); RDW Standard Deviation 45.6 fL (36.4-46.3); Red Blood Count 4.97 M/uL (4.20-5.40); White Blood Count 11.59 K/ul (4.8-10.8)
[2023-08-18 06:48] LABS: Albumin Level 2.9 gm/dl (3.4-5.0); Calcium 8.3 mg/dl (8.6-10.3); Creatinine Clr Calc Pharmacy 36.7 ml/min; Est GFR (Non-African American) 87.1 ml/min; Phosphorus 3.4 mg/dl (2.5-4.9); Potassium 3.7 mmol/L (3.5-5.1)
[2023-08-18 09:07] LABS: Ehrlichia chaff DNA Bld Negative (Negative)
[2023-08-18] MEDS: MICONAZOLE NITRATE POWDER 85 GM EXT PRN (09:50)
--- NOTE | 2023-08-18 10:56 | Nephrology Progress Note ---
Date of Service August 18, 2023 Assessment & Plan (1) Hyponatremia: (2) Weakness: (3) Hypomagnesemia: (4) Hypokalemia: Plan 83-year-old female admitted with generalized weakness and noted to have acute hyponatremia with serum sodium 112 elevated urinary osmolality, thought to be related to high-dose of hydrochlorothiazide which was started recently. Received multiple doses of hypertonic saline including 1 yesterday afternoon and sodium slowly improved to 131 this morning. Was on Lasix which was stopped as she was clinically volume depleted. Urine osmolality still above 300. Overall clinically she is doing much better. -- Start on salt tablet 1 g twice a day, check serum sodium this afternoon. If sodium holds, it will be okay to be discharged with close outpatient lab monitoring in next 24 to 48 hours. If sodium normalized, salt tablet can be discontinued as an outpatient. --Check lab tomorrow morning Admission and Anticipated Discharge Date Admission Date: August 13, 2023 Monika Briones was seen and evaluated this morning with her daughter at bedside who was translating for her. Overall patient and daughter both report she is doing much better today, appetite slightly improved. Sodium improved to 131 this morning. Blood pressure has been relatively low but stable and asymptomatic. Review of Systems Review of Systems: Detailed review of system was done and pertinent negatives and positives were mentioned above. Physical Exam Constitutional: WD/WN, vitals as above no acute distress Eyes: + anicteric sclerae Neck: normal visual inspection Respiratory: Auscultation: lungs clear to auscultation bilaterally Cardiovascular: RRR, no murmur, no edema Skin: no rashes, warm and dry Neurologic: no focal motor deficits and not confused Psychiatric: Orientation: alert and oriented x 3 Results & Data Vital Signs (Past 12 Hours) Vital Signs Temp Pulse Pulse Resp BP BP Pulse Ox 08/18/23 09:00 81 08/18/23 07:08 36.5 C 83 16 131/86 99 08/18/23 04:53 36.8 C 88 20 108/68 98 08/17/23 23:25 36.7 C 86 20 111/75 98 O2 Del Method O2 Flow Rate 08/18/23 09:00 08/18/23 07:08 Nasal Cannula 08/18/23 04:53 Nasal Cannula 1 08/17/23 23:25 Nasal Cannula 1 PG Care Time/CCT Total # of Minutes Spent Total Time Spent with Patient: Total time spent is greater than 50% in coordination of care (as documented) at patient's floor/unit and/or counseling patient: Coding Level of Care Code 10598 SUB INP/OBS CARE 235MIN Diagnoses Hyponatremia E87.1 Weakness R53.1 Hypomagnesemia E83.42 Hypokalemia E87.6
[2023-08-18] MEDS: SODIUM CHLORIDE 1 GM TABLET PO SCH (12:15)
--- NOTE | 2023-08-18 15:24 | Hospitalist Progress Note ---
Date of Service August 18, 2023 Assessment & Plan (1) Hyponatremia: Plan: 83yo female presenting with hyponatremia. Patient with some confusion otherwise asymptomatic. She has been given NSS, 3% saline as well as desmopressin and Lasix in the ER. Suspect acute Hypotonic hypervolemic hyponatremia - serum osmolality low at 244, patient appears to be volume overloaded based on edema, JVD as well as ascites, pulmonary edema and pleural effusions present on imaging. Double dose of HCTZ likely contributing as well. Sodium improving Initially sodium was 112. Lasix has been discontinued 08/15 Nephrology on board Got hypertonic saline last few days per nephrology Fluid overload contributing. Fluid overload improved with Lasix. Lasix discontinued 08/15 Hydrochlorothiazide twice daily dosing contributed as well. I have marked hydrochlorothiazide as a severe drug adverse effect Nephrology started the patient on salt tablets today 08/17 ECHO 08/13 LVEF 65-70%, severe TR, dilated RV with reduced systolic function. Pulmonary HTN w/ RV dilation and reduced systolic function (2) Electrolyte abnormality: Plan: Patient with additional electrolyte abnormality to include hypokalemia, hypocalc emia and hypomagnesemia. hypokalemia supplemented (3) Hypertension: Plan: Blood pressure controlled today -Continue Metoprolol 50mg po daily -Monitor -Holding HCTZ (4) Thrombocytopenia: Plan: Platelet count has improved to 112 today. Etiology unclear Acute hepatitis panel negative Patient has mildly low albumin, mildly elevated INR, ascites and fluid overload. LFTs were also slightly elevated.? Cirrhosis of nonviral etiology? (5) Hypothyroid: Plan: Patient with elevated TSH=8.689, normal FT4 and low FT3 - suggestive of hypothyroidism. Patient's daughter endorses cold intolerance -Initiated Synthroid 50mcg PO daily -Patient will need repeat TFTs and continue outpatient followup (6) A-fib: Plan: Rate controlled -Continue Apixaban for anticoagulation -Continue Metoprolol (7) Depression: Plan: family reports depression, poor appetite, started Remeron, monitor Na Family tells me that the patient has always been very pessimistic. During this hospital stay, she has expressed that she did not want to go on this way and would rather . I wanted to have a conversation with the patient using the knowledge management advisor yesterday and today but was unsuccessful as it was limited due to her deafness yesterday and due to her weak voice today Patient's wishes and goals of care will need to be readdressed Today, the patient is more awake and slightly more energetic. Hopefully this is a good trend. (8) Ambulatory dysfunction: Plan: generalized weakness, PT/OT, patient does not have insurance (9) CHF (congestive heart failure): Plan: acute on chronic , preserved EF -Hold HCTZ secondary to severe hyponatremia ECHO LVEF 65-70%, severe TR, dilated RV with reduced systolic function. Pulmonary HTN w/ RV dilation and reduced systolic function Currently euvolemic IV Lasix discontinued 08/15 Plan Patient appears severely weak. PT and OT has been consulted. Patient has no insurance which is a challenge for placement. Case management involved. Admission and Anticipated Discharge Date Admission Date: August 13, 2023 Subjective Per daughter, patient is more awake. Per nurse, she did better with her meals. No aspirations. Review of Systems Review of Systems: All systems reviewed & are unremarkable except as noted in Subjective Physical Exam Physical Exam: General: Awake. Appears frail, very withdrawn and not motivated. Her voice is very weak making it difficult for communication using knowledge management advisor Heart: S1, S2/regular rate and rhythm, no murmur rubs or gallops Lungs: Clear to auscultation bilaterally. Normal effort Abdomen: Soft/nontender/nondistended. No hepatosplenomegaly Extremities: No clubbing/cyanosis. No edema Behavior: Appropriate, cooperative Results & Data Results & Data Vital Signs (Past 12 Hours) Vital Signs Temp Pulse Pulse Resp BP BP Pulse Ox 08/18/23 15:04 37.0 C 86 20 116/78 97 08/18/23 10:48 36.6 C 83 16 107/69 97 08/18/23 09:00 81 08/18/23 07:08 36.5 C 83 16 131/86 99 08/18/23 04:53 36.8 C 88 20 108/68 98 O2 Del Method O2 Flow Rate 08/18/23 15:04 Nasal Cannula 1 08/18/23 10:48 Nasal Cannula 1 08/18/23 09:00 08/18/23 07:08 Nasal Cannula 08/18/23 04:53 Nasal Cannula 1 Laboratory Results Abnormal lab results 08/18/23 08/18/23 Range/Units 05:35 14:25 WBC 11.59 H (4.8-10.8) K/ul Plt Count 111 L (130-400) K/uL Sodium 131 L 130 L (136-145) mmol/L Creatinine 0.52 L (0.6-1.2) mg/dl BUN/Creatinine Ratio 25.0 H (10-20) Calcium 8.3 L (8.6-10.3) mg/dl Albumin 2.9 L (3.4-5.0) gm/dl PG Care Time/CCT Total # of Minutes Spent Total Time Spent with Patient: Total time spent is greater than 50% in coordination of care (as documented) at patient's floor/unit and/or counseling patient: Coding Level of Care Code 30282 SUB INP/OBS CARE 235MIN Diagnoses Hyponatremia E87.1 Electrolyte abnormality E87.8 Hypertension I10 Thrombocytopenia D69.6 Hypothyroid E03.9 A-fib I48.91 Atrial fibrillation type: unspecified Depression F32.A Ambulatory dysfunction R26.2 CHF (congestive heart failure) I50.9 (6) A-fib Atrial fibrillation type: unspecified Qualified Code(s): I48.91 - Unspecified atrial fibrillation
[2023-08-19 06:36] LABS: Hemoglobin 15.3 g/dl (12.0-16.0); Mean Corpuscular Hemoglobin 30.8 pg (25.0-34.0); Mean Corpuscular Hgb Conc 36.4 g/dL (32.0-36.0); Mean Corpuscular Volume 84.5 fL (80.0-100.0); Platelet Count 120 K/uL (130-400); RDW Standard Deviation 45.7 fL (36.4-46.3); Red Blood Count 4.97 M/uL (4.20-5.40); White Blood Count 11.73 K/ul (4.8-10.8)
[2023-08-19 06:50] LABS: Albumin Level 2.9 gm/dl (3.4-5.0); BUN Creatinine Ratio 24.6 (10-20); Calcium 8.4 mg/dl (8.6-10.3); Creatinine Clr Calc Pharmacy 29.3 ml/min; Est GFR (African American) 93.8 ml/min; Phosphorus 3.8 mg/dl (2.5-4.9); Potassium 3.7 mmol/L (3.5-5.1)
--- NOTE | 2023-08-19 09:14 | Nephrology Progress Note ---
Date of Service August 19, 2023 Assessment & Plan (1) Hyponatremia: (2) Weakness: (3) Hypomagnesemia: (4) Hypokalemia: Plan 83-year-old female admitted with generalized weakness and noted to have acute hyponatremia with serum sodium 112 elevated urinary osmolality, thought to be related to high-dose of hydrochlorothiazide which was started recently. Received multiple doses of hypertonic saline including 1 yesterday afternoon and sodium slowly improved to 131 this morning. Was on Lasix which was stopped as she was clinically volume depleted. Urine osmolality still above 300. Overall clinically she is doing much better but reports feeling weak. --continue on salt tablet 1 g twice a day. Okay to be discharged with close outpatient lab monitoring. If sodium normalized, salt tablet can be discontinued as an outpatient. --may benefit from physical therapy Admission and Anticipated Discharge Date Admission Date: August 13, 2023 Monika Briones was seen this morning with her daughter at bedside who was translating for her. She is doing much better , awake, alert, appetite slightly improved. Sodium improved to 132 this morning. Decent UO, net negative. Blood pressure has been stable. Review of Systems Review of Systems: Detailed review of system was done and pertinent negatives and positives were mentioned above. Physical Exam Constitutional: WD/WN, vitals as above no acute distress Eyes: + anicteric sclerae Neck: normal visual inspection Respiratory: Auscultation: lungs clear to auscultation bilaterally Cardiovascular: RRR, no murmur, no edema Skin: no rashes, warm and dry Neurologic: no focal motor deficits and not confused Psychiatric: Orientation: alert and oriented x 3 Results & Data Vital Signs (Past 12 Hours) Vital Signs Temp Pulse Pulse Resp BP BP Pulse Ox 08/19/23 07:18 36.3 C L 94 H 19 128/89 96 08/19/23 03:29 36.8 C 83 16 119/74 95 08/18/23 22:55 36.6 C 97 H 16 131/83 96 O2 Del Method 08/19/23 07:18 Room Air 08/19/23 03:29 Room Air 08/18/23 22:55 Room Air PG Care Time/CCT Total # of Minutes Spent Total Time Spent with Patient: Total time spent is greater than 50% in coordination of care (as documented) at patient's floor/unit and/or counseling patient: Coding Level of Care Code 09469 SUB INP/OBS CARE 06/26MIN Diagnoses Hyponatremia E87.1 Weakness R53.1 Hypomagnesemia E83.42 Hypokalemia E87.6
--- NOTE | 2023-08-19 15:11 | Hospitalist Progress Note ---
Date of Service August 19, 2023 Assessment & Plan (1) Depression: Plan: family reports depression, poor appetite, =monitor Na Family tells me that the patient has always been very pessimistic. During this hospital stay, she has expressed that she did not want to go on this way and would rather . I wanted to have a conversation with the patient using the site physician yesterday and today but was unsuccessful as it was limited due to her deafness yesterday and due to her weak voice today Patient's wishes and goals of care will need to be readdressed Patient appears to be very somnolent on 08/18, discussed with case management who reports, patient was somnolent on 08/17 Difficult situation due to lack of insurance as patient may benefit from therapy. However, patient is too somnolent and weak that she just wants to lay in bed. This could be a side effect of the remeron. This will be discontinued. WIll add ritalin and escitalopram. will keep in the ICU for now and will monitor her improvement. Also placed miralax. (2) Hyponatremia: Plan: 83yo female presenting with hyponatremia. Patient with some confusion otherwise asymptomatic. She has been given NSS, 3% saline as well as desmopressin and Lasix in the ER. Suspect acute Hypotonic hypervolemic hyponatremia - serum osmolality low at 244, patient appears to be volume overloaded based on edema, JVD as well as ascites, pulmonary edema and pleural effusions present on imaging. Double dose of HCTZ likely contributing as well. Sodium improving Initially sodium was 112. Lasix has been discontinued 08/15 Nephrology on board Got hypertonic saline last few days per nephrology Fluid overload contributing. Fluid overload improved with Lasix. Lasix discontinued 08/15 Hydrochlorothiazide twice daily dosing contributed as well. I have marked hydrochlorothiazide as a severe drug adverse effect Nephrology started the patient on salt tablets today 08/17 ECHO 08/13 LVEF 65-70%, severe TR, dilated RV with reduced systolic function. Pulmonary HTN w/ RV dilation and reduced systolic function (3) Electrolyte abnormality: Plan: Patient with additional electrolyte abnormality to include hypokalemia, hypocalcemia and hypomagnesemia. hypokalemia supplemented (4) Hypertension: Plan: Blood pressure controlled today -Continue Metoprolol 50mg po daily -Monitor -Holding HCTZ (5) Thrombocytopenia: Plan: Platelet count has improved to 112 today. Etiology unclear Acute hepatitis panel negative Patient has mildly low albumin, mildly elevated INR, ascites and fluid overload. LFTs were also slightly elevated.? Cirrhosis of nonviral etiology? (6) Hypothyroid: Plan: Patient with elevated TSH=8.689, normal FT4 and low FT3 - suggestive of hypoth yroidism. Patient's daughter endorses cold intolerance -Initiated Synthroid 50mcg PO daily -Patient will need repeat TFTs and continue outpatient followup (7) A-fib: Plan: Rate controlled -Continue Apixaban for anticoagulation -Continue Metoprolol (8) Ambulatory dysfunction: Plan: generalized weakness, PT/OT, patient does not have insurance (9) CHF (congestive heart failure): Plan: acute on chronic , preserved EF -Hold HCTZ secondary to severe hyponatremia ECHO LVEF 65-70%, severe TR, dilated RV with reduced systolic function. Pulmonary HTN w/ RV dilation and reduced systolic function Currently euvolemic IV Lasix discontinued 08/15 Plan Patient appears severely weak. PT and OT has been consulted. Patient has no insurance which is a challenge for placement. Case management involved. Admission and Anticipated Discharge Date Admission Date: August 13, 2023 Subjective Patient is resting in bed. Updated her daughter Review of Systems Review of Systems: All systems reviewed & are unremarkable except as noted in HPI & below Physical Exam Physical Exam: General: Awake. Appears frail, very withdrawn and not motivated. Heart: S1, S2/regular rate and rhythm, no murmur rubs or gallops Lungs: Clear to auscultation bilaterally. Normal effort Abdomen: Soft/nontender/nondistended. No hepatosplenomegaly Extremities: No clubbing/cyanosis. No edema Behavior: Appropriate, cooperative Results & Data Results & Data Vital Signs (Past 12 Hours) Vital Signs Temp Pulse Pulse Resp BP BP Pulse Ox 08/19/23 11:02 36.4 C L 90 18 127/87 95 08/19/23 07:18 36.3 C L 94 H 19 128/89 96 08/19/23 03:29 36.8 C 83 16 119/74 95 O2 Del Method 08/19/23 11:02 Room Air 08/19/23 07:18 Room Air 08/19/23 03:29 Room Air PG Care Time/CCT Total # of Minutes Spent Total Time Spent with Patient: Total time spent is greater than 50% in coordination of care (as documented) at patient's floor/unit and/or counseling patient: Coding Level of Care Code 92984 SUB INP/OBS CARE 3/50MIN Diagnoses Depression F32.A Hyponatremia E87.1 Electrolyte abnormality E87.8 Hypertension I10 Thrombocytopenia D69.6 Hypothyroid E03.9 A-fib I48.91 Atrial fibrillation type: unspecified Ambulatory dysfunction R26.2 CHF (congestive heart failure) I50.9 Time Spent (min) 50 (7) A-fib Atrial fibrillation type: unspecified Qualified Code(s): I48.91 - Unspecified atrial fibrillation
[2023-08-19] MEDS: POLYETHYLENE (MIRALAX) 17 GM PACK PO SCH (15:34)
--- NOTE | 2023-08-19 15:42 | XRay Report ---
KUB CLINICAL HISTORY: Constipation. FINDINGS: 2 AP, portable, supine abdominal radiographs are correlated with abdominal CT dated 08/13/19 24. Cholecystectomy clips are noted in the right upper quadrant. No bowel obstruction is seen. There is mild to moderate colonic fecal retention. No evidence of intraperitoneal free air is seen on these supine images. There are no abnormal abdominal calcifications. The skeletal structures are osteopeni c and appear intact. Lumbosacral spondylosis is observed. The heart is enlarged. There are bilateral pleural effusions with dependent consolidation. IMPRESSION: 1. [id number] colonic fecal retention. 2. Right larger than left pleural effusions with dependent consolidation. Electronically signed by: Sunil Davenport M.D. 08/19/2023 3:41 PM
[2023-08-19] MEDS: ESCITALOPRAM OXALATE 10 MG TAB PO SCH (22:01)
[2023-08-19 23:03] LABS: Q Fever IgG, Phase I NEGATIVE; Q Fever Phase I IgM Antibody NEGATIVE; Q Fever Phase II IgG Antibody NEGATIVE; Q Fever Phase II IgM Antibody NEGATIVE; R. typhi IgG Ab NOT DETECTED; R. typhi IgM Ab NOT DETECTED; RMSF IgG Ab NOT DETECTED; RMSF IgM Ab NOT DETECTED
[2023-08-20 06:43] LABS: Hematocrit (blood only) 41.5 % (37.0-47.0); Hemoglobin 14.6 g/dl (12.0-16.0); Mean Corpuscular Hemoglobin 30.7 pg (25.0-34.0); Mean Corpuscular Hgb Conc 35.2 g/dL (32.0-36.0); Mean Corpuscular Volume 87.2 fL (80.0-100.0); Mean Platelet Volume 10.3 fL (9.4-12.4); Platelet Count 122 K/uL (130-400); RDW Coefficient of Variation 14.6 % (11.5-14.5); RDW Standard Deviation 46.3 fL (36.4-46.3); Red Blood Count 4.76 M/uL (4.20-5.40)
[2023-08-20 06:56] LABS: BUN Creatinine Ratio 31.6 (10-20); Calcium 8.2 mg/dl (8.6-10.3); Creatinine Clr Calc Pharmacy 33.6 ml/min; Est GFR (Non-African American) 84.5 ml/min
[2023-08-20] MEDS: METHYLPHENIDATE HCL 5 MG TABLET PO SCH (09:57)
[2023-08-20] MEDS: DICLOFENAC SOD 1% GEL 100 GM TUBE EXT SCH (09:58)
--- NOTE | 2023-08-20 10:21 | Nephrology Progress Note ---
Date of Service August 20, 2023 Assessment & Plan (1) Hyponatremia: (2) Weakness: (3) Hypomagnesemia: (4) Hypokalemia: Plan 83-year-old female admitted with generalized weakness and noted to have acute hyponatremia with serum sodium 112 elevated urinary osmolality, thought to be related to high-dose of hydrochlorothiazide which was started recently. Received multiple doses of hypertonic saline including 1 yesterday afternoon and sodium slowly improved to 131 this morning. Was on Lasix which was stopped as she was clinically volume depleted. Urine osmolality still above 300. Overall clinically she is doing much better but reports feeling weak. Na 133 --CXR to f/u on b/l Pl effusion and slightly low O2 sat on RA, if worsened, may need pleural tap. --continue on salt tablet 1 g twice a day. Okay to be discharged with close outpatient lab monitoring. If sodium normalized, salt tablet can be discontinued as an outpatient. --may benefit from physical therapy Will sign off. Admission and Anticipated Discharge Date Admission Date: August 13, 2023 Monika Briones was seen this morning with her daughter at bedside who was translating f or her. She is doing well,, awake, alert, appetite improved. Sodium improved to 133 this morning. Decent UO, net negative. Blood pressure has been stable. RA O2 sat 94 Review of Systems Review of Systems: Detailed review of system was done and pertinent negatives and positives were mentioned above. Physical Exam Constitutional: WD/WN, vitals as above no acute distress Eyes: + anicteric sclerae Neck: normal visual inspection Respiratory: Auscultation: + diminished lung sounds; no crackles and no wheezes Cardiovascular: RRR, no murmur, no edema Skin: no rashes, warm and dry Neurologic: no focal motor deficits and not confused Psychiatric: Orientation: alert and oriented x 3 Results & Data Vital Signs (Past 12 Hours) Vital Signs Temp Pulse Pulse Resp BP BP Pulse Ox 08/20/23 08:19 82 18 131/90 94 08/20/23 03:25 36.6 C 98 H 20 126/78 95 08/19/23 23:13 36.4 C L 92 H 20 120/72 94 O2 Del Method 08/20/23 08:19 Room Air 08/20/23 03:25 Room Air 08/19/23 23:13 Room Air PG Care Time/CCT Total # of Minutes Spent Total Time Spent with Patient: Total time spent is greater than 50% in coordination of care (as documented) at patient's floor/unit and/or counseling patient: Coding Level of Care Code 10873 SUB INP/OBS CARE 2/35MIN Diagnoses Hyponatremia E87.1 Weakness R53.1 Hypomagnesemia E83.42 Hypokalemia E87.6
--- NOTE | 2023-08-20 13:29 | Hospitalist Progress Note ---
Date of Service August 20, 2023 Assessment & Plan (1) Depression: Plan: family reports depression, poor appetite, =monitor Na Family tells me that the patient has always been very pessimistic. During this hospital stay, she has expressed that she did not want to go on this way and would rather . I wanted to have a conversation with the patient using the passenger vessel chef yesterday and today but was unsuccessful as it was limited due to her deafness yesterday and due to her weak voice today Patient's wishes and goals of care will need to be readdressed Patient appears to be very somnolent on 08/18, discussed with case management who reports, patient was somnolent on 08/17 Difficult situation due to lack of insurance as patient may benefit from therapy. However, patient is too somnolent and weak that she just wants to lay in bed. This could be a side effect of the remeron. This will be discontinued. WIll add ritalin and escitalopram. will keep in the PCU for now and will monitor her improvement. Also placed miralax. On 08/19, patient appears less lethargic. Likely this was from the remeron. will continue ritalin and escitalopram. In regards to fluid in her lungs will place on intermittent diuretics. Family is not interested in thoracocenthesis. This is reasonable as patient's breathing is stable (2) Hyponatremia: Plan: 83yo female presenting with hyponatremia. Patient with some confusion otherwise asymptomatic. She has been given NSS, 3% saline as well as desmopressin and Lasix in the ER. Suspect acute Hypotonic hypervolemic hyponatremia - serum osmolality low at 244, patient appears to be volume overloaded based on edema, JVD as well as ascites, pulmonary edema and pleural effusions present on imaging. Double dose of HCTZ likely contributing as well. Sodium improving Initially sodium was 112. Lasix has been discontinued 08/15 Nephrology on board Got hypertonic saline last few days per nephrology Fluid overload contributing. Fluid overload improved with Lasix. Lasix discontinued 08/15 Hydrochlorothiazide twice daily dosing contributed as well. I have marked hydrochlorothiazide as a severe drug adverse effect Nephrology started the patient on salt tablets today 08/17 ECHO 08/13 LVEF 65-70%, severe TR, dilated RV with reduced systolic function. Pulmonary HTN w/ RV dilation and reduced systolic function (3) Electrolyte abnormality: Plan: Patient with additional electrolyte abnormality to include hypokalemia, hypocalcemia and hypomagnesemia. hypokalemia supplemented (4) Hypertension: Plan: Blood pressure controlled today -Continue Metoprolol 50mg po daily -Monitor -Holding HCTZ (5) Thrombocytopenia: Plan: Platelet count has improved to 112 today. Etiology unclear Acute hepatitis panel negative Patient has mildly low albumin, mildly elevated INR, ascites and fluid overload. LFTs were also slightly elevated.? Cirrhosis of nonviral etiology? (6) Hypothyroid: Plan: Patient with elevated TSH=8.689, normal FT4 and low FT3 - suggestive of hypothyroidism. Patient's daughter endorses cold intolerance -Initiated Synthroid 50mcg PO daily -Patient will need repeat TFTs and continue outpatient followup (7) A-fib: Plan: Rate controlled -Continue Apixaban for anticoagulation -Continue Metoprolol (8) Ambulatory dysfunction: Plan: generalized weakness, PT/OT, patient does not have insurance (9) CHF (congestive heart failure): Plan: acute on chronic , preserved EF -Hold HCTZ secondary to severe hyponatremia ECHO LVEF 65-70%, severe TR, dilated RV with reduced systolic function. Pulmonary HTN w/ RV dilation and reduced systolic function Currently euvolemic IV Lasix discontinued 08/15 Plan Patient appears severely weak. PT and OT has been consulted. Patient has no insurance which is a challenge for placement. Case management involved. Admission and Anticipated Discharge Date Admission Date: August 13, 2023 Subjective Patient appears more awake.Patient was able to have a bowel movement. Patient is able to have her meals. Review of Systems Review of Systems: All systems reviewed & are unremarkable except as noted in HPI & below Physical Exam Physical Exam: General: Awake. Appears frail, very withdrawn and not motivated. Heart: S1, S2/regular rate and rhythm, no murmur rubs or gallops Lungs: Clear to auscultation bilaterally. Normal effort Abdomen: Soft/nontender/nondistended. No hepatosplenomegaly Extremities: No clubbing/cyanosis. No edema Behavior: Appropriate, cooperative Results & Data Results & Data Vital Signs (Past 12 Hours) Vital Signs Temp Pulse Pulse Resp BP BP Pulse Ox 08/20/23 11:09 36.5 C 90 18 117/80 95 08/20/23 08:19 82 18 131/90 94 08/20/23 03:25 36.6 C 98 H 20 126/78 95 O2 Del Method 08/20/23 11:09 Room Air 08/20/23 08:19 Room Air 08/20/23 03:25 Room Air PG Care Time/CCT Total # of Minutes Spent Total Time Spent with Patient: Total time spent is greater than 50% in coordination of care (as documented) at patient's floor/unit and/or counseling patient: Coding Level of Care Code 36672 SUB INP/OBS CARE 2/35MIN Diagnoses Depression F32.A Hyponatremia E87.1 Electrolyte abnormality E87.8 Hypertension I10 Thrombocytopenia D69.6 Hypothyroid E03.9 A-fib I48.91 Atrial fibrillation type: unspecified Ambulatory dysfunction R26.2 CHF (congestive heart failure) I50.9 (7) A-fib Atrial fibrillation type: unspecified Qualified Code(s): I48.91 - Unspecified atrial fibrillation
[2023-08-20] MEDS: FUROSEMIDE 40 MG TAB PO SCH (14:29)
--- NOTE | 2023-08-20 14:47 | XRay Report ---
XR chest 1V portable HISTORY: pleural effusion COMPARISON: Chest 08/13/2023. FINDINGS: No pneumothorax. The heart remains enlarged. There are low lung volumes. Moderate right and small left pleural effusions with bibasilar densities. This remains unchanged. Mild pulmonary edema persists. IMPRESSION: No significant change in the pulmonary edema, bilateral pleural effusions, and bibasilar densities. ACT 112: Negative or not required by law. Electronically signed by: Scout Arambula M.D. 08/20/2023 2:46 PM
[2023-08-21 07:44] LABS: Hematocrit (blood only) 40.9 % (37.0-47.0); Hemoglobin 14.6 g/dl (12.0-16.0); Mean Corpuscular Hemoglobin 30.7 pg (25.0-34.0); Mean Corpuscular Hgb Conc 35.7 g/dL (32.0-36.0); Mean Corpuscular Volume 85.9 fL (80.0-100.0); Platelet Count 127 K/uL (130-400); RDW Coefficient of Variation 14.5 % (11.5-14.5); RDW Standard Deviation 45.5 fL (36.4-46.3); Red Blood Count 4.76 M/uL (4.20-5.40); White Blood Count 7.81 K/ul (4.8-10.8)
--- NOTE | 2023-08-21 13:12 | Discharge Summary ---
Date of Service August 21, 2023 Admission HPI Per Admitting Provider Anali Reed is an 83yo female presenting with her daughter with confusion, decreased appetite and edema. Patient is Mandarin speaking. Her daughter states that she has had increased bilateral LE edema and some abdominal swelling for the last several weeks. She was instructed to increase her HCTZ and has been taking it twice daily for the last 4 days. Today she had worsening fatigue, generalized weakness, ambulatory dysfunction, poor appetite and confusion. No report of fever, chills, nausea, vomiting or diarrhea. Daughter does report some cold intolerance. Also reports decreased UOP. In the ER she is afebrile, hypertensive otherwise stable. Adequate oxygenation on room air. ER Course: NSS x 500mL 3% Saline 50mL Desmopressin 1mcg Magnesium 2gm Lasix 20mg IV KCL 10mEq IV x 3 thus far - 60meq ordered in total KCL 40mEq PO Principal Diagnosis depression Discharge Exam General: Awake. Appears frail, very withdrawn and not motivated. Heart: S1, S2/regular rate and rhythm, no murmur rubs or gallops Lungs: Clear to auscultation bilaterally. Normal effort Abdomen: Soft/nontender/nondistended. No hepatosplenomegaly Extremities: No clubbing/cyanosis. No edema Behavior: Appropriate, cooperative Discharge Data Allergies Allergy/AdvReac Type Severity Reaction Status Date / Time shellfish derived Allergy Intermediate Rash Verified 08/13/23 20:54 hydrochlorothiazide AdvReac Weakness Verified 08/16/23 12:58 Consultations 08/13/23 23:10 ED Decision to Admit Stat 08/14/23 07:46 Consult Nephrology Routine Ordered Studies 08/13/23 17:32 CT abd pelvis IV con only Stat CT head/brain wo con Stat CTA head w con [CT angio head w con] Stat CTA neck with con [CT angio neck with con] Stat 08/21/23 13:00 FL video swallow Routine Hospital Course (1) Depression: family reports depression, poor appetite, =monitor Na Family tells me that the patient has always been very pessimistic. During this hospital stay, she has expressed that she did not want to go on this way and would rather . I wanted to have a conversation with the patient using the medicaid billing clerk yesterday and today but was unsuccessful as it was limited due to her deafness yesterday and due to her weak voice today Patient's wishes and goals of care will need to be readdressed Patient appears to be very somnolent on 08/18, discussed with case management who reports, patient was somnolent on 08/17 Difficult situation due to lack of insurance as patient may benefit from therapy. However, patient is too somnolent and weak that she just wants to lay in bed. This could be a side effect of the remeron. This will be discontinued. WIll add ritalin and escitalopram. will keep in the PCU for now and will monitor her improvement. Also placed miralax. On 08/19, patient appears less lethargic. Likely this was from the remeron. will continue ritalin and escitalopram. In regards to fluid in her lungs will place on intermittent diuretics. Family is not interested in thoracocenthesis. This is reasonable as patient's breathing is stable On 08/20 Patient continued to be more awake, tolerating her meals. As noted in notes above, Her drowsiness was likely precipiated by remeron. (2) Hyponatremia: 83yo female presenting with hyponatremia. Patient with some confusion otherwise asymptomatic. She has been given NSS, 3% saline as well as desmopressin and Lasix in the ER. Suspect acute Hypotonic hypervolemic hyponatremia - serum osmolality low at 244, patient appears to be volume overloaded based on edema, JVD as well as ascites, pulmonary edema and pleural effusions present on imaging. Double dose of HCTZ likely contributing as well. Sodium improving Initially sodium was 112. Lasix has been discontinued 08/15 Nephrology on board Got hypertonic saline last few days per nephrology Fluid overload contributing. Fluid overload improved with Lasix. Lasix discontinued 08/15 Hydrochlorothiazide twice daily dosing contributed as well. I have marked hydrochlorothiazide as a severe drug adverse effect Nephrology started the patient on salt tablets today 08/17 ECHO 08/13 LVEF 65-70%, severe TR, dilated RV with reduced systolic function. Pulmonary HTN w/ RV dilation and reduced systolic function Will continue on salt tablets at discharge. continue until sodium normalizd. (3) Electrolyte abnormality: Patient with additional electrolyte abnormality to include hypokalemia, hypo calcemia and hypomagnesemia. hypokalemia supplemented (4) Hypertension: Blood pressure controlled today -Continue Metoprolol 50mg po daily -Monitor -Holding HCTZ (5) Thrombocytopenia: Platelet count has improved to 112 today. Etiology unclear Acute hepatitis panel negative Patient has mildly low albumin, mildly elevated INR, ascites and fluid overload. LFTs were also slightly elevated.? Cirrhosis of nonviral etiology? (6) Hypothyroid: Patient with elevated TSH=8.689, normal FT4 and low FT3 - suggestive of hypoth yroidism. Patient's daughter endorses cold intolerance -Initiated Synthroid 50mcg PO daily -Patient will need repeat TFTs and continue outpatient followup (7) A-fib: Rate controlled -Continue Apixaban for anticoagulation -Continue Metoprolol (8) Ambulatory dysfunction: generalized weakness, PT/OT, patient does not have insurance (9) CHF (congestive heart failure): acute on chronic , preserved EF -Hold HCTZ secondary to severe hyponatremia ECHO LVEF 65-70%, severe TR, dilated RV with reduced systolic function. Pulmonary HTN w/ RV dilation and reduced systolic function Currently euvolemic IV Lasix discontinued 08/15 Total Time Total Time Spent Total Time Spent (In Minutes): 32 Discharge Plan Discharge Items Patient Disposition: Home - Self-Care Reason For Visit: HYPONATREMIA Discharge Diagnosis: hyponatremia Activity: Resume your previous activity Non-emergency contact: Primary Care Provider Call non-emergency contact if: you have any medication questions Follow-up/Referrals: [facility],Medicine [Primary Care Provider] - Diet: Heart Healthy Diet Comment: minced and moist Addtl Attending Provider Instructions: I recommend followup with your PCP in 1-2 weeks Recommend that your PCP rechecks your sodium level in 1-2 week. Pending Studies at Discharge: No Stand-Alone Forms: My [facility] [email or web address] Smoking Cessation Medications and DC Order Prescriptions: New furosemide 40 mg Tablet 40 mg PO Q2D@0900 Qty: 15 0RF acetaminophen 325 mg Tablet 650 mg PO BID Qty: 120 0RF polyethylene glycol 3350 [Miralax] 17 gram Powder In Packet 17 g PO DAILY PRN (Reason: constipation) Qty: 14 0RF levothyroxine [Synthroid] 50 mcg Tablet 50 mcg PO DAILYBB Qty: 30 0RF escitalopram oxalate 10 mg Tablet 5 mg PO PM Qty: 30 0RF sodium chloride 1,000 mg Tablet,Soluble 1,000 mg PO BID Qty: 60 0RF potassium chloride 10 mEq tablet extended release 10 meq PO Q2D Qty: 15 0RF methylphenidate HCl 2.5 mg tablet,chewable 2.5 mg PO .0800,noon Qty: 60 0RF Continued atorvastatin 20 mg Tablet 20 mg PO Q OTHER DAY allopurinol 100 mg Tablet 100 - 200 mg PO DAILY Rx Instructions: PER PT'S DAUGHTER "DEPENDS ON THE AMOUNT OF SWELLING IN HER FEET". Eliquis 2.5 mg Tablet 2.5 mg PO DAILY metoprolol succinate [Toprol XL] 50 mg tablet extended release 24 hr 50 mg PO DAILY Qty: 30 0RF magnesium 250 mg Tablet 250 mg PO DAILY B-complex with vitamin C Capsule 1 cap PO DAILY Discontinued hydrochlorothiazide 25 mg Tablet 50 mg PO DAILY Discharge Orders: Discharge Order (Routine); Ordered 08/21/23 Ordered By: Jackson Ralph Admission Data Admit Date/Time: 08/13/23 23:54 Attending Provider: Jackson Ralph Admit Provider: Haley Ling Primary Care Provider: [facility],Medicine Other Providers: Haley Ling; Chandler Simpson; Nicolle Huang Kevin C.; Kierra Reid Other Interventions: Discharge Summary Assessment (RN) Last Done: 08/21/23 15:08 Coding Level of Care Code 29427 INP/OBS DISCH >30 MIN Diagnoses Depression F32.A Hyponatremia E87.1 Electrolyte abnormality E87.8 Hypertension I10 Thrombocytopenia D69.6 Hypothyroid E03.9 A-fib I48.91 Atrial fibrillation type: unspecified Ambulatory dysfunction R26.2 CHF (congestive heart failure) I50.9
--- NOTE | 2023-08-21 17:13 | Fluoroscopy Report ---
MODIFIED BARIUM SWALLOW CLINICAL HISTORY: assess for aspiration COMPARISON STUDY: None. FLUOROSCOPY TIME: 2.01 minutes. Ka, r: 2.69 mGy. TECHNIQUE: A modified barium swallow was performed in conjunction with Speech Pathology. The patient ingested varying consistencies of barium containing material. Video fluoroscopy was performed. FINDINGS: There were several episodes of trace tracheal aspiration with thin liquids and nectar thick liquids. Moderate residuals were noted. There was minimal premature spillage. No aspiration was iden tified with pudding consistency. IMPRESSION: 1. Several episodes of trace tracheal aspiration with thin liquids and nectar thick liquids. 2. Full recommendations by Speech pathology to follow. ACT 112: Negative or not required by law. Electronically signed by: Usman Lynn M.D. 08/21/2023 5:11 PM
== END 2023-08-21 18:10 | disposition home or self-care (01) | DRG 640 ==
LOC: ED 17:07 → SUATTDRO 23:54 → 1E 23:54 → 4W 08-17 14:55 → 3W 08-20 22:39
DX: I48.91 Unspecified atrial fibrillation; D69.6 Thrombocytopenia, unspecified; E78.5 Hyperlipidemia, unspecified; F32.A Depression, unspecified; I50.33 Acute on chronic diastolic (congestive) heart failure; E83.42 Hypomagnesemia; E87.70 Fluid overload, unspecified; J90 Pleural effusion, not elsewhere classified; I11.0 Hypertensive heart disease with heart failure; E87.1 Hypo-osmolality and hyponatremia; I69.354 Hemiplegia and hemiparesis following cerebral infarction affecting left non-dominant side; R53.83 Other fatigue; E83.51 Hypocalcemia; Z59.7 Insufficient social insurance and welfare support; R18.8 Other ascites; G93.41 Metabolic encephalopathy; Z79.01 Long term (current) use of anticoagulants; E03.9 Hypothyroidism, unspecified; I44.0 Atrioventricular block, first degree

== ENCOUNTER 2024-11-22 17:27 | Observation (INO) ==
[2024-11-22 18:20] LABS: Basophils # (auto) 0.04 K/uL (0.00-0.20); Basophils % (auto) 0.3 %; Eosinophils # (auto) 0.08 K/uL (0.00-0.50); Eosinophils % (auto) 0.7 %; Hematocrit (blood only) 43.8 % (37.0-47.0); Hemoglobin 14.6 g/dl (12.0-16.0); Immature Granulocytes # (auto) 0.05 K/uL (0.01-0.20); Immature Granulocytes % (auto) 0.4 %; Lymphocytes % (auto) 20.7 %; Mean Corpuscular Hemoglobin 31.1 pg (25.0-34.0); Mean Corpuscular Hgb Conc 33.3 g/dL (32.0-36.0); Mean Corpuscular Volume 93.4 fL (80.0-100.0); Mean Platelet Volume 10.1 fL (9.4-12.4); Monocytes # (auto) 0.91 K/uL (0.11-0.59); Monocytes % (auto) 7.9 %; Platelet Count 185 K/uL (130-400); RDW Coefficient of Variation 12.5 % (11.5-14.5); RDW Standard Deviation 42.5 fL (36.4-46.3); Red Blood Count 4.69 M/uL (4.20-5.40); White Blood Count 11.58 K/ul (4.8-10.8)
--- NOTE | 2024-11-22 18:32 | Emergency Department Note ---
Impression & Plan Precordial chest pain, Weakness, Epigastric abdominal pain, Weight loss, Leukocytosis ED Provider Note NAME: LEIGH ANN WISE AGE: 84 SEX: F : 1940 ARRIVES VIA: Walk-In INFORMANT: [daughter] ED PROVIDER(S): [Sunil Dill MD] CHIEF COMPLAINT: Cardiac assessment HISTORY OF PRESENT ILLNESS: Patient is an 84-year-old female who is cared for by her daughter. She is Mandarin speaking. The patient is typically able to walk around with a walker and go to the bathroom on her own but is very dependent on her daughter. In the last week, she has complained of increased epigastric pain and some chest pain. It is a burning sensation. The patient has complained of feeling short of breath and foggy in the head. She feels weak, the weakness is diffuse. There has been no fever. No cough. No vomiting or diarrhea. The patient did stop her reflux meds around 2 weeks ago. She stopped them because she did not think they were working. She was on Pepcid and Protonix. The patient did see the family doctor's office today, because of the complaints of dyspnea and chest pain, she was referred to the ER. As per the daughter, the patient's reflux symptoms seemed to only present before in the morning, now, for the last week, the burning and discomfort has been all day. PMHx/PSHx/Social Hx: See Below PHYSICAL EXAM: GENERAL: Patient is in no acute distress. HEENT: No acute trauma, normocephalic atraumatic, mucous membranes moist, no nasal congestion. NECK: No stridor, no adenopathy, no meningismus, trachea is midline. LUNGS: Clear to auscultation bilaterally when listening anterior, no wheeze, no rhonchi, breath sounds equal. HEART: Without murmurs gallops or rubs, regular rate and rhythm. ABDOMEN: Soft, mildly tender in the epigastrium, no distention. EXTREMITIES: No cyanosis, full range of motion of all the joints without pain or difficulty. NEUROLOGIC: Awake, moves all extremities. SKIN: No jaundice, no diaphoresis. DIFFERENTIAL DIAGNOSIS: Reflux, pancreatitis, biliary colic, gastritis, OK, dehydration, among others. EMERGENCY DEPARTMENT PROCEDURES: MEDICAL DECISION MAKING: There is a mild leukocytosis, this could be consistent with infection or just the stress of her current presentation. There is a normal hemoglobin and platelet count. No bandemia. No coagulopathy. No renal failure or significant electrolyte abnormality. Lactic acid level is not elevated making bowel ischemia less likely. There was no concerning liver enzyme elevation. No evidence for pancreatitis. The patient appeared to be in a euthyroid state. ECG shows a sinus rhythm, no acute ischemia. Cardiac enzyme testing x 1 is not consistent with acute cardiac injury. Chest x-ray shows cardiomegaly, no CHF or pneumonia. Abdominal and pelvis CT does not show any bowel obstruction or acute surgical pathology. On exam, the patient appeared tender in the epigastrium. The patient received IV saline, she was given IV Protonix and IV Pepcid. She did receive a small dose of IV Benadryl prior to her contrast CT imaging. The patient presents weak, she has lost weight. She complains of chest and abdominal pain. Further workup inpatient appears warranted. At this point, the cause for all of her complaints is unclear but certainly, gastritis or ulcer is possible. She has had issues with her gut before and currently, is off all of her antireflux/gastritis medications. A GI evaluation during her hospital stay may be warranted. I did speak with the patient and the daughter. I did speak with case management. The on-call hospitalist was consulted. Prior/Outside records/notes reviewed: None ECG per my interpretation: Indication was chest pain. The ECG shows a sinus rhythm with a first-degree AV block. There is some baseline artifact. The rate is 71. There is no ST elevation, no PVCs but the QTc is 486. Continuous Cardiac Monitoring per my interpretation: An order was placed for continuous cardiac monitoring. The monitor shows a rate of 67 with sinus rhythm with a first-degree block. Imaging/x-ray results per my interpretation: Chest x-ray shows some mild cardiomegaly, there was no pneumonia or CHF. Chronic Medical/Social conditions affecting care: Advanced age. Takes Eliquis daily. Care/Management discussed with: Case management, the on-call hospitalist. Level of care consideration(s): After review of the information above and other included data: --I believe the patient requires escalation of care to admission DISPOSITION: Admission Past Med/Surg History Problem List (Updated 11/22/24 @ 23:57 by Sunil Dill MD) Leukocytosis (Acute) Weight loss (Acute) Epigastric abdominal pain (Acute) Weakness (Acute) Precordial chest pain (Acute) Dementia Hx of completed stroke CHF (congestive heart failure) Ambulatory dysfunction Depression Hypokalemia A-fib Hypothyroid Electrolyte abnormality Elevated TSH (Acute) Thrombocytopenia (Acute) Edema due to hypervolemia (Acute) Hypomagnesemia (Acute) Hyponatremia (Acute) Hx laparoscopic cholecystectomy (01/23/23) Laparoscopic Cholecystectomy(Not Applicable) - Yoan Beckford MD, FACS S/P laparoscopic cholecystectomy Acute cholecystitis Elevated LFTs Muscle spasm of right leg Weakness (Acute) Cholecystitis (Acute) Fall (Acute) DVT prophylaxis Hypertension Stroke (Acute) Slurred speech (Acute) Medical History Vertebral artery stenosis Stroke Surgical History (Updated 09/22/24 @ 11:46 by Juliann Forman) S/P hemorrhoidectomy H/O pneumonectomy H/O unilateral oophorectomy Family History (Updated 09/22/24 @ 11:41 by Juliann Forman) Mother High cholesterol Father Heart disease Hypertension High cholesterol Cancer Substance abuse Brother Heart disease High cholesterol Hypertension Substance abuse Son Hypertension High cholesterol Other No pertinent family history in first degree relatives Social History Smoking Status: Never smoker Second Hand Exposure: No; Hx Alcohol Use: No Hx Substance Use: No Preferred Language: Mandarin [place]ian Communication Ability: Effective Communication Ability Comment: Daughter at bedside helps to translate in addition to educational sign language interpreter Communication Tools: Other Visual Impairment: Limited Machine Shop Apprentice Required: Yes Beliefs That Will Affect Care: None marital status: / Current Living Situation: Family Current Living Situation Comment: lives with daughter Feels Safe at Home: Yes Assistive Devices: Cane Allergies Allergies Allergy/AdvReac Type Severity Reaction Status Date / Time shellfish derived Allergy Intermediate Rash Verified 09/24/24 08:29 hydrochlorothiazide AdvReac Severe severe Verified 09/24/24 08:29 hyponatremia lactose AdvReac Abdominal Unverified 11/22/24 21:46 Pain Home Meds Home Medications Medication Instructions Recorded Confirmed allopurinol 100 mg tablet 100 mg PO DAILY 01/21/23 11/22/24 apixaban 2.5 mg tablet (Eliquis) 2.5 mg PO BID 01/21/23 11/22/24 B-complex with vitamin C 1 cap PO DAILY 08/13/23 11/22/24 magnesium 250 mg tablet 250 mg PO DAILY 08/13/23 11/22/24 atorvastatin 10 mg tablet 10 mg PO HS 09/19/24 11/22/24 cholecalciferol (vitamin D3) 50 50 mcg PO DAILY 09/19/24 11/22/24 mcg (2,000 unit) capsule (Vitamin D3) furosemide 20 mg tablet 20 mg PO QAM 09/19/24 11/22/24 glucosamine sulfate 500 mg tablet 500 mg PO BID 09/19/24 11/22/24 (Glucosamine) metoprolol succinate 25 mg 12.5 mg PO QDL 09/19/24 11/22/24 tablet,extended release 24 hr pantoprazole 40 mg tablet,delayed 40 mg PO DAILY 09/19/24 11/22/24 release sertraline 25 mg tablet 25 mg PO DAILY 11/22/24 11/22/24 Previous Rx's Medication Instructions Recorded levothyroxine 50 mcg tablet 50 mcg PO DAILYBB #30 tabs 08/21/23 (Synthroid) Results & Data (ED) Vital Signs Vital Signs - 24 hr 11/22/24 17:27 11/22/24 17:36 11/22/24 17:41 Temperature 36.5 C Temperature Source Skin Pulse Rate 65 Pulse Rate from SpO2 Sensor Respiratory Rate 20 Respiratory Effort / Characteristics Non-Labored Spontaneous Respiratory Depth Normal Respiratory Pattern Regular Blood Pressure 135/79 Blood Pressure Mean 97 Pulse Oximetry 99 100 Oxygen Delivery Method Room Air Room Air Room Air Oxygen Flow Rate 100 Sepsis Recent Fever Within 48 Hours No Sepsis New/Unexplained Change in Mental Status N/A Sepsis Action Taken by Nursing No Action Required 11/22/24 17:41 11/22/24 18:12 11/22/24 18:16 Temperature Temperature Source Pulse Rate 67 67 67 Pulse Rate from SpO2 Sensor 67 Respiratory Rate 16 12 Respiratory Effort / Characteristics Respiratory Depth Respiratory Pattern Blood Pressure Blood Pressure Mean Pulse Oximetry 100 99 Oxygen Delivery Method Room Air Oxygen Flow Rate Sepsis Recent Fever Within 48 Hours Sepsis New/Unexplained Change in Mental Status Sepsis Action Taken by Nursing 11/22/24 18:21 11/22/24 18:27 11/22/24 18:30 Temperature Temperature Source Pulse Rate 68 67 Pulse Rate from SpO2 Sensor 68 67 Respiratory Rate 7 L 16 Respiratory Effort / Characteristics Respiratory Depth Respiratory Pattern Blood Pressure 159/88 H Blood Pressure Mean 114 Pulse Oximetry 100 100 Oxygen Delivery Method Oxygen Flow Rate Sepsis Recent Fever Within 48 Hours Sepsis New/Unexplained Change in Mental Status Sepsis Action Taken by Nursing 11/22/24 18:30 11/22/24 18:45 11/22/24 18:51 Temperature Temperature Source Pulse Rate 69 71 Pulse Rate from SpO2 Sensor 69 70 Respiratory Rate 10 L 33 H Respiratory Effort / Characteristics Respiratory Depth Respiratory Pattern Blood Pressure 159/88 H Blood Pressure Mean 114 Pulse Oximetry 99 98 Oxygen Delivery Method Oxygen Flow Rate Sepsis Recent Fever Within 48 Hours Sepsis New/Unexplained Change in Mental Status Sepsis Action Taken by Nursing 11/22/24 18:57 11/22/24 19:00 11/22/24 19:18 Temperature Temperature Source Pulse Rate 70 71 Pulse Rate from SpO2 Sensor 70 71 Respiratory Rate 19 29 H Respiratory Effort / Characteristics Respiratory Depth Respiratory Pattern Blood Pressure 184/99 H Blood Pressure Mean 124 Pulse Oximetry 98 98 Oxygen Delivery Method Oxygen Flow Rate Sepsis Recent Fever Within 48 Hours Sepsis New/Unexplained Change in Mental Status Sepsis Action Taken by Nursing 11/22/24 19:24 11/22/24 19:30 11/22/24 19:30 Temperature Temperature Source Pulse Rate 70 70 Pulse Rate from SpO2 Sensor 70 70 Respiratory Rate 20 40 H Respiratory Effort / Characteristics Respiratory Depth Respiratory Pattern Blood Pressure 175/85 H Blood Pressure Mean 115 Pulse Oximetry 98 98 Oxygen Delivery Method Oxygen Flow Rate Sepsis Recent Fever Within 48 Hours Sepsis New/Unexplained Change in Mental Status Sepsis Action Taken by Nursing 11/22/24 19:48 11/22/24 19:51 11/22/24 19:54 Temperature Temperature Source Pulse Rate 69 69 68 Pulse Rate from SpO2 Sensor 69 69 69 Respiratory Rate 21 34 H 25 H Respiratory Effort / Characteristics Respiratory Depth Respiratory Pattern Blood Pressure Blood Pressure Mean Pulse Oximetry 98 98 98 Oxygen Delivery Method Oxygen Flow Rate Sepsis Recent Fever Within 48 Hours Sepsis New/Unexplained Change in Mental Status Sepsis Action Taken by Nursing 11/22/24 20:00 11/22/24 20:00 11/22/24 20:09 Temperature Temperature Source Pulse Rate 69 Pulse Rate from SpO2 Sensor 69 Respiratory Rate 21 Respiratory Effort / Characteristics Respiratory Depth Respiratory Pattern Blood Pressure 173/78 H 173/78 H Blood Pressure Mean 124 124 Pulse Oximetry 99 Oxygen Delivery Method Oxygen Flow Rate Sepsis Recent Fever Within 48 Hours Sepsis New/Unexplained Change in Mental Status Sepsis Action Taken by Nursing 11/22/24 20:12 11/22/24 20:21 11/22/24 20:30 Temperature Temperature Source Pulse Rate 69 70 Pulse Rate from SpO2 Sensor Respiratory Rate 22 30 H Respiratory Effort / Characteristics Respiratory Depth Respiratory Pattern Blood Pressure 163/84 H Blood Pressure Mean 116 Pulse Oximetry Oxygen Delivery Method Oxygen Flow Rate Sepsis Recent Fever Within 48 Hours Sepsis New/Unexplained Change in Mental Status Sepsis Action Taken by Nursing 11/22/24 20:45 11/22/24 20:51 11/22/24 21:06 Temperature Temperature Source Pulse Rate 68 68 68 Pulse Rate from SpO2 Sensor Respiratory Rate 18 22 27 H Respiratory Effort / Characteristics Respiratory Depth Respiratory Pattern Blood Pressure Blood Pressure Mean Pulse Oximetry Oxygen Delivery Method Oxygen Flow Rate Sepsis Recent Fever Within 48 Hours Sepsis New/Unexplained Change in Mental Status Sepsis Action Taken by Nursing 11/22/24 21:21 11/22/24 21:30 11/22/24 21:30 Temperature Temperature Source Pulse Rate 68 Pulse Rate from SpO2 Sensor Respiratory Rate 9 L Respiratory Effort / Characteristics Respiratory Depth Respiratory Pattern Blood Pressure 204/93 H 204/93 H Blood Pressure Mean 117 117 Pulse Oximetry Oxygen Delivery Method Oxygen Flow Rate Sepsis Recent Fever Within 48 Hours Sepsis New/Unexplained Change in Mental Status Sepsis Action Taken by Nursing 11/22/24 21:30 11/22/24 21:31 11/22/24 21:31 Temperature Temperature Source Pulse Rate 67 Pulse Rate from SpO2 Sensor Respiratory Rate 21 Respiratory Effort / Characteristics Respiratory Depth Respiratory Pattern Blood Pressure 189/100 H 189/100 H Blood Pressure Mean 143 143 Pulse Oximetry Oxygen Delivery Method Oxygen Flow Rate Sepsis Recent Fever Within 48 Hours Sepsis New/Unexplained Change in Mental Status Sepsis Action Taken by Nursing 11/22/24 21:31 11/22/24 21:31 11/22/24 21:31 Temperature Temperature Source Pulse Rate Pulse Rate from SpO2 Sensor Respiratory Rate Respiratory Effort / Characteristics Respiratory Depth Respiratory Pattern Blood Pressure 189/100 H 189/100 H 189/100 H Blood Pressure Mean 143 143 143 Pulse Oximetry Oxygen Delivery Method Oxygen Flow Rate Sepsis Recent Fever Within 48 Hours Sepsis New/Unexplained Change in Mental Status Sepsis Action Taken by Nursing 11/22/24 21:33 11/22/24 21:48 11/22/24 22:00 Temperature Temperature Source Pulse Rate 67 67 Pulse Rate from SpO2 Sensor 67 67 Respiratory Rate 34 H 21 Respiratory Effort / Characteristics Respiratory Depth Respiratory Pattern Blood Pressure 175/97 H Blood Pressure Mean 125 Pulse Oximetry 100 100 Oxygen Delivery Method Oxygen Flow Rate Sepsis Recent Fever Within 48 Hours Sepsis New/Unexplained Change in Mental Status Sepsis Action Taken by Nursing 11/22/24 22:00 11/22/24 22:09 11/22/24 22:10 Temperature Temperature Source Pulse Rate 66 66 Pulse Rate from SpO2 Sensor 66 Respiratory Rate 22 Respiratory Effort / Characteristics Respiratory Depth Respiratory Pattern Blood Pressure 175/97 H Blood Pressure Mean 125 Pulse Oximetry 99 Oxygen Delivery Method Oxygen Flow Rate Sepsis Recent Fever Within 48 Hours Sepsis New/Unexplained Change in Mental Status Sepsis Action Taken by Nursing 11/22/24 22:12 11/22/24 22:21 Temperature Temperature Source Pulse Rate 65 67 Pulse Rate from SpO2 Sensor 65 66 Respiratory Rate 23 18 Respiratory Effort / Characteristics Respiratory Depth Respiratory Pattern Blood Pressure Blood Pressure Mean Pulse Oximetry 99 98 Oxygen Delivery Method Oxygen Flow Rate Sepsis Recent Fever Within 48 Hours Sepsis New/Unexplained Change in Mental Status Sepsis Action Taken by [facility] Medications Current Medication List: was personally reviewed by me Laboratory Data Attestation: I reviewed the patient's lab results. 11/22/24 18:05 11/22/24 18:05 Lab Results 11/22/24 11/22/24 11/22/24 Range/Units 18:05 18:05 20:14 WBC 11.58 H (4.8-10.8) K/ul RBC 4.69 (4.20-5.40) M/uL Hgb 14.6 (12.0-16.0) g/dl Hct 43.8 (37.0-47.0) % MCV 93.4 (80.0-100.0) fL MCH 31.1 (25.0-34.0) pg MCHC 33.3 (32.0-36.0) g/dL RDW Std Deviation 42.5 (36.4-46.3) fL RDW Coeff of Donis 12.5 (11.5-14.5) % Plt Count 185 (130-400) K/uL MPV 10.1 (9.4-12.4) fL Immature Gran % (Auto) 0.4 % Neut % (Auto) 70.0 % Lymph % (Auto) 20.7 % Villalba % (Auto) 7.9 % Eos % (Auto) 0.7 % Baso % (Auto) 0.3 % Neut # (Auto) 8.10 H (1.40-6.50) K/uL Lymph # (Auto) 2.40 (1.20-3.40) K/uL Villalba # (Auto) 0.91 H (0.11-0.59) K/uL Eos # (Auto) 0.08 (0.00-0.50) K/uL Baso # (Auto) 0.04 (0.00-0.20) K/uL Immature Gran # (Auto) 0.05 (0.01-0.20) K/uL PT 11.1 (9.0-12.0) Seconds INR 1.0 (0.9-1.1) APTT 30 (21-31) Seconds PTT Ratio 1.1 Sodium 136 (136-145) mmol/L Potassium 4.1 (3.5-5.1) mmol/L Chloride 100 (98-107) mmol/L Carbon Dioxide 28 (21-32) mmol/L Anion Gap 8 (3-11) BUN 18 (6-23) mg/dl Creatinine 0.78 (0.6-1.2) mg/dl Est Cr Clr Drug Dosing 31.7 ml/min eGFR 73.92 BUN/Creatinine Ratio 23.1 H (10-20) Glucose 86 (70-99(Fasting)) mg/dl Lactate 1.0 (0.4-2.0) mmol/L Calcium 9.7 (8.6-10.3) mg/dl Magnesium 2.2 (1.7-2.4) mg/dl Total Bilirubin 0.8 (0.2-1.0) mg/dl AST 28 (13-39) U/L ALT 14 (7-52) U/L Alkaline Phosphatase 104 (34-104) U/L Troponin I High Sens 10.0 (0-14) pg/ml Total Protein 7.5 (6.0-8.3) gm/dl Albumin 4.1 (3.4-5.0) gm/dl Globulin 3.4 (2.5-4.0) gm/dl Albumin/Globulin Ratio 1.2 (0.9-2) Lipase 41 Cancelled (11-82) U/L TSH 1.006 (0.300-4.500) uIu/ml Administered Medications Discontinued Medications Diphenhydramine HCl (Diphenhydramine 50 Mg/Ml Vial) 12.5 mg IV NOW STA Stop: 11/22/24 18:25 Last Admin: 11/22/24 18:38 Dose: 12.5 mg Documented By: BK Sodium Chloride (Nss) 500 mls @ 999 mls/hr IV .Q31M ONE Stop: 11/22/24 18:54 Last Infusion: 11/22/24 21:45 Dose: Infused Documented By: Admin: 11/22/24 18:37 Dose: 999 mls/hr Documented By: BK Famotidine (Pepcid 20mg Iv Push) 20 mg in 5 mls @ 2.5 mls/min IV NOW STA Stop: 11/22/24 18:25 Last Admin: 11/22/24 18:38 Dose: 2.5 mls/min Documented By: BK Pantoprazole Sodium (Protonix) 40 mg in 10 mls @ 5 mls/min IV NOW ONE Stop: 11/22/24 18:25 Last Admin: 11/22/24 18:38 Dose: 5 mls/min Documented By: BK Ioversol (Optiray 320 100ml) 90 ml IV ONCE ONE Stop: 11/22/24 19:08 Last Admin: 11/22/24 19:07 Dose: 90 ml Documented By: PATI Imaging Data Radiologist's Impression: Chest X-Ray 11/22/24 17:41 EXAM: Portable AP chest radiograph TECHNIQUE: AP portable radiograph of the chest was obtained. INDICATION: Chest pain Comparison: Chest radiograph June 28, 2024 FINDINGS: LINES and TUBES: None. CARDIOVASCULAR: Cardiac silhouette is stably enlarged in size. Atherosclerosis of the thoracic aorta LUNGS/PLEURA: No focal consolidation identified. Mild emphysema. No significant pleural fluid. No discernible pneumothorax. OSSEOUS/OTHER: No displaced acute osseous process identified. Surgical clips in the right upper quadrant of the abdomen IMPRESSION: Unchanged cardiomegaly. Electronically signed by Tony Greenberg 11-22-2024 6:35 PM Abdomen/Pelvis CT 11/22/24 18:24 CT of the abdomen pelvis with contrast Technique: Postcontrast axial images of the abdomen pelvis. Coronal and sagittal reformatted images made available for review Comparison made with prior exam dated 09/19/2024 Findings: Lung bases are clear. Postoperative changes prior cholecystectomy. Expected postoperative appearance of the intra and extrahepatic bile ducts with mild dilatation. Dense calcification at the origin of the celiac artery. Remaining solid abdominal organs unremarkable in appearance. No free air or intestinal obstruction. Moderate atherosclerotic change involving the common iliac arteries bilaterally. No significant lymphadenopathy or ascites within the abdomen or pelvis. Bone windows demonstrate no focal abnormality urinary bladder is unremarkable. Uterus is within normal limits. Impression: Postoperative changes prior cholecystectomy Dense calcification of the origin of the celiac artery. CT of the abdomen pelvis negative for acute intra-abdominal pathology. Electronically signed by Ghassan Perdomo 11-22-2024 8:03 PM Discharge Plan Visit Data Chief Complaint: Cardiac Assessment Stated Complaint: SOB,LOSS OF APPETITE,WEIGHTLOSS,CHEST PAIN ED Provider: Sunil Dill Discharge Problem: Precordial chest pain, Weakness, Epigastric abdominal pain, Weight loss, Leukocytosis Patient Disposition: Admitted As Inpatient Condition: Fair Forms Stand Alone [facility] Prescriptions Prescriptions: No Action allopurinol 100 mg Tablet 100 mg PO DAILY Eliquis 2.5 mg Tablet 2.5 mg PO BID atorvastatin 10 mg tablet 10 mg PO HS glucosamine sulfate [Glucosamine] 500 mg Tablet 500 mg PO BID Rx Instructions: administer with meals pantoprazole 40 mg tablet,delayed release (DR/EC) 40 mg PO DAILY furosemide 20 mg tablet 20 mg PO QAM metoprolol succinate 25 mg tablet extended release 24 hr 12.5 mg PO QDL cholecalciferol (vitamin D3) [Vitamin D3] 50 mcg (2,000 unit) Capsule 50 mcg PO DAILY magnesium 250 mg Tablet 250 mg PO DAILY B-complex with vitamin C Capsule 1 cap PO DAILY levothyroxine [Synthroid] 50 mcg Tablet 50 mcg PO DAILYBB Qty: 30 0RF Rx Instructions: PT TAKES IN THE MIDDLE OF THE NIGHT SOMETIME BETWEEN 1 AM AND 5 AM sertraline 25 mg tablet 25 mg PO DAILY Referrals Referrals: Sanjiv Serrano [Primary Care Provider] - Discharge Problem: Leukocytosis Qualifiers: Leukocytosis type: unspecified Qualified Code(s): D72.829 - Elevated white blood cell count, unspecified
[2024-11-22 18:36] LABS: Bilirubin,Total 0.8 mg/dl (0.2-1.0); Calcium 9.7 mg/dl (8.6-10.3); Magnesium 2.2 mg/dl (1.7-2.4); Potassium 4.1 mmol/L (3.5-5.1)
--- NOTE | 2024-11-22 18:36 | XRay Report ---
EXAM: Portable AP chest radiograph TECHNIQUE: AP portable radiograph of the chest was obtained. INDICATION: Chest pain Comparison: Chest radiograph June 28, 2024 FINDINGS: LINES and TUBES: None. CARDIOVASCULAR: Cardiac silhouette is stably enlarged in size. Atherosclerosis of the thoracic aorta LUNGS/PLEURA: No focal consolidation identified. Mild emphysema. No significant pleural fluid. No discernible pneumothorax. OSSEOUS/OTHER: No displaced acute osseous process identified. Surgical clips in the right upper quadrant of the abdomen IMPRESSION: Unchanged cardiomegaly. Electronically signed by Tony Greenberg 11-22-2024 6:35 PM
[2024-11-22] MEDS: SODIUM CHLORIDE 0.9% 500 ML IV ONE (18:37)
[2024-11-22 18:38] LABS: Partial Thromboplastin Ratio 1.1; Partial Thromboplastin Time 30 Seconds (21-31); Prothrombin Time 11.1 Seconds (9.0-12.0)
[2024-11-22] MEDS: PANTOprazole 40 MG/10 ML SYR IV ONE (18:38)
[2024-11-22] MEDS: FAMOTIDINE 20MG IV PUSH 20 MG/5 ML SYR IV STA (18:38)
[2024-11-22] MEDS: diphenhydrAMINE 50 MG/ML VIAL IV STA (18:38)
[2024-11-22 18:42] LABS: Albumin Globulin Ratio 1.2 (0.9-2); BUN Creatinine Ratio 23.1 (10-20); Creatinine Clr Calc Pharmacy 31.7 ml/min; Globulin 3.4 gm/dl (2.5-4.0); Total Protein 7.5 gm/dl (6.0-8.3)
[2024-11-22] MEDS: OPTIRAY 320 100ml IV ONE (19:07)
--- NOTE | 2024-11-22 20:04 | CT Scan Report ---
CT of the abdomen pelvis with contrast Technique: Postcontrast axial images of the abdomen pelvis. Coronal and sagittal reformatted images made available for review Comparison made with prior exam dated 09/19/2024 Findings: Lung bases are clear. Postoperative changes prior cholecystectomy. Expected postoperative appearance of the intra and extrahepatic bile ducts with mild dilatation. Dense calcification at the origin of the celiac artery. Remaining solid abdominal organs unremarkable in appearance. No free air or intestinal obstruction. Moderate atherosclerotic change involving the common iliac arteries bilaterally. No significant lymphadenopathy or ascites within the abdomen or pelvis. Bone windows demonstrate no focal abnormality urinary bladder is unremarkable. Uterus is within normal limits. Impression: Postoperative changes prior cholecystectomy Dense calcification of the origin of the celiac artery. CT of the abdomen pelvis negative for acute intra-abdominal pathology. Electronically signed by Ghassan Perdomo 11-22-2024 8:03 PM
--- NOTE | 2024-11-22 22:39 | History & Physical Report ---
Date of Service November 22, 2024 Assessment & Plan (1) Epigastric abdominal pain: (2) Failure to thrive: (3) Severe protein-calorie malnutrition: (4) Leukocytosis: (5) Precordial chest pain: (6) Dementia: (7) Depression: (8) Hypothyroid: (9) Hypertension: (10) Paroxysmal atrial fibrillation: (11) History of stroke: (12) Abnormal CT of the abdomen: (13) Dyspnea on exertion: Plan 84yo female, originally from [place] and Mandarin [place] speaking only - with history of dementia, stroke in 2019, PAF on Eliquis, hypothyroidism, cholecystectomy in 2022, HTN, and GERD - who presents from home with her daughter due to a host of symptoms including weakness/tiredness/fatigue, dec reased strength, decreased appetite, shortness of breath (both at rest and with exertion), voice changes, burning sensation in chest, "heavy sensation" in her abdomen/abdominal pain, difficulty swallowing, and weight loss. Over the last 3-4 days the patient's abdominal pain worsened. She has been eating/drinking very little. 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 -will obtain mesenteric doppler to rule out high-grade stenosis; if celiac artery stenosis is present this certainly could be contributing to her symptoms #severe protein calorie malnutrition with failure to thrive - -was 44.3kg in August 2024; now 39kg; >10% weight loss in 2-3 months -whatever the cause is of her GI symptoms may be the food mobile driver of her weight loss -dementia is advancing and that, too, is likely playing a significant role in her overall failure to thrive -pt's daughter mentions depression - that can factor in as a secondary role -will add MVI -add boost BID -consulting GI for consideration of EGD #leukocytosis - -thus far no source of infection found - CXR wnl; CT a/p without source; LFTS/lipase wnl; waiting on u/a and urine cx -COVID/flu/RSV negative #chest discomfort - -uncertain if related to her GI complaints vs entirely separate issue -troponin is negative; EKG w/o ischemic changes -she certainly has CAD risk factors (HTN, hyperlipidemia, prior stroke, etc) but poor candidate for ischemic w/u -reasonable to recheck an echo to assess for new wall motion abnormalities, etc. #dyspnea on exertion - -per cardiology notes from [facility] this has been a chronic, ongoing issue for some time -due to pulmonary HTN? has significant right heart disease and severe TR on previous echo in 2023 -CXR today is wnl, and o2 sats are 100% in room air -recheck echo and go from there #paroxysmal a.fib - -place on tele -cont Eliquis 2.5mg BID -cont meto succ daily #hypothyroidism - -pt's daughter asked for recheck of TSH; at her request will do so -previous TSH in 07/2024 was wnl, however -cont synthroid #HTN - -since ER arrival all BPs have been elevated, including some with systolics >200 -is on low-dose meto succ and lasix only -since she is not eating/drinking and not hypervolemic will hold lasix for now -cont meto succ (HRs are 60s; may not be able to titrate further) -if BPs remain elevated may need additional therapy #depression - -consider mirtazapine in jesse of sertraline as former may help with appetite #DVT Proph - -Eliquis 2.5mg BID will ask PT/OT to consult while here History of Present Illness Chief Complaint: abdominal pain, chest discomfort, weakness Primary Care Provider: Sanjiv Serrano 84yo female, originally from [place] and came [place] in [place] - with history of dementia, stroke in 2019, PAF on Eliquis, hypothyroidism, cholecystectomy in 2022, HTN, and GERD - who presents from home with her daughter due to a host of symptoms & issues including weakness/tiredness/fatigue, decreased strength, decreased appetite, shortness of breath (both at rest and with exertion), voice changes, burning sensation in chest, "heavy sensation" in her abdomen, difficulty swallowing, and weight loss. Patient only speaks Mandarin [place]; I offered an coffee blender service to the patient's daughter and she declined this. The patient did not offer any information spontaneously during the visit; she rarely spoke during the encounter unless her daughter asked a question. The patient's daughter mentioned multiple times throughout the visit that many of her mom's symptoms have been present "for a long time." The weakness, dyspnea, and chest/abdominal symptoms have been present chronically. In fact, I was able to review an outpatient cardiology note from [facility] dated 07/21/24 that actually discusses many if not most of the same issues. The cardiology note states that the epigastric discomfort has been present for over a year or more. During today's encounter the patient's daughter states her mother's abdominal pain worsened over the last 3-4 days to the point where she is simply not eating. Symptoms seem worst in the am upon awakening. No obvious pain with eating, but again she is eating/drinking very little. Patient's daughter does not report any choking on food/beverage, but states that her mother "doesn't have the strength to swallow." There are times that the pain seems to be in the chest in addition to the abdomen. No recent burping/belching. She has 1 soft stool each day. Has hemorrhoids, but no recent BRBPR. No melena. Over the last few weeks - the date is uncertain - the patient stopped her pepcid & protonix. Patient thought the medications were making her feel worse? Patient had an EGD at [facility] in March [address] Richard Armstrong. EGD was completely normal - esophagus, stomach, and duodenum demonstrated no abnormalities. Allergies Allergy/AdvReac Type Severity Reaction Status Date / Time shellfish derived Allergy Intermediate Rash Verified 09/24/24 08:29 hydrochlorothiazide AdvReac Severe severe Verified 09/24/24 08:29 hyponatremia lactose AdvReac Abdominal Unverified 11/22/24 21:46 Pain Home Medications Medication Instructions Recorded Confirmed Type allopurinol 100 mg tablet 100 mg PO DAILY 01/21/23 11/22/24 History apixaban 2.5 mg tablet (Eliquis) 2.5 mg PO BID 01/21/23 11/22/24 History B-complex with vitamin C 1 cap PO DAILY 08/13/23 11/22/24 History magnesium 250 mg tablet 250 mg PO DAILY 08/13/23 11/22/24 History levothyroxine 50 mcg tablet 50 mcg PO DAILYBB #30 tabs 08/21/23 11/22/24 Rx (Synthroid) atorvastatin 10 mg tablet 10 mg PO HS 09/19/24 11/22/24 History cholecalciferol (vitamin D3) 50 50 mcg PO DAILY 09/19/24 11/22/24 History mcg (2,000 unit) capsule (Vitamin D3) furosemide 20 mg tablet 20 mg PO QAM 09/19/24 11/22/24 History glucosamine sulfate 500 mg tablet 500 mg PO BID 09/19/24 11/22/24 History (Glucosamine) metoprolol succinate 25 mg 12.5 mg PO QDL 09/19/24 11/22/24 History tablet,extended release 24 hr pantoprazole 40 mg tablet,delayed 40 mg PO DAILY 09/19/24 11/22/24 History release sertraline 25 mg tablet 25 mg PO DAILY 11/22/24 11/22/24 History Past Med/Surg History Problem List (Updated 11/23/24 @ 01:18 by Alden Cuellar MD) Dyspnea on exertion Abnormal CT of the abdomen History of stroke Paroxysmal atrial fibrillation Severe protein-calorie malnutrition Failure to thrive Leukocytosis (Acute) Weight loss (Acute) Epigastric abdominal pain (Acute) Weakness (Acute) Precordial chest pain (Acute) Ambulatory dysfunction Hypokalemia Electrolyte abnormality Elevated TSH (Acute) Thrombocytopenia (Acute) Edema due to hypervolemia (Acute) Hypomagnesemia (Acute) Hyponatremia (Acute) Elevated LFTs Muscle spasm of right leg Weakness (Acute) Cholecystitis (Acute) Fall (Acute) Slurred speech (Acute) Medical History (Updated 11/23/24 @ 01:18 by Alden Cuellar MD) Dementia CHF (congestive heart failure) Depression Hypothyroid Acute cholecystitis A-fib paroxysmal Hypertension Vertebral artery stenosis Stroke Surgical History (Updated 11/23/24 @ 00:52 by Alden Cuellar MD) Hx laparoscopic cholecystectomy (01/23/23) Laparoscopic Cholecystectomy(Not Applicable) - Yoan Beckford MD, FACS S/P hemorrhoidectomy H/O pneumonectomy H/O unilateral oophorectomy Family History (Updated 11/23/24 @ 00:53 by Alden Cuellar MD) Mother High cholesterol Father Heart disease Hypertension High cholesterol Cancer Substance abuse Brother Heart disease High cholesterol Hypertension Substance abuse Son Hypertension High cholesterol Sister Gastric cancer Social History (Updated 11/23/24 @ 00:54 by Alden Cuellar MD) Smoking Status: Never smoker Second Hand Exposure: No; Hx Alcohol Use: No Hx Substance Use: No Preferred Language: Mandarin [place] Communication Ability: Effective Communication Ability Comment: Daughter at bedside helps to translate in addition to coffee blender Communication Tools: Other Visual Impairment: Limited Floor Mechanic Required: Yes Beliefs That Will Affect Care: None marital status: / Current Living Situation: Family Current Living Situation Comment: lives with daughter in [place] current occupational status: retired current occupation: [employer] in [employer] How many Children do You have: 3 Feels Safe at Home: Yes Assistive Devices: Cane Review of Systems Review of Systems: gen - no fevers or rigors; +weight loss - at least 5 pounds of weight recently; eating very poorly eyes - no recent ocular issues HENT - no ear pain or sore throat; voice changes per daughter CV - chest discomfort/burning, no orthopnea, no PND, no edema pulm - dyspnea at rest, dyspnea on exertion, no cough GI - no nausea or emesis; +pain, worse last 3-4 days; no BRBPR; no melena; no diarrhea or constipation - no dysuria musculo - no areas of pain today; no myalgias; does get cramps in feet at times skin - no rash neuro - no headaches; generalized weakness; no paresthesias endo - no diabetes psych - depression, memory difficulties Physical Exam Physical Exam: gen - NAD, lying comfortably in bed, very thin, very quiet - did not offer spontaneous discussion eyes - PERRL HENT - right TM not seen due to cerumen impaction; left TM wnl; nose clear; mouth - MMM, no lesions neck - no JVD, no lymph nodes, no goiter heart - RRR, s1 s2, 2/6 systolic murmur LLSB lungs - CTA b/l abd - soft NT ND BS+; no HSM ext - no edema, pulses b/l feet 2+ skin - no rash neuro - strength 5/5 x 4 exts; no facial droop; DTRs 2+ b/l upper & lower exts; no tremor; no proximal muscle weakness psych - oriented to person only; when asked in Iraqi the year she did not know such Results & Data Results & Data Vital Signs (Past 12 Hours) Vital Signs Temp Pulse Resp BP Pulse Ox O2 Del Method O2 Flow Rate 11/22/24 22:21 67 18 98 11/22/24 22:12 65 23 99 11/22/24 22:10 66 11/22/24 22:09 66 22 99 11/22/24 22:00 175/97 H 11/22/24 22:00 175/97 H 11/22/24 21:48 67 21 100 11/22/24 21:33 67 34 H 100 11/22/24 21:31 189/100 H 11/22/24 21:31 189/100 H 11/22/24 21:31 189/100 H 11/22/24 21:31 189/100 H 11/22/24 21:31 189/100 H 11/22/24 21:30 67 21 11/22/24 21:30 204/93 H 11/22/24 21:30 204/93 H 11/22/24 21:21 68 9 L 11/22/24 21:06 68 27 H 11/22/24 20:51 68 22 11/22/24 20:45 68 18 11/22/24 20:30 163/84 H 11/22/24 20:21 70 30 H 11/22/24 20:12 69 22 11/22/24 20:09 69 21 99 11/22/24 20:00 173/78 H 11/22/24 20:00 173/78 H 11/22/24 19:54 68 25 H 98 11/22/24 19:51 69 34 H 98 11/22/24 19:48 69 21 98 11/22/24 19:30 70 40 H 98 11/22/24 19:30 175/85 H 11/22/24 19:24 70 20 98 11/22/24 19:18 71 29 H 98 11/22/24 19:00 184/99 H 11/22/24 18:57 70 19 98 11/22/24 18:51 71 33 H 98 11/22/24 18:45 69 10 L 99 11/22/24 18:30 159/88 H 11/22/24 18:30 159/88 H 11/22/24 18:27 67 16 100 11/22/24 18:21 68 7 L 100 11/22/24 18:16 67 11/22/24 18:12 67 12 99 11/22/24 17:41 67 16 100 Room Air 11/22/24 17:41 100 Room Air 11/22/24 17:36 36.5 C 65 20 135/79 99 Room Air 11/22/24 17:27 Room Air 100 Laboratory Results Laboratory Results - last 24 hr 11/22/24 11/22/24 11/22/24 18:05 18:05 20:14 WBC 11.58 H RBC 4.69 Hgb 14.6 Hct 43.8 MCV 93.4 MCH 31.1 MCHC 33.3 RDW Std Deviation 42.5 RDW Coeff of Donis 12.5 Plt Count 185 MPV 10.1 Immature Gran % (Auto) 0.4 Neut % (Auto) 70.0 Lymph % (Auto) 20.7 [place] % (Auto) 7.9 Eos % (Auto) 0.7 Baso % (Auto) 0.3 Neut # (Auto) 8.10 H Lymph # (Auto) 2.40 [place] # (Auto) 0.91 H Eos # (Auto) 0.08 Baso # (Auto) 0.04 Immature Gran # (Auto) 0.05 PT 11.1 INR 1.0 APTT 30 PTT Ratio 1.1 Sodium 136 Potassium 4.1 Chloride 100 Carbon Dioxide 28 Anion Gap 8 BUN 18 Creatinine 0.78 Est Cr Clr Drug Dosing 31.7 eGFR 73.92 BUN/Creatinine Ratio 23.1 H Glucose 86 Lactate 1.0 Calcium 9.7 Magnesium 2.2 Total Bilirubin 0.8 AST 28 ALT 14 Alkaline Phosphatase 104 Troponin I High Sens 10.0 Total Protein 7.5 Albumin 4.1 Globulin 3.4 Albumin/Globulin Ratio 1.2 Lipase 41 Cancelled TSH 1.006 SARS-CoV-2 (PCR) Influenza Type A (PCR) Influenza Type B (PCR) RSV (RT-PCR) 11/22/24 23:08 WBC RBC Hgb Hct MCV MCH MCHC RDW Std Deviation RDW Coeff of Donis Plt Count MPV Immature Gran % (Auto) Neut % (Auto) Lymph % (Auto) Washburn % (Auto) Eos % (Auto) Baso % (Auto) Neut # (Auto) Lymph # (Auto) [place] # (Auto) Eos # (Auto) Baso # (Auto) Immature Gran # (Auto) PT INR APTT PTT Ratio Sodium Potassium Chloride Carbon Dioxide Anion Gap BUN Creatinine Est Cr Clr Drug Dosing eGFR BUN/Creatinine Ratio Glucose Lactate Calcium Magnesium Total Bilirubin AST ALT Alkaline Phosphatase Troponin I High Sens Total Protein Albumin Globulin Albumin/Globulin Ratio Lipase TSH SARS-CoV-2 (PCR) NEGATIVE Influenza Type A (PCR) Negative Influenza Type B (PCR) Negative RSV (RT-PCR) Negative Diagnostic Findings Chest X-Ray 11/22/24 17:41 EXAM: Portable AP chest radiograph TECHNIQUE: AP portable radiograph of the chest was obtained. INDICATION: Chest pain Comparison: Chest radiograph June 28, 2024 FINDINGS: LINES and TUBES: None. CARDIOVASCULAR: Cardiac silhouette is stably enlarged in size. Atherosclerosis of the thoracic aorta LUNGS/PLEURA: No focal consolidation identified. Mild emphysema. No significant pleural fluid. No discernible pneumothorax. OSSEOUS/OTHER: No displaced acute osseous process identified. Surgical clips in the right upper quadrant of the abdomen IMPRESSION: Unchanged cardiomegaly. Electronically signed by Tony Greenberg 11-22-2024 6:35 PM Abdomen/Pelvis CT 11/22/24 18:24 CT of the abdomen pelvis with contrast Technique: Postcontrast axial images of the abdomen pelvis. Coronal and sagittal reformatted images made available for review Comparison made with prior exam dated 09/19/2024 Findings: Lung bases are clear. Postoperative changes prior cholecystectomy. Expected postoperative appearance of the intra and extrahepatic bile ducts with mild dilatation. Dense calcification at the origin of the celiac artery. Remaining solid abdominal organs unremarkable in appearance. No free air or intestinal obstruction. Moderate atherosclerotic change involving the common iliac arteries bilaterally. No significant lymphadenopathy or ascites within the abdomen or pelvis. Bone windows demonstrate no focal abnormality urinary bladder is unremarkable. Uterus is within normal limits. Impression: Postoperative changes prior cholecystectomy Dense calcification of the origin of the celiac artery. CT of the abdomen pelvis negative for acute intra-abdominal pathology. Electronically signed by Ghassan Perdomo 11-22-2024 8:03 PM EKG - my reading - NSR, first degree AVB, no ST changes; last EKG 08/2024 showed rate-controlled a.fib Code Status & VTE Plan Code Status DNR/DNI - confirmed with pt's daughter VTE Prophylaxis Plan VTE Prophylaxis will be ordered: Yes PG Care Time/CCT Total # of Minutes Spent Total Time Spent with Patient: Total time spent is greater than 50% in coordination of care (as documented) at patient's floor/unit and/or counseling patient: Coding Level of Care Code 43186 INT INP/OBS CARE 3/75MIN Diagnoses Epigastric abdominal pain R10.13 Failure to thrive Severe protein-calorie malnutrition E43 Leukocytosis D72.829 Leukocytosis type: unspecified Precordial chest pain R07.2 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 Dyspnea on exertion R06.09 (4) Leukocytosis Leukocytosis type: unspecified Qualified Code(s): D72.829 - Elevated white blood cell count, unspecified (6) Dementia Dementia type: Alzheimer's Alzheimer's disease onset: late onset Dementia severity: mild Dementia behavioral or psychological symptom: with mood disturbance Qualified Code(s): G30.1 - Alzheimer's disease with late onset; F02.A3 - Dementia in other diseases classified elsewhere, mild, with mood disturbance
[2024-11-22 23:06] LABS: Thyroid Stimulating Hormone 1.006 uIu/ml (0.300-4.500)
[2024-11-23 00:04] LABS: Influenza A virus by PCR Negative (Neg); Influenza B virus by PCR Negative (Neg); RSV by PCR Negative (Neg); SARS CoV2 RNA(COVID-19) Ceph NEGATIVE (Negative)
[2024-11-23] MEDS ORDERED: ONDANSETRON INJ 2 MG/ML 2 ML VIAL IV PRN (01:17)
[2024-11-23] MEDS ORDERED: ACETAMINOPHEN 325 MG TAB PO PRN (01:17)
[2024-11-23] MEDS: SUCRALFATE 1 GM/10 ML UDC PO SCH (02:09)
[2024-11-23] MEDS: LEVOTHYROXINE SODIUM 50 MCG TABLET PO SCH (06:03)
[2024-11-23 07:54] LABS: Appearance Urine Clear (Clear); Bacteria Urine Automated None Seen (None Seen); Bilirubin Urine Negative (Negative); Blood Urine 2+ (Negative); Cast Urine Automated 0-2 /lpf (0-2); Color Urine Yellow; Epithelial Cell Urine Auto 0-2 /hpf (0-2); Glucose Urine UA Negative (Negative); Ketones Urine Negative (Negative); Leukocyte Esterase Urine Trace (Negative); Nitrite Urine Negative (Negative); Protein Urine Negative (Negative); Specific Gravity Urine 1.023 (1.000-1.030); Urobilinogen Urine Negative (Negative); WBC Urine Automated 0-5 /hpf (0-5); pH Urine 7.5 (4.5-7.5)
--- NOTE | 2024-11-23 08:12 | Ultrasound Report ---
EXAM: US duplex mesenteric CLINICAL HISTORY: epigastric pain,weight loss,abnl celiac art on CT TECHNIQUE: Ultrasound examination of the abdominal arteries was performed. Scanning was performed with the patient in supine position. One or more of the following were performed- spectral analysis, resistive index, waveform analysis, and pulsed Doppler. COMPARISON: Prior CT dated 09/19/2024 for comparison. FINDINGS: Limited exam due to patient inability to understand/follow commands. Abdominal aorta: PSV - 54 cm/s, EDV - 14 cm/s Superior mesenteric artery: Proximal: PSV - 107 cm/s, EDV - 15 cm/s Mid: PSV - 123 cm/s, EDV - 20 cm/s Distal: PSV - 73 cm/s, EDV - 8 cm/s Celiac artery: Proximal: PSV - 88 cm/s, EDV - 19 cm/s Abdominal aorta, celiac and superior mesenteric arteries show normal color flow and spectral waveform. No significant stenosis or occlusion seen. IMPRESSION: No significant vascular stenosis or occlusion seen in examined vessels. RECOMMENDATIONS: Clinical correlation with symptoms and further evaluation as indicated. Electronically signed by Spencer Gruber 11-23-2024 08:12 AM
[2024-11-23] MEDS: CHOLECALCIFEROL 25 MCG (1000 UNITS) TAB PO SCH (08:44)
[2024-11-23] MEDS: CEROVITE ADV FORMULA TAB PO SCH (08:44)
[2024-11-23] MEDS: allopurinoL 100 MG TAB PO SCH (08:44)
[2024-11-23] MEDS: PANTOprazole 40 MG TAB PO SCH (08:44)
[2024-11-23] MEDS: SERTRALINE HCL 50 MG TABLET PO SCH (08:45)
[2024-11-23] MEDS: APIXABAN 2.5 MG TAB PO SCH (08:45)
[2024-11-23] MEDS: MAGNESIUM OXIDE 400 MG TAB PO SCH (08:45)
--- NOTE | 2024-11-23 11:03 | Hospitalist Progress Note ---
Date of Service November 23, 2024 Assessment & Plan (1) Epigastric abdominal pain: Plan: -gastritis vs PUD -PPI -carafate -GI consulted for possible EDG (2) Failure to thrive: Plan: -Boost BID (3) Leukocytosis: Plan: thus far no source of infection found - CXR wnl; CT a/p without source; LFTS/lipase wnl; waiting on u/a and urine cx -COVID/flu/RSV negative (4) Precordial chest pain: Plan: per cardiology notes from [facility] this has been a chronic, ongoing issue for some time -due to pulmonary HTN? 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 Over the last 3-4 days the patient's abdominal pain worsened. She has been eating/drinking very little. Admission and Anticipated Discharge Date Admission Date: November 22, 2024 Subjective No events overnight. Pt still complaining of epigastric burning as per daughter. Review of Systems Review of Systems: CONST: Negative for fever, body aches and chills. HENT: Negative for neck pain/stiffness, headache, congestion, sore throat, swelling. EYES: Negative for discharge/pain or vision changes. RESP: Negative for cough/hemoptysis and shortness of breath. CV: Negative chest pain, difficulty breathing, palpitations. ABD: Negative pain, nausea, vomiting. : Negative increase frequency, dysuria, blood in urine or stool. MUSC: Negative for muscle aches, edema. SKIN: Negative rash, lesions/sores. NEURO: Negative headache, dizziness, weakness. Physical Exam Physical Exam: GENERAL APPEARANCE NAD, activity normal for age, well developed/ well nourished, no cyanosis, pallor, or diaphoresis. EYES lids/conjunctiva normal. EARS/NOSE/THROAT Mucous membranes moist, nares no rmal, lips/teeth normal uvula midline without oral pharyngeal erythema, exudate or swelling TMs normal bilaterally. No lymphangitis/lymphedema. HEAD/NECK normocephalic atraumatic, no facial trauma, neck is supple. RESPIRATORY respiratory effort normal, speaks in full sentences, no tripod position, no accessory muscle use. Lungs clear to auscultation without rhonchi, wheezes, rales CARDIAC Regular rate and rhythm, no edema. ABDOMINAL Soft, ND/NT. No evidence of fluid wave. No pulsatile masses on exam, rebound tenderness, Santana sign or pain over Mcburney's point. MUSCLES/EXTREMITIES No abnormal range of motion, no swelling. SKIN Warm, pink and dry. No rashes, dermatoses, petechiae or lesions. NEUROLOGICAL Speech is clear and appropriate. Normal level of consciousness. Gait and coordination are normal. 5/5 strength in all extremities. PSYCH Normal mood and affect. Judgement/competence is appropriate Results & Data Results & Data Vital Signs (Past 12 Hours) Vital Signs Temp Pulse Pulse Resp BP BP Pulse Ox 11/23/24 08:00 65 11/23/24 07:24 36.4 C L 89 18 134/88 97 11/23/24 01:22 65 11/23/24 01:18 11/23/24 01:18 36.4 C L 67 18 150/72 H 97 11/23/24 01:17 36.4 C L 67 18 150/72 H 97 11/23/24 01:04 61 20 164/83 H 98 11/22/24 23:30 62 18 158/89 H 98 O2 Del Method 11/23/24 08:00 11/23/24 07:24 Room Air 11/23/24 01:22 11/23/24 01:18 Room Air 11/23/24 01:18 Room Air 11/23/24 01:17 Room Air 11/23/24 01:04 11/22/24 23:30 PG Care Time/CCT Total # of Minutes Spent Total Time Spent with Patient: Total time spent is greater than 50% in coordination of care (as documented) at patient's floor/unit and/or counseling patient: Coding Level of Care Code 53990 SUB INP/OBS CARE 2/35MIN Diagnoses Epigastric abdominal pain R10.13 Failure to thrive Leukocytosis D72.829 Leukocytosis type: unspecified Precordial chest pain R07.2 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 (3) Leukocytosis Leukocytosis type: unspecified Qualified Code(s): D72.829 - Elevated white blood cell count, unspecified (5) Dementia Dementia type: Alzheimer's Alzheimer's disease onset: late onset Dementia severity: mild Dementia behavioral or psychological symptom: with mood disturbance Qualified Code(s): G30.1 - Alzheimer's disease with late onset; F02.A3 - Dementia in other diseases classified elsewhere, mild, with mood disturbance
[2024-11-23] MEDS: METOPROLOL SUCC 25MG EXT REL TAB PO SCH (11:26)
--- NOTE | 2024-11-23 15:44 | Gastrointestinal Consultation ---
Date of Consultation November 23, 2024 Assessment & Plan (1) Epigastric abdominal pain: Elderly lady with abdominal pain of several years duration. It has been worked up before and negative. I do think repeat EGD is warranted and I plan to do this tomorrow. Her pain does suggest vascular issues to the gut but testing has not borne that out. It is possible that depression can cause this type of issue but then chronic pain can lead to depression. I am unaware how severe her heart failure is but it is possible that is causing some of her pain but also could be causing her lack of interest in eating. If EGD is negative I don't know that I will have any other workup recommendations. History of Present Illness Reason for Consultation: abdominal pain Attending Physician: Deion Bradley MD History of Present Illness 84 year old Romansh female who is here for abdominal pain. History is taken with help of patient's daughter both for translational reasons and the patient does not feel well enough to talk much. She has had intermittent abdominal "burning" pain for "a long time now". It is not so bad some days and worse on others. She was put on PPI and H2 blockers recently and had three days without pain. Then the pain returned so she was frustrated and stopped her meds and she had another three days without burning. The pain does not worsen with eating. Patient just feels too tired to eat so she has lost some weight. She has heart failure and patient has related to the daughter that she feels too tired to b reathe. She did have an endoscopy a few years ago for this pain and it was normal. Allergies Allergy/AdvReac Type Severity Reaction Status Date / Time shellfish derived Allergy Intermediate Rash Verified 09/24/24 08:29 hydrochlorothiazide AdvReac Severe severe Verified 09/24/24 08:29 hyponatremia lactose AdvReac Abdominal Unverified 11/22/24 21:46 Pain Home Medications Medication Instructions Recorded Confirmed Type allopurinol 100 mg tablet 100 mg PO DAILY 01/21/23 11/22/24 History apixaban 2.5 mg tablet (Eliquis) 2.5 mg PO BID 01/21/23 11/22/24 History B-complex with vitamin C 1 cap PO DAILY 08/13/23 11/22/24 History magnesium 250 mg tablet 250 mg PO DAILY 08/13/23 11/22/24 History levothyroxine 50 mcg tablet 50 mcg PO DAILYBB #30 tabs 08/21/23 11/22/24 Rx (Synthroid) atorvastatin 10 mg tablet 10 mg PO HS 09/19/24 11/22/24 History cholecalciferol (vitamin D3) 50 50 mcg PO DAILY 09/19/24 11/22/24 History mcg (2,000 unit) capsule (Vitamin D3) furosemide 20 mg tablet 20 mg PO QAM 09/19/24 11/22/24 History glucosamine sulfate 500 mg tablet 500 mg PO BID 09/19/24 11/22/24 History (Glucosamine) metoprolol succinate 25 mg 12.5 mg PO QDL 09/19/24 11/22/24 History tablet,extended release 24 hr pantoprazole 40 mg tablet,delayed 40 mg PO DAILY 09/19/24 11/22/24 History release sertraline 25 mg tablet 25 mg PO DAILY 11/22/24 11/22/24 History Patient History Medical History Dementia CHF (congestive heart failure) Depression Hypothyroid Acute cholecystitis A-fib paroxysmal Hypertension Vertebral artery stenosis Stroke Surgical History Hx laparoscopic cholecystectomy (01/23/23) Laparoscopic Cholecystectomy(Not Applicable) - Yoan Beckford MD, FACS S/P hemorrhoidectomy H/O pneumonectomy H/O unilateral oophorectomy Family History Mother High cholesterol Father Heart disease Hypertension High cholesterol Cancer Substance abuse Brother Heart disease High cholesterol Hypertension Substance abuse Son Hypertension High cholesterol Sister Gastric cancer Social History Smoking Status: Never smoker Second Hand Exposure: No; Hx Alcohol Use: No Hx Substance Use: No Preferred Language: Mandarin Romansh Communication Ability: Effective Communication Ability Comment: Used plate cutter and provided translation paper Communication Tools: Other Visual Impairment: Limited Order Desk Caller Required: Yes Beliefs That Will Affect Care: None marital status: / Current Living Situation: Family Current Living Situation Comment: lives with daughter in [place] current occupational status: retired current occupation: [employer] in [employer] How many Children do You have: 3 Feels Safe at Home: Yes Assistive Devices: Walker and Wheelchair Review of Systems Review of Systems: Unobtainable due to cognitive status Physical Exam Physical Exam: Elderly female who falls asleep during visit Constitutional: + ill appearing Neck: trachea midline, no thyromegaly Respiratory: normal respiratory effort, lungs clear to auscultation Cardiovascular: RRR, no murmur, no edema Gastrointestinal (Abdomen): Inspection/Auscultation: abdomen normal to inspection and normal bowel sounds Percussion/Palpation: + abdomen tender (upper abdomen) and abdomen soft; no hepatomegaly Results & Data Vital Signs (Past 12 Hours) Vital Signs Temp Pulse Pulse Resp BP Pulse Ox Pulse Ox 11/23/24 14:37 56 L 11/23/24 12:20 36.7 C 73 18 114/66 98 11/23/24 11:27 96 11/23/24 08:00 65 11/23/24 07:24 36.4 C L 89 18 134/88 97 O2 Del Method O2 Flow Rate 11/23/24 14:37 11/23/24 12:20 Room Air 11/23/24 11:27 0 11/23/24 08:00 11/23/24 07:24 Room Air Laboratory Results 11/23/24 11/22/24 11/22/24 Range/Units Unknown 23:08 20:14 WBC (4.8-10.8) K/ul RBC (4.20-5.40) M/uL Hgb (12.0-16.0) g/dl Hct (37.0-47.0) % MCV (80.0-100.0) fL MCH (25.0-34.0) pg MCHC (32.0-36.0) g/dL RDW Std Deviation (36.4-46.3) fL RDW Coeff of Donis (11.5-14.5) % Plt Count (130-400) K/uL MPV (9.4-12.4) fL Immature Gran % (Auto) % Neut % (Auto) % Lymph % (Auto) % [place] % (Auto) % Eos % (Auto) % Baso % (Auto) % Neut # (Auto) (1.40-6.50) K/uL Lymph # (Auto) (1.20-3.40) K/uL [place] # (Auto) (0.11-0.59) K/uL Eos # (Auto) (0.00-0.50) K/uL Baso # (Auto) (0.00-0.20) K/uL Immature Gran # (Auto) (0.01-0.20) K/uL PT (9.0-12.0) Seconds INR (0.9-1.1) APTT (21-31) Seconds PTT Ratio Sodium (136-145) mmol/L Potassium (3.5-5.1) mmol/L Chloride (98-107) mmol/L Carbon Dioxide (21-32) mmol/L Anion Gap (3-11) BUN (6-23) mg/dl Creatinine (0.6-1.2) mg/dl Est Cr Clr Drug Dosing ml/min eGFR BUN/Creatinine Ratio (10-20) Glucose (70-99(Fasting)) mg/dl Lactate 1.0 (0.4-2.0) mmol/L Calcium (8.6-10.3) mg/dl Magnesium (1.7-2.4) mg/dl Total Bilirubin (0.2-1.0) mg/dl AST (13-39) U/L ALT (7-52) U/L Alkaline Phosphatase (34-104) U/L Troponin I High Sens (0-14) pg/ml Total Protein (6.0-8.3) gm/dl Albumin (3.4-5.0) gm/dl Globulin (2.5-4.0) gm/dl Albumin/Globulin Ratio (0.9-2) Lipase (11-82) U/L TSH (0.300-4.500) uIu/ml Urine Color Yellow Urine Appearance Clear (Clear) Urine pH 7.5 (4.5-7.5) Ur Specific [place] 1.023 (1.000-1.030) Urine Protein Negative (Negative) Urine Glucose (UA) Negative (Negative) Urine Ketones Negative (Negative) Urine Blood 2+ H (Negative) Urine Nitrite Negative (Negative) Urine Bilirubin Negative (Negative) Urine Urobilinogen Negative (Negative) Ur Leukocyte Esterase Trace H (Negative) Urine WBC (Auto) 0-5 (0-5) /hpf Urine RBC (Auto) 11-20 H (0-2) /hpf U Hyaline Cast (Auto) 0-2 (0-2) /lpf U Epithel Cells (Auto) 0-2 (0-2) /hpf Urine Bacteria (Auto) None Seen (None Seen) SARS-CoV-2 (PCR) NEGATIVE (Negative) Influenza Type A (PCR) Negative (Neg) Influenza Type B (PCR) Negative (Neg) RSV (RT-PCR) Negative (Neg) 11/22/24 11/22/24 Range/Units 18:05 18:05 WBC 11.58 H (4.8-10.8) K/ul RBC 4.69 (4.20-5.40) M/uL Hgb 14.6 (12.0-16.0) g/dl Hct 43.8 (37.0-47.0) % MCV 93.4 (80.0-100.0) fL MCH 31.1 (25.0-34.0) pg MCHC 33.3 (32.0-36.0) g/dL RDW Std Deviation 42.5 (36.4-46.3) fL RDW Coeff of Donis 12.5 (11.5-14.5) % Plt Count 185 (130-400) K/uL MPV 10.1 (9.4-12.4) fL Immature Gran % (Auto) 0.4 % Neut % (Auto) 70.0 % Lymph % (Auto) 20.7 % [place] % (Auto) 7.9 % Eos % (Auto) 0.7 % Baso % (Auto) 0.3 % Neut # (Auto) 8.10 H (1.40-6.50) K/uL Lymph # (Auto) 2.40 (1.20-3.40) K/uL [place] # (Auto) 0.91 H (0.11-0.59) K/uL Eos # (Auto) 0.08 (0.00-0.50) K/uL Baso # (Auto) 0.04 (0.00-0.20) K/uL Immature Gran # (Auto) 0.05 (0.01-0.20) K/uL PT 11.1 (9.0-12.0) Seconds INR 1.0 (0.9-1.1) APTT 30 (21-31) Seconds PTT Ratio 1.1 Sodium 136 (136-145) mmol/L Potassium 4.1 (3.5-5.1) mmol/L Chloride 100 (98-107) mmol/L Carbon Dioxide 28 (21-32) mmol/L Anion Gap 8 (3-11) BUN 18 (6-23) mg/dl Creatinine 0.78 (0.6-1.2) mg/dl Est Cr Clr Drug Dosing 31.7 ml/min eGFR 73.92 BUN/Creatinine Ratio 23.1 H (10-20) Glucose 86 (70-99(Fasting)) mg/dl Lactate (0.4-2.0) mmol/L Calcium 9.7 (8.6-10.3) mg/dl Magnesium 2.2 (1.7-2.4) mg/dl Total Bilirubin 0.8 (0.2-1.0) mg/dl AST 28 (13-39) U/L ALT 14 (7-52) U/L Alkaline Phosphatase 104 (34-104) U/L Troponin I High Sens 10.0 (0-14) pg/ml Total Protein 7.5 (6.0-8.3) gm/dl Albumin 4.1 (3.4-5.0) gm/dl Globulin 3.4 (2.5-4.0) gm/dl Albumin/Globulin Ratio 1.2 (0.9-2) Lipase Cancelled 41 (11-82) U/L TSH 1.006 (0.300-4.500) uIu/ml Urine Color Urine Appearance (Clear) Urine pH (4.5-7.5) Ur Specific [place] (1.000-1.030) Urine Protein (Negative) Urine Glucose (UA) (Negative) Urine Ketones (Negative) Urine Blood (Negative) Urine Nitrite (Negative) Urine Bilirubin (Negative) Urine Urobilinogen (Negative) Ur Leukocyte Esterase (Negative) Urine WBC (Auto) (0-5) /hpf Urine RBC (Auto) (0-2) /hpf U Hyaline Cast (Auto) (0-2) /lpf U Epithel Cells (Auto) (0-2) /hpf Urine Bacteria (Auto) (None Seen) SARS-CoV-2 (PCR) (Negative) Influenza Type A (PCR) (Neg) Influenza Type B (PCR) (Neg) RSV (RT-PCR) (Neg) Diagnostic Findings Chest X-Ray 11/22/24 17:41 EXAM: Portable AP chest radiograph TECHNIQUE: AP portable radiograph of the chest was obtained. INDICATION: Chest pain Comparison: Chest radiograph June 28, 2024 FINDINGS: LINES and TUBES: None. CARDIOVASCULAR: Cardiac silhouette is stably enlarged in size. Atherosclerosis of the thoracic aorta LUNGS/PLEURA: No focal consolidation identified. Mild emphysema. No significant pleural fluid. No discernible pneumothorax. OSSEOUS/OTHER: No displaced acute osseous process identified. Surgical clips in the right upper quadrant of the abdomen IMPRESSION: Unchanged cardiomegaly. Electronically signed by Tony Greenberg 11-22-2024 6:35 PM Abdomen/Pelvis CT 11/22/24 18:24 CT of the abdomen pelvis with contrast Technique: Postcontrast axial images of the abdomen pelvis. Coronal and sagittal reformatted images made available for review Comparison made with prior exam dated 09/19/2024 Findings: Lung bases are clear. Postoperative changes prior cholecystectomy. Expected postoperative appearance of the intra and extrahepatic bile ducts with mild dilatation. Dense calcification at the origin of the celiac artery. Remaining solid abdominal organs unremarkable in appearance. No free air or intestinal obstruction. Moderate atherosclerotic change involving the common iliac arteries bilaterally. No significant lymphadenopathy or ascites within the abdomen or pelvis. Bone windows demonstrate no focal abnormality urinary bladder is unremarkable. Uterus is within normal limits. Impression: Postoperative changes prior cholecystectomy Dense calcification of the origin of the celiac artery. CT of the abdomen pelvis negative for acute intra-abdominal pathology. Electronically signed by Ghassan Perdomo 11-22-2024 8:03 PM Mesenteric US 11/23/24 00:00 EXAM: US duplex mesenteric CLINICAL HISTORY: epigastric pain,weight loss,abnl celiac art on CT TECHNIQUE: Ultrasound examination of the abdominal arteries was performed. Scanning was performed with the patient in supine position. One or more of the following were performed- spectral analysis, resistive index, waveform analysis, and pulsed Doppler. COMPARISON: Prior CT dated 09/19/2024 for comparison. FINDINGS: Limited exam due to patient inability to understand/follow commands. Abdominal aorta: PSV - 54 cm/s, EDV - 14 cm/s Superior mesenteric artery: Proximal: PSV - 107 cm/s, EDV - 15 cm/s Mid: PSV - 123 cm/s, EDV - 20 cm/s Distal: PSV - 73 cm/s, EDV - 8 cm/s Celiac artery: Proximal: PSV - 88 cm/s, EDV - 19 cm/s Abdominal aorta, celiac and superior mesenteric arteries show normal color flow and spectral waveform. No significant stenosis or occlusion seen. IMPRESSION: No significant vascular stenosis or occlusion seen in examined vessels. RECOMMENDATIONS: Clinical correlation with symptoms and further evaluation as indicated. Electronically signed by Spencer Gruber 11-23-2024 08:12 AM
--- NOTE | 2024-11-23 17:10 | XCELERA ---
[id number]
[2024-11-23] MEDS: ATORVASTATIN 10 MG TAB PO SCH (20:15)
--- NOTE | 2024-11-24 09:47 | Hospitalist Progress Note ---
Date of Service November 24, 2024 Assessment & Plan (1) Epigastric abdominal pain: Plan: -gastritis vs PUD -PPI -carafate -mesenteric US negative -GI consult appreciated -EGD pending (2) Failure to thrive: Plan: -Boost BID (3) Leukocytosis: Plan: thus far no source of infection found - CXR wnl; CT a/p without source; LFT S/lipase wnl; waiting on u/a and urine cx -COVID/flu/RSV negative (4) Precordial chest pain: Plan: per cardiology notes from [facility] this has been a chronic, ongoing issue for some time -due to pulmonary HTN? has significant right heart disease and severe TR on previous echo in 2023 -CXR today is wnl, and o2 sats are 100% in room air (5) Dementia: (6) Depression: (7) Hypothyroid: Plan: -con't synthroid (8) Hypertension: Plan: -metoprolol (9) Paroxysmal atrial fibrillation: Plan: -cont Eliquis 2.5mg BID -cont meto succ daily (10) History of stroke: (11) Abnormal CT of the abdomen: Plan: CT a/p noted heavy atherosclerosis of the origin of the celiac artery - mesenteric doppler negative Plan 84yo female, originally from [place] and Mandarin [place] speaking only - with history of dementia, stroke in 2019, PAF on Eliquis, hypothyroidism, cholecystectomy in 2022, HTN, and GERD - who presents from home with her daughter due to a host of symptoms including weakness/tiredness/fatigue, d ecreased strength, decreased appetite, shortness of breath (both at rest and with exertion), voice changes, burning sensation in chest, "heavy sensation" in her abdomen/abdominal pain, difficulty swallowing, and weight loss. Over the last 3-4 days the patient's abdominal pain worsened. She has been eating/drinking very little. Admission and Anticipated Discharge Date Admission Date: November 22, 2024 Subjective No events overnight. Pt's daughter states no complaints of abdominal pain. Review of Systems Review of Systems: CONST: Negative for fever, body aches and chills. HENT: Negative for neck pain/stiffness, headache, congestion, sore throat, swelling. EYES: Negative for discharge/pain or vision changes. RESP: Negative for cough/hemoptysis and shortness of breath. CV: Negative chest pain, difficulty breathing, palpitations. ABD: Negative pain, nausea, vomiting. : Negative increase frequency, dysuria, blood in urine or stool. MUSC: Negative for muscle aches, edema. SKIN: Negative rash, lesions/sores. NEURO: Negative headache, dizziness, weakness. Physical Exam Physical Exam: GENERAL APPEARANCE NAD, activity normal for age, well developed/ well nourished, no cyanosis, pallor, or diaphoresis. EYES lids/conjunctiva normal. EARS/NOSE/THROAT Mucous membranes moist, nares normal, lips/teeth normal uvula midline without oral pharyngeal erythema, exudate or swelling TMs normal bilaterally. No lymphangitis/lymphedema. HEAD/NECK normocephalic atraumatic, no facial trauma, neck is supple. RESPIRATORY respiratory effort normal, speaks in full sentences, no tripod position, no accessory muscle use. Lungs clear to auscultation without rhonchi, wheezes, rales CARDIAC Regular rate and rhythm, no edema. ABDOMINAL Soft, ND/NT. No evidence of fluid wave. No pulsatile masses on exam, rebound tenderness, Santana sign or pain over Mcburney's point. MUSCLES/EXTREMITIES No abnormal range of motion, no swelling. SKIN Warm, pink and dry. No rashes, dermatoses, petechiae or lesions. NEUROLOGICAL Speech is clear and appropriate. Normal level of consciousness. Gait and coordination are normal. 5/5 strength in all extremities. PSYCH Normal mood and affect. Judgement/competence is appropriate Results & Data Results & Data Vital Signs (Past 12 Hours) Vital Signs Temp Pulse Pulse Resp BP Pulse Ox O2 Del Method 11/24/24 07:53 36.5 C 62 16 113/68 95 Room Air 11/24/24 03:25 36.8 C 61 18 149/77 H 96 Room Air 11/23/24 23:33 36.7 C 67 18 128/74 96 Room Air 11/23/24 21:56 66 PG Care Time/CCT Total # of Minutes Spent Total Time Spent with Patient: Total time spent is greater than 50% in coordination of care (as documented) at patient's floor/unit and/or counseling patient: Coding Level of Care Code 64187 SUB INP/OBS CARE 2/35MIN Diagnoses Epigastric abdominal pain R10.13 Failure to thrive Leukocytosis D72.829 Leukocytosis type: unspecified Precordial chest pain R07.2 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 (3) Leukocytosis Leukocytosis type: unspecified Qualified Code(s): D72.829 - Elevated white blood cell count, unspecified (5) Dementia Dementia type: Alzheimer's Alzheimer's disease onset: late onset Dementia severity: mild Dementia behavioral or psychological symptom: with mood disturbance Qualified Code(s): G30.1 - Alzheimer's disease with late onset; F02.A3 - Dementia in other diseases classified elsewhere, mild, with mood disturbance
--- NOTE | 2024-11-24 15:32 | Anesthesiology Consultation ---
Date of Service November 24, 2024 Assessment & Plan Chart Review Chart Review: Acceptable Risk for Surgery and Patient NOT seen in Pre Admission Testing History Surgery Operation Date: 11/24/24 17:10 Proposed Procedures p Esophagogastroduodenoscopy Dr. Kathy Chavez Jr, MD Height/Weight Height: 4 ft 9.09 in Weight: 39.1 kg Allergies Allergy/AdvReac Type Severity Reaction Status Date / Time shellfish derived Allergy Intermediate Rash Verified 09/24/24 08:29 hydrochlorothiazide AdvReac Severe severe Verified 09/24/24 08:29 hyponatremia lactose AdvReac Abdominal Unverified 11/22/24 21:46 Pain Medications Home Medications Medication Instructions Recorded Confirmed Last Taken allopurinol 100 mg tablet 100 mg PO DAILY 01/21/23 11/22/24 11/22/24 apixaban 2.5 mg tablet (Eliquis) 2.5 mg PO BID 01/21/23 11/22/24 11/22/24 B-complex with vitamin C 1 cap PO DAILY 08/13/23 11/22/24 11/22/24 magnesium 250 mg tablet 250 mg PO DAILY 08/13/23 11/22/24 11/22/24 levothyroxine 50 mcg tablet 50 mcg PO DAILYBB #30 tabs 08/21/23 11/22/24 11/22/24 (Synthroid) atorvastatin 10 mg tablet 10 mg PO HS 09/19/24 11/22/24 11/21/24 cholecalciferol (vitamin D3) 50 50 mcg PO DAILY 09/19/24 11/22/24 11/22/24 mcg (2,000 unit) capsule (Vitamin D3) furosemide 20 mg tablet 20 mg PO QAM 09/19/24 11/22/24 11/22/24 glucosamine sulfate 500 mg tablet 500 mg PO BID 09/19/24 11/22/24 11/22/24 (Glucosamine) metoprolol succinate 25 mg 12.5 mg PO QDL 09/19/24 11/22/24 11/22/24 tablet,extended release 24 hr pantoprazole 40 mg tablet,delayed 40 mg PO DAILY 09/19/24 11/22/24 11/21/24 release sertraline 25 mg tablet 25 mg PO DAILY 11/22/24 11/22/24 11/22/24 Active Medications Generic Name Dose Route Start Last Admin Trade Name Anuradha PRN Reason Stop Dose Admin Allopurinol 100 mg 11/23/24 09:00 11/24/24 08:43 Allopurinol 100 Mg Tab PO 12/23/24 08:59 100 mg DAILY PERICO Administration Apixaban 2.5 mg 11/23/24 09:00 11/24/24 08:42 Apixaban 2.5 Mg Tab PO 12/23/24 08:59 2.5 mg BID PERICO Administration Atorvastatin Calcium 10 mg 11/23/24 21:00 11/23/24 20:15 Atorvastatin 10 Mg Tab PO 12/23/24 20:59 10 mg HS PERICO Administration Levothyroxine Sodium 50 mcg 11/23/24 06:30 11/24/24 06:08 Levothyroxine Sodium 50 Mcg Tablet PO 12/23/24 06:29 50 mcg DAILYBB PERICO Administration Magnesium Oxide 400 mg 11/23/24 09:00 11/24/24 08:43 Magnesium Oxide 400 Mg Tab PO 12/23/24 08:59 400 mg DAILY PERICO Administration Metoprolol Succinate 12.5 mg 11/23/24 11:30 11/24/24 12:10 Metoprolol Succ 25mg Ext Rel Tab PO 12/23/24 11:29 Not Given QDL PERICO Multivitamins/Minerals 1 tab 11/23/24 09:00 11/24/24 10:22 Cerovite Adv Formula Tab PO 12/23/24 08:59 Not Given QAM PERICO Pantoprazole Sodium 40 mg 11/23/24 09:00 11/24/24 08:42 Pantoprazole 40 Mg Tab PO 12/23/24 08:59 40 mg BID PERICO Administration Sertraline HCl 25 mg 11/23/24 09:00 11/24/24 08:43 Sertraline Hcl 50 Mg Tablet PO 12/23/24 08:59 25 mg DAILY PERICO Administration Sucralfate 1 gm 11/23/24 01:30 11/24/24 12:10 Sucralfate 1 Gm/10 Ml Udc PO 12/23/24 01:29 Not Given ACHS PERICO Vitamin D 50 mcg 11/23/24 09:00 11/24/24 08:43 Cholecalciferol 25 Mcg (1000 Units) Tab PO 12/23/24 08:59 50 mcg DAILY PERICO Administration Past Medical History Medical History Dementia CHF (congestive heart failure) Depression Hypothyroid Acute cholecystitis A-fib paroxysmal Hypertension Vertebral artery stenosis Stroke Past Family History Family History Mother High cholesterol Father Heart disease Hypertension High cholesterol Cancer Substance abuse Brother Heart disease High cholesterol Hypertension Substance abuse Son Hypertension High cholesterol Sister Gastric cancer Past Surgical History Surgical History Hx laparoscopic cholecystectomy (01/23/23) Laparoscopic Cholecystectomy(Not Applicable) - Yoan Beckford MD, FACS S/P hemorrhoidectomy H/O pneumonectomy H/O unilateral oophorectomy Social History Smoking Status: Never smoker Hx Alcohol Use: No Hx Substance Use: No substance use type: does not use Physical Exam Vital Signs Last Vital Signs Temp 36.3 C L 11/24/24 11:45 Pulse 63 11/24/24 11:45 Resp 16 11/24/24 11:45 BP 123/58 L 11/24/24 11:45 Pulse Ox 97 11/24/24 11:45 O2 Del Method Room Air 11/24/24 11:45 O2 Flow Rate 0 11/23/24 11:27 Testing Laboratory Results 11/22/24 18:05 11/22/24 18:05 PT 11.1 Seconds (9.0-12.0) 11/22/24 18:05 INR 1.0 (0.9-1.1) 11/22/24 18:05 APTT 30 Seconds (21-31) 11/22/24 18:05 Urine Color Yellow 11/23/24 Unknown Urine Appearance Clear (Clear) 11/23/24 Unknown Urine pH 7.5 (4.5-7.5) 11/23/24 Unknown Ur Specific [place] 1.023 (1.000-1.030) 11/23/24 Unknown Urine Protein Negative (Negative) 11/23/24 Unknown Urine Glucose (UA) Negative (Negative) 11/23/24 Unknown Urine Ketones Negative (Negative) 11/23/24 Unknown Urine Nitrite Negative (Negative) 11/23/24 Unknown Ur Leukocyte Esterase Trace (Negative) H 11/23/24 Unknown Urine WBC (Auto) 0-5 /hpf (0-5) 11/23/24 Unknown Urine RBC (Auto) 11-20 /hpf (0-2) H 11/23/24 Unknown U Hyaline Cast (Auto) 0-2 /lpf (0-2) 11/23/24 Unknown U Epithel Cells (Auto) 0-2 /hpf (0-2) 11/23/24 Unknown Urine Bacteria (Auto) None Seen (None Seen) 11/23/24 Unknown 11/23/24 Unknown Urine Culture - Preliminary Urine,Straight Cath Pin-point growth present, reincubating.
--- NOTE | 2024-11-24 15:32 | History & Physical Report ---
Date of Service November 24, 2024 Assessment & Plan (1) Epigastric abdominal pain: Plan: Patient who needs EGD for evaluation of abdominal pain and inability to eat. Procedure and risks discussed through barking machine feeder. She agrees Admission and Anticipated Discharge Date Admission Date: November 22, 2024 History of Present Illness Chief Complaint: for EGD Primary Care Provider: Sanjiv Serrano 84 year old inpatient who needs EGD for burning abdominal pain and inability to eat. Allergies Allergy/AdvReac Type Severity Reaction Status Date / Time shellfish derived Allergy Intermediate Rash Verified 09/24/24 08:29 hydrochlorothiazide AdvReac Severe severe Verified 09/24/24 08:29 hyponatremia lactose AdvReac Abdominal Unverified 11/22/24 21:46 Pain Home Medications Medication Instructions Recorded Confirmed Type allopurinol 100 mg tablet 100 mg PO DAILY 01/21/23 11/22/24 History apixaban 2.5 mg tablet (Eliquis) 2.5 mg PO BID 01/21/23 11/22/24 History B-complex with vitamin C 1 cap PO DAILY 08/13/23 11/22/24 History magnesium 250 mg tablet 250 mg PO DAILY 08/13/23 11/22/24 History levothyroxine 50 mcg tablet 50 mcg PO DAILYBB #30 tabs 08/21/23 11/22/24 Rx (Synthroid) atorvastatin 10 mg tablet 10 mg PO HS 09/19/24 11/22/24 History cholecalciferol (vitamin D3) 50 50 mcg PO DAILY 09/19/24 11/22/24 History mcg (2,000 unit) capsule (Vitamin D3) furosemide 20 mg tablet 20 mg PO QAM 09/19/24 11/22/24 History glucosamine sulfate 500 mg tablet 500 mg PO BID 09/19/24 11/22/24 History (Glucosamine) metoprolol succinate 25 mg 12.5 mg PO QDL 09/19/24 11/22/24 History tablet,extended release 24 hr pantoprazole 40 mg tablet,delayed 40 mg PO DAILY 09/19/24 11/22/24 History release sertraline 25 mg tablet 25 mg PO DAILY 11/22/24 11/22/24 History Past Med/Surg History Problem List Dyspnea on exertion Abnormal CT of the abdomen History of stroke Paroxysmal atrial fibrillation Severe protein-calorie malnutrition Failure to thrive Leukocytosis (Acute) Weight loss (Acute) Epigastric abdominal pain (Acute) Weakness (Acute) Precordial chest pain (Acute) Ambulatory dysfunction Hypokalemia Electrolyte abnormality Elevated TSH (Acute) Thrombocytopenia (Acute) Edema due to hypervolemia (Acute) Hypomagnesemia (Acute) Hyponatremia (Acute) Elevated LFTs Muscle spasm of right leg Weakness (Acute) Cholecystitis (Acute) Fall (Acute) Slurred speech (Acute) Medical History Dementia CHF (congestive heart failure) Depression Hypothyroid Acute cholecystitis A-fib paroxysmal Hypertension Vertebral artery stenosis Stroke Surgical History Hx laparoscopic cholecystectomy (01/23/23) Laparoscopic Cholecystectomy(Not Applicable) - Yoan Beckford MD, FACS S/P hemorrhoidectomy H/O pneumonectomy H/O unilateral oophorectomy Family History Mother High cholesterol Father Heart disease Hypertension High cholesterol Cancer Substance abuse Brother Heart disease High cholesterol Hypertension Substance abuse Son Hypertension High cholesterol Sister Gastric cancer Social History Smoking Status: Never smoker Second Hand Exposure: No; Hx Alcohol Use: No Hx Substance Use: No Preferred Language: Mandarin Mohawk Communication Ability: Effective Communication Ability Comment: Used community service officer and provided translation paper Communication Tools: Physical Gestures, Assembler Cards And Announcements Cards and Other Visual Impairment: Limited Test Fixture Designer Required: Yes Beliefs That Will Affect Care: None marital status: / Current Living Situation: Family Current Living Situation Comment: lives with daughter in [place] current occupational status: retired current occupation: [employer] in [employer] How many Children do You have: 3 Feels Safe at Home: Yes Assistive Devices: Walker and Wheelchair Physical Exam Constitutional: WD/WN, vitals as above Respiratory: normal respiratory effort, lungs clear to auscultation Cardiovascular: RRR, no murmur, no edema ASA Classification ASA ASA3 Results & Data Vital Signs (Past 12 Hours) Vital Signs Temp Pulse Resp BP Pulse Ox O2 Del Method 11/24/24 11:45 36.3 C L 63 16 123/58 L 97 Room Air 11/24/24 07:53 36.5 C 62 16 113/68 95 Room Air Code Status & VTE Plan VTE Prophylaxis Plan VTE Prophylaxis will be ordered: Yes
--- NOTE | 2024-11-24 15:50 | GI REPORT ---
[facility] Patient: LEIGH ANN WISE : 1940 Sex at : Female Age: 84 Years Procedure: Upper GI endoscopy Date: 11/24/2024 Attending Physician: Tanya Chavez MD Referring MD: Deion Bradley MD Indications: - Epigastric abdominal pain Medications: - Monitored Anesthesia Care - Propofol per Anesthesia - See the Anesthesia note for documentation of the administered medications Complications: - No immediate complications. Estimated Blood Loss: - Estimated blood loss: None. Procedure: - ASA Grade Assessment: III - A patient with severe systemic disease. - The egd scope was introduced through the mouth and advanced to the second part of the duodenum. - The upper GI endoscopy was accomplished without difficulty. - The patient tolerated the procedure well. Findings: - The examined esophagus was normal. - The entire examined stomach was normal. Biopsies were taken with a cold forceps for histology. - The examined duodenum was normal. Impression: - Normal esophagus. - Normal stomach. Biopsied. - Normal examined duodenum. Recommendation: - [facility]. Procedure Code(s): - 47011, Esophagogastroduodenoscopy, flexible, transoral; with biopsy, single or multiple Diagnosis Code(s): - R10.13, Epigastric pain CPT(R) - 2022 copyright [employer]. All Rights Reserved. The CPT codes, CCI edits and ICD codes generated are intended as suggestions and were generated based on input data. These codes are preliminary and upon label maker review may be revised to meet current compliance and payer requirements. The provider is responsible for the final determination of appropriate codes, and modifiers. Dr. Tanya Chavez MD This document has been electronically signed. Note Initiated:11/24/2024 Note Completed:11/24/2024 3:50 PM \\[id number]
--- NOTE | 2024-11-24 15:54 | Electrocardiogram Report ---
Test Reason : Blood Pressure : */* mmHG Vent. Rate : 71 BPM Atrial Rate : 71 BPM P-R Int : 216 ms QRS Dur : 66 ms QT Int : 448 ms P-R-T Axes : 64 46 36 degrees QTcB Int : 486 ms Sinus rhythm with 1st degree A-V block Otherwise normal ECG When compared with ECG of 19-Sep-2024 19:00, Sinus rhythm has replaced Atrial fibrillation Confirmed by Karri Gillette ([id number]) on 11/24/2024 3:54:45 PM Referred By: REFERRED SELF Confirmed By: Karri Gillette
--- NOTE | 2024-11-24 17:09 | Anesthesiology Progress Note ---
Date of Service November 24, 2024 Anesthesia Post Procedure Vital Signs Vital Signs: Temp Pulse Pulse Resp BP Pulse Ox O2 Del Method 11/24/24 16:48 36.4 C L 67 16 142/70 H 98 Room Air 11/24/24 16:24 68 16 142/65 H 98 Room Air 11/24/24 16:09 66 15 137/59 L 98 Room Air 11/24/24 15:54 65 15 106/54 L 98 Room Air 11/24/24 15:28 36.2 C L 71 14 155/73 H 100 Room Air 11/24/24 11:45 36.3 C L 63 16 123/58 L 97 Room Air 11/24/24 07:53 36.5 C 62 16 113/68 95 Room Air 11/24/24 03:25 36.8 C 61 18 149/77 H 96 Room Air 11/23/24 23:33 36.7 C 67 18 128/74 96 Room Air 11/23/24 21:56 66 11/23/24 19:54 36.7 C 66 18 127/57 L 97 Room Air Transfer of Care Handoff Completed per policy Notes Mental Status: alert / awake / arousable and participated in evaluation Patient Amnestic to Procedure: Yes Nausea / Vomiting: adequately controlled Pain: adequately controlled Airway Patency, RR, SpO2: stable & adequate BP & HR: stable & adequate Hydration State: stable & adequate Anesthetic Complications: no major complications apparent
[2024-11-24] MEDS: LIDOCAINE 2% 2 ML VIAL/AMP(20MG/ML) INFIL ONE ×2 (17:29)
[2024-11-24] MEDS: PROPOFOL IV EMULSION 10 MG/ML 20 ML VIAL IV ONE (17:29)
[2024-11-24 19:56] VITALS: O2SAT 97
[2024-11-24 23:41] VITALS: RESP 16
[2024-11-25 08:01] VITALS: BP 141/85; PULSE 107; TEMP 97.9
--- NOTE | 2024-11-25 10:48 | Discharge Summary ---
Discharge Summary Date of Service November 25, 2024 Principal Dx & Hospital Course #1 = Principal Diagnosis (1) Epigastric abdominal pain: -gastritis vs PUD -PPI -carafate -mesenteric US negative -GI consult appreciated -EGD negative (2) Failure to thrive: -Boost BID (3) Leukocytosis: thus far no source of infection found - CXR wnl; CT a/p without source; LFTS/lipase wnl; waiting on u/a and urine cx -COVID/flu/RSV negative (4) Precordial chest pain: per cardiology notes from [facility] this has been a chronic, ongoing issue for some time -due to pulmonary HTN? 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 Over the last 3-4 days the patient's abdominal pain worsened. She has been eating/drinking very little. Admission HPI Per Admitting Provider 84 year old inpatient who needs EGD for burning abdominal pain and inability to eat. Discharge Exam GENERAL APPEARANCE NAD, activity normal for age, well developed/ well nourished, no cyanosis, pallor, or diaphoresis. EYES lids/conjunctiva normal. EARS/NOSE/THROAT Mucous membranes moist, nares normal, lips/teeth normal uvula midline without oral pharyngeal erythema, exudate or swelling TMs normal bilaterally. No lymphangitis/lymphedema. HEAD/NECK normocephalic atraumatic, no facial trauma, neck is supple. RESPIRATORY respiratory effort normal, speaks in full sentences, no tripod position, no accessory muscle use. Lungs clear to auscultation without rhonchi, wheezes, rales CARDIAC Regular rate and rhythm, no edema. ABDOMINAL Soft, ND/NT. No evidence of fluid wave. No pulsatile masses on exam, rebound tenderness, Santana sign or pain over Mcburney's point. MUSCLES/EXTREMITIES No abnormal range of motion, no swelling. SKIN Warm, pink and dry. No rashes, dermatoses, petechiae or lesions. NEUROLOGICAL Speech is clear and appropriate. Normal level of consciousness. Gait and coordination are normal. 5/5 strength in all extremities. PSYCH Normal mood and affect. Judgement/competence is appropriate Discharge Plan Discharge Items Patient Disposition: Home - Self-Care Reason For Visit: ABDOMINAL PAIN, CHEST PAIN, WEIGHT LOSS, DYSPNEA Discharge Diagnosis: Dyspepsia Condition on Discharge: Fair Activity: Resume your previous activity Non-emergency contact: Primary Care Provider Call non-emergency contact if: you have any medication questions Follow-up/Referrals: Sanjiv Serrano [Primary Care Provider] - Diet: Regular Addtl Attending Provider Instructions: Follow up with PMD in 2 weeks Pending Studies at Discharge: No Stand-Alone Forms: My [facility], Smoking Cessation Medications and DC Order Prescriptions: Continued allopurinol 100 mg Tablet 100 mg PO DAILY Eliquis 2.5 mg Tablet 2.5 mg PO BID atorvastatin 10 mg tablet 10 mg PO HS glucosamine sulfate [Glucosamine] 500 mg Tablet 500 mg PO BID Rx Instructions: administer with meals pantoprazole 40 mg tablet,delayed release (DR/EC) 40 mg PO DAILY furosemide 20 mg tablet 20 mg PO QAM metoprolol succinate 25 mg tablet extended release 24 hr 12.5 mg PO QDL cholecalciferol (vitamin D3) [Vitamin D3] 50 mcg (2,000 unit) Capsule 50 mcg PO DAILY magnesium 250 mg Tablet 250 mg PO DAILY B-complex with vitamin C Capsule 1 cap PO DAILY levothyroxine [Synthroid] 50 mcg Tablet 50 mcg PO DAILYBB Qty: 30 0RF Rx Instructions: PT TAKES IN THE MIDDLE OF THE NIGHT SOMETIME BETWEEN 1 AM AND 5 AM sertraline 25 mg tablet 25 mg PO DAILY Discharge Orders: Discharge Order (Routine); Ordered 06/26/25 Ordered By: Deion Bradley Admission Data Admit Date/Time: 11/22/24 22:39 Attending Provider: Deion Bradley Admit Provider: Alden Cuellar Primary Care Provider: Sanjiv Serrano Other Providers: Alden Cuellar; Tanya Chavez Jr Hospital Stay Data Consultations 11/22/24 20:52 ED Decision to Admit Stat 11/23/24 01:17 Consult Gastroenterology Routine Procedures Performed Operation Date: 11/24/24 17:10 Actual Procedures p EGD Biopsy Cytology - Tanya Chavez Jr, MD Diagnostic Imagining Performed 11/22/24 18:24 CT Abd and Pelvis [CT abd pelvis IV con only] Stat 11/23/24 US duplex mesenteric Routine Pending Results Patient Have Any Pending Studies at Discharge: No Discharge Instructions Given to Patient (Per Discharging Provider) Follow up with PMD in 2 weeks Total Time Total Time Spent Total Time Spent (In Minutes): 50 Coding Level of Care Code 58808 INP/OBS DISCH >30 MIN Diagnoses Epigastric abdominal pain R10.13 Failure to thrive Leukocytosis D72.829 Leukocytosis type: unspecified Precordial chest pain R07.2 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
== END 2024-11-25 11:29 | disposition home or self-care (01) ==
LOC: ED 17:27 → INTOOBSV 22:39 → SUATTDRO 22:39 → 2S 22:39